=== PATIENT | male | born 1990 | race Caucasian/White ===

== ENCOUNTER 2020-06-13 13:33 | Outpatient (REF) | payer OTHER, SELFPAY ==
[2020-06-13 14:05] LABS: MANUAL DIFF FLAG NO
[2020-06-13 14:09] LABS: Basophils Percent Auto 0.4 % (0-2); Eosinophils Absolute Auto 0.1 X10*3/uL (0.0-0.4); Hematocrit 44.1 % (42-52); Hemoglobin 14.8 g/dl (14.0-18.0); Imm Gran Abs Auto 0.01 X10*3/uL (0.00-0.03); Imm Gran Pct Auto 0.2 % (0.0-0.4); Mean Corpuscular HGB Conc 33.6 g/dl (31.0-36.0); Mean Corpuscular Hemoglobin 29.4 pg (27.0-33.0); Mean Corpuscular Volume 87.7 fL (80-98); Mean Platelet Volume 10.7 fL (9.4-12.4); Monocytes Absolute Auto 0.7 X10*3/uL (0.1-1.2); Monocytes Percent Auto 14.2 % (2-11); Neutrophils Absolute Auto 3.3 X10*3/uL (2.0-8.3); Neutrophils Percent Auto 64.2 % (45-73); Platelet Count 168 X10*3/uL (160-400); Red Blood Count 5.03 X10*6/uL (4.60-5.80); Red Cell Distribution Width 12.4 % (11.0-16.0); White Blood Count 5.1 X10*3/uL (4.8-10.8)
== END 2020-06-13 13:34 | disposition home or self-care (01) ==
LOC: HO.LAB 13:33
PROVIDERS: PCP Internal Medicine; Visit Provider Clinical Nurse Specialist Psychiatric/Mental Health, Adult
DX: Z79.899 Other long term (current) drug therapy (principal)
CPT/HCPCS: 36415; 85025

== ENCOUNTER 2020-07-03 11:47 | Outpatient (REF) | payer OTHER, SELFPAY ==
[2020-07-03 12:44] LABS: MANUAL DIFF FLAG NO
[2020-07-03 12:47] LABS: Basophils Percent Auto 0.3 % (0-2); Eosinophils Absolute Auto 0.1 X10*3/uL (0.0-0.4); Eosinophils Percent Auto 0.8 % (0-4); Hematocrit 46.3 % (42-52); Hemoglobin 15.3 g/dl (14.0-18.0); Imm Gran Abs Auto 0.01 X10*3/uL (0.00-0.03); Imm Gran Pct Auto 0.2 % (0.0-0.4); Lymphocytes Absolute Auto 1.1 X10*3/uL (1.2-4.9); Lymphocytes Percent Auto 18.6 % (20-40); Mean Corpuscular Volume 87.7 fL (80-98); Mean Platelet Volume 10.5 fL (9.4-12.4); Monocytes Absolute Auto 0.8 X10*3/uL (0.1-1.2); Monocytes Percent Auto 13.8 % (2-11); Neutrophils Percent Auto 66.3 % (45-73); Platelet Count 172 X10*3/uL (160-400); Red Blood Count 5.28 X10*6/uL (4.60-5.80); Red Cell Distribution Width 12.4 % (11.0-16.0); White Blood Count 6.1 X10*3/uL (4.8-10.8)
== END 2020-07-03 11:48 | disposition home or self-care (01) ==
LOC: HO.LAB 11:47
PROVIDERS: PCP Internal Medicine; Visit Provider Clinical Nurse Specialist Psychiatric/Mental Health, Adult
DX: Z79.899 Other long term (current) drug therapy (principal)
CPT/HCPCS: 36415; 85025

== ENCOUNTER 2020-08-14 12:07 | Outpatient (REF) | payer OTHER, SELFPAY ==
[2020-08-14 12:48] LABS: MANUAL DIFF FLAG NO
[2020-08-14 12:57] LABS: Basophils Percent Auto 0.5 % (0-2); Eosinophils Absolute Auto 0.1 X10*3/uL (0.0-0.4); Hematocrit 45.6 % (42-52); Hemoglobin 14.8 g/dl (14.0-18.0); Imm Gran Abs Auto 0.02 X10*3/uL (0.00-0.03); Imm Gran Pct Auto 0.3 % (0.0-0.4); Lymphocytes Absolute Auto 1.1 X10*3/uL (1.2-4.9); Lymphocytes Percent Auto 17.6 % (20-40); Mean Corpuscular HGB Conc 32.5 g/dl (31.0-36.0); Mean Corpuscular Hemoglobin 28.2 pg (27.0-33.0); Mean Corpuscular Volume 86.9 fL (80-98); Mean Platelet Volume 10.4 fL (9.4-12.4); Monocytes Absolute Auto 0.8 X10*3/uL (0.1-1.2); Monocytes Percent Auto 13.8 % (2-11); Neutrophils Percent Auto 66.8 % (45-73); Platelet Count 173 X10*3/uL (160-400); Red Blood Count 5.25 X10*6/uL (4.60-5.80); Red Cell Distribution Width 12.7 % (11.0-16.0)
== END 2020-08-14 12:08 | disposition home or self-care (01) ==
LOC: HO.LABR 12:07
PROVIDERS: PCP Internal Medicine; Visit Provider Clinical Nurse Specialist Psychiatric/Mental Health, Adult
DX: Z79.899 Other long term (current) drug therapy (principal)
CPT/HCPCS: 36415; 85025

== ENCOUNTER 2020-09-11 12:54 | Outpatient (REF) | payer OTHER, SELFPAY ==
[2020-09-11 14:15] LABS: Basophils Percent Auto 0.3 % (0-2); Eosinophils Percent Auto 0.3 % (0-4); Hematocrit 47.1 % (42-52); Hemoglobin 15.5 g/dl (14.0-18.0); Imm Gran Abs Auto 0.01 X10*3/uL (0.00-0.03); Imm Gran Pct Auto 0.2 % (0.0-0.4); Lymphocytes Absolute Auto 0.9 X10*3/uL (1.2-4.9); Lymphocytes Percent Auto 15.2 % (20-40); MANUAL DIFF FLAG NO; Mean Corpuscular HGB Conc 32.9 g/dl (31.0-36.0); Mean Corpuscular Hemoglobin 28.8 pg (27.0-33.0); Mean Corpuscular Volume 87.5 fL (80-98); Mean Platelet Volume 10.6 fL (9.4-12.4); Monocytes Absolute Auto 0.7 X10*3/uL (0.1-1.2); Monocytes Percent Auto 12.8 % (2-11); Neut%MD 71.2 %; Neutrophils Absolute Auto 4.1 X10*3/uL (2.0-8.3); Neutrophils Percent Auto 71.2 % (45-73); Platelet Count 172 X10*3/uL (160-400); Red Blood Count 5.38 X10*6/uL (4.60-5.80); Red Cell Distribution Width 12.7 % (11.0-16.0); WBCANC 5.8 X10*3/uL; White Blood Count 5.8 X10*3/uL (4.8-10.8)
== END 2020-09-11 12:55 | disposition home or self-care (01) ==
LOC: HO.LABR 12:54
PROVIDERS: PCP Internal Medicine; Visit Provider Clinical Nurse Specialist Psychiatric/Mental Health, Adult
DX: Z79.899 Other long term (current) drug therapy (principal)
CPT/HCPCS: 36415; 85025; 85048

== ENCOUNTER 2020-10-09 12:26 | Outpatient (REF) | payer OTHER, SELFPAY ==
[2020-10-09 13:21] LABS: MANUAL DIFF FLAG NO
[2020-10-09 13:27] LABS: Basophils Percent Auto 0.9 % (0-2); Eosinophils Percent Auto 0.6 % (0-4); Hematocrit 45.5 % (42-52); Hemoglobin 15.3 g/dl (14.0-18.0); Imm Gran Abs Auto 0.01 X10*3/uL (0.00-0.03); Imm Gran Pct Auto 0.2 % (0.0-0.4); Lymphocytes Absolute Auto 1.2 X10*3/uL (1.2-4.9); Lymphocytes Percent Auto 25.9 % (20-40); Mean Corpuscular HGB Conc 33.6 g/dl (31.0-36.0); Mean Corpuscular Hemoglobin 29.1 pg (27.0-33.0); Mean Corpuscular Volume 86.5 fL (80-98); Mean Platelet Volume 10.3 fL (9.4-12.4); Monocytes Absolute Auto 0.7 X10*3/uL (0.1-1.2); Monocytes Percent Auto 14.5 % (2-11); Neutrophils Absolute Auto 2.7 X10*3/uL (2.0-8.3); Neutrophils Percent Auto 57.9 % (45-73); Platelet Count 181 X10*3/uL (160-400); Red Blood Count 5.26 X10*6/uL (4.60-5.80); Red Cell Distribution Width 12.9 % (11.0-16.0); White Blood Count 4.7 X10*3/uL (4.8-10.8)
[2020-10-14 03:37] LABS: Clozapine (Clozaril) 38 mcg/L; Norclozapine 18 mcg/L (25-400)
== END 2020-10-09 12:27 | disposition home or self-care (01) ==
LOC: HO.LABR 12:26
PROVIDERS: PCP Internal Medicine; Visit Provider Clinical Nurse Specialist Psychiatric/Mental Health, Adult
DX: Z79.899 Other long term (current) drug therapy (principal)
CPT/HCPCS: 36415; 80159; 85025

== ENCOUNTER 2020-11-06 13:54 | Outpatient (REF) | payer OTHER, SELFPAY ==
[2020-11-06 14:22] LABS: MANUAL DIFF FLAG NO
[2020-11-06 14:27] LABS: Basophils Percent Auto 0.5 % (0-2); Eosinophils Absolute Auto 0.1 X10*3/uL (0.0-0.4); Hematocrit 45.4 % (42-52); Hemoglobin 15.2 g/dl (14.0-18.0); Imm Gran Abs Auto 0.01 X10*3/uL (0.00-0.03); Imm Gran Pct Auto 0.2 % (0.0-0.4); Lymphocytes Absolute Auto 1.6 X10*3/uL (1.2-4.9); Lymphocytes Percent Auto 27.7 % (20-40); Mean Corpuscular HGB Conc 33.5 g/dl (31.0-36.0); Mean Corpuscular Hemoglobin 28.6 pg (27.0-33.0); Mean Corpuscular Volume 85.3 fL (80-98); Mean Platelet Volume 10.5 fL (9.4-12.4); Monocytes Absolute Auto 0.7 X10*3/uL (0.1-1.2); Monocytes Percent Auto 12.2 % (2-11); Neut%MD 58.4 %; Neutrophils Absolute Auto 3.4 X10*3/uL (2.0-8.3); Neutrophils Percent Auto 58.4 % (45-73); Platelet Count 158 X10*3/uL (160-400); Red Blood Count 5.32 X10*6/uL (4.60-5.80); Red Cell Distribution Width 12.5 % (11.0-16.0); WBCANC 5.8 X10*3/uL; White Blood Count 5.8 X10*3/uL (4.8-10.8)
== END 2020-11-06 13:55 | disposition home or self-care (01) ==
LOC: HO.LABR 13:54
PROVIDERS: PCP Internal Medicine; Visit Provider Clinical Nurse Specialist Psychiatric/Mental Health, Adult
DX: Z79.899 Other long term (current) drug therapy (principal)
CPT/HCPCS: 36415; 85025; 85048

== ENCOUNTER 2020-12-01 13:23 | Outpatient (REF) | payer OTHER, SELFPAY ==
[2020-12-01 14:09] LABS: MANUAL DIFF FLAG NO
[2020-12-01 14:16] LABS: Basophils Percent Auto 0.5 % (0-2); Eosinophils Absolute Auto 0.1 X10*3/uL (0.0-0.4); Hematocrit 45.8 % (42-52); Hemoglobin 15.3 g/dl (14.0-18.0); Imm Gran Abs Auto 0.02 X10*3/uL (0.00-0.03); Imm Gran Pct Auto 0.3 % (0.0-0.4); Lymphocytes Absolute Auto 1.1 X10*3/uL (1.2-4.9); Lymphocytes Percent Auto 18.2 % (20-40); Mean Corpuscular HGB Conc 33.4 g/dl (31.0-36.0); Mean Corpuscular Hemoglobin 28.8 pg (27.0-33.0); Mean Corpuscular Volume 86.3 fL (80-98); Mean Platelet Volume 10.4 fL (9.4-12.4); Monocytes Absolute Auto 0.8 X10*3/uL (0.1-1.2); Monocytes Percent Auto 13.2 % (2-11); Neut%MD 66.8 %; Neutrophils Absolute Auto 3.9 X10*3/uL (2.0-8.3); Neutrophils Percent Auto 66.8 % (45-73); Platelet Count 199 X10*3/uL (160-400); Red Blood Count 5.31 X10*6/uL (4.60-5.80); Red Cell Distribution Width 12.7 % (11.0-16.0); WBCANC 5.8 X10*3/uL; White Blood Count 5.8 X10*3/uL (4.8-10.8)
== END 2020-12-01 13:24 | disposition home or self-care (01) ==
LOC: HO.LABR 13:23
PROVIDERS: PCP Internal Medicine; Visit Provider Clinical Nurse Specialist Psychiatric/Mental Health, Adult
DX: Z79.899 Other long term (current) drug therapy (principal)
CPT/HCPCS: 36415; 85025; 85048

== ENCOUNTER 2021-01-01 09:22 | Outpatient (REF) | payer OTHER, SELFPAY ==
[2021-01-01 10:23] LABS: MANUAL DIFF FLAG NO
[2021-01-01 10:35] LABS: Basophils Percent Auto 0.5 % (0-2); Eosinophils Absolute Auto 0.1 X10*3/uL (0.0-0.4); Eosinophils Percent Auto 2.9 % (0-4); Hematocrit 46.3 % (42-52); Hemoglobin 15.4 g/dl (14.0-18.0); Imm Gran Abs Auto 0.02 X10*3/uL (0.00-0.03); Imm Gran Pct Auto 0.5 % (0.0-0.4); Lymphocytes Percent Auto 24.6 % (20-40); Mean Corpuscular HGB Conc 33.3 g/dl (31.0-36.0); Mean Corpuscular Hemoglobin 28.9 pg (27.0-33.0); Mean Corpuscular Volume 86.9 fL (80-98); Mean Platelet Volume 11.1 fL (9.4-12.4); Monocytes Absolute Auto 0.7 X10*3/uL (0.1-1.2); Neut%MD 53.5 %; Neutrophils Absolute Auto 2.2 X10*3/uL (2.0-8.3); Neutrophils Percent Auto 53.5 % (45-73); Platelet Count 140 X10*3/uL (160-400); Red Blood Count 5.33 X10*6/uL (4.60-5.80); Red Cell Distribution Width 13.1 % (11.0-16.0); WBCANC 4.1 X10*3/uL; White Blood Count 4.1 X10*3/uL (4.8-10.8)
== END 2021-01-01 09:23 | disposition home or self-care (01) ==
LOC: HO.LABR 09:22
PROVIDERS: PCP Internal Medicine; Visit Provider Clinical Nurse Specialist Psychiatric/Mental Health, Adult
DX: Z79.899 Other long term (current) drug therapy (principal)
CPT/HCPCS: 36415; 85025; 85048

== ENCOUNTER 2021-01-30 11:03 | Outpatient (REF) | payer OTHER, SELFPAY ==
[2021-01-30 12:27] LABS: MANUAL DIFF FLAG NO
[2021-01-30 12:41] LABS: Basophils Percent Auto 0.5 % (0-2); Eosinophils Percent Auto 0.8 % (0-4); Hematocrit 46.4 % (42-52); Hemoglobin 15.4 g/dl (14.0-18.0); Imm Gran Abs Auto 0.01 X10*3/uL (0.00-0.03); Imm Gran Pct Auto 0.3 % (0.0-0.4); Lymphocytes Absolute Auto 0.9 X10*3/uL (1.2-4.9); Lymphocytes Percent Auto 24.3 % (20-40); Mean Corpuscular HGB Conc 33.2 g/dl (31.0-36.0); Mean Corpuscular Hemoglobin 28.8 pg (27.0-33.0); Mean Corpuscular Volume 86.9 fL (80-98); Mean Platelet Volume 10.8 fL (9.4-12.4); Monocytes Absolute Auto 0.6 X10*3/uL (0.1-1.2); Monocytes Percent Auto 15.5 % (2-11); Neut%MD 58.6 %; Neutrophils Absolute Auto 2.2 X10*3/uL (2.0-8.3); Neutrophils Percent Auto 58.6 % (45-73); Platelet Count 160 X10*3/uL (160-400); Red Blood Count 5.34 X10*6/uL (4.60-5.80); Red Cell Distribution Width 12.9 % (11.0-16.0); WBCANC 3.8 X10*3/uL; White Blood Count 3.8 X10*3/uL (4.8-10.8)
== END 2021-01-30 11:04 | disposition home or self-care (01) ==
LOC: HO.LABR 11:03
PROVIDERS: PCP Internal Medicine; Visit Provider Clinical Nurse Specialist Psychiatric/Mental Health, Adult
DX: Z79.899 Other long term (current) drug therapy (principal)
CPT/HCPCS: 36415; 85025; 85048

== ENCOUNTER 2021-02-12 09:08 | Inpatient (IN) | payer OTHER, SELFPAY ==
[2021-02-12 09:54] VITALS: BP 136/86; PULSE 73; TEMP 36.6; O2SAT 99; BMI 23.1
[2021-02-12 10:00] LABS: Glucose Urine UA NEG (NEG); Leukocyte Esterase Urine NEG (NEG); Nitrite Urine NEG (NEG); Urine Blood NEG (NEG); Urine Ketones 5 MG/DL (NEG); Urine Protein NEG (NEG-TRACE)
[2021-02-12 10:05] LABS: Appearance Urine CLEAR; Color Urine YELLOW
[2021-02-12 10:19] LABS: Amphetamine Screen Urine Not Detected (Not Detect); Barbiturates, Urine Not Detected (Not Detect); Benzodiazepines Screen Urine Not Detected (Not Detect); Cannabinoid Screen Urine Not Detected (Not Detect); Cocaine Screen Urine Not Detected (Not Detect); Opiate Screen Urine Not Detected (Not Detect); Phencyclidine Screen Urine Not Detected (Not Detect)
--- NOTE | 2021-02-12 10:30 | ED.PSYCH ---
HPI - Psych General Chief Complaint: Psychiatric Symptoms Stated Complaint: crisis Time Seen by Provider: 02/12/21 09:42 Source: patient Mode of arrival: ambulatory History of Present Illness HPI Narrative: 30-year-old male with a past medical history of schizoaffective disorder, bipolar, presenting to the ED reporting he needs rest/somewhere to sleep x2 weeks. Admits to feeling manic, however states he is compliant with his medications daily. Denies SI/HI. Denies illicit drug/ETOH use. Denies cough, fever, chills, CP/SOB, abdominal pain, nausea/vomiting Related Data Home Medications Medication Instructions Recorded Confirmed benztropine 1 mg PO BEDTIME 02/12/21 02/12/21 clozapine 50 mg PO BEDTIME 02/12/21 02/12/21 clozapine 100 mg PO BEDTIME 02/12/21 02/12/21 divalproex 250 mg PO BID 02/12/21 02/12/21 divalproex 500 mg PO BID 02/12/21 02/12/21 haloperidol 2.5 mg PO BID 02/12/21 02/12/21 lithium carbonate 150 mg PO DAILY 02/12/21 02/12/21 lithium carbonate 900 mg PO BEDTIME 02/12/21 02/12/21 multivitamin with folic acid 1 tab PO DAILY 02/12/21 02/12/21 [Tab-A-Daniel] vitamin E (dl, acetate) 400 unit PO DAILY 02/12/21 02/12/21 Allergies Allergy/AdvReac Type Severity Reaction Status Date / Time penicillin G [Penicillin G] Allergy Mild HIVES Unverified 05/18/20 17:28 amoxicillin [Amoxicillin] Allergy Unknown HIVES Unverified 05/18/20 17:28 penicillin V Allergy Unknown hives Verified 04/28/20 00:00 Review of Systems Review of Systems: Constitutional: No Fever, No Chills, No Fatigue, No Malaise Cardiovascular: No Chest Pain, No SOB Respiratory: No Cough, No Dyspnea Gastrointestinal: No Nausea, No Vomiting, No Diarrhea, No Abdominal pain Genitourinary: No irregular bleeding, No Dysuria, No Urinary Frequency, No Hematuria, No Flank Pain Musculoskeletal: No joint pain, No Myalgias, No Joint Swelling Skin: No Skin Lesions, No rash Neuro: No Weakness, No Numbness, No Headache Psych: +Manic, No Depression, No SI/HI, No Social Issues Yes all other systems are reviewed and are negative [facility] Past Medical History Attestation statement: The following information was validated with the patient. Social History Social History Alcohol intake: never Patient Tobacco Use Status: Never used Tobacco Use of substances other than those prescribed or required for medical reasons: No Advance Directives: Yes Advance Directives Information Provided: Yes Advance Directives on File: No Guardian: Yes Physical Exam Vital Signs: Vital Signs: Last Vital Signs Temp 97.9 F 02/12/21 09:54 Pulse 92 02/12/21 15:42 Resp 20 02/12/21 13:56 BP 127/84 02/12/21 15:42 Pulse Ox 97 02/12/21 15:42 Body Mass Index 23.1 Const: General: cooperative, healthy appearing, no acute distress, alert and awake Orientation/consciousness: patient oriented x3 HENMT: Head: Yes normal to inspection Ears: hearing grossly normal bilaterally General nose exam: Normal external nose present Face and sinus: Yes normal facial exam Eyes: General: appearance normal, both eyes and all related structures EOM: EOMs intact bilaterally Neck: Neck: Yes normal visual inspection and Yes no meningeal signs Resp: Effort & Inspection: normal respiratory effort Auscultation: clear to auscultation bilaterally, no rales, no rhonchi and no wheezes Cardio: Rate: regular rate Heart sounds: S1 normal heart sound present and S2 normal heart sound present GI: Inspection: Yes normal to inspection Skin: Rashes: no rashes Wounds: no wounds Neuro: General: patient oriented x3, tone normal, moves all extremities and no meningeal signs Gait exam (Neuro): Normal gait present Extrem: General: Yes normal to inspection Psych: Speech and movement: Pressured speech present Attitude: cooperative Thought process: Loose association thought process present and Racing thoughts present Thought content: suicidality and no homicidality Insight: Limited insight present (Psych) Course Course Course Narrative: -labs unremarkable, valproic acid and lithium WNL -1400--Physician observation initiated at 2:00 p.m., patient needs more time to be evaluated by N -1707--ED care transferred to [facility] pending bed search MDM - Psych MDM Narrative Medical decision making narrative: 30-year-old male with a past medical history of schizoaffective disorder, bipolar, presenting to the ED reporting he needs rest/somewhere to sleep x2 weeks. Admits to feeling manic, however states he is compliant with his medications daily. On exam VSS, and AD, speech pressured, appears manic, cooperative. Concern for manic episode. Patient is well-known to this facility, reports he is compliant with medications Plan: Drug screen, crisis consult Medical Records Attestation: I reviewed the patient's medical records. Lab Data Attestation: I reviewed the patient's lab results. Result diagrams: 02/12/21 12:23 02/12/21 12:22 Labs: Lab Results 02/12/21 02/12/21 02/12/21 Range/Units 09:50 09:50 12:22 WBC (4.8-10.8) X10*3/uL RBC (4.60-5.80) X10*6/uL Hgb (14.0-18.0) g/dl Hct (42-52) % MCV (80-98) fL MCH (27.0-33.0) pg MCHC (31.0-36.0) g/dl RDW (11.0-16.0) % Plt Count (160-400) X10*3/uL MPV (9.4-12.4) fL Immature Gran % (Auto) (0.0-0.4) % Neut % (Auto) (45-73) % Lymph % (Auto) (20-40) % [place] % (Auto) (2-11) % Eos % (Auto) (0-4) % Baso % (Auto) (0-2) % Lymph # (Auto) (1.2-4.9) X10*3/uL [place] # (Auto) (0.1-1.2) X10*3/uL Eos # (Auto) (0.0-0.4) X10*3/uL Baso # (Auto) (0.0-0.2) X10*3/uL Abs Immat Gran (auto) (0.00-0.03) X10*3/uL Absolute Neuts (auto) (2.0-8.3) X10*3/uL Absolute Nucleated RBC (0.0-0.012) X10*3/uL Nucleated RBC % (auto) (0.0-0.2) /100WBC Sodium 142 (135-145) mmol/L Potassium 4.2 (3.3-5.1) mmol/L Chloride 106 (96-108) mmol/L Carbon Dioxide 29 (22-29) mmol/L Anion Gap 11 L (12-20) BUN 22 H (9-16) mg/dL Creatinine 0.94 (0.5-1.4) mg/dL Estim Creat Clear Calc 131.4 Estimated GFR > 60 Random Glucose 81 (60-115) mg/dL Calcium 9.8 (8.4-10.2) mg/dL Total Bilirubin 0.7 (0.0-1.0) mg/dL Direct Bilirubin 0.3 (0.0-0.5) mg/dL AST 34 (5-37) U/L ALT 26 (0-40) U/L Alkaline Phosphatase 68 (39-117) U/L Total Protein 7.2 (6.5-8.0) g/dL Albumin 4.7 (3.5-5.0) g/dL Urine Color YELLOW Urine Appearance CLEAR Urine pH 6.0 (5.0-8.0) Ur Specific [place] 1.010 (1.005-1.025) Urine Protein NEG (NEG-TRACE) MG/DL Urine Glucose (UA) NEG (NEG) MG/DL Urine Ketones 5 (NEG) MG/DL Urine Blood NEG (NEG) Urine Nitrite NEG (NEG) Ur Leukocyte Esterase NEG (NEG) Urine Opiates Screen Not Detected (Not Detect) Ur Barbiturates Screen Not Detected (Not Detect) Valproic Acid 73.6 (50.0-100.0) mcg/mL Ur Phencyclidine Scrn Not Detected (Not Detect) Ur Amphetamines Screen Not Detected (Not Detect) U Benzodiazepines Scrn Not Detected (Not Detect) [place] (0.60-1.20) mmol/L Urine Cocaine Screen Not Detected (Not Detect) U Marijuana (THC) Screen Not Detected (Not Detect) COVID-19 (TANGELA) (Negative) COVID-19 Clin Com 02/12/21 02/12/21 02/12/21 Range/Units 12:23 12:23 14:27 WBC 5.8 (4.8-10.8) X10*3/uL RBC 5.36 (4.60-5.80) X10*6/uL Hgb 15.5 (14.0-18.0) g/dl Hct 46.2 (42-52) % MCV 86.2 (80-98) fL MCH 28.9 (27.0-33.0) pg MCHC 33.5 (31.0-36.0) g/dl RDW 12.7 (11.0-16.0) % Plt Count 159 L (160-400) X10*3/uL MPV 10.3 (9.4-12.4) fL Immature Gran % (Auto) 0.2 (0.0-0.4) % Neut % (Auto) 64.5 (45-73) % Lymph % (Auto) 20.5 (20-40) % [place] % (Auto) 12.9 H (2-11) % Eos % (Auto) 1.4 (0-4) % Baso % (Auto) 0.5 (0-2) % Lymph # (Auto) 1.2 (1.2-4.9) X10*3/uL [place] # (Auto) 0.7 (0.1-1.2) X10*3/uL Eos # (Auto) 0.1 (0.0-0.4) X10*3/uL Baso # (Auto) 0.0 (0.0-0.2) X10*3/uL Abs Immat Gran (auto) 0.01 (0.00-0.03) X10*3/uL Absolute Neuts (auto) 3.7 (2.0-8.3) X10*3/uL Absolute Nucleated RBC 0.000 (0.0-0.012) X10*3/uL Nucleated RBC % (auto) 0.0 (0.0-0.2) /100WBC Sodium (135-145) mmol/L Potassium (3.3-5.1) mmol/L Chloride (96-108) mmol/L Carbon Dioxide (22-29) mmol/L Anion Gap (12-20) BUN (9-16) mg/dL Creatinine (0.5-1.4) mg/dL Estim Creat Clear Calc Estimated GFR Random Glucose (60-115) mg/dL Calcium (8.4-10.2) mg/dL Total Bilirubin (0.0-1.0) mg/dL Direct Bilirubin (0.0-0.5) mg/dL AST (5-37) U/L ALT (0-40) U/L Alkaline Phosphatase (39-117) U/L Total Protein (6.5-8.0) g/dL Albumin (3.5-5.0) g/dL Urine Color Urine Appearance Urine pH (5.0-8.0) Ur Specific [place] (1.005-1.025) Urine Protein (NEG-TRACE) MG/DL Urine Glucose (UA) (NEG) MG/DL Urine Ketones (NEG) MG/DL Urine Blood (NEG) Urine Nitrite (NEG) Ur Leukocyte Esterase (NEG) Urine Opiates Screen (Not Detect) Ur Barbiturates Screen (Not Detect) Valproic Acid (50.0-100.0) mcg/mL Ur Phencyclidine Scrn (Not Detect) Ur Amphetamines Screen (Not Detect) U Benzodiazepines Scrn (Not Detect) [place] 0.62 (0.60-1.20) mmol/L Urine Cocaine Screen (Not Detect) U Marijuana (THC) Screen (Not Detect) COVID-19 (TANGELA) Negative (Negative) COVID-19 Clin Com See Note Discharge Plan Discharge Clinical Impression: Bipolar disorder Qualifiers: Active/Remission status: currently active Current bipolar episode type: manic Psychotic features: without psychotic features Prescriptions: No Action haloperidol 5 mg tablet 2.5 mg PO BID RF: 0 clozapine 100 mg tablet 100 mg PO BEDTIME RF: 0 lithium carbonate 300 mg tablet extended release 900 mg PO BEDTIME RF: 0 lithium carbonate 150 mg capsule 150 mg PO DAILY RF: 0 divalproex 500 mg tablet extended release 24 hr 500 mg PO BID RF: 0 benztropine 1 mg tablet 1 mg PO BEDTIME RF: 0 clozapine 25 mg tablet 50 mg PO BEDTIME RF: 0 divalproex 250 mg tablet extended release 24 hr 250 mg PO BID RF: 0 vitamin E (dl, acetate) 400 unit capsule 400 unit PO DAILY RF: 0 multivitamin with folic acid [Tab-A-Daniel] 400 mcg tablet 1 tab PO DAILY RF: 0
[2021-02-12 12:28] LABS: MANUAL DIFF FLAG NO
[2021-02-12 12:31] LABS: Basophils Percent Auto 0.5 % (0-2); Eosinophils Absolute Auto 0.1 X10*3/uL (0.0-0.4); Eosinophils Percent Auto 1.4 % (0-4); Hematocrit 46.2 % (42-52); Hemoglobin 15.5 g/dl (14.0-18.0); Imm Gran Abs Auto 0.01 X10*3/uL (0.00-0.03); Imm Gran Pct Auto 0.2 % (0.0-0.4); Lymphocytes Absolute Auto 1.2 X10*3/uL (1.2-4.9); Lymphocytes Percent Auto 20.5 % (20-40); Mean Corpuscular HGB Conc 33.5 g/dl (31.0-36.0); Mean Corpuscular Hemoglobin 28.9 pg (27.0-33.0); Mean Corpuscular Volume 86.2 fL (80-98); Mean Platelet Volume 10.3 fL (9.4-12.4); Monocytes Absolute Auto 0.7 X10*3/uL (0.1-1.2); Monocytes Percent Auto 12.9 % (2-11); Neutrophils Absolute Auto 3.7 X10*3/uL (2.0-8.3); Neutrophils Percent Auto 64.5 % (45-73); Platelet Count 159 X10*3/uL (160-400); Red Blood Count 5.36 X10*6/uL (4.60-5.80); Red Cell Distribution Width 12.7 % (11.0-16.0); White Blood Count 5.8 X10*3/uL (4.8-10.8)
[2021-02-12 12:44] LABS: Lithium 0.62 mmol/L (0.60-1.20)
[2021-02-12 12:53] LABS: Alanine Aminotransferase 26 U/L (0-40); Albumin Level 4.7 g/dL (3.5-5.0); Alkaline Phosphatase 68 U/L (39-117); Anion Gap 11 (12-20); Aspartate Amino Transferase 34 U/L (5-37); Bilirubin Direct 0.3 mg/dL (0.0-0.5); Bilirubin Total 0.7 mg/dL (0.0-1.0); Blood Urea Nitrogen 22 mg/dL (9-16); Calcium 9.8 mg/dL (8.4-10.2); Carbon Dioxide 29 mmol/L (22-29); Chloride 106 mmol/L (96-108); Creatinine Clr Calc Pharmacy 131.4; Estimated Glomerular Filt Rate > 60; Glucose Random 81 mg/dL (60-115); Potassium 4.2 mmol/L (3.3-5.1); Sodium 142 mmol/L (135-145); Total Protein 7.2 g/dL (6.5-8.0)
[2021-02-12 13:02] LABS: Valproate 73.6 mcg/mL (50.0-100.0)
--- NOTE | 2021-02-12 13:32 | MHC.CARE ---
Patient was assessed by CARE Team, likely disposition inpatient psychiatric treatment based on his extensive history. Waiting for call back from collaterals to gather additional information.
[2021-02-12 13:56] VITALS: RESP 20
[2021-02-12 14:52] LABS: COVID-19 Test Negative (Negative)
[2021-02-12 15:42] VITALS: BP 127/84; PULSE 92; O2SAT 97
--- NOTE | 2021-02-12 16:12 | PC.NURSE ---
pt pre-accepted to [facility] for tomorrow (02/13) per Juliane DUVALL
[2021-02-12 18:48] VITALS: RESP 20
[2021-02-12 21:10] VITALS: BP 121/82; PULSE 66; RESP 17; TEMP 37; O2SAT 98
[2021-02-12] MEDS: Divalproex Sodium ER 500 MG TAB.ER.24H PO (21:22)
[2021-02-12] MEDS: Benztropine Mesylate 1 MG TABLET PO (21:22)
[2021-02-12] MEDS: Lithium Carbonate ER 450 MG TABLET.ER 900 MG PO (21:22)
[2021-02-12] MEDS: cloZAPine 100 MG TABLET PO (21:44)
[2021-02-12] MEDS: Divalproex Sodium ER 250 MG TAB.ER.24H PO (21:45)
[2021-02-12] MEDS: cloZAPine 25 MG TABLET 50 MG PO (21:47)
--- NOTE | 2021-02-13 | ECG_ITS ---
Test Reason : MEDCLEARANCE Blood Pressure : / mmHG Vent. Rate : 059 BPM Atrial Rate : 059 BPM P-R Int : 160 ms QRS Dur : 086 ms QT Int : 394 ms P-R-T Axes : 061 034 051 degrees QTc Int : 390 ms Sinus bradycardia Nonspecific T wave abnormality Borderline ECG When compared with ECG of 21-MAR-2020 08:51, T wave inversion now evident in Anterior leads Referred By: Karen Carrillo Electronically Signed By:FADIA SANDHU
[2021-02-13 04:38] VITALS: BP 122/80; PULSE 96; RESP 17; TEMP 36.4; O2SAT 97
[2021-02-13] MEDS: HaloperidoL 5 MG TABLET 2.5 MG PO (09:08)
[2021-02-13] MEDS: Multivitamin TABLET 1 TAB PO (09:08)
[2021-02-13] MEDS: Lithium Carbonate 300 MG TABLET 150 MG PO (09:08)
[2021-02-13] MEDS: Divalproex Sodium ER 500 MG TAB.ER.24H PO ×2 (09:08→21:58)
[2021-02-13] MEDS: Divalproex Sodium ER 250 MG TAB.ER.24H PO ×2 (09:28→21:58)
[2021-02-13] MEDS: Vitamin E (Dl,Tocopheryl Acet) 180 MG (400 UNIT) CAPSULE PO (09:28)
--- NOTE | 2021-02-13 09:45 | PC.NURSE ---
Patient pacing throughout pod since this RN took over care at 0700. Verbally expressive and inappropriate at times to staff. Morning medications given and taken without complaint. Patient currently is sectioned with plan to go to M3 or M5 today- at this time there is not a specific time for when this will occur. Patient is aware of the plan and is agreeable at this time.
--- NOTE | 2021-02-13 11:27 | PC.NURSE ---
Patient continues to pace around the pod, short tempered at times with his answers and/or conversations with staff. Patient took his morning medications with no difficulty but continues to make verbally aggressive statements at times consisting of swearing and underlying threatening tones. Patient not able to be redirected despite multiple attempts and suggestions by staff for the patient to sit down, lay down, allow staff to work, etc. Patient continues to pace at this time occasionally making aggressive statements that are not directed towards anyone particularly.
--- NOTE | 2021-02-13 12:46 | P.CNPS_ITS ---
History of Present Illness Date of Service: 02/13/2021 Chief Complaint: Shanda Reason for Consult: medication assessment Discussed with referring provider: Yes Sources of Information: patient interviewed, chart reviewed and crisis/core team assessment reviewed HPI Narrative: Mr. Henderson is a 30 year-old male with hx of Bipolar Disorder versus Schizoaffective Disorder who was brought to [facility] ED by parents as he was manic. Today, pt with no shirt, pacing, somewhat guarded when this proposal manager writer approached him stating I only talk with people who earn my respect. Somewhat intimidating at first, coming too close without awareness of physical space. He later reported he would talk with this proposal manager writer as you passed the test. Pt reports that he came to hospital at request of his father who told him you're manic. He reports that he is in agreement with father observation, although seems to minimize his symptoms. He reports he has basically experienced racing thoughts and states I just need rest. When asked about visual or auditory hallucinations, he states never. He asks this proposal manager writer to walk with him. He goes on about the pillar of life. He talks about the importance is health and e xercising. At some point he abruptly asked this proposal manager writer to stop talking with him and dismissed any further questions. He appeared thought blocking. He denied suicidal or homicidal ideation. Collateral information gathered from his OP psychiatric provider Tim Bryant who reports he saw pt last week and was fairly stable. Tim had concerns in terms of pt taking clozaril consistently. Per care team report, parents had reported that Martínez was not sleeping, hyperverbal, mandaeism preoccupations. Past Psychiatric History: Inpatient: multiple in the past, unclear last one OP: N Tim Bryant Suicide attempts: none Past medication trials: olanzapine, lithium, depakote, haldol, clozaril Medical Evaluation Reviewed: Yes CBC with diff- show chronic monocytosis (12.9%), neutrophils wnl, WBC wnl; Plt low 159. CMP- slightly elevated BUN (22), without elevation of Creatinine level nor decrease GFR. Review of Systems Cardiovascular: Denies chest pain, Denies Epigastric Pain, Denies rapid heart rate, Denies lightheadedness and Denies dyspnea Respiratory: Denies dyspnea Gastrointestinal: Denies constipation, Denies heartburn and Denies diarrhea Musculoskeletal: Denies back pain, Denies myalgias, Denies atrophy and Denies loss of height Diagnostics Vital Signs (24Hr): Vital Signs - 24 hr 02/12/21 13:56 02/12/21 15:42 02/12/21 18:48 Temperature Pulse Rate 92 Respiratory Rate 20 20 Blood Pressure 127/84 Pulse Oximetry 97 02/12/21 21:10 02/13/21 04:38 Temperature 98.6 F 97.6 F Pulse Rate 66 96 Respiratory Rate 17 17 Blood Pressure 121/82 122/80 Pulse Oximetry 98 97 Body Mass Index 23.1 Labs Results: 02/12/21 12:23 02/12/21 12:22 Labs: Laboratory Results - last 48 hr 02/12/21 02/12/21 02/12/21 09:50 09:50 12:22 WBC RBC Hgb Hct MCV MCH MCHC RDW Plt Count MPV Immature Gran % (Auto) Neut % (Auto) Lymph % (Auto) Door % (Auto) Eos % (Auto) Baso % (Auto) Lymph # (Auto) Door # (Auto) Eos # (Auto) Baso # (Auto) Abs Immat Gran (auto) Absolute Neuts (auto) Absolute Nucleated RBC Nucleated RBC % (auto) Sodium 142 Potassium 4.2 Chloride 106 Carbon Dioxide 29 Anion Gap 11 L BUN 22 H Creatinine 0.94 Estim Creat Clear Calc 131.4 Estimated GFR > 60 Random Glucose 81 Calcium 9.8 Total Bilirubin 0.7 Direct Bilirubin 0.3 AST 34 ALT 26 Alkaline Phosphatase 68 Total Protein 7.2 Albumin 4.7 Urine Color YELLOW Urine Appearance CLEAR Urine pH 6.0 Ur Specific [place] 1.010 Urine Protein NEG Urine Glucose (UA) NEG Urine Ketones 5 Urine Blood NEG Urine Nitrite NEG Ur Leukocyte Esterase NEG Urine Opiates Screen Not Detected Ur Barbiturates Screen Not Detected Valproic Acid 73.6 Ur Phencyclidine Scrn Not Detected Ur Amphetamines Screen Not Detected U Benzodiazepines Scrn Not Detected Belva Urine Cocaine Screen Not Detected U Marijuana (THC) Screen Not Detected COVID-19 (TANGELA) COVID-19 Clin Com 02/12/21 02/12/21 02/12/21 12:23 12:23 14:27 WBC 5.8 RBC 5.36 Hgb 15.5 Hct 46.2 MCV 86.2 MCH 28.9 MCHC 33.5 RDW 12.7 Plt Count 159 L MPV 10.3 Immature Gran % (Auto) 0.2 Neut % (Auto) 64.5 Lymph % (Auto) 20.5 Door % (Auto) 12.9 H Eos % (Auto) 1.4 Baso % (Auto) 0.5 Lymph # (Auto) 1.2 Door # (Auto) 0.7 Eos # (Auto) 0.1 Baso # (Auto) 0.0 Abs Immat Gran (auto) 0.01 Absolute Neuts (auto) 3.7 Absolute Nucleated RBC 0.000 Nucleated RBC % (auto) 0.0 Sodium Potassium Chloride Carbon Dioxide Anion Gap BUN Creatinine Estim Creat Clear Calc Estimated GFR Random Glucose Calcium Total Bilirubin Direct Bilirubin AST ALT Alkaline Phosphatase Total Protein Albumin Urine Color Urine Appearance Urine pH Ur Specific [place] Urine Protein Urine Glucose (UA) Urine Ketones Urine Blood Urine Nitrite Ur Leukocyte Esterase Urine Opiates Screen Ur Barbiturates Screen Valproic Acid Ur Phencyclidine Scrn Ur Amphetamines Screen U Benzodiazepines Scrn Belva 0.62 Urine Cocaine Screen U Marijuana (THC) Screen COVID-19 (TANGELA) Negative COVID-19 Clin Com See Note Mental Status Exam Mental Status Exam Narrative: Appearance: topless, wearing hospital pants, pacing Behavior: guarded, somewhat irritable Psychomotor: restless, pacing Speech: clear, at times slowed response rate (? thought blocking), regular rate, spontaneous TP: tangential TC: preoccupied with pillars of life and other existential questions Mood: okay Affect:expansive, irritable and suspicious at times SI:denies HI:denies AH/VH:appears responding to internal stimuli. Delusions: Insight/judgment:impaired x 2. Memory/cog: alert, oriented x 3. impaired secondary to psychiatric symptoms. Medications Medications Current Medications Generic Name Dose Route Start Last Admin Trade Name Osielq PRN Reason Stop Dose Admin Benztropine Mesylate 1 mg 02/12/21 21:00 02/12/21 21:22 Benztropine Mesylate 1 Mg Tablet PO 1 mg BEDTIME ALEXIA Administration Clozapine 50 mg 02/12/21 21:00 02/12/21 21:47 Clozapine 25 Mg Tablet PO 50 mg BEDTIME ALEXIA Administration Clozapine 100 mg 02/12/21 21:00 02/12/21 21:44 Clozapine 100 Mg Tablet PO 100 mg BEDTIME ALEXIA Administration Divalproex Sodium 250 mg 02/12/21 21:00 02/13/21 09:28 Divalproex Sodium Er 250 Mg Tab.Er.24h PO 250 mg BID ALEXIA Administration Divalproex Sodium 500 mg 02/12/21 21:00 02/13/21 09:08 Divalproex Sodium Er 500 Mg Tab.Er.24h PO 500 mg BID ALEXIA Administration Haloperidol 2.5 mg 02/13/21 09:00 02/13/21 09:08 Haloperidol 5 Mg Tablet PO 2.5 mg BID ALEXIA Administration Belva Carbonate 150 mg 02/13/21 09:00 02/13/21 09:08 Belva Carbonate 300 Mg Tablet PO 150 mg DAILY ALEXIA Administration Belva Carbonate 900 mg 02/12/21 21:00 02/12/21 21:22 Belva Carbonate Er 450 Mg Tablet.Er PO 900 mg BEDTIME ALEXIA Administration Multivitamins/Vitamin C 1 tab 02/13/21 09:00 02/13/21 09:08 Multivitamin Tablet PO 1 tab DAILY ALEXIA Administration Pharmacy Consult 1 each 02/12/21 14:02 Consult Rx Perform Med Rec MISCELLANE ONCE PRN Consult order Vitamin E 180 mg 02/13/21 09:00 02/13/21 09:28 Vitamin E (Dl,Tocopheryl Acet) 180 Mg (400 Unit) Capsule PO 180 mg DAILY ALEXIA Administration Allergies Allergies Allergy/AdvReac Type Severity Reaction Status Date / Time penicillin G [Penicillin G] Allergy Mild HIVES Verified 02/12/21 21:22 amoxicillin [Amoxicillin] Allergy Unknown HIVES Verified 02/12/21 21:22 penicillin V Allergy Unknown hives Verified 02/12/21 21:22 Assessment & Plan Assessment & Plan (1) Bipolar affective, manic, severe w/ psych: Status: Acute Code(s): F31.2 - Bipolar disorder, current episode manic severe with psychotic features Recommendations: 1. Order EKG- given current medications 2. Contiune Depakote at current dose, will check trough levels in morning along with ammonia 3. Continue Belva- will check trough levels in morning as well as TSH 4. Continue Clozaril- may have to verify with family if in fact taking as prescribed. 5. Increase Haldol to 5mg po BID, PRN Haldol 5mg po q6hrs, prn agitation with ativan 2mg po q6hrs. Pending EKG, monitor EKG/Qtc prongation, maintain Mg>2; K>4 Greater than 50% of the session was spent on counseling and/or coordination of care
--- NOTE | 2021-02-13 12:54 | PC.NURSE ---
Patient ambulating throughout pod with flat affect occasionally making statements outloud regarding staff lying and other passive aggressive comments that are not directed particularly towards anyone. Per CARE team the patient is going to be going to [facility] but they are waiting for his court appointed guardian. Patient aware of the plan, continues pacing back and forth at this time with very on edge behaviors.
--- NOTE | 2021-02-13 15:13 | PC.NURSE ---
EKG obtained per order. Patient cooperative during exam.
--- NOTE | 2021-02-13 15:35 | PC.NURSE ---
Report given to the Nurse on [facility]- patient continues to pace back and forth. Agreeable to admission and will be transported by RN and security soon.
[2021-02-13 17:59] VITALS: BMI 27.2
[2021-02-13 18:00] VITALS: BP 118/65; BP 123/32; PULSE 53; PULSE 65; RESP 16; TEMP 36.4; TEMP 36.8; O2SAT 100; O2SAT 97
--- NOTE | 2021-02-13 19:43 | PC.ADMIT ---
Nursing admission note: 30 year male DX: Schizoaffective disorder, bipolar type. A + O x3, referred for admission by CARE team. Signed conditional voluntary. Patient has guardian and Romo Order, [facility] case management. Easily engaged, expansive, although delays in thought. Disorganized, easily distracted, tangential, flight of ideas, grandiose. Repetitive with responses, cooperative with admission process. Denies A/V hallucinations, jehovah's witness preoccupation. History of paranoia. Reports he is here for 2 weeks of rest . Per crisis eval patient self presented to ED on 02/12/21 because he needed rest . Denies sleep or appetite disturbances however later states he has not been sleeping well. Reports medication compliance. UTOX negative. Reports drinking unknown quantity of alcohol for the last month . Medical history of Lyme disease, allergy to Amoxicillin, PCN. COVID negative. History of multiple hospitalizations. Oriented to unit, signed HIRO and legal paperwork. Placed on 15 minute checks. Reports feeling safe on unit. See crisis eval/nursing assessment for complete details.
[2021-02-13] MEDS: HaloperidoL 5 MG TABLET PO (21:58)
[2021-02-13] MEDS: cloZAPine 25 MG TABLET 50 MG PO (21:58)
[2021-02-13] MEDS: cloZAPine 100 MG TABLET PO (21:58)
[2021-02-13] MEDS: Lithium Carbonate ER 450 MG TABLET.ER 900 MG PO (21:58)
[2021-02-13] MEDS: Benztropine Mesylate 1 MG TABLET PO (22:01)
[2021-02-14] MEDS: hydrOXYzine HCL 25 MG TABLET PO (00:42)
[2021-02-14] MEDS: traZODone HCL 50 MG TABLET PO (00:42)
[2021-02-14 06:00] VITALS: BP 110/71; PULSE 101; TEMP 36.8; O2SAT 96
[2021-02-14 07:18] LABS: Lithium 0.91 mmol/L (0.60-1.20)
[2021-02-14 07:20] LABS: Estimated Average Glucose 91 mg/dL; Hemoglobin A1c % 4.8 %
[2021-02-14 07:25] LABS: Cholesterol 149 mg/dL; HDL Cholesterol 65 mg/dL; LDL Cholesterol Calculated 61 mg/dl; Triglycerides 115 mg/dL
[2021-02-14 07:45] LABS: Thyroid Stimulating Hormone 3.58 uIU/mL (0.32-4.0)
[2021-02-14 07:49] LABS: Valproate 52.3 mcg/mL (50.0-100.0)
[2021-02-14] MEDS: Divalproex Sodium ER 250 MG TAB.ER.24H PO ×2 (08:36→22:22)
[2021-02-14] MEDS: Multivitamin TABLET 1 TAB PO (08:36)
[2021-02-14] MEDS: Lithium Carbonate 300 MG TABLET 150 MG PO (08:37)
[2021-02-14] MEDS: Divalproex Sodium ER 500 MG TAB.ER.24H PO ×2 (08:37→22:21)
[2021-02-14] MEDS: HaloperidoL 5 MG TABLET PO (08:37)
[2021-02-14] MEDS: Vitamin E (Dl,Tocopheryl Acet) 180 MG (400 UNIT) CAPSULE PO (08:37)
[2021-02-14 08:55] LABS: Folate 13.6 ng/mL (> or = 4.0); Vitamin B12 633 pg/mL (200-900)
--- NOTE | 2021-02-14 11:29 | HO.PSYADMNOT ---
HPI Chief Complaint: Ashlyn Sources of Information: patient interviewed, chart reviewed and crisis/core team assessment reviewed HPI Subjective Notes: Romo Order and Conditional Voluntary Guardianship: Yes Medical Problems Affecting Mental Status: No Narrative: pt self-presented to the hospital requesting admission for rest for a couple of weeks. he reports his father told him he was getting manic and needed some help. he identified poor sleep, mind racing and being hyperverbal as signs of his ashlyn. he felt coming into the hospital would help him sleep better and edel his ashlyn. he informs MD he was in the ED for 2 nights, each of which he slept 8 hours (had been sleeping 5 or fewer [employer]). in addition, he states he slept the same amount of time last night on M3 (per nursing report he was said to have slept about 5 hours). he is feeling very good about the restful sleep he has gotten since coming into the hospital. he also feels his mind has slowed down substantially since admission and that his hyperverbosity is so-so. on being asked about his drinking, he reports he has been drinking 5 days per week, about 2 beers on each occasion (per RN report, pt had indicated he had been drinking 2-10 beers daily for the month [employer] and has not reported any symptoms concerning for alcohol withdrawal since admission). he is requesting his medication doses be returned to what they were [employer] REPA[employer] (haldol was increased from 2.5 mg BID to 5 mg BID in the past 24H). per nursing report, pt slept 4-5 hours overnight and has been med-compliant and intrusive. described as grandiose but pleasant. Past Psychiatric History: Inpatient: multiple in the past, unclear last one OP: [facility] Suicide attempts: none Past medication trials: olanzapine, lithium, depakote, haldol, clozaril Medical Evaluation Reviewed: Yes [facility] Social History: single, never , lives in an apartment, supported by [facility], has a guardian. Substance History: alcohol Diagnostics Vital Signs (24Hr): Vital Signs - 24 hr 02/13/21 18:00 02/14/21 06:00 Temperature 97.6 F 98.3 F Pulse Rate 53 101 H Respiratory Rate 16 Blood Pressure 118/65 110/71 Pulse Oximetry 97 96 Body Mass Index 27.2 Labs Results: 02/12/21 12:23 02/12/21 12:22 Labs: Laboratory Results - last 48 hr 02/12/21 02/12/21 02/12/21 12:22 12:23 12:23 WBC 5.8 RBC 5.36 Hgb 15.5 Hct 46.2 MCV 86.2 MCH 28.9 MCHC 33.5 RDW 12.7 Plt Count 159 L MPV 10.3 Immature Gran % (Auto) 0.2 Neut % (Auto) 64.5 Lymph % (Auto) 20.5 [place] % (Auto) 12.9 H Eos % (Auto) 1.4 Baso % (Auto) 0.5 Lymph # (Auto) 1.2 [place] # (Auto) 0.7 Eos # (Auto) 0.1 Baso # (Auto) 0.0 Abs Immat Gran (auto) 0.01 Absolute Neuts (auto) 3.7 Absolute Nucleated RBC 0.000 Nucleated RBC % (auto) 0.0 Sodium 142 Potassium 4.2 Chloride 106 Carbon Dioxide 29 Anion Gap 11 L BUN 22 H Creatinine 0.94 Estim Creat Clear Calc 131.4 Estimated GFR > 60 Random Glucose 81 Estimat Average Glucose Hemoglobin A1c % Calcium 9.8 Total Bilirubin 0.7 Direct Bilirubin 0.3 AST 34 ALT 26 Alkaline Phosphatase 68 Total Protein 7.2 Albumin 4.7 Triglycerides Cholesterol LDL Cholesterol, Calc HDL Cholesterol Vitamin B12 Folate TSH Valproic Acid 73.6 [place] 0.62 COVID-19 ([facility]) COVID-[employer] [employer] Com 02/12/21 02/14/21 02/14/21 14:27 06:19 06:19 WBC RBC Hgb Hct MCV MCH MCHC RDW Plt Count MPV Immature Gran % (Auto) Neut % (Auto) Lymph % (Auto) [place] % (Auto) Eos % (Auto) Baso % (Auto) Lymph # (Auto) [place] # (Auto) Eos # (Auto) Baso # (Auto) Abs Immat Gran (auto) Absolute Neuts (auto) Absolute Nucleated RBC Nucleated RBC % (auto) Sodium Potassium Chloride Carbon Dioxide Anion Gap BUN Creatinine Estim Creat Clear Calc Estimated GFR Random Glucose Estimat Average Glucose 91 Hemoglobin A1c % 4.8 Calcium Total Bilirubin Direct Bilirubin AST ALT Alkaline Phosphatase Total Protein Albumin Triglycerides 115 Cholesterol 149 LDL Cholesterol, Calc 61 HDL Cholesterol 65 Vitamin B12 Folate TSH 3.58 Valproic Acid [place] COVID-19 ([facility]EL[facility]) Negative COVID-19 Clin Com See Note 02/14/21 02/14/21 02/14/21 06:19 06:19 06:19 WBC RBC Hgb Hct MCV MCH MCHC RDW Plt Count MPV Immature Gran % (Auto) Neut % (Auto) Lymph % (Auto) [place] % (Auto) Eos % (Auto) Baso % (Auto) Lymph # (Auto) [place] # (Auto) Eos # (Auto) Baso # (Auto) Abs Immat Gran (auto) Absolute Neuts (auto) Absolute Nucleated RBC Nucleated RBC % (auto) Sodium Potassium Chloride Carbon Dioxide Anion Gap BUN Creatinine Estim Creat Clear Calc Estimated GFR Random Glucose Estimat Average Glucose Hemoglobin A1c % Calcium Total Bilirubin Direct Bilirubin AST ALT Alkaline Phosphatase Total Protein Albumin Triglycerides Cholesterol LDL Cholesterol, Calc HDL Cholesterol Vitamin B12 633 Folate 13.6 TSH Valproic Acid 52.3 [place] 0.91 COVID-19 ([facility]) COVID-19 Clin Com Meds/Allergies Meds Home Medications Acetaminophen (Acetaminophen 325 Mg Tablet) 650 mg PO Q6H PRN PRN Reason: Headache/Pain Mild Scale (1-3) Al Hydroxide/Mg Hydroxide (Magnesium Hydrox/Alum Hydrox 30 Ml Oral.Susp) 30 ml PO Q6H PRN PRN Reason: Heartburn/Nausea Benztropine Mesylate (Benztropine Mesylate 1 Mg Tablet) 1 mg PO BEDTIME [facility] Last Admin: 02/13/21 22:01 Dose: 1 mg Documented by: Clozapine (Clozapine 25 Mg Tablet) 50 mg PO BEDTIME [facility] Last Admin: 02/13/21 21:58 Dose: 50 mg Documented by: Clozapine (Clozapine 100 Mg Tablet) 100 mg PO BEDTIME [facility] Last Admin: 02/13/21 21:58 Dose: 100 mg Documented by: Divalproex Sodium (Divalproex Sodium Er 250 Mg Tab.Er.24h) 250 mg PO BID [facility] Last Admin: 02/14/21 08:36 Dose: 250 mg Documented by: Divalproex Sodium (Divalproex Sodium Er 500 Mg Tab.Er.24h) 500 mg PO BID [facility] Last Admin: 02/14/21 08:37 Dose: 500 mg Documented by: Haloperidol (Haloperidol 5 Mg Tablet) 5 mg PO BID [facility] Last Admin: 02/14/21 08:37 Dose: 5 mg Documented by: Haloperidol (Haloperidol 5 Mg Tablet) 5 mg PO Q6H PRN PRN Reason: agitation Hydroxyzine HCl (Hydroxyzine Hcl 25 Mg Tablet) 25 mg PO BEDTIME PRN PRN Reason: Anxiety Last Admin: 02/14/21 00:42 Dose: 25 mg Documented by: [place] Carbonate ([place] Carbonate 300 Mg Tablet) 150 mg PO DAILY [facility] Last Admin: 02/14/21 08:37 Dose: 150 mg Documented by: [place] Carbonate ([place] Carbonate Er 450 Mg Tablet.Er) 900 mg PO BEDTIME [facility] Last Admin: 02/13/21 21:58 Dose: 900 mg Documented by: Lorazepam (Lorazepam 1 Mg Tablet) 1 mg PO Q6H PRN PRN Reason: anxiety/agitation Magnesium Hydroxide (Milk Of Magnesia 30 Ml Oral.Susp) 30 ml PO DAILY PRN PRN Reason: Constipation Multivitamins/Vitamin C (Multivitamin Tablet) 1 tab PO DAILY [facility] Last Admin: 02/14/21 08:36 Dose: 1 tab Documented by: Trazodone HCl (Trazodone Hcl 50 Mg Tablet) 50 mg PO BEDTIME PRN PRN Reason: Insomnia Last Admin: 02/14/21 00:42 Dose: 50 mg Documented by: Vitamin E (Vitamin E (Dl,Tocopheryl Acet) 180 Mg (400 Unit) Capsule) 180 mg PO DAILY [facility] Last Admin: 02/14/21 08:37 Dose: 180 mg Documented by: Allergies Allergies Allergy/AdvReac Type Severity Reaction Status Date / Time penicillin G [Penicillin G] Allergy Mild HIVES Verified 02/12/21 21:22 amoxicillin [Amoxicillin] Allergy Unknown HIVES Verified 02/12/21 21:22 penicillin V Allergy Unknown hives Verified 02/12/21 21:22 Mental Status Exam Mental Status Exam Narrative: well dressed and groomed appropriate to circumstance. mild PMA of pacing the halls. cooperative with interview. speech increased in amount, normal in rate, mildly decreased prosody, variable latency. apparently some slowed or blocked thoughts. some delusions and bizarre content, such as his finding a fresh bear print and knowing it was 100 feet away because he could Sense it, or telling MD is in perfect health because he had assessed MD by sitting and conversing with him. no paranoia evident. affect flexible and appropriate to context. mood very happy. denies SI/HI/AVH. Assessment & Plan Assessment & Plan (1) Bipolar affective, manic, severe w/ psych: Status: Acute Code(s): F31.2 - Bipolar disorder, current episode manic severe with psychotic features Assessment and Plan: revert haldol to outpatient dosing. pt to be continued on outpt regimen and observed for stability/improvement on the unit. Patient educated on: therapeutic strategies Reason for continued inpatient stay Substantial Risk for: inability to function
--- NOTE | 2021-02-14 21:21 | PC.NURSE ---
Pt requested to and signed a 3 day notice. Verbalized understanding of form. Will be up on Friday02-19-21.
[2021-02-14] MEDS: cloZAPine 25 MG TABLET 50 MG PO (22:21)
[2021-02-14] MEDS: Lithium Carbonate ER 450 MG TABLET.ER 900 MG PO (22:22)
[2021-02-14] MEDS: cloZAPine 100 MG TABLET PO (22:22)
[2021-02-14] MEDS: Benztropine Mesylate 1 MG TABLET PO (22:22)
[2021-02-14] MEDS: HaloperidoL 5 MG TABLET 2.5 MG PO (22:54)
[2021-02-15 06:49] VITALS: BP 120/72; PULSE 95; O2SAT 98
--- NOTE | 2021-02-15 07:33 | PC.NURSE ---
retracted 3 day notice
[2021-02-15] MEDS: Lithium Carbonate 300 MG TABLET 150 MG PO (08:14)
[2021-02-15] MEDS: Divalproex Sodium ER 500 MG TAB.ER.24H PO ×2 (08:15→22:14)
[2021-02-15] MEDS: Divalproex Sodium ER 250 MG TAB.ER.24H PO ×2 (08:15→22:14)
[2021-02-15] MEDS: HaloperidoL 5 MG TABLET 2.5 MG PO ×2 (08:16→22:12)
[2021-02-15] MEDS: Multivitamin TABLET 1 TAB PO (08:16)
[2021-02-15] MEDS: Vitamin E (Dl,Tocopheryl Acet) 180 MG (400 UNIT) CAPSULE PO (08:17)
--- NOTE | 2021-02-15 12:59 | P.PNPSI_ITS ---
Subjective Subjective Date of Service: 02/15/21 Reason For Visit: Shanda Interim History: pt reports continuing to feel improved from prior to admission. less manic. not yet feeling well enough to leave but trending well. states he is feeling more rested, his thoughts are more balanced, and he is less manic. per staff, retracted his 3-day notice, attended aaron group, thought-blocking, engaging mostly with females. med-compliant, slept OK. Mental Status Exam Mental Status Exam Narrative: well dressed and groomed appropriate to circumstance. mild PMA of pacing the halls. cooperative with interview. speech normal in amount, normal in rate, mildly decreased prosody, normal latency. no paranoia or delusions evident. affect flexible and appropriate to context. no expressed SI/HI/AVH. Diagnostics Vital Signs (24Hr): Vital Signs - 24 hr 02/15/21 06:49 Pulse Rate 95 Blood Pressure 120/72 Pulse Oximetry 98 Body Mass Index 27.2 Labs Results: 02/12/21 12:23 02/12/21 12:22 Labs: Laboratory Results - last 48 hr 02/14/21 02/14/21 02/14/21 06:19 06:19 06:19 Estimat Average Glucose 91 Hemoglobin A1c % 4.8 Triglycerides 115 Cholesterol 149 LDL Cholesterol, Calc 61 HDL Cholesterol 65 Vitamin B12 633 Folate 13.6 TSH 3.58 Valproic Acid [place] 02/14/21 02/14/21 06:19 06:19 Estimat Average Glucose Hemoglobin A1c % Triglycerides Cholesterol LDL Cholesterol, Calc HDL Cholesterol Vitamin B12 Folate TSH Valproic Acid 52.3 [place] 0.91 Medications Medications Current Medications Generic Name Dose Route Start Last Admin Trade Name Freq PRN Reason Stop Dose Admin Acetaminophen 650 mg 02/13/21 15:23 Acetaminophen 325 Mg Tablet PO Q6H PRN Headache/Pain Mild Scale (1-3) Al Hydroxide/Mg Hydroxide 30 ml 02/13/21 15:23 Magnesium Hydrox/Alum Hydrox 30 Ml Oral.Susp PO Q6H PRN Heartburn/Nausea Benztropine Mesylate 1 mg 02/12/21 21:00 02/14/21 22:22 Benztropine Mesylate 1 Mg Tablet PO 1 mg BEDTIME [facility] Administration Clozapine 50 mg 02/12/21 21:00 02/14/21 22:21 Clozapine 25 Mg Tablet PO 50 mg BEDTIME ALEX[facility] Administration Clozapine 100 mg 02/12/21 21:00 02/14/21 22:22 Clozapine 100 Mg Tablet PO 100 mg BEDTIME ALEX[facility] Administration Divalproex Sodium 250 mg 02/12/21 21:00 02/15/21 08:15 Divalproex Sodium Er 250 Mg Tab.Er.24h PO 250 mg BID ALEXIA Administration Divalproex Sodium 500 mg 02/12/21 21:00 02/15/21 08:15 Divalproex Sodium Er 500 Mg Tab.Er.24h PO 500 mg BID ALEXIA Administration Haloperidol 5 mg 02/13/21 16:08 Haloperidol 5 Mg Tablet PO Q6H PRN agitation Haloperidol 2.5 mg 02/14/21 21:00 02/15/21 08:16 Haloperidol 5 Mg Tablet PO 2.5 mg BID ALEXIA Administration Hydroxyzine HCl 25 mg 02/13/21 15:23 02/14/21 00:42 Hydroxyzine Hcl 25 Mg Tablet PO 25 mg BEDTIME PRN Administration Anxiety [place] Carbonate 150 mg 02/13/21 09:00 02/15/21 08:14 [place] Carbonate 300 Mg Tablet PO 150 mg DAILY [facility]LEX[facility] Administration [place] Carbonate 900 mg 02/12/21 21:00 02/14/21 22:22 [place] Carbonate Er 450 Mg Tablet.Er PO 900 mg BEDTIME [facility] Administration Lorazepam 1 mg 02/13/21 16:09 Lorazepam 1 Mg Tablet PO Q6H PRN anxiety/agitation Magnesium Hydroxide 30 ml 02/13/21 15:23 Milk Of Magnesia 30 Ml Oral.Susp PO DAILY PRN Constipation Multivitamins/Vitamin C 1 tab 02/13/21 09:00 02/15/21 08:16 Multivitamin Tablet PO 1 tab DAILY [facility] Administration Trazodone HCl 50 mg 02/13/21 15:23 02/14/21 00:42 Trazodone Hcl 50 Mg Tablet PO 50 mg BEDTIME PRN Administration Insomnia Vitamin E 180 mg 02/13/21 09:00 02/15/21 08:17 Vitamin E (Dl,Tocopheryl Acet) 180 Mg (400 Unit) Capsule PO 180 mg DAILY [facility]LEX[facility] Administration Allergies Allergies Allergy/AdvReac Type Severity Reaction Status Date / Time penicillin G [Penicillin G] Allergy Mild HIVES Verified 02/12/21 21:22 amoxicillin [Amoxicillin] Allergy Unknown HIVES Verified 02/12/21 21:22 penicillin V Allergy Unknown hives Verified 02/12/21 21:22 Assessment & Plan Assessment & Plan (1) Bipolar affective, manic, severe w/ psych: Status: Acute Code(s): F31.2 - Bipolar disorder, current episode manic severe with psychotic features Assessment and Plan: reverted haldol to outpatient dosing. pt to be continued on outpt regimen and observed for stability/improvement on the unit. Greater than 50% of the session was spent on counseling and/or coordination of care Reason for contiued inpatient stay Substantial Risk for: inability to function
[2021-02-15] MEDS: Lithium Carbonate ER 450 MG TABLET.ER 900 MG PO (22:13)
[2021-02-15] MEDS: cloZAPine 25 MG TABLET 50 MG PO (22:14)
[2021-02-15] MEDS: Benztropine Mesylate 1 MG TABLET PO (22:15)
[2021-02-15] MEDS: cloZAPine 100 MG TABLET PO (22:15)
[2021-02-15 22:17] VITALS: BP 141/88; PULSE 68; TEMP 36.1; O2SAT 97
[2021-02-16 06:00] VITALS: BP 111/60; PULSE 83; RESP 16; TEMP 36.8; O2SAT 95
[2021-02-16] MEDS: Multivitamin TABLET 1 TAB PO (08:18)
[2021-02-16] MEDS: HaloperidoL 5 MG TABLET 2.5 MG PO ×2 (08:18→22:19)
[2021-02-16] MEDS: Divalproex Sodium ER 250 MG TAB.ER.24H PO ×2 (08:18→22:18)
[2021-02-16] MEDS: Vitamin E (Dl,Tocopheryl Acet) 180 MG (400 UNIT) CAPSULE PO (08:18)
[2021-02-16] MEDS: Lithium Carbonate 300 MG TABLET 150 MG PO (08:19)
[2021-02-16] MEDS: Divalproex Sodium ER 500 MG TAB.ER.24H PO ×2 (08:19→22:17)
--- NOTE | 2021-02-16 11:24 | P.PNPSI_ITS ---
Subjective Subjective Date of Service: 02/16/21 Reason For Visit: Shanda Interim History: pt reports he continues to feel well, shanda trending down, sleeping well ever since arriving here. his mood is good as well. per staff, he did not attend groups yesterday and slept in a room separate from his new roommate due to being afraid of the roommate per staff. on interview with MD pt explained that he thought he would get better rest in another room. Mental Status Exam Mental Status Exam Narrative: well dressed and groomed appropriate to circumstance. no PMA/PMR. cooperative with interview. speech normal in amount, normal in rate, mildly decreased prosody, normal latency. no paranoia or delusions evident. affect flexible and appropriate to context. no expressed SI/HI/AVH. Diagnostics Vital Signs (24Hr): Vital Signs - 24 hr 02/15/21 22:17 02/16/21 06:00 Temperature 97 F 98.2 F Pulse Rate 68 83 Respiratory Rate 16 Blood Pressure 141/88 H 111/60 Pulse Oximetry 97 95 Body Mass Index 27.2 Labs Results: 02/12/21 12:23 02/12/21 12:22 Medications Medications Current Medications Generic Name Dose Route Start Last Admin Trade Name Freq PRN Reason Stop Dose Admin Acetaminophen 650 mg 02/13/21 15:23 Acetaminophen 325 Mg Tablet PO Q6H PRN Headache/Pain Mild Scale (1-3) Al Hydroxide/Mg Hydroxide 30 ml 02/13/21 15:23 Magnesium Hydrox/Alum Hydrox 30 Ml Oral.Susp PO Q6H PRN Heartburn/Nausea Benztropine Mesylate 1 mg 02/12/21 21:00 02/15/21 22:15 Benztropine Mesylate 1 Mg Tablet PO 1 mg BEDTIME [facility] Administration Clozapine 50 mg 02/12/21 21:00 02/15/21 22:14 Clozapine 25 Mg Tablet PO 50 mg BEDTIME [facility] Administration Clozapine 100 mg 02/12/21 21:00 02/15/21 22:15 Clozapine 100 Mg Tablet PO 100 mg BEDTIME [facility] Administration Divalproex Sodium 250 mg 02/12/21 21:00 02/16/21 08:18 Divalproex Sodium Er 250 Mg Tab.Er.24h PO 250 mg BID ALEXIA Administration Divalproex Sodium 500 mg 02/12/21 21:00 02/16/21 08:19 Divalproex Sodium Er 500 Mg Tab.Er.24h PO 500 mg BID [facility]LEXIA Administration Haloperidol 5 mg 02/13/21 16:08 Haloperidol 5 Mg Tablet PO Q6H PRN agitation Haloperidol 2.5 mg 02/14/21 21:00 02/16/21 08:18 Haloperidol 5 Mg Tablet PO 2.5 mg BID ALEXIA Administration Hydroxyzine HCl 25 mg 02/13/21 15:23 02/14/21 00:42 Hydroxyzine Hcl 25 Mg Tablet PO 25 mg BEDTIME PRN Administration Anxiety [place] Carbonate 150 mg 02/13/21 09:00 02/16/21 08:19 [place] Carbonate 300 Mg Tablet PO 150 mg DAILY [facility]LEX[facility] Administration [place] Carbonate 900 mg 02/12/21 21:00 02/15/21 22:13 [place] Carbonate Er 450 Mg Tablet.Er PO 900 mg BEDTIME ALEXIA Administration Lorazepam 1 mg 02/13/21 16:09 Lorazepam 1 Mg Tablet PO Q6H PRN anxiety/agitation Magnesium Hydroxide 30 ml 02/13/21 15:23 Milk Of Magnesia 30 Ml Oral.Susp PO DAILY PRN Constipation Multivitamins/Vitamin C 1 tab 02/13/21 09:00 02/16/21 08:18 Multivitamin Tablet PO 1 tab DAILY [facility] Administration Trazodone HCl 50 mg 02/13/21 15:23 02/14/21 00:42 Trazodone Hcl 50 Mg Tablet PO 50 mg BEDTIME PRN Administration Insomnia Vitamin E 180 mg 02/13/21 09:00 02/16/21 08:18 Vitamin E (Dl,Tocopheryl Acet) 180 Mg (400 Unit) Capsule PO 180 mg DAILY [facility] Administration Allergies Allergies Allergy/AdvReac Type Severity Reaction Status Date / Time penicillin G [Penicillin G] Allergy Mild HIVES Verified 02/12/21 21:22 amoxicillin [Amoxicillin] Allergy Unknown HIVES Verified 02/12/21 21:22 penicillin V Allergy Unknown hives Verified 02/12/21 21:22 Assessment & Plan Assessment & Plan (1) Bipolar affective, manic, severe w/ psych: Status: Acute Code(s): F31.2 - Bipolar disorder, current episode manic severe with psychotic features Assessment and Plan: reverted haldol to outpatient dosing. pt to be continued on outpt regimen and observed for stability/improvement on the unit. Greater than 50% of the session was spent on counseling and/or coordination of care Reason for contiued inpatient stay Substantial Risk for: inability to function
[2021-02-16 22:00] VITALS: BP 118/72; PULSE 64; RESP 18; TEMP 36.6; O2SAT 99
[2021-02-16] MEDS: cloZAPine 25 MG TABLET 50 MG PO (22:17)
[2021-02-16] MEDS: Benztropine Mesylate 1 MG TABLET PO (22:17)
[2021-02-16] MEDS: cloZAPine 100 MG TABLET PO (22:17)
[2021-02-16] MEDS: Lithium Carbonate ER 450 MG TABLET.ER 900 MG PO (22:18)
[2021-02-17 06:00] VITALS: BP 124/67; PULSE 106; RESP 16; TEMP 36.8; O2SAT 100
[2021-02-17] MEDS: Vitamin E (Dl,Tocopheryl Acet) 180 MG (400 UNIT) CAPSULE PO (09:15)
[2021-02-17] MEDS: Lithium Carbonate 300 MG TABLET 150 MG PO (09:15)
[2021-02-17] MEDS: HaloperidoL 5 MG TABLET 2.5 MG PO ×2 (09:15→21:10)
[2021-02-17] MEDS: Multivitamin TABLET 1 TAB PO (09:16)
[2021-02-17] MEDS: Divalproex Sodium ER 500 MG TAB.ER.24H PO ×2 (09:16→21:10)
[2021-02-17] MEDS: Divalproex Sodium ER 250 MG TAB.ER.24H PO ×2 (09:16→21:10)
--- NOTE | 2021-02-17 11:28 | P.PNPSI_ITS ---
Subjective Subjective Date of Service: 02/18/21 Reason For Visit: Shanda Subjective Notes: Conditional Voluntary Interim History: Patient pressured pacing restless was not threatening when seen Medication Compliance: Yes Attending Groups: No Mental Status Exam Mental Status Exam Narrative: Patient appropriately dressed pacing restless mood irritable somewhat dysphoric in behavioral control denies self-harming thoughts denies thoughts of harm to others Diagnostics Vital Signs (24Hr): Vital Signs - 24 hr 02/16/21 22:00 02/17/21 06:00 Temperature 97.8 F 98.2 F Pulse Rate 64 106 H Respiratory Rate 18 16 Blood Pressure 118/72 124/67 Pulse Oximetry 99 100 Body Mass Index 27.2 Labs Results: 02/12/21 12:23 02/12/21 12:22 Medications Medications Current Medications Generic Name Dose Route Start Last Admin Trade Name Freq PRN Reason Stop Dose Admin Acetaminophen 650 mg 02/13/21 15:23 Acetaminophen 325 Mg Tablet PO Q6H PRN Headache/Pain Mild Scale (1-3) Al Hydroxide/Mg Hydroxide 30 ml 02/13/21 15:23 Magnesium Hydrox/Alum Hydrox 30 Ml Oral.Susp PO Q6H PRN Heartburn/Nausea Benztropine Mesylate 1 mg 02/12/21 21:00 02/16/21 22:17 Benztropine Mesylate 1 Mg Tablet PO 1 mg BEDTIME [facility] Administration Clozapine 50 mg 02/12/21 21:00 02/16/21 22:17 Clozapine 25 Mg Tablet PO 50 mg BEDTIME [facility]LEX[facility] Administration Clozapine 100 mg 02/12/21 21:00 02/16/21 22:17 Clozapine 100 Mg Tablet PO 100 mg BEDTIME [facility] Administration Divalproex Sodium 250 mg 02/12/21 21:00 02/17/21 09:16 Divalproex Sodium Er 250 Mg Tab.Er.24h PO 250 mg BID ALEXIA Administration Divalproex Sodium 500 mg 02/12/21 21:00 02/17/21 09:16 Divalproex Sodium Er 500 Mg Tab.Er.24h PO 500 mg BID ALEXIA Administration Haloperidol 5 mg 02/13/21 16:08 Haloperidol 5 Mg Tablet PO Q6H PRN agitation Haloperidol 2.5 mg 02/14/21 21:00 02/17/21 09:15 Haloperidol 5 Mg Tablet PO 2.5 mg BID ALEXIA Administration Hydroxyzine HCl 25 mg 02/13/21 15:23 02/14/21 00:42 Hydroxyzine Hcl 25 Mg Tablet PO 25 mg BEDTIME PRN Administration Anxiety [employer] Carbonate 150 mg 02/13/21 09:00 02/17/21 09:15 [employer] Carbonate 300 Mg Tablet PO 150 mg DAILY ALEX[facility] Administration [employer] Carbonate 900 mg 02/12/21 21:00 02/16/21 22:18 [employer] Carbonate Er 450 Mg Tablet.Er PO 900 mg BEDTIME ALEXIA Administration Lorazepam 1 mg 02/13/21 16:09 Lorazepam 1 Mg Tablet PO Q6H PRN anxiety/agitation Magnesium Hydroxide 30 ml 02/13/21 15:23 Milk Of Magnesia 30 Ml Oral.Susp PO DAILY PRN Constipation Multivitamins/Vitamin C 1 tab 02/13/21 09:00 02/17/21 09:16 Multivitamin Tablet PO 1 tab DAILY [facility] Administration Trazodone HCl 50 mg 02/13/21 15:23 02/14/21 00:42 Trazodone Hcl 50 Mg Tablet PO 50 mg BEDTIME PRN Administration Insomnia Vitamin E 180 mg 02/13/21 09:00 02/17/21 09:15 Vitamin E (Dl,Tocopheryl Acet) 180 Mg (400 Unit) Capsule PO 180 mg DAILY [facility]LEX[facility] Administration Allergies Allergies Allergy/AdvReac Type Severity Reaction Status Date / Time penicillin G [Penicillin G] Allergy Mild HIVES Verified 02/12/21 21:22 amoxicillin [Amoxicillin] Allergy Unknown HIVES Verified 02/12/21 21:22 penicillin V Allergy Unknown hives Verified 02/12/21 21:22 Assessment & Plan Assessment & Plan (1) Bipolar affective, manic, severe w/ psych: Status: Acute Code(s): F31.2 - Bipolar disorder, current episode manic severe with psychotic features Assessment and Plan: reverted haldol to outpatient dosing. pt to be continued on outpt regimen and observed for stability/improvement on the unit. Continue plan of care Greater than 50% of the session was spent on counseling and/or coordination of care Reason for contiued inpatient stay Substantial Risk for: rapid decompensation
[2021-02-17 21:00] VITALS: BP 115/61; PULSE 80; TEMP 36.8; O2SAT 98
[2021-02-17] MEDS: Benztropine Mesylate 1 MG TABLET PO (21:10)
[2021-02-17] MEDS: cloZAPine 25 MG TABLET 50 MG PO (21:11)
[2021-02-17] MEDS: cloZAPine 100 MG TABLET PO (21:11)
[2021-02-17] MEDS: Lithium Carbonate ER 450 MG TABLET.ER 900 MG PO (21:12)
[2021-02-18 06:00] VITALS: BP 126/75; PULSE 90; RESP 16; TEMP 37.7; O2SAT 97
[2021-02-18] MEDS: Vitamin E (Dl,Tocopheryl Acet) 180 MG (400 UNIT) CAPSULE PO (08:16)
[2021-02-18] MEDS: Multivitamin TABLET 1 TAB PO (08:16)
[2021-02-18] MEDS: Divalproex Sodium ER 250 MG TAB.ER.24H PO ×2 (08:16→21:39)
[2021-02-18] MEDS: Divalproex Sodium ER 500 MG TAB.ER.24H PO ×2 (08:16→21:39)
[2021-02-18] MEDS: Lithium Carbonate 300 MG TABLET 150 MG PO (08:17)
[2021-02-18] MEDS: HaloperidoL 5 MG TABLET 2.5 MG PO ×2 (08:17→21:39)
[2021-02-18] MEDS: LORazepam 1 MG TABLET PO (12:14)
[2021-02-18] MEDS: HaloperidoL 5 MG TABLET PO (12:14)
[2021-02-18] MEDS: Benztropine Mesylate 1 MG TABLET PO (21:39)
[2021-02-18] MEDS: cloZAPine 25 MG TABLET 50 MG PO (21:39)
[2021-02-18] MEDS: cloZAPine 100 MG TABLET PO (21:39)
[2021-02-18] MEDS: Lithium Carbonate ER 450 MG TABLET.ER 900 MG PO (21:39)
[2021-02-18 21:42] VITALS: TEMP 36.8; O2SAT 97
--- NOTE | 2021-02-18 23:26 | P.PNPSI_ITS ---
Subjective Subjective Date of Service: 02/18/21 Reason For Visit: Shanda Guardianship: Yes Interim History: Patient pacing restless easily agitated. Intrusive with some other patients on the unit although not threatening was impulsive with poor boundaries needed redirection which had a difficult time responding to. Irritable dysphoric hyperactive Mental Status Exam Mental Status Exam Narrative: Patient casually dressed angry look on his face pacing restless easi ly agitated. Noted to make some intrusive comments to others not grossly threatening but angry and walked away when as not to make comments about others looks. Not easily in gauging in conversation insight judgment impulse control impaired no gross suicidal or homicidal thoughts some vague posturing noted Diagnostics Vital Signs (24Hr): Vital Signs - 24 hr 02/18/21 06:00 02/18/21 21:42 Temperature 99.8 F 98.2 F Pulse Rate 90 Respiratory Rate 16 Blood Pressure 126/75 Pulse Oximetry 97 97 Body Mass Index 27.2 Labs Results: 02/21/21 07:02 02/20/21 07:36 Medications Medications Current Medications Generic Name Dose Route Start Last Admin Trade Name Freq PRN Reason Stop Dose Admin Acetaminophen 650 mg 02/13/21 15:23 Acetaminophen 325 Mg Tablet PO Q6H PRN Headache/Pain Mild Scale (1-3) Al Hydroxide/Mg Hydroxide 30 ml 02/13/21 15:23 Magnesium Hydrox/Alum Hydrox 30 Ml Oral.Susp PO Q6H PRN Heartburn/Nausea Benztropine Mesylate 1 mg 02/12/21 21:00 02/18/21 21:39 Benztropine Mesylate 1 Mg Tablet PO 1 mg BEDTIME ALEXIA Administration Clozapine 50 mg 02/12/21 21:00 02/18/21 21:39 Clozapine 25 Mg Tablet PO 50 mg BEDTIME ALEXIA Administration Clozapine 100 mg 02/12/21 21:00 02/18/21 21:39 Clozapine 100 Mg Tablet PO 100 mg BEDTIME ALEXIA Administration Divalproex Sodium 250 mg 02/12/21 21:00 02/18/21 21:39 Divalproex Sodium Er 250 Mg Tab.Er.24h PO 250 mg BID ALEXIA Administration Divalproex Sodium 500 mg 02/12/21 21:00 02/18/21 21:39 Divalproex Sodium Er 500 Mg Tab.Er.24h PO 500 mg BID ALEXIA Administration Haloperidol 5 mg 02/13/21 16:08 02/18/21 12:14 Haloperidol 5 Mg Tablet PO 5 mg Q6H PRN Administration agitation Haloperidol 2.5 mg 02/14/21 21:00 02/18/21 21:39 Haloperidol 5 Mg Tablet PO 2.5 mg BID ALEXIA Administration Hydroxyzine HCl 25 mg 02/13/21 15:23 02/14/21 00:42 Hydroxyzine Hcl 25 Mg Tablet PO 25 mg BEDTIME PRN Administration Anxiety [place] Carbonate 150 mg 02/13/21 09:00 02/18/21 08:17 [place] Carbonate 300 Mg Tablet PO 150 mg DAILY ALEXIA Administration [place] Carbonate 900 mg 02/12/21 21:00 02/18/21 21:39 [place] Carbonate Er 450 Mg Tablet.Er PO 900 mg BEDTIME ALEXIA Administration Magnesium Hydroxide 30 ml 02/13/21 15:23 Milk Of Magnesia 30 Ml Oral.Susp PO DAILY PRN Constipation Multivitamins/Vitamin C 1 tab 02/13/21 09:00 02/18/21 08:16 Multivitamin Tablet PO 1 tab DAILY ALEXIA Administration Trazodone HCl 50 mg 02/13/21 15:23 02/14/21 00:42 Trazodone Hcl 50 Mg Tablet PO 50 mg BEDTIME PRN Administration Insomnia Vitamin E 180 mg 02/13/21 09:00 02/18/21 08:16 Vitamin E (Dl,Tocopheryl Acet) 180 Mg (400 Unit) Capsule PO 180 mg DAILY ALEXIA Administration Allergies Allergies Allergy/AdvReac Type Severity Reaction Status Date / Time penicillin G [Penicillin G] Allergy Mild HIVES Verified 02/12/21 21:22 amoxicillin [Amoxicillin] Allergy Unknown HIVES Verified 02/12/21 21:22 penicillin V Allergy Unknown hives Verified 02/12/21 21:22 Assessment & Plan Assessment & Plan (1) Bipolar affective, manic, severe w/ psych: Status: Acute Code(s): F31.2 - Bipolar disorder, current episode manic severe with psychotic features Assessment and Plan: reverted haldol to outpatient dosing. pt to be continued on outpt regimen and observed for stability/improvement on the unit. Continue plan of care patient was given PRNs for increased agitation irritability Greater than 50% of the session was spent on counseling and/or coordination of care Reason for contiued inpatient stay Substantial Risk for: harm to others and rapid decompensation
[2021-02-19 06:00] VITALS: BP 117/64; PULSE 78; RESP 16; TEMP 36.8; O2SAT 98
[2021-02-19] MEDS: Multivitamin TABLET 1 TAB PO (08:28)
[2021-02-19] MEDS: Divalproex Sodium ER 250 MG TAB.ER.24H PO ×2 (08:28→23:00)
[2021-02-19] MEDS: Divalproex Sodium ER 500 MG TAB.ER.24H PO ×2 (08:28→23:00)
[2021-02-19] MEDS: Vitamin E (Dl,Tocopheryl Acet) 180 MG (400 UNIT) CAPSULE PO (08:28)
[2021-02-19] MEDS: Lithium Carbonate 300 MG TABLET 150 MG PO (08:29)
[2021-02-19] MEDS: HaloperidoL 5 MG TABLET 2.5 MG PO ×2 (08:29→12:49)
--- NOTE | 2021-02-19 13:03 | P.PNPSI_ITS ---
Subjective Subjective Date of Service: 02/19/21 Reason For Visit: Shanda Interim History: pt appears more paranoid than prior. asks why MD did not approach him and shake his hand at the beginning of the interview, then asks MD to leave the door to the interview room open as we entered (he has done neither of these things with MD during the present hospitalization). recites the the four pillars of healthy living he learned from his father, in an automatic and stereotyped sort of way, as he has done during each of our meetings previously. reports that everything is going well from his perspective - his mood is good, he is sleeping well, he has been exercising. MD broaches that staff reports is that pt has been more paranoid, labile, and disorganized than previously and that they are concerned. pt acknowledges this perspective without agreeing with it. MD suggests increasing haldol back to where it was earlier in the stay, 5 BID instead of 2.5 BID, and pt defers to MD's opinion, telling MD, make a good decision. per staff, pt appeared more paranoid, labile, and disorganized over the weekend. self-dialoguing, brief altercation with manic peer, staring at young femals on the unit making them feel uncomfortable. sleeping reasonably well. got haldol and ativan PRNs yesterday afternoon. Medication Compliance: Yes Mental Status Exam Mental Status Exam Narrative: well dressed and groomed appropriate to circumstance. no PMA/PMR. cooperative with interview. speech increased in amount, increased in rate, mildly decreased prosody, normal latency. apparent mild paranoia re MD, asking that the interview door be left open when he hasn't done so in the past. no clear delusions evident. affect somewhat constricted and appropriate to jhian xt. no expressed SI/HI/AVH. Diagnostics Vital Signs (24Hr): Vital Signs - 24 hr 02/18/21 21:42 02/19/21 06:00 Temperature 98.2 F 98.3 F Pulse Rate 78 Respiratory Rate 16 Blood Pressure 117/64 Pulse Oximetry 97 98 Body Mass Index 27.2 Labs Results: 02/12/21 12:23 02/12/21 12:22 Medications Medications Current Medications Generic Name Dose Route Start Last Admin Trade Name Freq PRN Reason Stop Dose Admin Acetaminophen 650 mg 02/13/21 15:23 Acetaminophen 325 Mg Tablet PO Q6H PRN Headache/Pain Mild Scale (1-3) Al Hydroxide/Mg Hydroxide 30 ml 02/13/21 15:23 Magnesium Hydrox/Alum Hydrox 30 Ml Oral.Susp PO Q6H PRN Heartburn/Nausea Benztropine Mesylate 1 mg 02/12/21 21:00 02/18/21 21:39 Benztropine Mesylate 1 Mg Tablet PO 1 mg BEDTIME ALEXIA Administration Clozapine 50 mg 02/12/21 21:00 02/18/21 21:39 Clozapine 25 Mg Tablet PO 50 mg BEDTIME ALEXIA Administration Clozapine 100 mg 02/12/21 21:00 02/18/21 21:39 Clozapine 100 Mg Tablet PO 100 mg BEDTIME ALEXIA Administration Divalproex Sodium 250 mg 02/12/21 21:00 02/19/21 08:28 Divalproex Sodium Er 250 Mg Tab.Er.24h PO 250 mg BID ALEXIA Administration Divalproex Sodium 500 mg 02/12/21 21:00 02/19/21 08:28 Divalproex Sodium Er 500 Mg Tab.Er.24h PO 500 mg BID ALEXIA Administration Haloperidol 5 mg 02/13/21 16:08 02/18/21 12:14 Haloperidol 5 Mg Tablet PO 5 mg Q6H PRN Administration agitation Haloperidol 5 mg 02/19/21 21:00 Haloperidol 5 Mg Tablet PO BID ALEXIA Hydroxyzine HCl 25 mg 02/13/21 15:23 02/14/21 00:42 Hydroxyzine Hcl 25 Mg Tablet PO 25 mg BEDTIME PRN Administration Anxiety [place] Carbonate 150 mg 02/13/21 09:00 02/19/21 08:29 [place] Carbonate 300 Mg Tablet PO 150 mg DAILY ALEXIA Administration [place] Carbonate 900 mg 02/12/21 21:00 02/18/21 21:39 [place] Carbonate Er 450 Mg Tablet.Er PO 900 mg BEDTIME ALEXIA Administration Magnesium Hydroxide 30 ml 02/13/21 15:23 Milk Of Magnesia 30 Ml Oral.Susp PO DAILY PRN Constipation Multivitamins/Vitamin C 1 tab 02/13/21 09:00 02/19/21 08:28 Multivitamin Tablet PO 1 tab DAILY ALEXIA Administration Trazodone HCl 50 mg 02/13/21 15:23 02/14/21 00:42 Trazodone Hcl 50 Mg Tablet PO 50 mg BEDTIME PRN Administration Insomnia Vitamin E 180 mg 02/13/21 09:00 02/19/21 08:28 Vitamin E (Dl,Tocopheryl Acet) 180 Mg (400 Unit) Capsule PO 180 mg DAILY ALEXIA Administration Allergies Allergies Allergy/AdvReac Type Severity Reaction Status Date / Time penicillin G [Penicillin G] Allergy Mild HIVES Verified 02/12/21 21:22 amoxicillin [Amoxicillin] Allergy Unknown HIVES Verified 02/12/21 21:22 penicillin V Allergy Unknown hives Verified 02/12/21 21:22 Assessment & Plan Assessment & Plan (1) Bipolar affective, manic, severe w/ psych: Status: Acute Code(s): F31.2 - Bipolar disorder, current episode manic severe with psychotic features Assessment and Plan: haldol dosing increased from 2.5 BID to 5 BID as of 02/19. pt to be continued on outpt regimen otherwise and observed for stability /improvement on the unit. Continue plan of care Greater than 50% of the session was spent on counseling and/or coordination of care Reason for contiued inpatient stay Substantial Risk for: inability to function
[2021-02-19 20:36] VITALS: BP 135/80; PULSE 81; TEMP 36.7; O2SAT 98
[2021-02-19] MEDS: cloZAPine 25 MG TABLET 50 MG PO (22:59)
[2021-02-19] MEDS: Benztropine Mesylate 1 MG TABLET PO (23:00)
[2021-02-19] MEDS: cloZAPine 100 MG TABLET PO (23:00)
[2021-02-19] MEDS: Lithium Carbonate ER 450 MG TABLET.ER 900 MG PO (23:00)
[2021-02-19] MEDS: HaloperidoL 5 MG TABLET PO (23:00)
[2021-02-20 06:00] VITALS: BP 121/72; PULSE 67; RESP 20; TEMP 36.6; O2SAT 98
[2021-02-20] MEDS: Lithium Carbonate 300 MG TABLET 150 MG PO (08:18)
[2021-02-20] MEDS: Vitamin E (Dl,Tocopheryl Acet) 180 MG (400 UNIT) CAPSULE PO (08:18)
[2021-02-20] MEDS: Divalproex Sodium ER 250 MG TAB.ER.24H PO ×2 (08:18→22:21)
[2021-02-20] MEDS: Multivitamin TABLET 1 TAB PO (08:18)
[2021-02-20] MEDS: HaloperidoL 5 MG TABLET PO ×2 (08:19→22:22)
[2021-02-20] MEDS: Divalproex Sodium ER 500 MG TAB.ER.24H PO ×2 (08:19→22:21)
[2021-02-20 08:47] LABS: Valproate 51.7 mcg/mL (50.0-100.0)
[2021-02-20 08:49] LABS: Anion Gap 11 (12-20); Blood Urea Nitrogen 19 mg/dL (9-16); Calcium 9.3 mg/dL (8.4-10.2); Carbon Dioxide 28 mmol/L (22-29); Chloride 108 mmol/L (96-108); Creatinine Clr Calc Pharmacy 124.9; Estimated Glomerular Filt Rate > 60; Glucose Random 98 mg/dL (60-115); Potassium 4.6 mmol/L (3.3-5.1); Sodium 142 mmol/L (135-145)
--- NOTE | 2021-02-20 10:39 | HO.PSYCHPN ---
Subjective Subjective Date of Service: 02/20/21 Reason For Visit: Shanda Interim History: pt reports that his mood is consistent, his thoughts are slowed down, and that he is sleeping well. denies any paranoia or distrust of peers or staff on the unit. denies any perceived change since slight increase in haldol dosing from 2.5 mg BID to 5 mg BID. per staff, not attending groups, accepting redirection for inappropriate comments to female peers. no other notable events or behaviors. Mental Status Exam Mental Status Exam Narrative: well dressed and groomed appropriate to circumstance. no PMA/PMR. cooperative with interview. speech nml in amount, nml in rate, mildly decreased prosody, normal latency. no paranoia or delusions evident during brief interview. affect somewhat constricted yet with some flexibility and appropriate to context. no expressed SI/HI/AVH. Diagnostics Vital Signs (24Hr): Vital Signs - 24 hr 02/19/21 20:36 02/20/21 06:00 Temperature 98.0 F 97.8 F Pulse Rate 81 67 Respiratory Rate 20 Blood Pressure 135/80 121/72 Pulse Oximetry 98 98 Body Mass Index 27.2 Labs Results: 02/12/21 12:23 02/20/21 07:36 Labs: Laboratory Results - last 48 hr 02/20/21 02/20/21 07:36 07:36 Sodium 142 Potassium 4.6 Chloride 108 Carbon Dioxide 28 Anion Gap 11 L BUN 19 H Creatinine 0.94 Estim Creat Clear Calc 124.9 Estimated GFR > 60 Random Glucose 98 Calcium 9.3 Valproic Acid 51.7 [place] 1.00 Medications Medications Current Medications Generic Name Dose Route Start Last Admin Trade Name Freq PRN Reason Stop Dose Admin Acetaminophen 650 mg 02/13/21 15:23 Acetaminophen 325 Mg Tablet PO Q6H PRN Headache/Pain Mild Scale (1-3) Al Hydroxide/Mg Hydroxide 30 ml 02/13/21 15:23 Magnesium Hydrox/Alum Hydrox 30 Ml Oral.Susp PO Q6H PRN Heartburn/Nausea Benztropine Mesylate 1 mg 02/12/21 21:00 02/19/21 23:00 Benztropine Mesylate 1 Mg Tablet PO 1 mg BEDTIME ALEXIA Administration Clozapine 50 mg 02/12/21 21:00 02/19/21 22:59 Clozapine 25 Mg Tablet PO 50 mg BEDTIME ALEXIA Administration Clozapine 100 mg 02/12/21 21:00 02/19/21 23:00 Clozapine 100 Mg Tablet PO 100 mg BEDTIME ALEXIA Administration Divalproex Sodium 250 mg 02/12/21 21:00 02/20/21 08:18 Divalproex Sodium Er 250 Mg Tab.Er.24h PO 250 mg BID ALEXIA Administration Divalproex Sodium 500 mg 02/12/21 21:00 02/20/21 08:19 Divalproex Sodium Er 500 Mg Tab.Er.24h PO 500 mg BID ALEXIA Administration Haloperidol 5 mg 02/13/21 16:08 02/18/21 12:14 Haloperidol 5 Mg Tablet PO 5 mg Q6H PRN Administration agitation Haloperidol 5 mg 02/19/21 21:00 02/20/21 08:19 Haloperidol 5 Mg Tablet PO 5 mg BID ALEIXA Administration Hydroxyzine HCl 25 mg 02/13/21 15:23 02/14/21 00:42 Hydroxyzine Hcl 25 Mg Tablet PO 25 mg BEDTIME PRN Administration Anxiety [place] Carbonate 150 mg 02/13/21 09:00 02/20/21 08:18 [place] Carbonate 300 Mg Tablet PO 150 mg DAILY ALEXIA Administration [place] Carbonate 900 mg 02/12/21 21:00 02/19/21 23:00 [place] Carbonate Er 450 Mg Tablet.Er PO 900 mg BEDTIME ALEXIA Administration Magnesium Hydroxide 30 ml 02/13/21 15:23 Milk Of Magnesia 30 Ml Oral.Susp PO DAILY PRN Constipation Multivitamins/Vitamin C 1 tab 02/13/21 09:00 02/20/21 08:18 Multivitamin Tablet PO 1 tab DAILY ALEXIA Administration Trazodone HCl 50 mg 02/13/21 15:23 02/14/21 00:42 Trazodone Hcl 50 Mg Tablet PO 50 mg BEDTIME PRN Administration Insomnia Vitamin E 180 mg 02/13/21 09:00 02/20/21 08:18 Vitamin E (Dl,Tocopheryl Acet) 180 Mg (400 Unit) Capsule PO 180 mg DAILY ALEXIA Administration Allergies Allergies Allergy/AdvReac Type Severity Reaction Status Date / Time penicillin G [Penicillin G] Allergy Mild HIVES Verified 02/12/21 21:22 amoxicillin [Amoxicillin] Allergy Unknown HIVES Verified 02/12/21 21:22 penicillin V Allergy Unknown hives Verified 02/12/21 21:22 Assessment & Plan Assessment & Plan (1) Bipolar affective, manic, severe w/ psych: Status: Acute Code(s): F31.2 - Bipolar disorder, current episode manic severe with psychotic features Assessment and Plan: haldol dosing increased from 2.5 BID to 5 BID as of 02/19. pt to be continued on outpt regimen otherwise and observed for stability/improvement on the unit. as of 02/20 lithium trending up, now at 1.00; VPA trending down, now at 51.7. recheck in several more days. Continue plan of care Greater than 50% of the session was spent on counseling and/or coordination of care Reason for contiued inpatient stay Substantial Risk for: harm to self, harm to others and inability to function
[2021-02-20 18:45] VITALS: BP 127/74; PULSE 72; RESP 18; O2SAT 99
[2021-02-20] MEDS: cloZAPine 100 MG TABLET PO (22:21)
[2021-02-20] MEDS: cloZAPine 25 MG TABLET 50 MG PO (22:22)
[2021-02-20] MEDS: Lithium Carbonate ER 450 MG TABLET.ER 900 MG PO (22:22)
[2021-02-20] MEDS: Benztropine Mesylate 1 MG TABLET PO (22:26)
[2021-02-21 06:00] VITALS: BP 113/70; PULSE 116; RESP 16; TEMP 36.6; O2SAT 99
[2021-02-21 07:11] LABS: MANUAL DIFF FLAG NO
[2021-02-21 07:23] LABS: Basophils Percent Auto 0.3 % (0-2); Eosinophils Absolute Auto 0.2 X10*3/uL (0.0-0.4); Eosinophils Percent Auto 3.5 % (0-4); Hematocrit 47.7 % (42-52); Hemoglobin 15.7 g/dl (14.0-18.0); Imm Gran Abs Auto 0.02 X10*3/uL (0.00-0.03); Imm Gran Pct Auto 0.3 % (0.0-0.4); Lymphocytes Percent Auto 29.8 % (20-40); Mean Corpuscular HGB Conc 32.9 g/dl (31.0-36.0); Mean Corpuscular Hemoglobin 29.3 pg (27.0-33.0); Mean Platelet Volume 10.4 fL (9.4-12.4); Monocytes Percent Auto 15.2 % (2-11); Neutrophils Absolute Auto 3.5 X10*3/uL (2.0-8.3); Neutrophils Percent Auto 50.9 % (45-73); Platelet Count 182 X10*3/uL (160-400); Red Blood Count 5.36 X10*6/uL (4.60-5.80); Red Cell Distribution Width 12.9 % (11.0-16.0); White Blood Count 6.8 X10*3/uL (4.8-10.8)
[2021-02-21] MEDS: Divalproex Sodium ER 250 MG TAB.ER.24H PO (08:29)
[2021-02-21] MEDS: Lithium Carbonate 300 MG TABLET 150 MG PO (08:29)
[2021-02-21] MEDS: Divalproex Sodium ER 500 MG TAB.ER.24H PO (08:29)
[2021-02-21] MEDS: Vitamin E (Dl,Tocopheryl Acet) 180 MG (400 UNIT) CAPSULE PO (08:29)
[2021-02-21] MEDS: HaloperidoL 5 MG TABLET PO ×3 (08:29→21:01)
[2021-02-21] MEDS: Multivitamin TABLET 1 TAB PO (08:29)
[2021-02-21] MEDS: hydrOXYzine HCL 25 MG TABLET PO (11:02)
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
[2021-02-21 20:00] VITALS: BP 136/84; PULSE 98; TEMP 36.4; O2SAT 99
[2021-02-21] MEDS: cloZAPine 25 MG TABLET 50 MG PO (21:00)
[2021-02-21] MEDS: Benztropine Mesylate 1 MG TABLET PO (21:00)
[2021-02-21] MEDS: Lithium Carbonate ER 450 MG TABLET.ER 900 MG PO (21:01)
[2021-02-21] MEDS: cloZAPine 100 MG TABLET PO (21:01)
[2021-02-21] MEDS: Divalproex Sodium ER 500 MG TAB.ER.24H 1000 MG PO (21:01)
[2021-02-22] MEDS: Lithium Carbonate 300 MG TABLET 150 MG PO (08:37)
[2021-02-22] MEDS: Divalproex Sodium ER 500 MG TAB.ER.24H 1000 MG PO ×2 (08:38→21:03)
[2021-02-22] MEDS: Multivitamin TABLET 1 TAB PO (08:38)
[2021-02-22] MEDS: Vitamin E (Dl,Tocopheryl Acet) 180 MG (400 UNIT) CAPSULE PO (08:38)
[2021-02-22] MEDS: HaloperidoL 5 MG TABLET PO ×2 (08:38→21:04)
[2021-02-22 08:56] VITALS: BP 126/73; PULSE 87; RESP 16; TEMP 37.1; O2SAT 100
--- NOTE | 2021-02-22 11:41 | P.PNPSI_ITS ---
Subjective Subjective Date of Service: 02/22/21 Reason For Visit: Shanda Interim History: pt amenable to interview with MD (MD knocked on his door and opened it and noted he was not entering the room and asked if pt wished to meet with MD), after a few moments of hesitation. MD and pt met in interview room. he disputed MD's assessment that he had been recently more irritable, labile, an d delusional than prior. he reported he is feeling well, and better every day. he stated his visit with his mother went fine last night. he had no complaints or requests. he stated it was his intention to remain in the hospital for as long as the experts indicate he should (he somewhat surprisingly identified this flex o writer operator as one of the experts ). per staff, pt not attending groups. did play scrablle with new young female pt yesterday. pacing, intermittent inappropriate comments, irritable, challenging. got PRN haldol 5 and atarax 25 yesterday after noted to be hostile with this flex o writer operator. had a contentious meeting with his mother last evening. Mental Status Exam Mental Status Exam Narrative: well dressed and groomed appropriate to circumstance. no PMA/PMR. cooperative with interview. speech nml in amount, incr in rate, mildly decreased prosody, decr latency. mild paranoia evident during brief interview. affect somewhat constricted yet with some flexibility and appropriate to context. no expressed SI/HI/AVH. Diagnostics Vital Signs (24Hr): Vital Signs - 24 hr 02/21/21 20:00 02/22/21 08:56 Temperature 97.6 F 98.7 F Pulse Rate 98 87 Respiratory Rate 16 Blood Pressure 136/84 126/73 Pulse Oximetry 99 100 Body Mass Index 27.2 Labs Results: 02/21/21 07:02 02/20/21 07:36 Labs: Laboratory Results - last 48 hr 02/21/21 07:02 WBC 6.8 RBC 5.36 Hgb 15.7 Hct 47.7 MCV 89.0 MCH 29.3 MCHC 32.9 RDW 12.9 Plt Count 182 MPV 10.4 Immature Gran % (Auto) 0.3 Neut % (Auto) 50.9 Lymph % (Auto) 29.8 Fleming % (Auto) 15.2 H Eos % (Auto) 3.5 Baso % (Auto) 0.3 Lymph # (Auto) 2.0 [place] # (Auto) 1.0 Eos # (Auto) 0.2 Baso # (Auto) 0.0 Abs Immat Gran (auto) 0.02 Absolute Neuts (auto) 3.5 Absolute Nucleated RBC 0.000 Nucleated RBC % (auto) 0.0 Medications Medications Current Medications Generic Name Dose Route Start Last Admin Trade Name Freq PRN Reason Stop Dose Admin Acetaminophen 650 mg 02/13/21 15:23 Acetaminophen 325 Mg Tablet PO Q6H PRN Headache/Pain Mild Scale (1-3) Al Hydroxide/Mg Hydroxide 30 ml 02/13/21 15:23 Magnesium Hydrox/Alum Hydrox 30 Ml Oral.Susp PO Q6H PRN Heartburn/Nausea Benztropine Mesylate 1 mg 02/12/21 21:00 02/21/21 21:00 Benztropine Mesylate 1 Mg Tablet PO 1 mg BEDTIME ALEXIA Administration Clozapine 50 mg 02/12/21 21:00 02/21/21 21:00 Clozapine 25 Mg Tablet PO 50 mg BEDTIME ALEXIA Administration Clozapine 100 mg 02/12/21 21:00 02/21/21 21:01 Clozapine 100 Mg Tablet PO 100 mg BEDTIME ALEXIA Administration Divalproex Sodium 1,000 mg 02/21/21 21:00 02/22/21 08:38 Divalproex Sodium Er 500 Mg Tab.Er.24h PO 1,000 mg BID ALEXIA Administration Haloperidol 5 mg 02/13/21 16:08 02/21/21 11:02 Haloperidol 5 Mg Tablet PO 5 mg Q6H PRN Administration agitation Haloperidol 5 mg 02/19/21 21:00 02/22/21 08:38 Haloperidol 5 Mg Tablet PO 5 mg BID ALEXIA Administration Hydroxyzine HCl 25 mg 02/13/21 15:23 02/21/21 11:02 Hydroxyzine Hcl 25 Mg Tablet PO 25 mg BEDTIME PRN Administration Anxiety [place] Carbonate 150 mg 02/13/21 09:00 02/22/21 08:37 [place] Carbonate 300 Mg Tablet PO 150 mg DAILY ALEXIA Administration [place] Carbonate 900 mg 02/12/21 21:00 02/21/21 21:01 [place] Carbonate Er 450 Mg Tablet.Er PO 900 mg BEDTIME ALEXIA Administration Magnesium Hydroxide 30 ml 02/13/21 15:23 Milk Of Magnesia 30 Ml Oral.Susp PO DAILY PRN Constipation Multivitamins/Vitamin C 1 tab 02/13/21 09:00 02/22/21 08:38 Multivitamin Tablet PO 1 tab DAILY ALEXIA Administration Trazodone HCl 50 mg 02/13/21 15:23 02/14/21 00:42 Trazodone Hcl 50 Mg Tablet PO 50 mg BEDTIME PRN Administration Insomnia Vitamin E 180 mg 02/13/21 09:00 02/22/21 08:38 Vitamin E (Dl,Tocopheryl Acet) 180 Mg (400 Unit) Capsule PO 180 mg DAILY ALEXIA Administration Allergies Allergies Allergy/AdvReac Type Severity Reaction Status Date / Time penicillin G [Penicillin G] Allergy Mild HIVES Verified 02/12/21 21:22 amoxicillin [Amoxicillin] Allergy Unknown HIVES Verified 02/12/21 21:22 penicillin V Allergy Unknown hives Verified 02/12/21 21:22 Assessment & Plan Assessment & Plan (1) Bipolar affective, manic, severe w/ psych: Status: Acute Code(s): F31.2 - Bipolar disorder, current episode manic severe with psychotic features Assessment and Plan: haldol dosing increased from 2.5 BID to 5 BID as of 02/19. VPA dosing increased from 750 BID to 1000 BID as of 02/21 (level only about 50 on 750 BID). lithium dosing held steady, level around 1.00 pt to be continued on outpt regimen otherwise and observed for stability/improvement on the unit. as of 02/20 lithium trending up, at 1.00; VPA trending down, at 51.7. recheck in 5 days. worsening manic Sx from 02/19 --> 02/21, prompting VPA dose increase. mild improvement by 02/22. Greater than 50% of the session was spent on counseling and/or coordination of care Reason for contiued inpatient stay Substantial Risk for: inability to function and rapid decompensation
[2021-02-22 16:54] VITALS: BP 126/73; PULSE 87; RESP 16; TEMP 37.1; O2SAT 99
[2021-02-22] MEDS: cloZAPine 25 MG TABLET 50 MG PO (21:03)
[2021-02-22] MEDS: Lithium Carbonate ER 450 MG TABLET.ER 900 MG PO (21:03)
[2021-02-22] MEDS: Benztropine Mesylate 1 MG TABLET PO (21:03)
[2021-02-22] MEDS: cloZAPine 100 MG TABLET PO (21:03)
[2021-02-23 07:45] VITALS: BP 104/55; PULSE 70; RESP 16; TEMP 36.8; O2SAT 96
[2021-02-23] MEDS: Vitamin E (Dl,Tocopheryl Acet) 180 MG (400 UNIT) CAPSULE PO (08:04)
[2021-02-23] MEDS: HaloperidoL 5 MG TABLET PO ×2 (08:04→22:53)
[2021-02-23] MEDS: Lithium Carbonate 300 MG TABLET 150 MG PO (08:05)
[2021-02-23] MEDS: Multivitamin TABLET 1 TAB PO (08:05)
[2021-02-23] MEDS: Divalproex Sodium ER 500 MG TAB.ER.24H 1000 MG PO ×2 (08:05→22:53)
--- NOTE | 2021-02-23 13:27 | P.PNPSI_ITS ---
Subjective Subjective Date of Service: 02/23/21 Reason For Visit: Shanda Subjective Notes: Conditional Voluntary Healthcare Proxy: No Guardianship: Yes Medical Problems Affecting Mental Status: No Interim History: pt encountered walking in the [place]. he reports he is feeling well, denies any troubles whatsoever. requests MD contact his mother, to which MD agrees. no other requests or complaints. per staff, not attending groups. seemed better on eves, playing games with peers. med-compliant. Medication Compliance: Yes Side effects from medications: No Attending Groups: No Mental Status Exam Mental Status Exam Narrative: well dressed and groomed appropriate to circumstance. no PMA/PMR. cooperative with interview. speech nml in amount, incr in rate, mildly decreased prosody, decr latency. no paranoia evident during brief interview. affect less constricted with moderate flexibility and appropriate to context. no expressed SI/HI/AVH. Diagnostics Vital Signs (24Hr): Vital Signs - 24 hr 02/22/21 16:54 02/23/21 07:45 Temperature 98.7 F 98.3 F Pulse Rate 87 70 Respiratory Rate 16 16 Blood Pressure 126/73 104/55 L Pulse Oximetry 99 96 Body Mass Index 27.2 Labs Results: 02/21/21 07:02 02/20/21 07:36 Medications Medications Current Medications Generic Name Dose Route Start Last Admin Trade Name Osielq PRN Reason Stop Dose Admin Acetaminophen 650 mg 02/13/21 15:23 Acetaminophen 325 Mg Tablet PO Q6H PRN Headache/Pain Mild Scale (1-3) Al Hydroxide/Mg Hydroxide 30 ml 02/13/21 15:23 Magnesium Hydrox/Alum Hydrox 30 Ml Oral.Susp PO Q6H PRN Heartburn/Nausea Benztropine Mesylate 1 mg 02/12/21 21:00 02/22/21 21:03 Benztropine Mesylate 1 Mg Tablet PO 1 mg BEDTIME ALEXIA Administration Clozapine 50 mg 02/12/21 21:00 02/22/21 21:03 Clozapine 25 Mg Tablet PO 50 mg BEDTIME ALEXIA Administration Clozapine 100 mg 02/12/21 21:00 02/22/21 21:03 Clozapine 100 Mg Tablet PO 100 mg BEDTIME ALEXIA Administration Divalproex Sodium 1,000 mg 02/21/21 21:00 02/23/21 08:05 Divalproex Sodium Er 500 Mg Tab.Er.24h PO 1,000 mg BID ALEXIA Administration Haloperidol 5 mg 02/13/21 16:08 02/21/21 11:02 Haloperidol 5 Mg Tablet PO 5 mg Q6H PRN Administration agitation Haloperidol 5 mg 02/19/21 21:00 02/23/21 08:04 Haloperidol 5 Mg Tablet PO 5 mg BID ALEXIA Administration Hydroxyzine HCl 25 mg 02/13/21 15:23 02/21/21 11:02 Hydroxyzine Hcl 25 Mg Tablet PO 25 mg BEDTIME PRN Administration Anxiety [place] Carbonate 150 mg 02/13/21 09:00 02/23/21 08:05 [place] Carbonate 300 Mg Tablet PO 150 mg DAILY ALEXIA Administration [place] Carbonate 900 mg 02/12/21 21:00 02/22/21 21:03 [place] Carbonate Er 450 Mg Tablet.Er PO 900 mg BEDTIME ALEXIA Administration Magnesium Hydroxide 30 ml 02/13/21 15:23 Milk Of Magnesia 30 Ml Oral.Susp PO DAILY PRN Constipation Multivitamins/Vitamin C 1 tab 02/13/21 09:00 02/23/21 08:05 Multivitamin Tablet PO 1 tab DAILY ALEXIA Administration Trazodone HCl 50 mg 02/13/21 15:23 02/14/21 00:42 Trazodone Hcl 50 Mg Tablet PO 50 mg BEDTIME PRN Administration Insomnia Vitamin E 180 mg 02/13/21 09:00 02/23/21 08:04 Vitamin E (Dl,Tocopheryl Acet) 180 Mg (400 Unit) Capsule PO 180 mg DAILY ALEXIA Administration Allergies Allergies Allergy/AdvReac Type Severity Reaction Status Date / Time penicillin G [Penicillin G] Allergy Mild HIVES Verified 02/12/21 21:22 amoxicillin [Amoxicillin] Allergy Unknown HIVES Verified 02/12/21 21:22 penicillin V Allergy Unknown hives Verified 02/12/21 21:22 Assessment & Plan Assessment & Plan (1) Bipolar affective, manic, severe w/ psych: Status: Acute Code(s): F31.2 - Bipolar disorder, current episode manic severe with psychotic features Assessment and Plan: haldol dosing increased from 2.5 BID to 5 BID as of 02/19. VPA dosing increased from 750 BID to 1000 BID as of 02/21 (level only about 50 on 750 BID). lithium dosing held steady, level around 1.00 pt to be continued on outpt regimen otherwise and observed for stability/improvement on the unit. as of 02/20 lithium trending up, at 1.00; VPA trending down, at 51.7. worsening manic Sx from 02/19 --> 02/21, prompting VPA dose increase. mild improvement by 02/22, more by 02/23. recheck labs 01/26. Greater than 50% of the session was spent on counseling and/or coordination of care Reason for contiued inpatient stay Substantial Risk for: inability to function and rapid decompensation
[2021-02-23] MEDS: cloZAPine 100 MG TABLET PO (22:53)
[2021-02-23] MEDS: Benztropine Mesylate 1 MG TABLET PO (22:53)
[2021-02-23] MEDS: cloZAPine 25 MG TABLET 50 MG PO (22:53)
[2021-02-23] MEDS: Lithium Carbonate ER 450 MG TABLET.ER 900 MG PO (22:53)
[2021-02-24 09:35] VITALS: TEMP 36.4
[2021-02-24] MEDS: Lithium Carbonate 300 MG TABLET 150 MG PO (09:37)
[2021-02-24] MEDS: Vitamin E (Dl,Tocopheryl Acet) 180 MG (400 UNIT) CAPSULE PO (09:38)
[2021-02-24] MEDS: Multivitamin TABLET 1 TAB PO (09:39)
[2021-02-24] MEDS: Divalproex Sodium ER 500 MG TAB.ER.24H 1000 MG PO ×2 (09:39→21:06)
[2021-02-24] MEDS: HaloperidoL 5 MG TABLET PO ×2 (09:39→21:06)
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
[2021-02-24 19:41] VITALS: BP 123/82; PULSE 95; TEMP 36.5; O2SAT 100
[2021-02-24] MEDS: Benztropine Mesylate 1 MG TABLET PO (21:05)
[2021-02-24] MEDS: cloZAPine 25 MG TABLET 50 MG PO (21:05)
[2021-02-24] MEDS: cloZAPine 100 MG TABLET PO (21:05)
[2021-02-24] MEDS: Lithium Carbonate ER 450 MG TABLET.ER 900 MG PO (21:06)
[2021-02-25 08:58] VITALS: BP 105/57; PULSE 91; RESP 18; TEMP 36.8; O2SAT 99
[2021-02-25] MEDS: Multivitamin TABLET 1 TAB PO (09:14)
[2021-02-25] MEDS: Vitamin E (Dl,Tocopheryl Acet) 180 MG (400 UNIT) CAPSULE PO (09:14)
[2021-02-25] MEDS: Lithium Carbonate 300 MG TABLET 150 MG PO (09:14)
[2021-02-25] MEDS: Divalproex Sodium ER 500 MG TAB.ER.24H 1000 MG PO ×2 (09:15→22:54)
[2021-02-25] MEDS: HaloperidoL 5 MG TABLET PO ×2 (09:15→22:54)
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
[2021-02-25 18:00] VITALS: BP 118/64; PULSE 102; RESP 18; TEMP 35.8; O2SAT 100
[2021-02-25] MEDS: cloZAPine 25 MG TABLET 50 MG PO (22:54)
[2021-02-25] MEDS: Benztropine Mesylate 1 MG TABLET PO (22:54)
[2021-02-25] MEDS: cloZAPine 100 MG TABLET PO (22:54)
[2021-02-25] MEDS: Lithium Carbonate ER 450 MG TABLET.ER 900 MG PO (22:55)
[2021-02-26 06:00] VITALS: BP 101/58; PULSE 96; RESP 18; TEMP 36.7; O2SAT 98
[2021-02-26] MEDS: Divalproex Sodium ER 500 MG TAB.ER.24H 1000 MG PO ×2 (07:51→22:44)
[2021-02-26] MEDS: Multivitamin TABLET 1 TAB PO (07:51)
[2021-02-26] MEDS: Lithium Carbonate 300 MG TABLET 150 MG PO (07:51)
[2021-02-26] MEDS: HaloperidoL 5 MG TABLET PO ×2 (07:52→22:44)
[2021-02-26] MEDS: Vitamin E (Dl,Tocopheryl Acet) 180 MG (400 UNIT) CAPSULE PO (07:52)
[2021-02-26 08:27] LABS: MANUAL DIFF FLAG NO
[2021-02-26 08:33] LABS: Basophils Percent Auto 0.3 % (0-2); Eosinophils Absolute Auto 0.2 X10*3/uL (0.0-0.4); Eosinophils Percent Auto 2.7 % (0-4); Hematocrit 45.5 % (42-52); Hemoglobin 14.9 g/dl (14.0-18.0); Imm Gran Abs Auto 0.02 X10*3/uL (0.00-0.03); Imm Gran Pct Auto 0.3 % (0.0-0.4); Lymphocytes Absolute Auto 2.1 X10*3/uL (1.2-4.9); Lymphocytes Percent Auto 33.2 % (20-40); Mean Corpuscular HGB Conc 32.7 g/dl (31.0-36.0); Mean Corpuscular Hemoglobin 28.8 pg (27.0-33.0); Mean Platelet Volume 10.5 fL (9.4-12.4); Monocytes Percent Auto 15.7 % (2-11); Neutrophils Percent Auto 47.8 % (45-73); Platelet Count 167 X10*3/uL (160-400); Red Blood Count 5.17 X10*6/uL (4.60-5.80); Red Cell Distribution Width 13.1 % (11.0-16.0); White Blood Count 6.4 X10*3/uL (4.8-10.8)
[2021-02-26 08:53] LABS: Lithium 1.01 mmol/L (0.60-1.20)
[2021-02-26 09:13] LABS: Valproate 69.6 mcg/mL (50.0-100.0)
[2021-02-26 09:18] LABS: Anion Gap 8 (12-20); Blood Urea Nitrogen 18 mg/dL (9-16); Calcium 9.3 mg/dL (8.4-10.2); Carbon Dioxide 30 mmol/L (22-29); Chloride 110 mmol/L (96-108); Creatinine Clr Calc Pharmacy 124.9; Estimated Glomerular Filt Rate > 60; Glucose Random 99 mg/dL (60-115); Potassium 4.4 mmol/L (3.3-5.1); Sodium 144 mmol/L (135-145)
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
[2021-02-26 20:04] VITALS: BP 121/65; PULSE 73; RESP 16; TEMP 37.4; O2SAT 98
[2021-02-26] MEDS: cloZAPine 25 MG TABLET 50 MG PO (22:43)
[2021-02-26] MEDS: Benztropine Mesylate 1 MG TABLET PO (22:43)
[2021-02-26] MEDS: cloZAPine 100 MG TABLET PO (22:44)
[2021-02-26] MEDS: Lithium Carbonate ER 450 MG TABLET.ER 900 MG PO (22:44)
[2021-02-27 06:00] VITALS: BP 120/67; PULSE 107; RESP 16; TEMP 36.7; O2SAT 100
[2021-02-27] MEDS: Divalproex Sodium ER 500 MG TAB.ER.24H 1000 MG PO (10:06)
[2021-02-27] MEDS: Vitamin E (Dl,Tocopheryl Acet) 180 MG (400 UNIT) CAPSULE PO (10:06)
[2021-02-27] MEDS: Multivitamin TABLET 1 TAB PO (10:06)
[2021-02-27] MEDS: Lithium Carbonate 300 MG TABLET 150 MG PO (10:07)
[2021-02-27] MEDS: HaloperidoL 5 MG TABLET PO ×2 (10:08→22:52)
--- NOTE | 2021-02-27 16:31 | HO.PSYCHPN ---
Subjective Subjective Date of Service: 02/27/21 Reason For Visit: Shanda Interim History: Pt reports he is sleeping and eating well. He was irritable during the interview: asked pt about his mother's visit last night and pt responded, don't ask me about my mom. that's inappropriate. i don't ask you about your mom. he reported his mood is good and he feels fine. MD asked him his thoughts on discharge and he stated he would like to leave today. he stated his father would come and pick him up and that he would call his father to verify a time. he then stated, we're done, and proceeded to walk away from MD. MD called after him saying that there were some more details to take care of so that the discharge could happen, and he continued to walk away. MD waited for him to return down the rodriguez, which he did. as pt passed MD, MD once again informed him that in order for a discharge to happen we had to discuss matters further. he did not respond at all and continued walking past MD. per staff, pt has been inappropriate with females, asking one woman her name and after she told it asking, is your name a stripper name? He is taking medications as prescribed. Mental Status Exam Mental Status Exam Narrative: Appearance: casually groomed, good hygiene, pacing Behavior: pacing. Psychomotor: less restless, pacing Speech: clear, regular rate/rhythm, terse TP: linear, illogical TC: paranoid Affect: irritable, hyper-intense. AH/VH/SI/HI not expressed Delusions: none elaborated, but likely holding them close to his chest Diagnostics Vital Signs (24Hr): Vital Signs - 24 hr 02/26/21 20:04 02/27/21 06:00 Temperature 99.4 F 98.1 F Pulse Rate 73 107 H Respiratory Rate 16 16 Blood Pressure 121/65 120/67 Pulse Oximetry 98 100 Body Mass Index 27.2 Labs Results: 02/26/21 07:46 02/26/21 07:46 Labs: Laboratory Results - last 48 hr 02/26/21 02/26/21 02/26/21 07:46 07:46 07:46 WBC 6.4 RBC 5.17 Hgb 14.9 Hct 45.5 MCV 88.0 MCH 28.8 MCHC 32.7 RDW 13.1 Plt Count 167 MPV 10.5 Immature Gran % (Auto) 0.3 Neut % (Auto) 47.8 Lymph % (Auto) 33.2 [place] % (Auto) 15.7 H Eos % (Auto) 2.7 Baso % (Auto) 0.3 Lymph # (Auto) 2.1 [place] # (Auto) 1.0 Eos # (Auto) 0.2 Baso # (Auto) 0.0 Abs Immat Gran (auto) 0.02 Absolute Neuts (auto) 3.0 Absolute Nucleated RBC 0.000 Nucleated RBC % (auto) 0.0 Sodium 144 Potassium 4.4 Chloride 110 H Carbon Dioxide 30 H Anion Gap 8 L BUN 18 H Creatinine 0.94 Estim Creat Clear Calc 124.9 Estimated GFR > 60 Random Glucose 99 Calcium 9.3 Valproic Acid 69.6 [place] 1.01 Medications Medications Current Medications Generic Name Dose Route Start Last Admin Trade Name Freq PRN Reason Stop Dose Admin Acetaminophen 650 mg 02/13/21 15:23 Acetaminophen 325 Mg Tablet PO Q6H PRN Headache/Pain Mild Scale (1-3) Al Hydroxide/Mg Hydroxide 30 ml 02/13/21 15:23 Magnesium Hydrox/Alum Hydrox 30 Ml Oral.Susp PO Q6H PRN Heartburn/Nausea Benztropine Mesylate 1 mg 02/12/21 21:00 02/26/21 22:43 Benztropine Mesylate 1 Mg Tablet PO 1 mg BEDTIME ALEXIA Administration Clozapine 50 mg 02/12/21 21:00 02/26/21 22:43 Clozapine 25 Mg Tablet PO 50 mg BEDTIME ALEXIA Administration Clozapine 100 mg 02/12/21 21:00 02/26/21 22:44 Clozapine 100 Mg Tablet PO 100 mg BEDTIME ALEXIA Administration Divalproex Sodium 1,250 mg 02/27/21 21:00 Divalproex Sodium Er 250 Mg Tab.Er.24h PO BID ALEXIA Haloperidol 5 mg 02/13/21 16:08 02/21/21 11:02 Haloperidol 5 Mg Tablet PO 5 mg Q6H PRN Administration agitation Haloperidol 5 mg 02/19/21 21:00 02/27/21 10:08 Haloperidol 5 Mg Tablet PO 5 mg BID ALEXIA Administration Hydroxyzine HCl 25 mg 02/13/21 15:23 02/21/21 11:02 Hydroxyzine Hcl 25 Mg Tablet PO 25 mg BEDTIME PRN Administration Anxiety [place] Carbonate 150 mg 02/13/21 09:00 02/27/21 10:07 [place] Carbonate 300 Mg Tablet PO 150 mg DAILY ALEXIA Administration [place] Carbonate 900 mg 02/12/21 21:00 02/26/21 22:44 [place] Carbonate Er 450 Mg Tablet.Er PO 900 mg BEDTIME ALEXIA Administration Magnesium Hydroxide 30 ml 02/13/21 15:23 Milk Of Magnes[place] 30 Ml Oral.Susp PO DAILY PRN Constipation Multivitamins/Vitamin C 1 tab 02/13/21 09:00 02/27/21 10:06 Multivitamin Tablet PO 1 tab DAILY ALEXIA Administration Trazodone HCl 50 mg 02/13/21 15:23 02/14/21 00:42 Trazodone Hcl 50 Mg Tablet PO 50 mg BEDTIME PRN Administration Insomnia Vitamin E 180 mg 02/13/21 09:00 02/27/21 10:06 Vitamin E (Dl,Tocopheryl Acet) 180 Mg (400 Unit) Capsule PO 180 mg DAILY ALEXIA Administration Allergies Allergies Allergy/AdvReac Type Severity Reaction Status Date / Time penicillin G [Penicillin G] Allergy Mild HIVES Verified 02/12/21 21:22 amoxicillin [Amoxicillin] Allergy Unknown HIVES Verified 02/12/21 21:22 penicillin V Allergy Unknown hives Verified 02/12/21 21:22 Assessment & Plan Assessment & Plan (1) Bipolar affective, manic, severe w/ psych: Status: Acute Code(s): F31.2 - Bipolar disorder, current episode manic severe with psychotic features Assessment and Plan: haldol dosing increased from 2.5 BID to 5 BID as of 02/19. VPA dosing increased from 750 BID to 1000 BID as of 02/21 (level only about 50 on 750 BID). VPA level at 1000 BID is 70 (02/26). pt does not appear appreciably better on increased VPA dosing. VPA dosing once again increased to 1250 BID on 02/27 due to continued manic/psychotic Sx. lithium dosing held steady, level around 1.00. pt to be continued on outpt regimen otherwise and observed for stability/improvement on the unit. as of 02/20 lithium trending up, at 1.00; VPA trending down, at 51.7. worsening manic Sx from 02/19 --> 02/21, prompting VPA dose increase. mild improvement by 02/22, more by 02/23. rechecked labs 01/26. progress has essentially stopped as of 02/23, despite VPA level increase of 20 points with increased dosing. dosing increased again 02/27, to 1250 BID. continues quite symptomatic, worse than at admission it appears. Greater than 50% of the session was spent on counseling and/or coordination of care Reason for contiued inpatient stay Substantial Risk for: inability to function and rapid decompensation
[2021-02-27 18:00] VITALS: BP 126/79; PULSE 88; TEMP 36.4; O2SAT 100
[2021-02-27] MEDS: Divalproex Sodium ER 250 MG TAB.ER.24H 1250 MG PO (22:51)
[2021-02-27] MEDS: cloZAPine 25 MG TABLET 50 MG PO (22:51)
[2021-02-27] MEDS: cloZAPine 100 MG TABLET PO (22:52)
[2021-02-27] MEDS: Lithium Carbonate ER 450 MG TABLET.ER 900 MG PO (22:52)
[2021-02-27] MEDS: Benztropine Mesylate 1 MG TABLET PO (22:52)
[2021-02-27 23:45] VITALS: BP 126/79; PULSE 88; TEMP 36.4; O2SAT 100
[2021-02-28] MEDS: Vitamin E (Dl,Tocopheryl Acet) 180 MG (400 UNIT) CAPSULE PO (09:10)
[2021-02-28] MEDS: Multivitamin TABLET 1 TAB PO (09:10)
[2021-02-28] MEDS: Lithium Carbonate 300 MG TABLET 150 MG PO (09:11)
[2021-02-28] MEDS: HaloperidoL 5 MG TABLET PO ×2 (09:12→21:38)
[2021-02-28] MEDS: Divalproex Sodium ER 500 MG TAB.ER.24H 1000 MG PO ×2 (09:23→21:38)
[2021-02-28] MEDS: Divalproex Sodium ER 250 MG TAB.ER.24H 1250 MG PO (09:23)
[2021-02-28] MEDS: Divalproex Sodium ER 250 MG TAB.ER.24H PO ×2 (09:24→21:38)
--- NOTE | 2021-02-28 11:39 | P.PNPSI_ITS ---
Subjective Subjective Date of Service: 02/28/21 Reason For Visit: Shanda Interim History: Pt reports he is sleeping and eating well. he feels his mood is good and he has improved a lot and is ready for discharge. he denies discharge was discussed yesterday with MD. he states his father will come get him today. he states he is ready to go whenever the experts say it is OK. MD informs him that it is MDs opinion that pt is not ready for discharge. pt asks that MD discuss the situation with his father and provides name and contact info for father (Ellis Henderson, ). per staff, pt has been irritable, grandiose, labile. pacing, med-compliant. interactive with females. not attending groups, not generally cooperative with staff. call placed to father, no return call yet. Mental Status Exam Mental Status Exam Narrative: well dressed and groomed, appropriate to circumstance. no PMA/PMR (but pacing, as is his baseline). fairly cooperative with interview. speech nml in amount, incr in rate, mildly decreased prosody, decr latency. paranoia and delusions evident during interview. affect wooden. denies SI/HI/AVH. Diagnostics Vital Signs (24Hr): Vital Signs - 24 hr 02/27/21 18:00 02/27/21 23:45 Temperature 97.6 F 97.6 F Pulse Rate 88 88 Blood Pressure 126/79 126/79 Pulse Oximetry 100 100 Body Mass Index 27.2 Labs Results: 02/26/21 07:46 02/26/21 07:46 Medications Medications Current Medications Generic Name Dose Route Start Last Admin Trade Name Ryan PRN Reason Stop Dose Admin Acetaminophen 650 mg 02/13/21 15:23 Acetaminophen 325 Mg Tablet PO Q6H PRN Headache/Pain Mild Scale (1-3) Al Hydroxide/Mg Hydroxide 30 ml 02/13/21 15:23 Magnesium Hydrox/Alum Hydrox 30 Ml Oral.Susp PO Q6H PRN Heartburn/Nausea Benztropine Mesylate 1 mg 02/12/21 21:00 02/27/21 22:52 Benztropine Mesylate 1 Mg Tablet PO 1 mg BEDTIME ALEXIA Administration Clozapine 50 mg 02/12/21 21:00 02/27/21 22:51 Clozapine 25 Mg Tablet PO 50 mg BEDTIME ALEXIA Administration Clozapine 100 mg 02/12/21 21:00 02/27/21 22:52 Clozapine 100 Mg Tablet PO 100 mg BEDTIME ALEXIA Administration Divalproex Sodium 1,000 mg 02/28/21 09:30 02/28/21 09:23 Divalproex Sodium Er 500 Mg Tab.Er.24h PO 1,000 mg BID ALEXIA Administration Divalproex Sodium 250 mg 02/28/21 09:30 02/28/21 09:24 Divalproex Sodium Er 250 Mg Tab.Er.24h PO 250 mg BID ALEXIA Administration Haloperidol 5 mg 02/13/21 16:08 02/21/21 11:02 Haloperidol 5 Mg Tablet PO 5 mg Q6H PRN Administration agitation Haloperidol 5 mg 02/19/21 21:00 02/28/21 09:12 Haloperidol 5 Mg Tablet PO 5 mg BID ALEXIA Administration Hydroxyzine HCl 25 mg 02/13/21 15:23 02/21/21 11:02 Hydroxyzine Hcl 25 Mg Tablet PO 25 mg BEDTIME PRN Administration Anxiety [place] Carbonate 150 mg 02/13/21 09:00 02/28/21 09:11 [place] Carbonate 300 Mg Tablet PO 150 mg DAILY ALEXIA Administration [place] Carbonate 900 mg 02/12/21 21:00 02/27/21 22:52 [place] Carbonate Er 450 Mg Tablet.Er PO 900 mg BEDTIME ALEXIA Administration Magnesium Hydroxide 30 ml 02/13/21 15:23 Milk Of Magnes[place] 30 Ml Oral.Susp PO DAILY PRN Constipation Multivitamins/Vitamin C 1 tab 02/13/21 09:00 02/28/21 09:10 Multivitamin Tablet PO 1 tab DAILY ALEXIA Administration Trazodone HCl 50 mg 02/13/21 15:23 02/14/21 00:42 Trazodone Hcl 50 Mg Tablet PO 50 mg BEDTIME PRN Administration Insomnia Vitamin E 180 mg 02/13/21 09:00 02/28/21 09:10 Vitamin E (Dl,Tocopheryl Acet) 180 Mg (400 Unit) Capsule PO 180 mg DAILY ALEXIA Administration Allergies Allergies Allergy/AdvReac Type Severity Reaction Status Date / Time penicillin G [Penicillin G] Allergy Mild HIVES Verified 02/12/21 21:22 amoxicillin [Amoxicillin] Allergy Unknown HIVES Verified 02/12/21 21:22 penicillin V Allergy Unknown hives Verified 02/12/21 21:22 Assessment & Plan Assessment & Plan (1) Bipolar affective, manic, severe w/ psych: Status: Acute Code(s): F31.2 - Bipolar disorder, current episode manic severe with psychotic features Assessment and Plan: haldol dosing increased from 2.5 BID to 5 BID as of 02/19. VPA dosing increased from 750 BID to 1000 BID as of 02/21 (level only about 50 on 750 BID). VPA level at 1000 BID is 70 (02/26). pt does not appear appreciably better on increased VPA dosing. VPA dosing once again increased to 1250 BID on 02/27 due to continued manic/psychotic Sx. lithium dosing held steady, level around 1.00. pt to be continued on outpt regimen otherwise and observed for stability/improvement on the unit. as of 02/20 lithium trending up, at 1.00; VPA trending down, at 51.7. worsening manic Sx from 02/19 --> 02/21, prompting VPA dose increase. mild improvement by 02/22, more by 02/23. rechecked labs 01/26. progress essentially stopped as of 02/23, despite VPA level increase of 20 points with increased dosing. dosing increased again 02/27, to 1250 BID. T/C further haldol dosing increase if this last VPA dose increase is ineffective. continues quite symptomatic, worse than at admission it appears. Greater than 50% of the session was spent on counseling and/or coordination of care Reason for contiued inpatient stay Substantial Risk for: inability to function and rapid decompensation
[2021-02-28 20:44] VITALS: BP 115/66; PULSE 82; TEMP 36.3; O2SAT 100
[2021-02-28] MEDS: Benztropine Mesylate 1 MG TABLET PO (21:37)
[2021-02-28] MEDS: cloZAPine 100 MG TABLET PO (21:38)
[2021-02-28] MEDS: cloZAPine 25 MG TABLET 50 MG PO (21:38)
[2021-02-28] MEDS: Lithium Carbonate ER 450 MG TABLET.ER 900 MG PO (21:39)
[2021-03-01 08:31] VITALS: BP 107/59; PULSE 83; RESP 17; TEMP 37.2; O2SAT 98
[2021-03-01] MEDS: Divalproex Sodium ER 500 MG TAB.ER.24H 1000 MG PO ×2 (09:16→22:36)
[2021-03-01] MEDS: Lithium Carbonate 300 MG TABLET 150 MG PO (09:16)
[2021-03-01] MEDS: Divalproex Sodium ER 250 MG TAB.ER.24H PO ×2 (09:16→22:35)
[2021-03-01] MEDS: HaloperidoL 5 MG TABLET PO ×2 (09:16→22:36)
[2021-03-01] MEDS: Multivitamin TABLET 1 TAB PO (09:16)
[2021-03-01] MEDS: Vitamin E (Dl,Tocopheryl Acet) 180 MG (400 UNIT) CAPSULE PO (09:16)
--- NOTE | 2021-03-01 11:42 | P.PNPSI_ITS ---
Subjective Subjective Date of Service: 03/01/21 Reason For Visit: Shanda Interim History: Pt reports he is sleeping and eating well. apologizes for being rude to MD the past several days. adeola any recent changes in his mod and asserts his mood is euthymic and stable. he feels he has improved a lot since admission and is grateful for admission; nevertheless he is willing to listen to the experts' opinion about his progress and to be told when he is ready for discharge. states he spoke with his father last night but that his father did not inform he that his father believes he needs to remain in the hospital for now and is not yet ready for discharge. pt requests MD call his mother today, between 12 and 12:30, as that is the best time for her. no other questions, requests, or complaints. MD informs pt his VPA was recently increased and a level will be drawn about 5 days after the increase. per staff, pt has been attending groups. calm, cooperative, apologized for be ing in a bad mood. mother has requested a call from Tx team between 12 and 12:30 today. call placed to father, no return call yet. Mental Status Exam Mental Status Exam Narrative: well dressed and groomed, appropriate to circumstance. no PMA/PMR (but pacing, as is his baseline). cooperative with interview. speech nml in amount and rate, mildly decreased prosody, nml latency. no paranoia or delusions evident during interview. affect more flexible than past few days. no SI/HI/AVH expressed. Diagnostics Vital Signs (24Hr): Vital Signs - 24 hr 02/28/21 20:44 03/01/21 08:31 Temperature 97.3 F 99.0 F Pulse Rate 82 83 Respiratory Rate 17 Blood Pressure 115/66 107/59 L Pulse Oximetry 100 98 Body Mass Index 27.2 Labs Results: 02/26/21 07:46 02/26/21 07:46 Medications Medications Current Medications Generic Name Dose Route Start Last Admin Trade Name Freq PRN Reason Stop Dose Admin Acetaminophen 650 mg 02/13/21 15:23 Acetaminophen 325 Mg Tablet PO Q6H PRN Headache/Pain Mild Scale (1-3) Al Hydroxide/Mg Hydroxide 30 ml 02/13/21 15:23 Magnesium Hydrox/Alum Hydrox 30 Ml Oral.Susp PO Q6H PRN Heartburn/Nausea Benztropine Mesylate 1 mg 02/12/21 21:00 02/28/21 21:37 Benztropine Mesylate 1 Mg Tablet PO 1 mg BEDTIME ALEXIA Administration Clozapine 50 mg 02/12/21 21:00 02/28/21 21:38 Clozapine 25 Mg Tablet PO 50 mg BEDTIME ALEXIA Administration Clozapine 100 mg 02/12/21 21:00 02/28/21 21:38 Clozapine 100 Mg Tablet PO 100 mg BEDTIME ALEXIA Administration Divalproex Sodium 1,000 mg 02/28/21 09:30 03/01/21 09:16 Divalproex Sodium Er 500 Mg Tab.Er.24h PO 1,000 mg BID ALEXIA Administration Divalproex Sodium 250 mg 02/28/21 09:30 03/01/21 09:16 Divalproex Sodium Er 250 Mg Tab.Er.24h PO 250 mg BID ALEXIA Administration Haloperidol 5 mg 02/13/21 16:08 02/21/21 11:02 Haloperidol 5 Mg Tablet PO 5 mg Q6H PRN Administration agitation Haloperidol 5 mg 02/19/21 21:00 03/01/21 09:16 Haloperidol 5 Mg Tablet PO 5 mg BID ALEXIA Administration Hydroxyzine HCl 25 mg 02/13/21 15:23 02/21/21 11:02 Hydroxyzine Hcl 25 Mg Tablet PO 25 mg BEDTIME PRN Administration Anxiety [place] Carbonate 150 mg 02/13/21 09:00 03/01/21 09:16 [place] Carbonate 300 Mg Tablet PO 150 mg DAILY ALEXIA Administration [place] Carbonate 900 mg 02/12/21 21:00 02/28/21 21:39 [place] Carbonate Er 450 Mg Tablet.Er PO 900 mg BEDTIME ALEXIA Administration Magnesium Hydroxide 30 ml 02/13/21 15:23 Milk Of Magnes[place] 30 Ml Oral.Susp PO DAILY PRN Constipation Multivitamins/Vitamin C 1 tab 02/13/21 09:00 03/01/21 09:16 Multivitamin Tablet PO 1 tab DAILY ALEXIA Administration Trazodone HCl 50 mg 02/13/21 15:23 02/14/21 00:42 Trazodone Hcl 50 Mg Tablet PO 50 mg BEDTIME PRN Administration Insomnia Vitamin E 180 mg 02/13/21 09:00 03/01/21 09:16 Vitamin E (Dl,Tocopheryl Acet) 180 Mg (400 Unit) Capsule PO 180 mg DAILY ALEXIA Administration Allergies Allergies Allergy/AdvReac Type Severity Reaction Status Date / Time penicillin G [Penicillin G] Allergy Mild HIVES Verified 02/12/21 21:22 amoxicillin [Amoxicillin] Allergy Unknown HIVES Verified 02/12/21 21:22 penicillin V Allergy Unknown hives Verified 02/12/21 21:22 Assessment & Plan Assessment & Plan (1) Bipolar affective, manic, severe w/ psych: Status: Acute Code(s): F31.2 - Bipolar disorder, current episode manic severe with psychotic features Assessment and Plan: haldol dosing increased from 2.5 BID to 5 BID as of 02/19. VPA dosing increased from 750 BID to 1000 BID as of 02/21 (level only about 50 on 750 BID). VPA level at 1000 BID is 70 (02/26). pt does not appear appreciably better on increased VPA dosing. VPA dosing once again increased to 1250 BID on 02/27 due to continued manic/psychotic Sx. lithium dosing held steady, level around 1.00. pt to be continued on outpt regimen otherwise and observed for stability/improvement on the unit. as of 02/20 lithium trending up, at 1.00; VPA trending down, at 51.7. worsening manic Sx from 02/19 --> 02/21, prompting VPA dose increase. mild improvement by 02/22, more by 02/23. rechecked labs 01/26. progress essentially stopped as of 02/23, despite VPA level increase of 20 points with increased dosing. dosing increased again 02/27, to 1250 BID. T/C further haldol dosing increase if this last VPA dose increase is ineffective. slight improvement in mood and insight as of 03/01. will check levels 03/05. Greater than 50% of the session was spent on counseling and/or coordination of care Reason for contiued inpatient stay Substantial Risk for: inability to function and rapid decompensation
[2021-03-01 20:09] VITALS: BP 142/73; PULSE 81; TEMP 35.9; O2SAT 100
[2021-03-01] MEDS: cloZAPine 100 MG TABLET PO (22:35)
[2021-03-01] MEDS: cloZAPine 25 MG TABLET 50 MG PO (22:35)
[2021-03-01] MEDS: Lithium Carbonate ER 450 MG TABLET.ER 900 MG PO (22:36)
[2021-03-01] MEDS: Benztropine Mesylate 1 MG TABLET PO (22:36)
[2021-03-02] MEDS: Lithium Carbonate 300 MG TABLET 150 MG PO (08:31)
[2021-03-02] MEDS: Vitamin E (Dl,Tocopheryl Acet) 180 MG (400 UNIT) CAPSULE PO (08:32)
[2021-03-02] MEDS: Multivitamin TABLET 1 TAB PO (08:32)
[2021-03-02] MEDS: Divalproex Sodium ER 500 MG TAB.ER.24H 1000 MG PO ×2 (08:32→22:30)
[2021-03-02] MEDS: Divalproex Sodium ER 250 MG TAB.ER.24H PO ×2 (08:32→22:30)
[2021-03-02] MEDS: HaloperidoL 5 MG TABLET PO ×2 (08:37→22:31)
[2021-03-02 08:40] VITALS: BP 119/69; PULSE 70; RESP 18; TEMP 36.9; O2SAT 100
--- NOTE | 2021-03-02 13:41 | P.PNPSI_ITS ---
Subjective Subjective Date of Service: 03/02/21 Reason For Visit: Shanda Interim History: pt reports he is feeling well, better every day. sleeping well, eating well, getting along with peers well. deflects a question about his phone call with his father, saying it is his private business and inappropriate for MD to ask about his phone call as overheard on the unit. per staff, pt presents as per yesterday. not attending groups. more pleasant than earlier in the week. Mental Status Exam Mental Status Exam Narrative: well dressed and groomed, appropriate to circumstance. no PMA/PMR (but pacing, as is his baseline). cooperative with interview. speech nml in amount and rate, mildly decreased prosody, nml latency. no paranoia or delusions evident during interview. affect more flexible than past few days. no SI/HI/AVH expressed. Diagnostics Vital Signs (24Hr): Vital Signs - 24 hr 03/01/21 20:09 03/02/21 08:40 Temperature 96.6 F L 98.5 F Pulse Rate 81 70 Respiratory Rate 18 Blood Pressure 142/73 H 119/69 Pulse Oximetry 100 100 Body Mass Index 27.2 Labs Results: 02/26/21 07:46 02/26/21 07:46 Medications Medications Current Medications Generic Name Dose Route Start Last Admin Trade Name Freq PRN Reason Stop Dose Admin Acetaminophen 650 mg 02/13/21 15:23 Acetaminophen 325 Mg Tablet PO Q6H PRN Headache/Pain Mild Scale (1-3) Al Hydroxide/Mg Hydroxide 30 ml 02/13/21 15:23 Magnesium Hydrox/Alum Hydrox 30 Ml Oral.Susp PO Q6H PRN Heartburn/Nausea Benztropine Mesylate 1 mg 02/12/21 21:00 03/01/21 22:36 Benztropine Mesylate 1 Mg Tablet PO 1 mg BEDTIME ALEXIA Administration Clozapine 50 mg 02/12/21 21:00 03/01/21 22:35 Clozapine 25 Mg Tablet PO 50 mg BEDTIME ALEXIA Administration Clozapine 100 mg 02/12/21 21:00 03/01/21 22:35 Clozapine 100 Mg Tablet PO 100 mg BEDTIME ALEXIA Administration Divalproex Sodium 1,000 mg 02/28/21 09:30 03/02/21 08:32 Divalproex Sodium Er 500 Mg Tab.Er.24h PO 1,000 mg BID ALEXAI Administration Divalproex Sodium 250 mg 02/28/21 09:30 03/02/21 08:32 Divalproex Sodium Er 250 Mg Tab.Er.24h PO 250 mg BID ALEXIA Administration Haloperidol 5 mg 02/13/21 16:08 02/21/21 11:02 Haloperidol 5 Mg Tablet PO 5 mg Q6H PRN Administration agitation Haloperidol 5 mg 02/19/21 21:00 03/02/21 08:37 Haloperidol 5 Mg Tablet PO 5 mg BID ALEXIA Administration Hydroxyzine HCl 25 mg 02/13/21 15:23 02/21/21 11:02 Hydroxyzine Hcl 25 Mg Tablet PO 25 mg BEDTIME PRN Administration Anxiety [place] Carbonate 150 mg 02/13/21 09:00 03/02/21 08:31 [place] Carbonate 300 Mg Tablet PO 150 mg DAILY ALEXIA Administration [place] Carbonate 900 mg 02/12/21 21:00 03/01/21 22:36 [place] Carbonate Er 450 Mg Tablet.Er PO 900 mg BEDTIME ALEXIA Administration Magnesium Hydroxide 30 ml 02/13/21 15:23 Milk Of Magnesia 30 Ml Oral.Susp PO DAILY PRN Constipation Multivitamins/Vitamin C 1 tab 02/13/21 09:00 03/02/21 08:32 Multivitamin Tablet PO 1 tab DAILY ALEXIA Administration Trazodone HCl 50 mg 02/13/21 15:23 02/14/21 00:42 Trazodone Hcl 50 Mg Tablet PO 50 mg BEDTIME PRN Administration Insomnia Vitamin E 180 mg 02/13/21 09:00 03/02/21 08:32 Vitamin E (Dl,Tocopheryl Acet) 180 Mg (400 Unit) Capsule PO 180 mg DAILY ALEXIA Administration Allergies Allergies Allergy/AdvReac Type Severity Reaction Status Date / Time penicillin G [Penicillin G] Allergy Mild HIVES Verified 02/12/21 21:22 amoxicillin [Amoxicillin] Allergy Unknown HIVES Verified 02/12/21 21:22 penicillin V Allergy Unknown hives Verified 02/12/21 21:22 Assessment & Plan Assessment & Plan (1) Bipolar affective, manic, severe w/ psych: Status: Acute Code(s): F31.2 - Bipolar disorder, current episode manic severe with psychotic features Assessment and Plan: haldol dosing increased from 2.5 BID to 5 BID as of 02/19. VPA dosing increased from 750 BID to 1000 BID as of 02/21 (level only about 50 on 750 BID). VPA level at 1000 BID is 70 (02/26). pt does not appear appreciably better on increased VPA dosing. VPA dosing once again increased to 1250 BID on 02/27 due to continued manic/psychotic Sx. lithium dosing held steady, level around 1.00. pt to be continued on outpt regimen otherwise and observed for s tability/improvement on the unit. as of 02/20 lithium trending up, at 1.00; VPA trending down, at 51.7. worsening manic Sx from 02/19 --> 02/21, prompting VPA dose increase. mild improvement by 02/22, more by 02/23. rechecked labs 01/26. progress essentially stopped as of 02/23, despite VPA level increase of 20 points with increased dosing. dosing increased again 02/27, to 1250 BID. T/C further haldol dosing increase if this last VPA dose increase is ineffective. slight improvement in mood and insight through 03/02. will check levels 03/05. Greater than 50% of the session was spent on counseling and/or coordination of care Reason for contiued inpatient stay Substantial Risk for: inability to function and rapid decompensation
[2021-03-02] MEDS: cloZAPine 25 MG TABLET 50 MG PO (22:30)
[2021-03-02] MEDS: Lithium Carbonate ER 450 MG TABLET.ER 900 MG PO (22:30)
[2021-03-02] MEDS: cloZAPine 100 MG TABLET PO (22:30)
[2021-03-02] MEDS: Benztropine Mesylate 1 MG TABLET PO (22:30)
[2021-03-03 06:00] VITALS: BP 97/61; PULSE 118; RESP 16; TEMP 37; O2SAT 100
[2021-03-03] MEDS: HaloperidoL 5 MG TABLET PO ×2 (10:22→22:06)
[2021-03-03] MEDS: Divalproex Sodium ER 500 MG TAB.ER.24H 1000 MG PO ×2 (10:22→22:05)
[2021-03-03] MEDS: Divalproex Sodium ER 250 MG TAB.ER.24H PO ×2 (10:23→22:06)
[2021-03-03] MEDS: Multivitamin TABLET 1 TAB PO (10:23)
[2021-03-03] MEDS: Lithium Carbonate 300 MG TABLET 150 MG PO (10:23)
[2021-03-03] MEDS: Vitamin E (Dl,Tocopheryl Acet) 180 MG (400 UNIT) CAPSULE PO (10:23)
--- NOTE | 2021-03-03 13:25 | HO.PSYCHPN ---
Subjective Subjective Date of Service: 03/03/21 Reason For Visit: Shanda Interim History: pt initially quite irritable with MD, upset at MD for hailing him from down the [place] to his back, in order to get his attention prior to his entering his room. pt shortly forgives MD for the perceived faux pas. pt reports he is feeling well, better every day. sleeping well, eating well, toileting well, getting along with peers well. per staff, pt presents as pleasant and appropriate. Mental Status Exam Mental Status Exam Narrative: well dressed and groomed, appropriate to circumstance. no PMA/PMR (but pacing, as is his baseline). cooperative with interview. speech nml in amount and rate, mildly decreased prosody, nml latency. no paranoia or delusions evident during interview. affect more flexible than past few days. no SI/HI/AVH expressed. Diagnostics Vital Signs (24Hr): Vital Signs - 24 hr 03/03/21 06:00 Temperature 98.6 F Pulse Rate 118 H Respiratory Rate 16 Blood Pressure 97/61 Pulse Oximetry 100 Body Mass Index 27.2 Labs Results: 02/26/21 07:46 02/26/21 07:46 Medications Medications Current Medications Generic Name Dose Route Start Last Admin Trade Name Freq PRN Reason Stop Dose Admin Acetaminophen 650 mg 02/13/21 15:23 Acetaminophen 325 Mg Tablet PO Q6H PRN Headache/Pain Mild Scale (1-3) Al Hydroxide/Mg Hydroxide 30 ml 02/13/21 15:23 Magnesium Hydrox/Alum Hydrox 30 Ml Oral.Susp PO Q6H PRN Heartburn/Nausea Benztropine Mesylate 1 mg 02/12/21 21:00 03/02/21 22:30 Benztropine Mesylate 1 Mg Tablet PO 1 mg BEDTIME ALEXIA Administration Clozapine 50 mg 02/12/21 21:00 03/02/21 22:30 Clozapine 25 Mg Tablet PO 50 mg BEDTIME ALEXIA Administration Clozapine 100 mg 02/12/21 21:00 03/02/21 22:30 Clozapine 100 Mg Tablet PO 100 mg BEDTIME ALEXIA Administration Divalproex Sodium 1,000 mg 02/28/21 09:30 03/03/21 10:22 Divalproex Sodium Er 500 Mg Tab.Er.24h PO 1,000 mg BID ALEXIA Administration Divalproex Sodium 250 mg 02/28/21 09:30 03/03/21 10:23 Divalproex Sodium Er 250 Mg Tab.Er.24h PO 250 mg BID ALEXIA Administration Haloperidol 5 mg 02/13/21 16:08 02/21/21 11:02 Haloperidol 5 Mg Tablet PO 5 mg Q6H PRN Administration agitation Haloperidol 5 mg 02/19/21 21:00 03/03/21 10:22 Haloperidol 5 Mg Tablet PO 5 mg BID ALEXIA Administration Hydroxyzine HCl 25 mg 02/13/21 15:23 02/21/21 11:02 Hydroxyzine Hcl 25 Mg Tablet PO 25 mg BEDTIME PRN Administration Anxiety [place] Carbonate 150 mg 02/13/21 09:00 03/03/21 10:23 [place] Carbonate 300 Mg Tablet PO 150 mg DAILY ALEXIA Administration [place] Carbonate 900 mg 02/12/21 21:00 03/02/21 22:30 [place] Carbonate Er 450 Mg Tablet.Er PO 900 mg BEDTIME ALEXIA Administration Magnesium Hydroxide 30 ml 02/13/21 15:23 Milk Of Magnesia 30 Ml Oral.Susp PO DAILY PRN Constipation Multivitamins/Vitamin C 1 tab 02/13/21 09:00 03/03/21 10:23 Multivitamin Tablet PO 1 tab DAILY ALEXIA Administration Trazodone HCl 50 mg 02/13/21 15:23 02/14/21 00:42 Trazodone Hcl 50 Mg Tablet PO 50 mg BEDTIME PRN Administration Insomnia Vitamin E 180 mg 02/13/21 09:00 03/03/21 10:23 Vitamin E (Dl,Tocopheryl Acet) 180 Mg (400 Unit) Capsule PO 180 mg DAILY ALEXIA Administration Allergies Allergies Allergy/AdvReac Type Severity Reaction Status Date / Time penicillin G [Penicillin G] Allergy Mild HIVES Verified 02/12/21 21:22 amoxicillin [Amoxicillin] Allergy Unknown HIVES Verified 02/12/21 21:22 penicillin V Allergy Unknown hives Verified 02/12/21 21:22 Assessment & Plan Assessment & Plan (1) Bipolar affective, manic, severe w/ psych: Status: Acute Code(s): F31.2 - Bipolar disorder, current episode manic severe with psychotic features Assessment and Plan: haldol dosing increased from 2.5 BID to 5 BID as of 02/19. VPA dosing increased from 750 BID to 1000 BID as of 02/21 (level only about 50 on 750 BID). VPA level at 1000 BID is 70 (02/26). pt does not appear appreciably better on increased VPA dosing. VPA dosing once again increased to 1250 BID on 02/27 due to continued manic/psychotic Sx. lithium dosing held steady, level around 1.00. pt to be continued on outpt regimen otherwise and observed for stability/improvement on the unit. as of 02/20 lithium trending up, at 1.00; VPA trending down, at 51.7. worsening manic Sx from 02/19 --> 02/21, prompting VPA dose increase. mild improvement by 02/22, more by 02/23. rechecked labs 01/26. progress essentially stopped as of 02/23, despite VPA level increase of 20 points with increased dosing. dosing increased again 02/27, to 1250 BID. T/C further haldol dosing increase if this last VPA dose increase is ineffective. slight improvement in mood and insight through 03/02. will check levels 03/05. Greater than 50% of the session was spent on counseling and/or coordination of care Reason for contiued inpatient stay Substantial Risk for: inability to function and rapid decompensation
[2021-03-03 17:12] VITALS: BP 116/74; PULSE 92; RESP 16; TEMP 36.8; O2SAT 98
[2021-03-03] MEDS: Benztropine Mesylate 1 MG TABLET PO (22:04)
[2021-03-03] MEDS: cloZAPine 25 MG TABLET 50 MG PO (22:04)
[2021-03-03] MEDS: cloZAPine 100 MG TABLET PO (22:05)
[2021-03-03] MEDS: Lithium Carbonate ER 450 MG TABLET.ER 900 MG PO (22:06)
[2021-03-04 06:00] VITALS: BP 116/65; PULSE 108; RESP 16; TEMP 36.7; O2SAT 98
[2021-03-04] MEDS: Divalproex Sodium ER 500 MG TAB.ER.24H 1000 MG PO ×2 (09:15→22:55)
[2021-03-04] MEDS: Divalproex Sodium ER 250 MG TAB.ER.24H PO ×2 (09:16→22:55)
[2021-03-04] MEDS: Lithium Carbonate 300 MG TABLET 150 MG PO (09:16)
[2021-03-04] MEDS: HaloperidoL 5 MG TABLET PO ×2 (09:16→22:54)
[2021-03-04] MEDS: Vitamin E (Dl,Tocopheryl Acet) 180 MG (400 UNIT) CAPSULE PO (09:16)
[2021-03-04] MEDS: Multivitamin TABLET 1 TAB PO (09:16)
--- NOTE | 2021-03-04 15:32 | P.PNPSI_ITS ---
Subjective Subjective Date of Service: 03/04/21 Reason For Visit: Shanda Interim History: pt reports he is feeling well, better every day. seen with his mother in interview room. mother asking for update about med Rx's and estimated discharge date. no other notable events, behaviors, or questions. per staff, pt presents as pleasant and appropriate. not attending groups, pacing, isolative. Mental Status Exam Mental Status Exam Narrative: well dressed and groomed, appropriate to circumstance. no PMA/PMR (but pacing, as is his baseline). cooperative with interview. speech nml in a mount and rate, mildly decreased prosody, nml latency. no paranoia or delusions evident during interview. affect more flexible. no SI/HI/AVH expressed. Diagnostics Vital Signs (24Hr): Vital Signs - 24 hr 03/03/21 17:12 03/04/21 06:00 Temperature 98.3 F 98.0 F Pulse Rate 92 108 H Respiratory Rate 16 16 Blood Pressure 116/74 116/65 Pulse Oximetry 98 98 Body Mass Index 27.2 Labs Results: 02/26/21 07:46 02/26/21 07:46 Medications Medications Current Medications Generic Name Dose Route Start Last Admin Trade Name Freq PRN Reason Stop Dose Admin Acetaminophen 650 mg 02/13/21 15:23 Acetaminophen 325 Mg Tablet PO Q6H PRN Headache/Pain Mild Scale (1-3) Al Hydroxide/Mg Hydroxide 30 ml 02/13/21 15:23 Magnesium Hydrox/Alum Hydrox 30 Ml Oral.Susp PO Q6H PRN Heartburn/Nausea Benztropine Mesylate 1 mg 02/12/21 21:00 03/03/21 22:04 Benztropine Mesylate 1 Mg Tablet PO 1 mg BEDTIME ALEXIA Administration Clozapine 50 mg 02/12/21 21:00 03/03/21 22:04 Clozapine 25 Mg Tablet PO 50 mg BEDTIME ALEXIA Administration Clozapine 100 mg 02/12/21 21:00 03/03/21 22:05 Clozapine 100 Mg Tablet PO 100 mg BEDTIME ALEXIA Administration Divalproex Sodium 1,000 mg 02/28/21 09:30 03/04/21 09:15 Divalproex Sodium Er 500 Mg Tab.Er.24h PO 1,000 mg BID ALEXIA Administration Divalproex Sodium 250 mg 02/28/21 09:30 03/04/21 09:16 Divalproex Sodium Er 250 Mg Tab.Er.24h PO 250 mg BID ALEXIA Administration Haloperidol 5 mg 02/13/21 16:08 02/21/21 11:02 Haloperidol 5 Mg Tablet PO 5 mg Q6H PRN Administration agitation Haloperidol 5 mg 02/19/21 21:00 03/04/21 09:16 Haloperidol 5 Mg Tablet PO 5 mg BID ALEXIA Administration Hydroxyzine HCl 25 mg 02/13/21 15:23 02/21/21 11:02 Hydroxyzine Hcl 25 Mg Tablet PO 25 mg BEDTIME PRN Administration Anxiety [place] Carbonate 150 mg 02/13/21 09:00 03/04/21 09:16 [place] Carbonate 300 Mg Tablet PO 150 mg DAILY ALEXIA Administration [place] Carbonate 900 mg 02/12/21 21:00 03/03/21 22:06 [place] Carbonate Er 450 Mg Tablet.Er PO 900 mg BEDTIME ALEXIA Administration Magnesium Hydroxide 30 ml 02/13/21 15:23 Milk Of Magnesia 30 Ml Oral.Susp PO DAILY PRN Constipation Multivitamins/Vitamin C 1 tab 02/13/21 09:00 03/04/21 09:16 Multivitamin Tablet PO 1 tab DAILY ALEXIA Administration Trazodone HCl 50 mg 02/13/21 15:23 02/14/21 00:42 Trazodone Hcl 50 Mg Tablet PO 50 mg BEDTIME PRN Administration Insomnia Vitamin E 180 mg 02/13/21 09:00 03/04/21 09:16 Vitamin E (Dl,Tocopheryl Acet) 180 Mg (400 Unit) Capsule PO 180 mg DAILY ALEXIA Administration Allergies Allergies Allergy/AdvReac Type Severity Reaction Status Date / Time penicillin G [Penicillin G] Allergy Mild HIVES Verified 02/12/21 21:22 amoxicillin [Amoxicillin] Allergy Unknown HIVES Verified 02/12/21 21:22 penicillin V Allergy Unknown hives Verified 02/12/21 21:22 Assessment & Plan Assessment & Plan (1) Bipolar affective, manic, severe w/ psych: Status: Acute Code(s): F31.2 - Bipolar disorder, current episode manic severe with psychotic features Assessment and Plan: haldol dosing increased from 2.5 BID to 5 BID as of 02/19. VPA dosing increased from 750 BID to 1000 BID as of 02/21 (level only about 50 on 750 BID). VPA level at 1000 BID is 70 (02/26). pt does not appear appreciably better on increased VPA dosing. VPA dosing once again increased to 1250 BID on 02/27 due to continued manic/psychotic Sx. lithium dosing held steady, level around 1.00. pt to be continued on outpt regimen otherwise and observed for s tability/improvement on the unit. as of 02/20 lithium trending up, at 1.00; VPA trending down, at 51.7. worsening manic Sx from 02/19 --> 02/21, prompting VPA dose increase. mild improvement by 02/22, more by 02/23. rechecked labs 01/26. progress essentially stopped as of 02/23, despite VPA level increase of 20 points with increased dosing. dosing increased again 02/27, to 1250 BID. T/C further haldol dosing increase if this last VPA dose increase is ineffective. slight improvement in mood and insight through 03/02. will check levels 03/05. Greater than 50% of the session was spent on counseling and/or coordination of care Reason for contiued inpatient stay Substantial Risk for: inability to function and rapid decompensation
[2021-03-04 18:00] VITALS: BP 112/68; PULSE 90; RESP 16; TEMP 36.7; O2SAT 100
[2021-03-04] MEDS: cloZAPine 100 MG TABLET PO (22:54)
[2021-03-04] MEDS: Benztropine Mesylate 1 MG TABLET PO (22:54)
[2021-03-04] MEDS: Lithium Carbonate ER 450 MG TABLET.ER 900 MG PO (22:55)
[2021-03-04] MEDS: cloZAPine 25 MG TABLET 50 MG PO (22:55)
[2021-03-05 06:45] LABS: MANUAL DIFF FLAG NO
[2021-03-05 06:49] LABS: Basophils Percent Auto 0.5 % (0-2); Eosinophils Absolute Auto 0.3 X10*3/uL (0.0-0.4); Eosinophils Percent Auto 4.4 % (0-4); Hematocrit 46.2 % (42-52); Hemoglobin 15.4 g/dl (14.0-18.0); Imm Gran Abs Auto 0.01 X10*3/uL (0.00-0.03); Imm Gran Pct Auto 0.2 % (0.0-0.4); Lymphocytes Absolute Auto 2.3 X10*3/uL (1.2-4.9); Lymphocytes Percent Auto 34.4 % (20-40); Mean Corpuscular HGB Conc 33.3 g/dl (31.0-36.0); Mean Corpuscular Hemoglobin 29.1 pg (27.0-33.0); Mean Corpuscular Volume 87.2 fL (80-98); Mean Platelet Volume 10.5 fL (9.4-12.4); Neutrophils Percent Auto 45.5 % (45-73); Platelet Count 141 X10*3/uL (160-400); Red Cell Distribution Width 12.9 % (11.0-16.0); White Blood Count 6.6 X10*3/uL (4.8-10.8)
[2021-03-05 07:12] LABS: Lithium 1.15 mmol/L (0.60-1.20)
[2021-03-05 07:19] LABS: Alanine Aminotransferase 11 U/L (0-40); Albumin Level 3.8 g/dL (3.5-5.0); Alkaline Phosphatase 47 U/L (39-117); Anion Gap 10 (12-20); Aspartate Amino Transferase 15 U/L (5-37); Bilirubin Direct 0.2 mg/dL (0.0-0.5); Bilirubin Total 0.7 mg/dL (0.0-1.0); Blood Urea Nitrogen 19 mg/dL (9-16); Calcium 9.2 mg/dL (8.4-10.2); Carbon Dioxide 26 mmol/L (22-29); Chloride 109 mmol/L (96-108); Creatinine Clr Calc Pharmacy 133.4; Estimated Glomerular Filt Rate > 60; Glucose Random 100 mg/dL (60-115); Potassium 4.3 mmol/L (3.3-5.1); Sodium 141 mmol/L (135-145); Total Protein 5.9 g/dL (6.5-8.0)
[2021-03-05 07:23] LABS: Valproate 80.1 mcg/mL (50.0-100.0)
[2021-03-05 08:13] VITALS: BP 110/60; PULSE 66; RESP 16; TEMP 36.8; O2SAT 99
[2021-03-05] MEDS: Divalproex Sodium ER 250 MG TAB.ER.24H PO ×2 (08:28→22:22)
[2021-03-05] MEDS: Divalproex Sodium ER 500 MG TAB.ER.24H 1000 MG PO ×2 (08:28→22:22)
[2021-03-05] MEDS: Vitamin E (Dl,Tocopheryl Acet) 180 MG (400 UNIT) CAPSULE PO (08:28)
[2021-03-05] MEDS: Multivitamin TABLET 1 TAB PO (08:28)
[2021-03-05] MEDS: Lithium Carbonate 300 MG TABLET 150 MG PO (08:29)
[2021-03-05] MEDS: HaloperidoL 5 MG TABLET PO ×2 (08:29→22:21)
--- NOTE | 2021-03-05 13:26 | P.PNPSI_ITS ---
Subjective Subjective Date of Service: 03/05/21 Reason For Visit: Shanda Interim History: pt reports he is feeling well, better every day. mood great. VPA 80 and lithium level of 1.15 passed on to pt. discuss possibility of discharge on . no other notable events, behaviors, or questions. per staff, pt presents as pleasant and appropriate. not attending groups, pacing, isolative. Mental Status Exam Mental Status Exam Narrative: well dressed and groomed, appropriate to circumstance. no PMA/PMR (but pacing, as is his baseline). cooperative with interview. speech nml in amount and rate, mildly decreased prosody, nml latency. no paranoia or delusions evident during interview. affect more flexible. mood great. no SI/HI/AVH expressed. Diagnostics Vital Signs (24Hr): Vital Signs - 24 hr 03/04/21 18:00 03/05/21 08:13 Temperature 98.1 F 98.2 F Pulse Rate 90 66 Respiratory Rate 16 16 Blood Pressure 112/68 110/60 Pulse Oximetry 100 99 Body Mass Index 27.2 Labs Results: 03/05/21 06:39 03/05/21 06:39 Labs: Laboratory Results - last 48 hr 03/05/21 03/05/21 03/05/21 06:39 06:39 06:39 WBC 6.6 RBC 5.30 Hgb 15.4 Hct 46.2 MCV 87.2 MCH 29.1 MCHC 33.3 RDW 12.9 Plt Count 141 L MPV 10.5 Immature Gran % (Auto) 0.2 Neut % (Auto) 45.5 Lymph % (Auto) 34.4 [place] % (Auto) 15.0 H Eos % (Auto) 4.4 H Baso % (Auto) 0.5 Lymph # (Auto) 2.3 [place] # (Auto) 1.0 Eos # (Auto) 0.3 Baso # (Auto) 0.0 Abs Immat Gran (auto) 0.01 Absolute Neuts (auto) 3.0 Absolute Nucleated RBC 0.000 Nucleated RBC % (auto) 0.0 Sodium 141 Potassium 4.3 Chloride 109 H Carbon Dioxide 26 Anion Gap 10 L BUN 19 H Creatinine 0.88 Estim Creat Clear Calc 133.4 Estimated GFR > 60 Random Glucose 100 Calcium 9.2 Total Bilirubin 0.7 Direct Bilirubin 0.2 AST 15 D ALT 11 Alkaline Phosphatase 47 D Total Protein 5.9 L Albumin 3.8 Valproic Acid 80.1 [place] 1.15 Medications Medications Current Medications Generic Name Dose Route Start Last Admin Trade Name Freq PRN Reason Stop Dose Admin Acetaminophen 650 mg 02/13/21 15:23 Acetaminophen 325 Mg Tablet PO Q6H PRN Headache/Pain Mild Scale (1-3) Al Hydroxide/Mg Hydroxide 30 ml 02/13/21 15:23 Magnesium Hydrox/Alum Hydrox 30 Ml Oral.Susp PO Q6H PRN Heartburn/Nausea Benztropine Mesylate 1 mg 02/12/21 21:00 03/04/21 22:54 Benztropine Mesylate 1 Mg Tablet PO 1 mg BEDTIME ALEXIA Administration Clozapine 50 mg 02/12/21 21:00 03/04/21 22:55 Clozapine 25 Mg Tablet PO 50 mg BEDTIME ALEXIA Administration Clozapine 100 mg 02/12/21 21:00 03/04/21 22:54 Clozapine 100 Mg Tablet PO 100 mg BEDTIME ALEXIA Administration Divalproex Sodium 1,000 mg 02/28/21 09:30 03/05/21 08:28 Divalproex Sodium Er 500 Mg Tab.Er.24h PO 1,000 mg BID ALEXIA Administration Divalproex Sodium 250 mg 02/28/21 09:30 03/05/21 08:28 Divalproex Sodium Er 250 Mg Tab.Er.24h PO 250 mg BID ALEXIA Administration Haloperidol 5 mg 02/13/21 16:08 02/21/21 11:02 Haloperidol 5 Mg Tablet PO 5 mg Q6H PRN Administration agitation Haloperidol 5 mg 02/19/21 21:00 03/05/21 08:29 Haloperidol 5 Mg Tablet PO 5 mg BID ALEXIA Administration Hydroxyzine HCl 25 mg 02/13/21 15:23 02/21/21 11:02 Hydroxyzine Hcl 25 Mg Tablet PO 25 mg BEDTIME PRN Administration Anxiety [place] Carbonate 150 mg 02/13/21 09:00 03/05/21 08:29 [place] Carbonate 300 Mg Tablet PO 150 mg DAILY ALEXIA Administration [place] Carbonate 900 mg 02/12/21 21:00 03/04/21 22:55 [place] Carbonate Er 450 Mg Tablet.Er PO 900 mg BEDTIME ALEXIA Administration Magnesium Hydroxide 30 ml 02/13/21 15:23 Milk Of Magnesia 30 Ml Oral.Susp PO DAILY PRN Constipation Multivitamins/Vitamin C 1 tab 02/13/21 09:00 03/05/21 08:28 Multivitamin Tablet PO 1 tab DAILY ALEXIA Administration Trazodone HCl 50 mg 02/13/21 15:23 02/14/21 00:42 Trazodone Hcl 50 Mg Tablet PO 50 mg BEDTIME PRN Administration Insomnia Vitamin E 180 mg 02/13/21 09:00 03/05/21 08:28 Vitamin E (Dl,Tocopheryl Acet) 180 Mg (400 Unit) Capsule PO 180 mg DAILY ALEXIA Administration Allergies Allergies Allergy/AdvReac Type Severity Reaction Status Date / Time penicillin G [Penicillin G] Allergy Mild HIVES Verified 02/12/21 21:22 amoxicillin [Amoxicillin] Allergy Unknown HIVES Verified 02/12/21 21:22 penicillin V Allergy Unknown hives Verified 02/12/21 21:22 Assessment & Plan Assessment & Plan (1) Bipolar affective, manic, severe w/ psych: Status: Acute Code(s): F31.2 - Bipolar disorder, current episode manic severe with psychotic features Assessment and Plan: haldol dosing increased from 2.5 BID to 5 BID as of 02/19. VPA dosing increased from 750 BID to 1000 BID as of 02/21 (level only about 50 on 750 BID). VPA level at 1000 BID is 70 (02/26). pt does not appear appreciably better on increased VPA dosing. VPA dosing once again increased to 1250 BID on 02/27 due to continued manic/psychotic Sx. lithium dosing held steady, level around 1.00. pt to be continued on outpt regimen otherwise and observed for stability/improvement on the unit. as of 02/20 lithium trending up, at 1.00; VPA trending down, at 51.7. worsening manic Sx from 02/19 --> 02/21, prompting VPA dose increase. mild improvement by 02/22, more by 02/23. rechecked labs 01/26. progress essentially stopped as of 02/23, despite VPA level increase of 20 points with increased dosing. dosing increased again 02/27, to 1250 BID. T/C further haldol dosing increase if this last VPA dose increase is ineffective. slight improvement in mood and insight through 03/02. VPA 80 and lithium 1.15 on 03/05. mood continues less irritable, less paranoia evident. one also gets the impression he is trying to control his Sx as much as possible so he can leave the hospital soon. discussed the possibility of discharge on 03/07. Greater than 50% of the session was spent on counseling and/or coordination of care Reason for contiued inpatient stay Substantial Risk for: inability to function and rapid decompensation
[2021-03-05] MEDS: cloZAPine 25 MG TABLET 50 MG PO (22:22)
[2021-03-05] MEDS: cloZAPine 100 MG TABLET PO (22:22)
[2021-03-05] MEDS: Benztropine Mesylate 1 MG TABLET PO (22:22)
[2021-03-05] MEDS: Lithium Carbonate ER 450 MG TABLET.ER 900 MG PO (22:22)
[2021-03-05 22:26] VITALS: BP 116/70; PULSE 75; TEMP 36.7
--- NOTE | 2021-03-06 07:05 | HO.PSYCHPN ---
Subjective Subjective Date of Service: 03/07/21 Reason For Visit: Shanda Interim History: Pt reports sleeping and eating well. He denies SI/HI. He is pleasant on approached slightly over familiar with this music writer but appropriate. He reports he is looking forward to go home soon. He is taking medications as prescribed. No side effects noted or reported. No behavioral concerns. No overt paranoia towards staff or sexualized behaviors. Review of Systems Review of Systems Constitutional: No Fever, No Chills, No Fatigue, No Malaise Cardiovascular: No Chest Pain, No SOB Respiratory: No Cough, No Dyspnea Gastrointestinal: No Nausea, No Vomiting, No Diarrhea, No Abdominal pain Genitourinary: No irregular bleeding, No Dysuria, No Urinary Frequency, No Hematuria, No Flank Pain Musculoskeletal: No joint pain, No Myalgias, No Joint Swelling Skin: No Skin Lesions, No rash Neuro: No Weakness, No Numbness, No Headache Psych: +Manic, No Depression, No SI/HI, No Social Issues Yes all other systems are reviewed and are negative Cardiovascular: Denies chest pain, Denies Epigastric Pain, Denies rapid heart rate, Denies lightheadedness and Denies dyspnea Respiratory: Denies dyspnea Gastrointestinal: Denies constipation, Denies heartburn and Denies diarrhea Musculoskeletal: Denies back pain, Denies myalgias, Denies atrophy and Denies loss of height Mental Status Exam Mental Status Exam Narrative: Appearance: casually groomed, improved hygiene, pacing Behavior: overly friendly at times Psychomotor: no agitation or retardation noted Speech: clear, regular rate/rhythm, spontaneous TP: goal oriented looking to go home soon TC: no overt paranoia nor sexualized content, looking forward to return home Mood: okay Affect:congruent, non labile SI:denies HI:denies AH/VH:none Delusions:none Insight/judgment:improving x 22 Memory/cog: alert, oriented x 3. Diagnostics Vital Signs (24Hr): Vital Signs - 24 hr 03/06/21 09:09 03/06/21 18:00 Temperature 98.5 F 97.4 F Pulse Rate 70 68 Respiratory Rate 18 18 Blood Pressure 109/65 127/70 Pulse Oximetry 98 99 Body Mass Index 27.2 Labs Results: 03/05/21 06:39 03/05/21 06:39 Labs: Laboratory Results - last 48 hr 03/05/21 03/05/21 06:39 06:39 Sodium 141 Potassium 4.3 Chloride 109 H Carbon Dioxide 26 Anion Gap 10 L BUN 19 H Creatinine 0.88 Estim Creat Clear Calc 133.4 Estimated GFR > 60 Random Glucose 100 Calcium 9.2 Total Bilirubin 0.7 Direct Bilirubin 0.2 AST 15 D ALT 11 Alkaline Phosphatase 47 D Total Protein 5.9 L Albumin 3.8 Valproic Acid 80.1 [place] 1.15 Medications Medications Current Medications Generic Name Dose Route Start Last Admin Trade Name Freq PRN Reason Stop Dose Admin Acetaminophen 650 mg 02/13/21 15:23 Acetaminophen 325 Mg Tablet PO Q6H PRN Headache/Pain Mild Scale (1-3) Al Hydroxide/Mg Hydroxide 30 ml 02/13/21 15:23 Magnesium Hydrox/Alum Hydrox 30 Ml Oral.Susp PO Q6H PRN Heartburn/Nausea Benztropine Mesylate 1 mg 02/12/21 21:00 03/06/21 22:09 Benztropine Mesylate 1 Mg Tablet PO 1 mg BEDTIME ALEXIA Administration Clozapine 50 mg 02/12/21 21:00 03/06/21 22:10 Clozapine 25 Mg Tablet PO 50 mg BEDTIME ALEXIA Administration Clozapine 100 mg 02/12/21 21:00 03/06/21 22:10 Clozapine 100 Mg Tablet PO 100 mg BEDTIME ALEXIA Administration Divalproex Sodium 1,000 mg 02/28/21 09:30 03/06/21 22:11 Divalproex Sodium Er 500 Mg Tab.Er.24h PO 1,000 mg BID ALEXIA Administration Divalproex Sodium 250 mg 02/28/21 09:30 03/06/21 22:10 Divalproex Sodium Er 250 Mg Tab.Er.24h PO 250 mg BID ALEXIA Administration Haloperidol 5 mg 02/13/21 16:08 02/21/21 11:02 Haloperidol 5 Mg Tablet PO 5 mg Q6H PRN Administration agitation Haloperidol 5 mg 02/19/21 21:00 03/06/21 22:12 Haloperidol 5 Mg Tablet PO 5 mg BID ALEXIA Administration Hydroxyzine HCl 25 mg 02/13/21 15:23 02/21/21 11:02 Hydroxyzine Hcl 25 Mg Tablet PO 25 mg BEDTIME PRN Administration Anxiety [place] Carbonate 150 mg 02/13/21 09:00 03/06/21 09:13 [place] Carbonate 300 Mg Tablet PO 150 mg DAILY ALEXIA Administration [place] Carbonate 900 mg 02/12/21 21:00 03/06/21 22:10 [place] Carbonate Er 450 Mg Tablet.Er PO 900 mg BEDTIME ALEXIA Administration Magnesium Hydroxide 30 ml 02/13/21 15:23 Milk Of Magnesia 30 Ml Oral.Susp PO DAILY PRN Constipation Multivitamins/Vitamin C 1 tab 02/13/21 09:00 03/06/21 09:13 Multivitamin Tablet PO 1 tab DAILY ALEXIA Administration Trazodone HCl 50 mg 02/13/21 15:23 02/14/21 00:42 Trazodone Hcl 50 Mg Tablet PO 50 mg BEDTIME PRN Administration Insomnia Vitamin E 180 mg 02/13/21 09:00 03/06/21 09:13 Vitamin E (Dl,Tocopheryl Acet) 180 Mg (400 Unit) Capsule PO 180 mg DAILY ALEXIA Administration Allergies Allergies Allergy/AdvReac Type Severity Reaction Status Date / Time penicillin G [Penicillin G] Allergy Mild HIVES Verified 02/12/21 21:22 amoxicillin [Amoxicillin] Allergy Unknown HIVES Verified 02/12/21 21:22 penicillin V Allergy Unknown hives Verified 02/12/21 21:22 Assessment & Plan Assessment & Plan (1) Bipolar affective, manic, severe w/ psych: Status: Acute Code(s): F31.2 - Bipolar disorder, current episode manic severe with psychotic features Assessment and Plan: haldol dosing increased from 2.5 BID to 5 BID as of 02/19. VPA dosing increased from 750 BID to 1000 BID as of 02/21 (level only about 50 on 750 BID). VPA level at 1000 BID is 70 (02/26). pt does not appear appreciably better on increased VPA dosing. VPA dosing once again increased to 1250 BID on 02/27 due to continued manic/psychotic Sx. lithium dosing held steady, level around 1.00. pt to be continued on outpt regimen otherwise and observed for stability/improvement on the unit. as of 02/20 lithium trending up, at 1.00; VPA trending down, at 51.7. worsening manic Sx from 02/19 --> 02/21, prompting VPA dose increase. mild improvement by 02/22, more by 02/23. rechecked labs 01/26. progress essentially stopped as of 02/23, despite VPA level increase of 20 points with increased dosing. dosing increased again 02/27, to 1250 BID. T/C further haldol dosing increase if this last VPA dose increase is ineffective. slight improvement in mood and insight through 03/02. VPA 80 and lithium 1.15 on 03/05. mood continues less irritable, less paranoia evident. one also gets the impression he is trying to control his Sx as much as possible so he can leave the hospital soon. discussed the possibility of discharge on 03/07. Greater than 50% of the session was spent on counseling and/or coordination of care Reason for contiued inpatient stay Substantial Risk for: inability to function
[2021-03-06 09:09] VITALS: BP 109/65; PULSE 70; RESP 18; TEMP 36.9; O2SAT 98
[2021-03-06] MEDS: Multivitamin TABLET 1 TAB PO (09:13)
[2021-03-06] MEDS: Divalproex Sodium ER 500 MG TAB.ER.24H 1000 MG PO ×2 (09:13→22:11)
[2021-03-06] MEDS: Vitamin E (Dl,Tocopheryl Acet) 180 MG (400 UNIT) CAPSULE PO (09:13)
[2021-03-06] MEDS: Lithium Carbonate 300 MG TABLET 150 MG PO (09:13)
[2021-03-06] MEDS: HaloperidoL 5 MG TABLET PO ×2 (09:13→22:12)
[2021-03-06] MEDS: Divalproex Sodium ER 250 MG TAB.ER.24H PO ×2 (09:14→22:10)
[2021-03-06 18:00] VITALS: BP 127/70; PULSE 68; RESP 18; TEMP 36.3; O2SAT 99
[2021-03-06] MEDS: Benztropine Mesylate 1 MG TABLET PO (22:09)
[2021-03-06] MEDS: cloZAPine 100 MG TABLET PO (22:10)
[2021-03-06] MEDS: Lithium Carbonate ER 450 MG TABLET.ER 900 MG PO (22:10)
[2021-03-06] MEDS: cloZAPine 25 MG TABLET 50 MG PO (22:10)
[2021-03-07 06:00] VITALS: BP 106/68; PULSE 108; RESP 16; TEMP 36.7; O2SAT 100
[2021-03-07] MEDS: Vitamin E (Dl,Tocopheryl Acet) 180 MG (400 UNIT) CAPSULE PO (09:13)
[2021-03-07] MEDS: Lithium Carbonate 300 MG TABLET 150 MG PO (09:14)
[2021-03-07] MEDS: Multivitamin TABLET 1 TAB PO (09:14)
[2021-03-07] MEDS: HaloperidoL 5 MG TABLET PO (09:14)
[2021-03-07] MEDS: Divalproex Sodium ER 250 MG TAB.ER.24H PO (09:14)
[2021-03-07] MEDS: Divalproex Sodium ER 500 MG TAB.ER.24H 1000 MG PO (09:14)
--- NOTE | 2021-03-07 11:30 | P.DS_ITS ---
DS: Providers Provider Date of Service: 03/07/21 Date of admission: 02/13/21 15:23 Primary care physician: Enrrique Goetz MD DS: Diagnosis Discharge Diagnosis (1) Bipolar affective, manic, severe w/ psych: Status: Acute DS: Medications Discharge Medications Home Medications: Home Medications Medication Instructions Recorded Confirmed benztropine 1 mg PO BEDTIME 02/12/21 02/12/21 clozapine 50 mg PO BEDTIME 02/12/21 02/12/21 clozapine 100 mg PO BEDTIME 02/12/21 02/12/21 divalproex 250 mg PO BID 02/12/21 02/12/21 lithium carbonate 150 mg PO DAILY 02/12/21 02/12/21 lithium carbonate 900 mg PO BEDTIME 02/12/21 02/12/21 multivitamin with folic acid 1 tab PO DAILY 02/12/21 02/12/21 [Tab-A-Daniel] vitamin E (dl, acetate) 400 unit PO DAILY 02/12/21 02/12/21 Previous Rx's Medication Instructions Recorded benztropine 1 mg PO BEDTIME #30 tab 03/06/21 clozapine 50 mg PO BEDTIME #7 tab 03/06/21 clozapine 100 mg PO BEDTIME #7 tab 03/06/21 divalproex 1,000 mg PO BID #60 tab 03/06/21 divalproex 250 mg PO BID #60 tab 03/06/21 haloperidol 5 mg PO BID #60 tab 03/06/21 lithium carbonate 150 mg PO DAILY #30 tab 03/06/21 lithium carbonate 900 mg PO BEDTIME #60 tab 03/06/21 multivitamin with folic acid 1 tab PO DAILY #30 tab 03/06/21 [Tab-A-Daniel] vitamin E (dl, acetate) 180 mg PO DAILY #30 cap 03/06/21 Discharge Plan Discharge Patient Disposition: Home, Self-Care Discharge Diagnosis: Bipolar I Disorder, Most Recent Episode Manic Referrals: Tim Bryant (psychiatrist) [Other] - 04/04/21 3:20 pm (Appointment is in- person) Enrrique Goetz MD [Primary Care Provider] - 03/14/21 3:00 pm (Follow up in person.) Discharge Medications: New haloperidol 5 mg Tablet 5 mg PO BID Qty: 60 RF: 0 clozapine 100 mg Tablet 100 mg PO BEDTIME Qty: 7 RF: 0 lithium carbonate 450 mg Tablet Extended Release 900 mg PO BEDTIME Qty: 60 RF: 0 divalproex 500 mg Tablet Extended Release 24 Hr 1,000 mg PO BID Qty: 60 RF: 0 benztropine 1 mg Tablet 1 mg PO BEDTIME Qty: 30 RF: 0 clozapine 25 mg Tablet 50 mg PO BEDTIME Qty: 7 RF: 0 lithium carbonate 300 mg Tablet 150 mg PO DAILY Qty: 30 RF: 0 divalproex 250 mg Tablet Extended Release 24 Hr 250 mg PO BID Qty: 60 RF: 0 vitamin E (dl, acetate) 400 unit Capsule 180 mg PO DAILY Qty: 30 RF: 0 multivitamin with folic acid [Tab-A-Daniel] 400 mcg Tablet 1 tab PO DAILY Qty: 30 RF: 0 Discontinued haloperidol 5 mg tablet 2.5 mg PO BID RF: 0 clozapine 100 mg tablet 100 mg PO BEDTIME RF: 0 lithium carbonate 300 mg tablet extended release 900 mg PO BEDTIME RF: 0 lithium carbonate 150 mg capsule 150 mg PO DAILY RF: 0 divalproex 500 mg tablet extended release 24 hr 500 mg PO BID RF: 0 benztropine 1 mg tablet 1 mg PO BEDTIME RF: 0 clozapine 25 mg tablet 50 mg PO BEDTIME RF: 0 divalproex 250 mg tablet extended release 24 hr 250 mg PO BID RF: 0 vitamin E (dl, acetate) 400 unit capsule 400 unit PO DAILY RF: 0 multivitamin with folic acid [Tab-A-Daniel] 400 mcg tablet 1 tab PO DAILY RF: 0 Discharge Orders: Discharge Order (Routine); Ordered 03/07/21 Ordered By: Primo Tran Diet: regular diet Activity on Discharge: As tolerated Stand Alone Forms: Patient Portal Discharge page Health Concerns: no health concerns currently. stay well hydrated and do not take ibuprofen or naproxen products; take acetaminophen or aspirin only. Plan of Treatment: continue current medications until you meet with your prescriber. if you begin to feel over-sedated on your medications, bring it to the attention of your prescriber. continue to meet with all of your outpatient treatment team as scheduled. Assessment: safe for discharge Mental Status Exam Mental Status Exam Narrative: rising from bed mid-morning wearing a hospital aleyda, appropriate to circumstance. no PMA/PMR (but pacing, as is his baseline). cooperative with interview. speech nml in amount and rate, mildly decreased prosody, nml latency. no paranoia or delusions evident during interview. affect more flexible. mood great. SI/HI/AVH. Data Data Completed and Pending Completed studies during hospitalization [Text1]: 03/05/21 03/05/21 03/05/21 06:39 06:39 06:39 WBC 6.6 RBC 5.30 Hgb 15.4 Hct 46.2 MCV 87.2 MCH 29.1 MCHC 33.3 RDW 12.9 Plt Count 141 L MPV 10.5 Immature Gran % (Auto) 0.2 Neut % (Auto) 45.5 Lymph % (Auto) 34.4 [place] % (Auto) 15.0 H Eos % (Auto) 4.4 H Baso % (Auto) 0.5 Lymph # (Auto) 2.3 [place] # (Auto) 1.0 Eos # (Auto) 0.3 Baso # (Auto) 0.0 Abs Immat Gran (auto) 0.01 Absolute Neuts (auto) 3.0 Absolute Nucleated RBC 0.000 Nucleated RBC % (auto) 0.0 Sodium 141 Potassium 4.3 Chloride 109 H Carbon Dioxide 26 Anion Gap 10 L BUN 19 H Creatinine 0.88 Estim Creat Clear Calc 133.4 Estimated GFR > 60 Random Glucose 100 Calcium 9.2 Total Bilirubin 0.7 Direct Bilirubin 0.2 AST 15 D ALT 11 Alkaline Phosphatase 47 D Total Protein 5.9 L Albumin 3.8 Valproic Acid 80.1 [place] 1.15 DS: Summary Hospital Course Hospital Course: per admission note/consultation: Mr. Henderson is a 30 year-old male with hx of Bipolar Disorder versus Schizoaffective Disorder who was brought to [facility] by parents as he was manic. Today, pt with no shirt, pacing, somewhat guarded when this data analyst report writer approached him stating I only talk with people who earn my respect. Somewhat intimidating at first, coming too close without awareness of physical space. He later reported he would talk with this data analyst report writer as you passed the test. Pt reports that he came to hospital at request of his father who told him you're manic. He reports that he is in agreement with father observation, although seems to minimize his symptoms. He reports he has basically experienced racing thoughts and states I just need rest. When asked about visual or auditory hallucinations, he states never. He asks this data analyst report writer to walk with him. He goes on about the pillar of life. He talks about the importance is health and exercising. At some point he abruptly asked this data analyst report writer to stop talking with him and dismissed any further questions. He appeared thought blocking. He denied suicidal or homicidal ideation. Collateral information gathered from his OP psychiatric provider Tim Bryant who reports he saw pt last week and was fairly stable. Tim had concerns in terms of pt taking clozaril consistently. Per care team report, parents had reported that Martínez was not sleeping, hyperverbal, catholic preoccupations. Past Psychiatric History: Inpatient: multiple in the past, unclear last one OP: N Tim Bryant Suicide attempts: none Past medication trials: olanzapine, lithium, depakote, haldol, clozaril Sean brought himself to the hospital due to concerns he was destabilizing. once being admitted his haldol dosing was increased from 2.5 mg BID to 5 mg BID. he followed a waxing and waning course, some days appearing well enough to hide is mental illness, other days talking and laughing to himself in the rodriguez and being frankly delusional and hostile. as after two weeks he had not achieved stability with that change and his symptoms were felt to be more manic than psychotic (and his VPA level was very low therapeutic range), his depakote dosing was increased from 1500 mg daily to 2500 mg daily over a couple of itera tions. he appeared to be somewhat less hypersexual, irritable, and delusional with the medication changes and was deemed suitable for discharge as of 03/07. Precis: haldol dosing increased from 2.5 BID to 5 BID as of 02/19. VPA dosing increased from 750 BID to 1000 BID as of 02/21 (level only about 50 on 750 BID). VPA level at 1000 BID is 70 (02/26). pt does not appear appreciably better on increased VPA dosing. VPA dosing once again increased to 1250 BID on 02/27 due to continued manic/psychotic Sx. lithium dosing held steady, level around 1.00. pt to be continued on outpt regimen otherwise and observed for stability/improvement on the unit. as of 02/20 lithium trending up, at 1.00; VPA trending down, at 51.7. worsening manic Sx from 02/19 --> 02/21, prompting VPA dose increase. mild improvement by 02/22, more by 02/23. rechecked labs 01/26. progress essentially stopped as of 02/23, despite VPA level increase of 20 points with increased dosing. dosing increased again 02/27, to 1250 BID. T/C further haldol dosing increase if this last VPA dose increase is ineffective. slight improvement in mood and insight through 03/02. VPA 80 and lithium 1.15 on 03/05. mood continues less irritable, less paranoia evident. one also gets the impression he is trying to control his Sx as much as possible so he can leave the hospital soon. discussed the possibility of discharge on 03/07. Time Spent with Patient Time attestation: Total time spent providing and/or coordinating discharge services: Time spent: Greater than 30 minutes
--- NOTE | 2021-03-07 13:34 | PC.NURSE ---
Martínez is alert and fully oriented, pleasant and cooperative with discharge process. Martínez verbalizes plan to discharge today, father will pick him up and he will continue his outpatient supports through [facility]. At this time Martínez is not observed responding to internal stimuli. He appears less hypervigilant, expresses no paranoid delusional thought content this morning. He expresses no ideation, plan or intent to harm self or others. He is compliant with prescribed medications. Hygiene is good. He reports sleep and appetite are good. Focus is fair. He offers no physical complaint. Vital signs are stable.
== END 2021-03-07 16:38 | disposition home or self-care (01) | DRG 753 ==
LOC: HO.ED 15:07 → HO.PADLT16 02-13 15:28
PROVIDERS: Physician Assistant; Social Worker; Admitting Provider Psychiatry & Neurology Psychiatry; Emergency Provider Emergency Medicine Emergency Medical Services; PCP Internal Medicine; Visit Provider Psychiatry & Neurology Psychiatry
DX: F31.2 Bipolar disorder, current episode manic severe with psychotic features (principal); Z20.822 Contact with and (suspected) exposure to COVID-19; Z88.0 Allergy status to penicillin; Z79.899 Other long term (current) drug therapy
CPT/HCPCS: 36415; 80048; 80061; 80076; 80164; 80178; 80307; 81003; 82607; 82746; 83036; 84443; 85025; 87635; 93005; 99285

== ENCOUNTER 2021-04-04 10:33 | Outpatient (REF) | payer OTHER, SELFPAY ==
[2021-04-04 14:14] LABS: Lithium 0.47 mmol/L (0.60-1.20)
[2021-04-04 14:32] LABS: Alanine Aminotransferase 31 U/L (0-40); Albumin Level 4.6 g/dL (3.5-5.0); Alkaline Phosphatase 61 U/L (39-117); Anion Gap 13 (12-20); Aspartate Amino Transferase 29 U/L (5-37); Bilirubin Total 0.6 mg/dL (0.0-1.0); Blood Urea Nitrogen 14 mg/dL (9-16); Calcium 9.4 mg/dL (8.4-10.2); Carbon Dioxide 25 mmol/L (22-29); Chloride 107 mmol/L (96-108); Estimated Glomerular Filt Rate > 60; Glucose Random 95 mg/dL (60-115); Potassium 4.1 mmol/L (3.3-5.1); Sodium 141 mmol/L (135-145); Total Protein 7.3 g/dL (6.5-8.0)
[2021-04-04 15:05] LABS: Valproate 38.6 mcg/mL (50.0-100.0)
== END 2021-04-04 10:34 | disposition home or self-care (01) ==
LOC: HO.HMGCLDS 10:33
PROVIDERS: PCP Internal Medicine; Visit Provider Clinical Nurse Specialist Psychiatric/Mental Health, Adult
DX: Z79.899 Other long term (current) drug therapy (principal)
CPT/HCPCS: 36415; 80053; 80164; 80178

== ENCOUNTER 2021-05-08 15:03 | Outpatient (REF) | payer OTHER, SELFPAY ==
[2021-05-08 15:31] LABS: MANUAL DIFF FLAG NO
[2021-05-08 15:36] LABS: Basophils Percent Auto 0.3 % (0-2); Eosinophils Absolute Auto 0.1 X10*3/uL (0.0-0.4); Eosinophils Percent Auto 0.7 % (0-4); Hematocrit 44.9 % (42-52); Hemoglobin 15.2 g/dl (14.0-18.0); Imm Gran Abs Auto 0.02 X10*3/uL (0.00-0.03); Imm Gran Pct Auto 0.3 % (0.0-0.4); Lymphocytes Absolute Auto 1.3 X10*3/uL (1.2-4.9); Lymphocytes Percent Auto 18.7 % (20-40); Mean Corpuscular HGB Conc 33.9 g/dl (31.0-36.0); Mean Corpuscular Hemoglobin 29.3 pg (27.0-33.0); Mean Corpuscular Volume 86.5 fL (80-98); Mean Platelet Volume 10.4 fL (9.4-12.4); Monocytes Absolute Auto 1.1 X10*3/uL (0.1-1.2); Monocytes Percent Auto 15.1 % (2-11); Neutrophils Absolute Auto 4.5 X10*3/uL (2.0-8.3); Neutrophils Percent Auto 64.9 % (45-73); Platelet Count 157 X10*3/uL (160-400); Red Blood Count 5.19 X10*6/uL (4.60-5.80)
== END 2021-05-08 15:04 | disposition home or self-care (01) ==
LOC: HO.LABR 15:03
PROVIDERS: PCP Internal Medicine; Visit Provider Clinical Nurse Specialist Psychiatric/Mental Health, Adult
DX: Z79.899 Other long term (current) drug therapy (principal)
CPT/HCPCS: 36415; 85025

== ENCOUNTER 2021-06-05 14:01 | Outpatient (REF) | payer OTHER, SELFPAY ==
[2021-06-05 14:13] LABS: MANUAL DIFF FLAG NO
[2021-06-05 14:32] LABS: Basophils Percent Auto 0.5 % (0-2); Eosinophils Absolute Auto 0.1 X10*3/uL (0.0-0.4); Eosinophils Percent Auto 1.5 % (0-4); Hematocrit 45.3 % (42-52); Hemoglobin 15.2 g/dl (14.0-18.0); Imm Gran Abs Auto 0.01 X10*3/uL (0.00-0.03); Imm Gran Pct Auto 0.2 % (0.0-0.4); Lymphocytes Absolute Auto 1.4 X10*3/uL (1.2-4.9); Lymphocytes Percent Auto 21.1 % (20-40); Mean Corpuscular HGB Conc 33.6 g/dl (31.0-36.0); Mean Corpuscular Hemoglobin 29.3 pg (27.0-33.0); Mean Corpuscular Volume 87.3 fL (80-98); Mean Platelet Volume 10.6 fL (9.4-12.4); Monocytes Percent Auto 14.8 % (2-11); Neutrophils Absolute Auto 4.1 X10*3/uL (2.0-8.3); Neutrophils Percent Auto 61.9 % (45-73); Platelet Count 168 X10*3/uL (160-400); Red Blood Count 5.19 X10*6/uL (4.60-5.80); White Blood Count 6.6 X10*3/uL (4.8-10.8)
== END 2021-06-05 14:02 | disposition home or self-care (01) ==
LOC: HO.LABR 14:01
PROVIDERS: PCP Internal Medicine; Visit Provider Clinical Nurse Specialist Psychiatric/Mental Health, Adult
DX: Z79.899 Other long term (current) drug therapy (principal)
CPT/HCPCS: 36415; 85025

== ENCOUNTER 2021-07-03 13:31 | Outpatient (REF) | payer OTHER, SELFPAY ==
[2021-07-03 13:48] LABS: MANUAL DIFF FLAG NO
[2021-07-03 14:08] LABS: Basophils Percent Auto 0.7 % (0-2); Eosinophils Absolute Auto 0.1 X10*3/uL (0.0-0.4); Eosinophils Percent Auto 1.8 % (0-4); Hematocrit 45.2 % (42.0-52.0); Hemoglobin 15.1 g/dl (14.0-18.0); Imm Gran Abs Auto 0.01 X10*3/uL (0.00-0.03); Imm Gran Pct Auto 0.2 % (0.0-0.4); Lymphocytes Absolute Auto 1.3 X10*3/uL (1.2-4.9); Lymphocytes Percent Auto 20.7 % (20-40); Mean Corpuscular HGB Conc 33.4 g/dl (31.0-36.0); Mean Corpuscular Hemoglobin 29.5 pg (27.0-33.0); Mean Corpuscular Volume 88.5 fL (80.0-98.0); Monocytes Absolute Auto 0.9 X10*3/uL (0.1-1.2); Monocytes Percent Auto 15.1 % (2-11); Neut%MD 61.5 %; Neutrophils Absolute Auto 3.72 x10*3/uL (2.0-8.3); Neutrophils Percent Auto 61.5 % (45-73); Platelet Count 160 X10*3/uL (160-400); Red Blood Count 5.11 X10*6/uL (4.60-5.80); Red Cell Distribution Width 12.7 % (11.0-16.0)
== END 2021-07-03 13:32 | disposition home or self-care (01) ==
LOC: HO.LABR 13:31
PROVIDERS: Visit Provider Clinical Nurse Specialist Psychiatric/Mental Health, Adult
DX: Z79.899 Other long term (current) drug therapy (principal)
CPT/HCPCS: 36415; 85025

== ENCOUNTER 2021-07-31 11:25 | Outpatient (REF) | payer OTHER, SELFPAY ==
[2021-07-31 11:52] LABS: MANUAL DIFF FLAG NO
[2021-07-31 12:19] LABS: Basophils Percent Auto 0.3 % (0-2); Eosinophils Absolute Auto 0.1 X10*3/uL (0.0-0.4); Eosinophils Percent Auto 1.8 % (0-4); Hematocrit 44.3 % (42.0-52.0); Hemoglobin 14.6 g/dl (14.0-18.0); Imm Gran Abs Auto 0.01 X10*3/uL (0.00-0.03); Imm Gran Pct Auto 0.1 % (0.0-0.4); Lymphocytes Absolute Auto 1.2 X10*3/uL (1.2-4.9); Lymphocytes Percent Auto 16.2 % (20-40); Mean Corpuscular Hemoglobin 29.2 pg (27.0-33.0); Mean Corpuscular Volume 88.6 fL (80.0-98.0); Mean Platelet Volume 10.9 fL (9.4-12.4); Monocytes Absolute Auto 1.1 X10*3/uL (0.1-1.2); Monocytes Percent Auto 13.8 % (2-11); Neutrophils Absolute Auto 5.2 x10*3/uL (2.0-8.3); Neutrophils Percent Auto 67.8 % (45-73); Platelet Count 159 X10*3/uL (160-400); Red Cell Distribution Width 13.2 % (11.0-16.0); White Blood Count 7.7 X10*3/uL (4.8-10.8)
== END 2021-07-31 11:26 | disposition home or self-care (01) ==
LOC: HO.LABR 11:25
PROVIDERS: PCP Internal Medicine; Visit Provider Clinical Nurse Specialist Psychiatric/Mental Health, Adult
DX: Z79.899 Other long term (current) drug therapy (principal)
CPT/HCPCS: 36415; 85025

== ENCOUNTER 2021-09-13 09:35 | Outpatient (REF) | payer OTHER, SELFPAY ==
[2021-09-13 09:56] LABS: MANUAL DIFF FLAG NO
[2021-09-13 10:35] LABS: Basophils Percent Auto 0.5 % (0-2); Eosinophils Absolute Auto 0.2 X10*3/uL (0.0-0.4); Eosinophils Percent Auto 4.6 % (0-4); Hematocrit 46.8 % (42.0-52.0); Hemoglobin 15.7 g/dl (14.0-18.0); Imm Gran Abs Auto 0.01 X10*3/uL (0.00-0.03); Imm Gran Pct Auto 0.2 % (0.0-0.4); Lymphocytes Absolute Auto 1.3 X10*3/uL (1.2-4.9); Lymphocytes Percent Auto 32.4 % (20-40); Mean Corpuscular HGB Conc 33.5 g/dl (31.0-36.0); Mean Corpuscular Hemoglobin 29.6 pg (27.0-33.0); Mean Corpuscular Volume 88.1 fL (80.0-98.0); Monocytes Absolute Auto 0.7 X10*3/uL (0.1-1.2); Monocytes Percent Auto 16.3 % (2-11); Neutrophils Absolute Auto 1.9 x10*3/uL (2.0-8.3); Platelet Count 153 X10*3/uL (160-400); Red Blood Count 5.31 X10*6/uL (4.60-5.80); Red Cell Distribution Width 12.8 % (11.0-16.0); WBCANC 4.1 X10*3/uL; White Blood Count 4.1 X10*3/uL (4.8-10.8)
[2021-09-13 11:09] LABS: Valproate 96.9 mcg/mL (50.0-100.0)
[2021-09-13 11:24] LABS: Anion Gap 10 (12-20); Blood Urea Nitrogen 22 mg/dL (9-16); Calcium 9.4 mg/dL (8.4-10.2); Carbon Dioxide 27 mmol/L (22-29); Chloride 108 mmol/L (96-108); Estimated Glomerular Filt Rate > 60; Glucose Random 101 mg/dL (60-115); Potassium 4.9 mmol/L (3.3-5.1); Sodium 140 mmol/L (135-145)
[2021-09-13 11:28] LABS: Lithium 0.82 mmol/L (0.60-1.20)
[2021-09-13 11:37] LABS: Estimated Average Glucose 94 mg/dL; Hemoglobin A1c % 4.9 %
== END 2021-09-13 09:36 | disposition home or self-care (01) ==
LOC: HO.LAB 09:35
PROVIDERS: PCP Internal Medicine; Visit Provider Clinical Nurse Specialist Psychiatric/Mental Health, Adult
DX: Z79.899 Other long term (current) drug therapy (principal)
CPT/HCPCS: 36415; 80048; 80164; 80178; 83036; 85025

== ENCOUNTER 2021-10-11 14:30 | Outpatient (REF) | payer OTHER, SELFPAY ==
[2021-10-11 14:45] LABS: MANUAL DIFF FLAG NO
[2021-10-11 15:15] LABS: Basophils Percent Auto 0.5 % (0-2); Eosinophils Absolute Auto 0.1 X10*3/uL (0.0-0.4); Eosinophils Percent Auto 1.2 % (0-4); Hematocrit 45.6 % (42.0-52.0); Hemoglobin 14.9 g/dl (14.0-18.0); Imm Gran Abs Auto 0.01 X10*3/uL (0.00-0.03); Imm Gran Pct Auto 0.2 % (0.0-0.4); Lymphocytes Absolute Auto 1.4 X10*3/uL (1.2-4.9); Lymphocytes Percent Auto 21.1 % (20-40); Mean Corpuscular HGB Conc 32.7 g/dl (31.0-36.0); Mean Corpuscular Hemoglobin 28.5 pg (27.0-33.0); Mean Corpuscular Volume 87.4 fL (80.0-98.0); Mean Platelet Volume 10.9 fL (9.4-12.4); Monocytes Absolute Auto 0.9 X10*3/uL (0.1-1.2); Monocytes Percent Auto 13.5 % (2-11); Neut%MD 63.5 %; Neutrophils Absolute Auto 4.2 x10*3/uL (2.0-8.3); Neutrophils Percent Auto 63.5 % (45-73); Platelet Count 168 X10*3/uL (160-400); Red Blood Count 5.22 X10*6/uL (4.60-5.80); Red Cell Distribution Width 12.7 % (11.0-16.0); WBCANC 6.6 X10*3/uL; White Blood Count 6.6 X10*3/uL (4.8-10.8)
== END 2021-10-11 14:31 | disposition home or self-care (01) ==
LOC: HO.LABR 14:30
PROVIDERS: Visit Provider Clinical Nurse Specialist Psychiatric/Mental Health, Adult
DX: Z79.899 Other long term (current) drug therapy (principal)
CPT/HCPCS: 36415; 85025

== ENCOUNTER 2021-11-08 14:15 | Outpatient (REF) | payer OTHER, SELFPAY ==
[2021-11-08 14:31] LABS: MANUAL DIFF FLAG NO
[2021-11-08 14:44] LABS: Basophils Percent Auto 0.4 % (0-2); Eosinophils Absolute Auto 0.1 X10*3/uL (0.0-0.4); Hematocrit 44.5 % (42.0-52.0); Hemoglobin 14.7 g/dl (14.0-18.0); Imm Gran Abs Auto 0.01 X10*3/uL (0.00-0.03); Imm Gran Pct Auto 0.2 % (0.0-0.4); Lymphocytes Absolute Auto 1.2 X10*3/uL (1.2-4.9); Mean Corpuscular Hemoglobin 29.2 pg (27.0-33.0); Mean Corpuscular Volume 88.3 fL (80.0-98.0); Mean Platelet Volume 10.8 fL (9.4-12.4); Monocytes Absolute Auto 0.9 X10*3/uL (0.1-1.2); Neutrophils Absolute Auto 3.1 x10*3/uL (2.0-8.3); Neutrophils Percent Auto 59.4 % (45-73); Platelet Count 147 X10*3/uL (160-400); Red Blood Count 5.04 X10*6/uL (4.60-5.80); Red Cell Distribution Width 12.9 % (11.0-16.0); White Blood Count 5.2 X10*3/uL (4.8-10.8)
== END 2021-11-08 14:16 | disposition home or self-care (01) ==
LOC: HO.LABR 14:15
PROVIDERS: PCP Internal Medicine; Visit Provider Clinical Nurse Specialist Psychiatric/Mental Health, Adult
DX: Z79.899 Other long term (current) drug therapy (principal)
CPT/HCPCS: 36415; 85025

== ENCOUNTER 2021-12-06 13:15 | Outpatient (REF) | payer OTHER, SELFPAY ==
[2021-12-06 13:31] LABS: MANUAL DIFF FLAG NO
[2021-12-06 13:55] LABS: Basophils Percent Auto 0.6 % (0-2); Eosinophils Absolute Auto 0.1 X10*3/uL (0.0-0.4); Eosinophils Percent Auto 1.3 % (0-4); Hematocrit 46.2 % (42.0-52.0); Hemoglobin 15.3 g/dl (14.0-18.0); Imm Gran Abs Auto 0.01 X10*3/uL (0.00-0.03); Imm Gran Pct Auto 0.2 % (0.0-0.4); Lymphocytes Absolute Auto 1.3 X10*3/uL (1.2-4.9); Mean Corpuscular HGB Conc 33.1 g/dl (31.0-36.0); Mean Corpuscular Volume 87.5 fL (80.0-98.0); Mean Platelet Volume 10.6 fL (9.4-12.4); Monocytes Absolute Auto 0.7 X10*3/uL (0.1-1.2); Monocytes Percent Auto 12.7 % (2-11); Neut%MD 61.2 %; Neutrophils Absolute Auto 3.3 x10*3/uL (2.0-8.3); Neutrophils Percent Auto 61.2 % (45-73); Platelet Count 148 X10*3/uL (160-400); Red Blood Count 5.28 X10*6/uL (4.60-5.80); Red Cell Distribution Width 13.1 % (11.0-16.0); WBCANC 5.4 X10*3/uL; White Blood Count 5.4 X10*3/uL (4.8-10.8)
== END 2021-12-06 13:16 | disposition home or self-care (01) ==
LOC: HO.LABR 13:15
PROVIDERS: PCP Internal Medicine; Visit Provider Clinical Nurse Specialist Psychiatric/Mental Health, Adult
DX: Z79.899 Other long term (current) drug therapy (principal)
CPT/HCPCS: 36415; 85025

== ENCOUNTER 2022-01-10 11:53 | Outpatient (REF) | payer OTHER, SELFPAY ==
[2022-01-10 12:02] LABS: MANUAL DIFF FLAG NO
[2022-01-10 12:59] LABS: Basophils Percent Auto 0.6 % (0-2); Eosinophils Absolute Auto 0.1 X10*3/uL (0.0-0.4); Eosinophils Percent Auto 2.5 % (0-4); Hematocrit 44.7 % (42.0-52.0); Hemoglobin 14.9 g/dl (14.0-18.0); Imm Gran Abs Auto 0.01 X10*3/uL (0.00-0.03); Imm Gran Pct Auto 0.2 % (0.0-0.4); Lymphocytes Absolute Auto 1.3 X10*3/uL (1.2-4.9); Lymphocytes Percent Auto 24.7 % (20-40); Mean Corpuscular HGB Conc 33.3 g/dl (31.0-36.0); Mean Corpuscular Volume 87.1 fL (80.0-98.0); Mean Platelet Volume 11.1 fL (9.4-12.4); Monocytes Absolute Auto 0.8 X10*3/uL (0.1-1.2); Monocytes Percent Auto 14.7 % (2-11); Neutrophils Percent Auto 57.3 % (45-73); Platelet Count 158 X10*3/uL (160-400); Red Blood Count 5.13 X10*6/uL (4.60-5.80); Red Cell Distribution Width 12.6 % (11.0-16.0); White Blood Count 5.2 X10*3/uL (4.8-10.8)
== END 2022-01-10 11:54 | disposition home or self-care (01) ==
LOC: HO.LABR 11:53
PROVIDERS: PCP Internal Medicine; Visit Provider Clinical Nurse Specialist Psychiatric/Mental Health, Adult
DX: Z79.899 Other long term (current) drug therapy (principal)
CPT/HCPCS: 36415; 85025

== ENCOUNTER 2022-02-11 14:32 | Outpatient (REF) | payer OTHER, SELFPAY ==
[2022-02-11 14:47] LABS: MANUAL DIFF FLAG NO
[2022-02-11 15:03] LABS: Basophils Percent Auto 0.7 % (0-2); Eosinophils Absolute Auto 0.1 X10*3/uL (0.0-0.4); Eosinophils Percent Auto 2.9 % (0-4); Hematocrit 44.2 % (42.0-52.0); Hemoglobin 14.8 g/dl (14.0-18.0); Imm Gran Abs Auto 0.02 X10*3/uL (0.00-0.03); Imm Gran Pct Auto 0.4 % (0.0-0.4); Lymphocytes Absolute Auto 1.4 X10*3/uL (1.2-4.9); Lymphocytes Percent Auto 31.4 % (20-40); Mean Corpuscular HGB Conc 33.5 g/dl (31.0-36.0); Mean Corpuscular Hemoglobin 29.4 pg (27.0-33.0); Mean Corpuscular Volume 87.9 fL (80.0-98.0); Mean Platelet Volume 10.9 fL (9.4-12.4); Monocytes Absolute Auto 0.7 X10*3/uL (0.1-1.2); Monocytes Percent Auto 14.5 % (2-11); Neutrophils Absolute Auto 2.3 x10*3/uL (2.0-8.3); Neutrophils Percent Auto 50.1 % (45-73); Platelet Count 142 X10*3/uL (160-400); Red Blood Count 5.03 X10*6/uL (4.60-5.80); White Blood Count 4.6 X10*3/uL (4.8-10.8)
== END 2022-02-11 14:33 | disposition home or self-care (01) ==
LOC: HO.LABR 14:32
PROVIDERS: PCP Internal Medicine; Visit Provider Clinical Nurse Specialist Psychiatric/Mental Health, Adult
DX: Z79.899 Other long term (current) drug therapy (principal)
CPT/HCPCS: 36415; 85025

== ENCOUNTER 2022-03-07 13:15 | Outpatient (REF) | payer OTHER, SELFPAY ==
[2022-03-07 13:31] LABS: MANUAL DIFF FLAG NO
[2022-03-07 14:16] LABS: Basophils Percent Auto 0.5 % (0-2); Eosinophils Absolute Auto 0.1 X10*3/uL (0.0-0.4); Eosinophils Percent Auto 1.9 % (0-4); Hematocrit 44.9 % (42.0-52.0); Hemoglobin 15.3 g/dl (14.0-18.0); Imm Gran Abs Auto 0.01 X10*3/uL (0.00-0.03); Imm Gran Pct Auto 0.2 % (0.0-0.4); Lymphocytes Absolute Auto 1.2 X10*3/uL (1.2-4.9); Lymphocytes Percent Auto 29.3 % (20-40); Mean Corpuscular HGB Conc 34.1 g/dl (31.0-36.0); Mean Corpuscular Hemoglobin 29.4 pg (27.0-33.0); Mean Corpuscular Volume 86.2 fL (80.0-98.0); Mean Platelet Volume 10.7 fL (9.4-12.4); Monocytes Absolute Auto 0.7 X10*3/uL (0.1-1.2); Monocytes Percent Auto 16.7 % (2-11); Neut%MD 51.4 %; Neutrophils Absolute Auto 2.1 x10*3/uL (2.0-8.3); Neutrophils Percent Auto 51.4 % (45-73); Platelet Count 159 X10*3/uL (160-400); Red Blood Count 5.21 X10*6/uL (4.60-5.80); Red Cell Distribution Width 12.6 % (11.0-16.0); WBCANC 4.1 X10*3/uL; White Blood Count 4.1 X10*3/uL (4.8-10.8)
== END 2022-03-07 13:16 | disposition home or self-care (01) ==
LOC: HO.LABR 13:15
PROVIDERS: PCP Internal Medicine; Visit Provider Clinical Nurse Specialist Psychiatric/Mental Health, Adult
DX: Z79.899 Other long term (current) drug therapy (principal)
CPT/HCPCS: 36415; 85025

== ENCOUNTER 2022-04-02 12:59 | Outpatient (REF) | payer OTHER, SELFPAY ==
[2022-04-02 13:24] LABS: MANUAL DIFF FLAG NO
[2022-04-02 13:49] LABS: Basophils Percent Auto 0.1 % (0-2); Eosinophils Percent Auto 0.4 % (0-4); Hematocrit 46.9 % (42.0-52.0); Hemoglobin 15.6 g/dl (14.0-18.0); Imm Gran Abs Auto 0.03 X10*3/uL (0.00-0.03); Imm Gran Pct Auto 0.4 % (0.0-0.4); Lymphocytes Absolute Auto 1.4 X10*3/uL (1.2-4.9); Lymphocytes Percent Auto 17.9 % (20-40); Mean Corpuscular HGB Conc 33.3 g/dl (31.0-36.0); Mean Corpuscular Hemoglobin 28.8 pg (27.0-33.0); Mean Corpuscular Volume 86.5 fL (80.0-98.0); Mean Platelet Volume 10.3 fL (9.4-12.4); Monocytes Absolute Auto 1.1 X10*3/uL (0.1-1.2); Neutrophils Absolute Auto 5.1 x10*3/uL (2.0-8.3); Neutrophils Percent Auto 67.2 % (45-73); Platelet Count 172 X10*3/uL (160-400); Red Blood Count 5.42 X10*6/uL (4.60-5.80); Red Cell Distribution Width 12.6 % (11.0-16.0); White Blood Count 7.6 X10*3/uL (4.8-10.8)
[2022-04-02 14:12] LABS: Valproate 59.3 mcg/mL (50.0-100.0)
== END 2022-04-02 13:00 | disposition home or self-care (01) ==
LOC: HO.LAB 12:59
PROVIDERS: PCP Internal Medicine; Visit Provider Clinical Nurse Specialist Psychiatric/Mental Health, Adult
DX: Z79.899 Other long term (current) drug therapy (principal)
CPT/HCPCS: 36415; 80164; 80178; 85025

== ENCOUNTER 2022-04-10 12:36 | Outpatient (REF) | payer OTHER, SELFPAY ==
[2022-04-10 12:54] LABS: MANUAL DIFF FLAG NO
[2022-04-10 13:35] LABS: Basophils Percent Auto 0.4 % (0-2); Eosinophils Absolute Auto 0.2 X10*3/uL (0.0-0.4); Eosinophils Percent Auto 3.8 % (0-4); Hematocrit 43.6 % (42.0-52.0); Hemoglobin 14.6 g/dl (14.0-18.0); Imm Gran Abs Auto 0.02 X10*3/uL (0.00-0.03); Imm Gran Pct Auto 0.4 % (0.0-0.4); Lymphocytes Absolute Auto 1.6 X10*3/uL (1.2-4.9); Lymphocytes Percent Auto 28.3 % (20-40); Mean Corpuscular HGB Conc 33.5 g/dl (31.0-36.0); Mean Corpuscular Hemoglobin 28.6 pg (27.0-33.0); Mean Corpuscular Volume 85.5 fL (80.0-98.0); Mean Platelet Volume 10.7 fL (9.4-12.4); Monocytes Absolute Auto 0.8 X10*3/uL (0.1-1.2); Monocytes Percent Auto 13.4 % (2-11); Neut%MD 53.7 %; Neutrophils Percent Auto 53.7 % (45-73); Platelet Count 187 X10*3/uL (160-400); WBCANC 5.6 X10*3/uL; White Blood Count 5.6 X10*3/uL (4.8-10.8)
== END 2022-04-10 12:37 | disposition home or self-care (01) ==
LOC: HO.LABR 12:36
PROVIDERS: PCP Internal Medicine; Visit Provider Clinical Nurse Specialist Psychiatric/Mental Health, Adult
DX: Z79.899 Other long term (current) drug therapy (principal)
CPT/HCPCS: 36415; 85025

== ENCOUNTER 2022-04-17 12:19 | Outpatient (REF) | payer OTHER, SELFPAY ==
[2022-04-17 12:29] LABS: MANUAL DIFF FLAG NO
[2022-04-17 12:53] LABS: Basophils Percent Auto 0.5 % (0-2); Eosinophils Absolute Auto 0.1 X10*3/uL (0.0-0.4); Eosinophils Percent Auto 2.6 % (0-4); Hematocrit 43.9 % (42.0-52.0); Hemoglobin 15.4 g/dl (14.0-18.0); Imm Gran Abs Auto 0.03 X10*3/uL (0.00-0.03); Imm Gran Pct Auto 0.5 % (0.0-0.4); Lymphocytes Absolute Auto 1.5 X10*3/uL (1.2-4.9); Lymphocytes Percent Auto 26.9 % (20-40); Mean Corpuscular HGB Conc 35.1 g/dl (31.0-36.0); Mean Corpuscular Hemoglobin 29.8 pg (27.0-33.0); Mean Corpuscular Volume 85.1 fL (80.0-98.0); Mean Platelet Volume 10.4 fL (9.4-12.4); Monocytes Absolute Auto 0.9 X10*3/uL (0.1-1.2); Monocytes Percent Auto 16.8 % (2-11); Neutrophils Absolute Auto 2.9 x10*3/uL (2.0-8.3); Neutrophils Percent Auto 52.7 % (45-73); Platelet Count 178 X10*3/uL (160-400); Red Blood Count 5.16 X10*6/uL (4.60-5.80); Red Cell Distribution Width 12.9 % (11.0-16.0); White Blood Count 5.5 X10*3/uL (4.8-10.8)
== END 2022-04-17 12:20 | disposition home or self-care (01) ==
LOC: HO.LABR 12:19
PROVIDERS: PCP Internal Medicine; Visit Provider Clinical Nurse Specialist Psychiatric/Mental Health, Adult
DX: Z79.899 Other long term (current) drug therapy (principal)
CPT/HCPCS: 36415; 85025

== ENCOUNTER 2022-04-23 14:56 | Outpatient (REF) | payer OTHER, SELFPAY ==
[2022-04-23 15:17] LABS: MANUAL DIFF FLAG NO
[2022-04-23 16:26] LABS: Basophils Percent Auto 0.4 % (0-2); Eosinophils Absolute Auto 0.1 X10*3/uL (0.0-0.4); Eosinophils Percent Auto 1.4 % (0-4); Hemoglobin 14.2 g/dl (14.0-18.0); Imm Gran Abs Auto 0.02 X10*3/uL (0.00-0.03); Imm Gran Pct Auto 0.3 % (0.0-0.4); Lymphocytes Absolute Auto 1.6 X10*3/uL (1.2-4.9); Lymphocytes Percent Auto 22.4 % (20-40); Mean Corpuscular HGB Conc 33.8 g/dl (31.0-36.0); Mean Corpuscular Volume 85.7 fL (80.0-98.0); Mean Platelet Volume 10.9 fL (9.4-12.4); Monocytes Absolute Auto 1.1 X10*3/uL (0.1-1.2); Monocytes Percent Auto 15.4 % (2-11); Neutrophils Absolute Auto 4.3 x10*3/uL (2.0-8.3); Neutrophils Percent Auto 60.1 % (45-73); Platelet Count 169 X10*3/uL (160-400); Red Cell Distribution Width 13.3 % (11.0-16.0); White Blood Count 7.2 X10*3/uL (4.8-10.8)
== END 2022-04-23 14:57 | disposition home or self-care (01) ==
LOC: HO.LABR 14:56
PROVIDERS: PCP Internal Medicine; Visit Provider Clinical Nurse Specialist Psychiatric/Mental Health, Adult
DX: Z79.899 Other long term (current) drug therapy (principal)
CPT/HCPCS: 36415; 85025

== ENCOUNTER 2022-04-30 11:29 | Outpatient (REF) | payer OTHER, SELFPAY ==
[2022-04-30 11:43] LABS: MANUAL DIFF FLAG NO
[2022-04-30 12:14] LABS: Basophils Percent Auto 0.3 % (0-2); Eosinophils Absolute Auto 0.4 X10*3/uL (0.0-0.4); Eosinophils Percent Auto 6.6 % (0-4); Hematocrit 43.5 % (42.0-52.0); Hemoglobin 15.1 g/dl (14.0-18.0); Imm Gran Abs Auto 0.02 X10*3/uL (0.00-0.03); Imm Gran Pct Auto 0.3 % (0.0-0.4); Lymphocytes Absolute Auto 1.4 X10*3/uL (1.2-4.9); Lymphocytes Percent Auto 23.3 % (20-40); Mean Corpuscular HGB Conc 34.7 g/dl (31.0-36.0); Mean Corpuscular Hemoglobin 29.7 pg (27.0-33.0); Mean Corpuscular Volume 85.5 fL (80.0-98.0); Mean Platelet Volume 10.5 fL (9.4-12.4); Monocytes Absolute Auto 1.1 X10*3/uL (0.1-1.2); Neut%MD 52.5 %; Neutrophils Absolute Auto 3.3 x10*3/uL (2.0-8.3); Neutrophils Percent Auto 52.5 % (45-73); Platelet Count 176 X10*3/uL (160-400); Red Blood Count 5.09 X10*6/uL (4.60-5.80); Red Cell Distribution Width 13.2 % (11.0-16.0); WBCANC 6.2 X10*3/uL; White Blood Count 6.2 X10*3/uL (4.8-10.8)
== END 2022-04-30 11:30 | disposition home or self-care (01) ==
LOC: HO.LAB 11:29
PROVIDERS: Visit Provider Clinical Nurse Specialist Psychiatric/Mental Health, Adult
DX: Z79.899 Other long term (current) drug therapy (principal)
CPT/HCPCS: 36415; 85025

== ENCOUNTER 2022-05-27 14:02 | Outpatient (REF) | payer OTHER, SELFPAY ==
[2022-05-27 14:18] LABS: MANUAL DIFF FLAG NO
[2022-05-27 14:48] LABS: Basophils Percent Auto 0.6 % (0-2); Eosinophils Absolute Auto 0.2 X10*3/uL (0.0-0.4); Eosinophils Percent Auto 3.6 % (0-4); Hematocrit 44.8 % (42.0-52.0); Hemoglobin 15.3 g/dl (14.0-18.0); Imm Gran Abs Auto 0.02 X10*3/uL (0.00-0.03); Imm Gran Pct Auto 0.3 % (0.0-0.4); Lymphocytes Absolute Auto 1.7 X10*3/uL (1.2-4.9); Lymphocytes Percent Auto 26.3 % (20-40); Mean Corpuscular HGB Conc 34.2 g/dl (31.0-36.0); Mean Corpuscular Hemoglobin 29.4 pg (27.0-33.0); Mean Corpuscular Volume 86.2 fL (80.0-98.0); Mean Platelet Volume 11.1 fL (9.4-12.4); Monocytes Absolute Auto 0.9 X10*3/uL (0.1-1.2); Monocytes Percent Auto 14.4 % (2-11); Neut%MD 54.8 %; Neutrophils Absolute Auto 3.5 x10*3/uL (2.0-8.3); Neutrophils Percent Auto 54.8 % (45-73); Platelet Count 166 X10*3/uL (160-400); Red Cell Distribution Width 13.2 % (11.0-16.0); WBCANC 6.3 X10*3/uL; White Blood Count 6.3 X10*3/uL (4.8-10.8)
== END 2022-05-27 14:03 | disposition home or self-care (01) ==
LOC: HO.LABR 14:02
PROVIDERS: Visit Provider Clinical Nurse Specialist Psychiatric/Mental Health, Adult
DX: Z79.899 Other long term (current) drug therapy (principal)
CPT/HCPCS: 36415; 85025

== ENCOUNTER 2022-07-02 15:16 | Outpatient (REF) | payer OTHER, SELFPAY ==
[2022-07-02 15:25] LABS: MANUAL DIFF FLAG NO
[2022-07-02 15:32] LABS: Basophils Percent Auto 0.3 % (0-2); Eosinophils Absolute Auto 0.1 X10*3/uL (0.0-0.4); Hematocrit 45.5 % (42.0-52.0); Hemoglobin 15.3 g/dl (14.0-18.0); Imm Gran Abs Auto 0.01 X10*3/uL (0.00-0.03); Imm Gran Pct Auto 0.2 % (0.0-0.4); Lymphocytes Absolute Auto 1.7 X10*3/uL (1.2-4.9); Lymphocytes Percent Auto 26.2 % (20-40); Mean Corpuscular HGB Conc 33.6 g/dl (31.0-36.0); Mean Corpuscular Hemoglobin 28.5 pg (27.0-33.0); Mean Corpuscular Volume 84.7 fL (80.0-98.0); Mean Platelet Volume 10.4 fL (9.4-12.4); Monocytes Absolute Auto 1.1 X10*3/uL (0.1-1.2); Monocytes Percent Auto 16.9 % (2-11); Neutrophils Absolute Auto 3.5 x10*3/uL (2.0-8.3); Neutrophils Percent Auto 55.4 % (45-73); Platelet Count 264 X10*3/uL (160-400); Red Blood Count 5.37 X10*6/uL (4.60-5.80); Red Cell Distribution Width 12.9 % (11.0-16.0); White Blood Count 6.3 X10*3/uL (4.8-10.8)
== END 2022-07-02 15:17 | disposition home or self-care (01) ==
LOC: HO.LABR 15:16
PROVIDERS: PCP Internal Medicine; Visit Provider Clinical Nurse Specialist Psychiatric/Mental Health, Adult
DX: Z79.899 Other long term (current) drug therapy (principal)
CPT/HCPCS: 36415; 85025

== ENCOUNTER 2022-08-09 11:38 | Outpatient (REF) | payer OTHER, SELFPAY ==
[2022-08-09 12:16] LABS: MANUAL DIFF FLAG NO
[2022-08-09 13:14] LABS: Basophils Percent Auto 0.7 % (0-2); Eosinophils Absolute Auto 0.1 X10*3/uL (0.0-0.4); Eosinophils Percent Auto 2.7 % (0-4); Hematocrit 46.4 % (42.0-52.0); Hemoglobin 15.4 g/dl (14.0-18.0); Lymphocytes Absolute Auto 1.2 X10*3/uL (1.2-4.9); Lymphocytes Percent Auto 26.4 % (20-40); Mean Corpuscular HGB Conc 33.2 g/dl (31.0-36.0); Mean Corpuscular Hemoglobin 28.7 pg (27.0-33.0); Mean Corpuscular Volume 86.6 fL (80.0-98.0); Mean Platelet Volume 11.2 fL (9.4-12.4); Monocytes Absolute Auto 0.7 X10*3/uL (0.1-1.2); Monocytes Percent Auto 15.2 % (2-11); Neutrophils Absolute Auto 2.5 x10*3/uL (2.0-8.3); Platelet Count 180 X10*3/uL (160-400); Red Blood Count 5.36 X10*6/uL (4.60-5.80); Red Cell Distribution Width 13.2 % (11.0-16.0); WBCANC 4.5 X10*3/uL; White Blood Count 4.5 X10*3/uL (4.8-10.8)
[2022-08-09 13:47] LABS: Lithium 0.61 mmol/L (0.60-1.20)
[2022-08-09 14:00] LABS: Estimated Average Glucose 100 mg/dL; Hemoglobin A1C 149.0107 umol/L; Hemoglobin A1c % 5.1 %
[2022-08-09 14:10] LABS: Valproate 69.9 mcg/mL (50.0-100.0)
[2022-08-15 15:59] LABS: Clozapine (Clozaril) 41 mcg/L; Norclozapine 20 mcg/L (25-400)
== END 2022-08-09 11:39 | disposition home or self-care (01) ==
LOC: HO.LABR 11:38
PROVIDERS: PCP Internal Medicine; Visit Provider Clinical Nurse Specialist Psychiatric/Mental Health, Adult
DX: Z79.899 Other long term (current) drug therapy (principal)
CPT/HCPCS: 36415; 80159; 80164; 80178; 83036; 85025

== ENCOUNTER 2022-09-27 14:40 | Outpatient (REF) | payer OTHER, SELFPAY ==
[2022-09-27 14:56] LABS: MANUAL DIFF FLAG NO
[2022-09-27 15:24] LABS: Basophils Percent Auto 0.8 % (0-2); Eosinophils Absolute Auto 0.1 X10*3/uL (0.0-0.4); Hematocrit 45.3 % (42.0-52.0); Hemoglobin 15.8 g/dl (14.0-18.0); Imm Gran Abs Auto 0.02 X10*3/uL (0.00-0.03); Imm Gran Pct Auto 0.4 % (0.0-0.4); Lymphocytes Absolute Auto 1.5 X10*3/uL (1.2-4.9); Lymphocytes Percent Auto 29.5 % (20-40); Mean Corpuscular HGB Conc 34.9 g/dl (31.0-36.0); Mean Corpuscular Hemoglobin 29.8 pg (27.0-33.0); Mean Corpuscular Volume 85.3 fL (80.0-98.0); Mean Platelet Volume 10.8 fL (9.4-12.4); Monocytes Absolute Auto 0.7 X10*3/uL (0.1-1.2); Monocytes Percent Auto 14.3 % (2-11); Neutrophils Absolute Auto 2.7 x10*3/uL (2.0-8.3); Platelet Count 167 X10*3/uL (160-400); Red Blood Count 5.31 X10*6/uL (4.60-5.80); Red Cell Distribution Width 12.7 % (11.0-16.0); WBCANC 5.1 X10*3/uL; White Blood Count 5.1 X10*3/uL (4.8-10.8)
== END 2022-09-27 14:41 | disposition home or self-care (01) ==
LOC: HO.LABR 14:40
PROVIDERS: Visit Provider Clinical Nurse Specialist Psychiatric/Mental Health, Adult
DX: Z79.899 Other long term (current) drug therapy (principal)
CPT/HCPCS: 36415; 85025

== ENCOUNTER 2022-11-08 11:14 | Outpatient (REF) | payer OTHER, SELFPAY ==
[2022-11-08 11:37] LABS: MANUAL DIFF FLAG NO
[2022-11-08 12:08] LABS: Basophils Percent Auto 0.6 % (0-2); Eosinophils Absolute Auto 0.1 X10*3/uL (0.0-0.4); Eosinophils Percent Auto 1.9 % (0-4); Hematocrit 48.6 % (42.0-52.0); Hemoglobin 16.8 g/dl (14.0-18.0); Imm Gran Abs Auto 0.02 X10*3/uL (0.00-0.03); Imm Gran Pct Auto 0.3 % (0.0-0.4); Lymphocytes Absolute Auto 1.5 X10*3/uL (1.2-4.9); Lymphocytes Percent Auto 21.2 % (20-40); Mean Corpuscular HGB Conc 34.6 g/dl (31.0-36.0); Mean Corpuscular Hemoglobin 29.4 pg (27.0-33.0); Mean Platelet Volume 10.8 fL (9.4-12.4); Neutrophils Absolute Auto 4.3 x10*3/uL (2.0-8.3); Platelet Count 192 X10*3/uL (160-400); Red Blood Count 5.72 X10*6/uL (4.60-5.80); Red Cell Distribution Width 12.6 % (11.0-16.0)
[2022-11-13 05:03] LABS: Clozapine (Clozaril) 71 mcg/L; Norclozapine 26 mcg/L (25-400)
== END 2022-11-08 11:15 | disposition home or self-care (01) ==
LOC: HO.LABR 11:14
PROVIDERS: Visit Provider Clinical Nurse Specialist Psychiatric/Mental Health, Adult
DX: Z79.899 Other long term (current) drug therapy (principal)
CPT/HCPCS: 36415; 80159; 85025

== ENCOUNTER 2022-11-15 13:09 | Inpatient (IN) | payer OTHER, SELFPAY ==
[2022-11-15 13:18] VITALS: BP 139/90; BP 184/102; PULSE 120; PULSE 122; RESP 20; TEMP 37.3; O2SAT 98; BMI 28.1
--- NOTE | 2022-11-15 13:31 | ED.GENADULT ---
HPI - General Adult General Chief complaint: Psychiatric Symptoms Stated complaint: SEC 12,AUDITORY HALLUCINATIONS,SCHIZO Time Seen by Provider: 11/15/22 13:31 Source: patient and EMS Mode of arrival: EMS Limitations: no limitations History of Present Illness HPI narrative: Patient is a 32 year old assigned male at with a history of bipolar disorder presenting to the emergency department today on a section [address] [facility] for a manic episode with auditory hallucinations. Patient denies any dizziness, lightheadedness, abdominal pain, nausea, vomiting, fever, chills, blurry vision, double vision, loss of vision, chest pain, difficulty breathing, shortness of breath, back pain, night sweats, pain with urination, increased urinary frequency, increased urinary urgency, blood in his urine or stool, syncope or a near syncopal episode, recent trauma or falls, bowel incontinence, bladder incontinence, bowel retention, bladder retention, or any other complaints at this time. Onset (ago): week(s) Severity: moderate Relieving factors: none Exacerbating factors: none Associated symptoms: denies other symptoms Treatments prior to arrival: none Related Data Home Medications Medication Instructions Recorded Confirmed benztropine 1 mg tablet 1 tab PO BEDTIME 11/15/22 11/15/22 clozapine 25 mg tablet 87.5 mg PO BEDTIME 11/15/22 11/15/22 divalproex 250 mg tablet,extended 1 tab PO BEDTIME 11/15/22 11/15/22 release 24 hr divalproex 500 mg tablet,extended 2 tab PO BID 11/15/22 11/15/22 release 24 hr haloperidol 5 mg tablet 0.5 tab PO BID 11/15/22 11/15/22 lithium carbonate 150 mg capsule 1 cap PO DAILY 11/15/22 11/15/22 lithium carbonate 450 mg 900 mg PO BEDTIME 11/15/22 11/15/22 tablet,extended release multivitamin with folic acid 400 1 tab PO DAILY 11/15/22 11/15/22 mcg tablet (Tab-A-Daniel) vitamin E (dl, acetate) 180 mg 1 cap PO DAILY 11/15/22 11/15/22 (400 unit) capsule Allergies Allergy/AdvReac Type Severity Reaction Status Date / Time penicillin G [Penicillin G] Allergy Mild HIVES Verified 02/12/21 21:22 amoxicillin [Amoxicillin] Allergy Unknown HIVES Verified 02/12/21 21:22 penicillin V Allergy Unknown hives Verified 02/12/21 21:22 Review of Systems Constitutional: Constitutional: Reports no additional constitutional complaints, Denies chills, Denies fever(s) and Denies night sweats Eyes: Eyes: Reports no additional eye complaints, Denies blurry vision, Denies change in vision, Denies diplopia, Denies eye discharge, Denies loss of vision and Denies eye pain ENT: Denies dizziness Cardiovascular: Cardiovascular: Reports no additional cardiovascular complaints, Denies chest pain, Denies lightheadedness, Denies Loss of Consciousness and Denies dyspnea Respiratory: Respiratory: Reports no additional respiratory complaints and Denies dyspnea Gastrointestinal: Gastrointestinal: Reports no additional gastrointestinal complaints, Denies abdominal pain, Denies melena, Denies hematochezia, Denies change in bowel habits and Denies change in stool character Genitourinary: Genitourinary: Reports no additional male genitourinary complaints, Denies hematuria, Denies oliguria, Denies difficulty urinating, Denies dysuria, Denies urinary frequency, Denies urinary hesitancy, Denies urinary incontinence and Denies urinary urgency Musculoskeletal: Musculoskeletal: Reports no additional musculoskeletal complaints, Denies numbness and Denies tingling Neurologic: Denies dizziness, Denies loss of vision, Denies numbness and Denies tingling Psychiatric: Psychiatric: Reports visual hallucinations Endocrine: Endocrine: Reports no additional endocrine complaints Hematologic/Lymphatic: Hematologic/Lymphatic: Reports no additional hematologic/lymphatic complaints Allergic/Immunologic: Allergic/Immunologic: Reports no additional allergic/immunologic complaints [facility] Past Medical History Attestation statement: The following information was validated with the patient. Source: old records reviewed and nursing notes reviewed Medical History Bipolar disorder Social History Social History Household Members: None Household Members Other:: 0 Housing: Apartment Do you presently have visiting nurse or other home services: No Alcohol intake: never Patient Tobacco Use Status: Never used Tobacco e-Cigarette/Vaping Use: Never Used Second Hand Smoke Exposure: No Substance Use Type: Caffiene Advance Directives: No Advance Directives Information Provided: Yes Guardian: Yes (Valorie Solomon) service: No Physical Exam ED Vital Signs: Vital Signs - 24 hr 11/15/22 13:18 Temperature 99.1 F Pulse Rate 122 H Respiratory Rate 20 Blood Pressure 139/90 H Pulse Oximetry 98 Oxygen Delivery Method Room Air BMI result Body Mass Index 28.1 Const General: cooperative, no acute distress, alert and awake Nutritional Appearance: well nourished Orientation/consciousness: patient oriented x3 Limitations: no limitations HENMT Head: Yes normal to inspection and Yes atraumatic Ears: hearing grossly normal bilaterally and external ears normal General nose exam: Normal external nose present, no nasal discharge noted and no epistaxis Face and sinus: Yes normal facial exam, No abrasion and No laceration Mouth: Normal oral and palatal mucosa present, no drooling and no muffled voice Eyes General: appearance normal, both eyes and all related structures Periorbital: periorbital findings normal Eyelids: Yes eyelids normal Conjunctivae: conjunctivae normal Pupils: Equal, round and reactive pupils present EOM: EOMs intact bilaterally Neck Neck: Yes normal visual inspection, Yes full ROM and Yes no lymphadenopathy Chest Chest palpation & inspection: normal inspection of the chest Resp Effort & Inspection: normal respiratory effort and able to speak in complete sentences Auscultation: clear to auscultation bilaterally Cardio Rate: regular rate Rhythm: regular rhythm GI Inspection: Yes normal to inspection Palpation (GI): Soft to palpation, not firm, nontender, no guarding and not rigid Neuro General: patient oriented x3 and moves all extremities Cranial nerves: Yes Equal, round and reactive pupils present Cognition (Neuro): normal cognition Motor exam (neuro): 5/5 motor strength present throughout Sensory Exam: Normal double simultaneous stimulation for sensation Coordination: [id number] test normal Extrem General: Yes normal to inspection, Yes full ROM and Yes capillary refill normal Psych Affect: Labile affect present Thought process: Confabulating thought process present Thought content: delusions Insight: Limited insight present (Psych) Judgement: Limited judgement present (Psych) Medications Administered Discontinued Medications Generic Name Dose Route Start Last Admin Trade Name Freq PRN Reason Stop Dose Admin Lorazepam 2 mg 11/15/22 14:58 11/15/22 15:04 Lorazepam 1 Mg Tablet PO 11/15/22 14:59 2 mg ONCE ONE Administration Medical Decision Making Medical Decision Making MDM Narrative: Patient is a 32 year old assigned male at with a history of bipolar disorder presenting to the emergency department today on a section 12 with an acute manic episode. Patient's physical exam showed an acutely manic individual. Patient's blood work was unremarkable. Patient claims to be taking his medication however, there is some concern that he has been non-adherent. Will restart his medications accordingly. Patient will likely be admitted here for restablization. I explained my physical exam findings as well as all test results to the patient. I answered all questions asked by the patient. Patient pending formal psychiatric admission. Differential Diagnosis Differential Diagnoses: The differential diagnosis associated with the presentation includes manic episode Lab Data MDM Lab Attestation statement: I reviewed the patient's lab results. 11/15/22 14:18 11/15/22 14:18 Labs: Lab Results 11/15/22 11/15/22 11/15/22 Range/Units 14:07 14:07 14:07 WBC (4.8-10.8) X10*3/uL RBC (4.60-5.80) X10*6/uL Hgb (14.0-18.0) g/dl Hct (42.0-52.0) % MCV (80.0-98.0) fL MCH (27.0-33.0) pg MCHC (31.0-36.0) g/dl RDW (11.0-16.0) % Plt Count (160-400) X10*3/uL MPV (9.4-12.4) fL Immature Gran % (Auto) (0.0-0.4) % Neut % (Auto) (45-73) % Lymph % (Auto) (20-40) % [place] % (Auto) (2-11) % Eos % (Auto) (0-4) % Baso % (Auto) (0-2) % Lymph # (Auto) (1.2-4.9) X10*3/uL [place] # (Auto) (0.1-1.2) X10*3/uL Eos # (Auto) (0.0-0.4) X10*3/uL Baso # (Auto) (0.0-0.2) X10*3/uL Abs Immat Gran (auto) (0.00-0.03) X10*3/uL Absolute Neuts (auto) (2.0-8.3) x10*3/uL Absolute Nucleated RBC (0.0-0.012) X10*3/uL Nucleated RBC % (auto) (0.0-0.2) /100WBC Sodium (135-145) mmol/L Potassium (3.3-5.1) mmol/L Chloride (96-108) mmol/L Carbon Dioxide (22-29) mmol/L Anion Gap (12-20) BUN (9-16) mg/dL Creatinine (0.5-1.4) mg/dL Estim Creat Clear Calc Estimated GFR Random Glucose (60-115) mg/dL Calcium (8.4-10.2) mg/dL Total Bilirubin (0.0-1.0) mg/dL AST (5-37) U/L ALT (0-40) U/L Alkaline Phosphatase (39-117) U/L Total Protein (6.5-8.0) g/dL Albumin (3.5-5.0) g/dL Urine Color Yellow Urine Appearance Clear Urine pH 7.5 (5.0-9.0) Ur Specific [place] 1.010 (1.005-1.025) Urine Protein Negative (Neg-Trace) mg/dL Urine Glucose (UA) Negative (Negative) mg/dL Urine Ketones Negative (Negative) mg/dL Urine Blood Negative (Negative) Urine Nitrite Negative (Negative) Ur Leukocyte Esterase Negative (Negative) Salicylates (15-30) mg/dL Urine Opiates Screen Not Detected (Not Detect) Urine Fentanyl Screen Not Detected (Not Detect) Acetaminophen (<30) mcg/mL Ur Barbiturates Screen Not Detected (Not Detect) Valproic Acid (50.0-100.0) mcg/mL Ur Phencyclidine Scrn Not Detected (Not Detect) Ur Amphetamines Screen Not Detected (Not Detect) U Benzodiazepines Scrn Not Detected (Not Detect) [place] (0.60-1.20) mmol/L Urine Cocaine Screen Not Detected (Not Detect) U Marijuana (THC) Screen Not Detected (Not Detect) Ethyl Alcohol mg/dL COVID-19 (TANGELA) Negative (Negative) COVID-19 Clin Com See Note 11/15/22 11/15/22 11/15/22 Range/Units 14:18 14:18 14:18 WBC 6.6 (4.8-10.8) X10*3/uL RBC 5.48 (4.60-5.80) X10*6/uL Hgb 16.1 (14.0-18.0) g/dl Hct 46.4 (42.0-52.0) % MCV 84.7 (80.0-98.0) fL MCH 29.4 (27.0-33.0) pg MCHC 34.7 (31.0-36.0) g/dl RDW 12.8 (11.0-16.0) % Plt Count 188 (160-400) X10*3/uL MPV 10.4 (9.4-12.4) fL Immature Gran % (Auto) 0.3 (0.0-0.4) % Neut % (Auto) 68.1 (45-73) % Lymph % (Auto) 16.0 L (20-40) % [place] % (Auto) 14.8 H (2-11) % Eos % (Auto) 0.5 (0-4) % Baso % (Auto) 0.3 (0-2) % Lymph # (Auto) 1.1 L (1.2-4.9) X10*3/uL [place] # (Auto) 1.0 (0.1-1.2) X10*3/uL Eos # (Auto) 0.0 (0.0-0.4) X10*3/uL Baso # (Auto) 0.0 (0.0-0.2) X10*3/uL Abs Immat Gran (auto) 0.02 (0.00-0.03) X10*3/uL Absolute Neuts (auto) 4.5 (2.0-8.3) x10*3/uL Absolute Nucleated RBC 0.000 (0.0-0.012) X10*3/uL Nucleated RBC % (auto) 0.0 (0.0-0.2) /100WBC Sodium 140 (135-145) mmol/L Potassium 3.9 D (3.3-5.1) mmol/L Chloride 107 (96-108) mmol/L Carbon Dioxide 23 (22-29) mmol/L Anion Gap 14 (12-20) BUN 11 (9-16) mg/dL Creatinine 1.08 (0.5-1.4) mg/dL Estim Creat Clear Calc 99.5 Estimated GFR > 60 Random Glucose 99 (60-115) mg/dL Calcium 9.6 (8.4-10.2) mg/dL Total Bilirubin 0.5 (0.0-1.0) mg/dL AST 27 (5-37) U/L ALT 25 (0-40) U/L Alkaline Phosphatase 64 (39-117) U/L Total Protein 7.2 (6.5-8.0) g/dL Albumin 4.6 (3.5-5.0) g/dL Urine Color Urine Appearance Urine pH (5.0-9.0) Ur Specific [place] (1.005-1.025) Urine Protein (Neg-Trace) mg/dL Urine Glucose (UA) (Negative) mg/dL Urine Ketones (Negative) mg/dL Urine Blood (Negative) Urine Nitrite (Negative) Ur Leukocyte Esterase (Negative) Salicylates < 5.0 L (15-30) mg/dL Urine Opiates Screen (Not Detect) Urine Fentanyl Screen (Not Detect) Acetaminophen < 17 (<30) mcg/mL Ur Barbiturates Screen (Not Detect) Valproic Acid 95.8 (50.0-100.0) mcg/mL Ur Phencyclidine Scrn (Not Detect) Ur Amphetamines Screen (Not Detect) U Benzodiazepines Scrn (Not Detect) [place] (0.60-1.20) mmol/L Urine Cocaine Screen (Not Detect) U Marijuana (THC) Screen (Not Detect) Ethyl Alcohol < 10 mg/dL COVID-19 ([facility]ANGELA) (Negative) COVID-19 Clin Com 11/15/22 Range/Units 14:19 WBC (4.8-10.8) X10*3/uL RBC (4.60-5.80) X10*6/uL Hgb (14.0-18.0) g/dl Hct (42.0-52.0) % MCV (80.0-98.0) fL MCH (27.0-33.0) pg MCHC (31.0-36.0) g/dl RDW (11.0-16.0) % Plt Count (160-400) X10*3/uL MPV (9.4-12.4) fL Immature Gran % (Auto) (0.0-0.4) % Neut % (Auto) (45-73) % Lymph % (Auto) (20-40) % [place] % (Auto) (2-11) % Eos % (Auto) (0-4) % Baso % (Auto) (0-2) % Lymph # (Auto) (1.2-4.9) X10*3/uL [place] # (Auto) (0.1-1.2) X10*3/uL Eos # (Auto) (0.0-0.4) X10*3/uL Baso # (Auto) (0.0-0.2) X10*3/uL Abs Immat Gran (auto) (0.00-0.03) X10*3/uL Absolute Neuts (auto) (2.0-8.3) x10*3/uL Absolute Nucleated RBC (0.0-0.012) X10*3/uL Nucleated RBC % (auto) (0.0-0.2) /100WBC Sodium (135-145) mmol/L Potassium (3.3-5.1) mmol/L Chloride (96-108) mmol/L Carbon Dioxide (22-29) mmol/L Anion Gap (12-20) BUN (9-16) mg/dL Creatinine (0.5-1.4) mg/dL Estim Creat Clear Calc Estimated GFR Random Glucose (60-115) mg/dL Calcium (8.4-10.2) mg/dL Total Bilirubin (0.0-1.0) mg/dL AST (5-37) U/L ALT (0-40) U/L Alkaline Phosphatase (39-117) U/L Total Protein (6.5-8.0) g/dL Albumin (3.5-5.0) g/dL Urine Color Urine Appearance Urine pH (5.0-9.0) Ur Specific [place] (1.005-1.025) Urine Protein (Neg-Trace) mg/dL Urine Glucose (UA) (Negative) mg/dL Urine Ketones (Negative) mg/dL Urine Blood (Negative) Urine Nitrite (Negative) Ur Leukocyte Esterase (Negative) Salicylates (15-30) mg/dL Urine Opiates Screen (Not Detect) Urine Fentanyl Screen (Not Detect) Acetaminophen (<30) mcg/mL Ur Barbiturates Screen (Not Detect) Valproic Acid (50.0-100.0) mcg/mL Ur Phencyclidine Scrn (Not Detect) Ur Amphetamines Screen (Not Detect) U Benzodiazepines Scrn (Not Detect) [place] 0.51 L (0.60-1.20) mmol/L Urine Cocaine Screen (Not Detect) U Marijuana (THC) Screen (Not Detect) Ethyl Alcohol mg/dL COVID-19 ([facility]ANGELA) (Negative) COVID-19 Clin Com Discharge Plan Discharge Clinical Impression: Bipolar affective, manic, severe w/ psych Patient Disposition: Still a Patient Prescriptions: No Action haloperidol 5 mg tablet 0.5 tab PO BID lithium carbonate 150 mg capsule 1 cap PO DAILY lithium carbonate 450 mg tablet extended release 900 mg PO BEDTIME divalproex 500 mg tablet extended release 24 hr 2 tab PO BID benztropine 1 mg tablet 1 tab PO BEDTIME clozapine 25 mg tablet 87.5 mg PO BEDTIME divalproex 250 mg tablet extended release 24 hr 1 tab PO BEDTIME vitamin E (dl, acetate) 180 mg (400 unit) capsule 1 cap PO DAILY multivitamin with folic acid [Tab-A-Daniel] 400 mcg tablet 1 tab PO DAILY Interventions: [place]-Suicide Risk Severity Scale Last Done: 11/15/22 14:10
--- NOTE | 2022-11-15 13:32 | ECG_ITS ---
Test Reason : high canas rate Blood Pressure : / mmHG Vent. Rate : 103 BPM Atrial Rate : 103 BPM P-R Int : 150 ms QRS Dur : 086 ms QT Int : 340 ms P-R-T Axes : 058 027 051 degrees QTc Int : 445 ms Sinus tachycardia Otherwise normal ECG When compared with ECG of 13-FEB-2021 14:38, Vent. rate has increased BY 44 BPM T wave inversion no longer evident in Anterior leads QT has lengthened Referred By: Nona Parish Electronically Signed By:Ryan Mckeon
[2022-11-15 14:15] LABS: Appearance Urine Clear; Color Urine Yellow; Glucose Urine UA Negative (Negative); Leukocyte Esterase Urine Negative (Negative); Nitrite Urine Negative (Negative); PH 7.5 (5.0-9.0); Urine Blood Negative (Negative); Urine Ketones Negative (Negative); Urine Protein Negative (Neg-Trace)
[2022-11-15 14:23] LABS: Amphetamine Screen Urine Not Detected (Not Detect); Barbiturates, Urine Not Detected (Not Detect); Benzodiazepines Screen Urine Not Detected (Not Detect); Cannabinoid Screen Urine Not Detected (Not Detect); Cocaine Screen Urine Not Detected (Not Detect); Fentanyl, urine Not Detected (Not Detect); Opiate Screen Urine Not Detected (Not Detect); Phencyclidine Screen Urine Not Detected (Not Detect)
[2022-11-15 14:25] LABS: Basophils Percent Auto 0.3 % (0-2); Eosinophils Percent Auto 0.5 % (0-4); Hematocrit 46.4 % (42.0-52.0); Hemoglobin 16.1 g/dl (14.0-18.0); Imm Gran Abs Auto 0.02 X10*3/uL (0.00-0.03); Imm Gran Pct Auto 0.3 % (0.0-0.4); Lymphocytes Absolute Auto 1.1 X10*3/uL (1.2-4.9); MANUAL DIFF FLAG NO; Mean Corpuscular HGB Conc 34.7 g/dl (31.0-36.0); Mean Corpuscular Hemoglobin 29.4 pg (27.0-33.0); Mean Corpuscular Volume 84.7 fL (80.0-98.0); Mean Platelet Volume 10.4 fL (9.4-12.4); Monocytes Percent Auto 14.8 % (2-11); Neutrophils Absolute Auto 4.5 x10*3/uL (2.0-8.3); Neutrophils Percent Auto 68.1 % (45-73); Platelet Count 188 X10*3/uL (160-400); Red Blood Count 5.48 X10*6/uL (4.60-5.80); Red Cell Distribution Width 12.8 % (11.0-16.0); White Blood Count 6.6 X10*3/uL (4.8-10.8)
[2022-11-15 14:37] LABS: COVID-19 Test Negative (Negative); IDNOW Serial# 08D9AD1C
[2022-11-15 14:41] LABS: Lithium 0.51 mmol/L (0.60-1.20)
[2022-11-15 14:46] LABS: Valproate 95.8 mcg/mL (50.0-100.0)
[2022-11-15] MEDS: LORazepam 1 MG TABLET 2 MG PO (15:04)
--- NOTE | 2022-11-15 15:17 | PHA.MEDREC ---
Pharmacy Consult ? Medication Reconciliation Pharmacy has completed the medication reconciliation.
[2022-11-15 15:19] LABS: Acetaminophen LAB < 17 mcg/mL (<30); Alanine Aminotransferase 25 U/L (0-40); Albumin Level 4.6 g/dL (3.5-5.0); Alkaline Phosphatase 64 U/L (39-117); Anion Gap 14 (12-20); Aspartate Amino Transferase 27 U/L (5-37); Bilirubin Total 0.5 mg/dL (0.0-1.0); Blood Urea Nitrogen 11 mg/dL (9-16); Calcium 9.6 mg/dL (8.4-10.2); Carbon Dioxide 23 mmol/L (22-29); Chloride 107 mmol/L (96-108); Creatinine Clr Calc Pharmacy 99.5; Estimated Glomerular Filt Rate > 60; Ethanol < 10 mg/dL; Glucose Random 99 mg/dL (60-115); Potassium 3.9 mmol/L (3.3-5.1); Salicylate < 5.0 mg/dL (15-30); Sodium 140 mmol/L (135-145); Total Protein 7.2 g/dL (6.5-8.0)
--- NOTE | 2022-11-15 16:09 | MHC.CARE ---
T/W called and spoke with the pt's guardian about the pt being admitted to an [facility] facility. Guardian thanked T/W for the information and ended the call.
[2022-11-15] MEDS: Lithium Carbonate ER 450 MG TABLET.ER 900 MG PO (19:55)
[2022-11-15] MEDS: cloZAPine 25 MG TABLET PO (19:55)
[2022-11-15] MEDS: Divalproex Sodium ER 250 MG TAB.ER.24H PO (19:55)
[2022-11-15] MEDS: Benztropine Mesylate 1 MG TABLET PO (19:56)
[2022-11-15] MEDS: Divalproex Sodium ER 500 MG TAB.ER.24H 1000 MG PO (19:56)
[2022-11-15] MEDS: HaloperidoL 1 MG TABLET 2.5 MG PO (19:56)
[2022-11-15 20:09] VITALS: BP 121/55; PULSE 109; RESP 18; TEMP 36.7; O2SAT 98
[2022-11-15 23:55] VITALS: BP 128/76; PULSE 102; RESP 18; TEMP 36.4; O2SAT 97
[2022-11-16 07:51] LABS: Alanine Aminotransferase 19 U/L (0-40); Albumin Level 3.8 g/dL (3.5-5.0); Alkaline Phosphatase 51 U/L (39-117); Anion Gap 12 (12-20); Aspartate Amino Transferase 20 U/L (5-37); Bilirubin Total 0.5 mg/dL (0.0-1.0); Blood Urea Nitrogen 18 mg/dL (9-16); Calcium 9.2 mg/dL (8.4-10.2); Carbon Dioxide 27 mmol/L (22-29); Chloride 107 mmol/L (96-108); Cholesterol 158 mg/dL; Creatinine Clr Calc Pharmacy 92.6; Estimated Glomerular Filt Rate > 60; Glucose Fasting 93 mg/dL (60-99); HDL Cholesterol 56 mg/dL; LDL Cholesterol Calculated 86 mg/dl; Potassium 4.2 mmol/L (3.3-5.1); Sodium 142 mmol/L (135-145); Total Protein 6.1 g/dL (6.5-8.0); Triglycerides 83 mg/dL
[2022-11-16 08:50] VITALS: BP 134/65; PULSE 95; RESP 18; TEMP 36.6; O2SAT 97
[2022-11-16] MEDS: HaloperidoL 1 MG TABLET 2.5 MG PO ×2 (09:56→20:32)
[2022-11-16] MEDS: Divalproex Sodium ER 500 MG TAB.ER.24H 1000 MG PO ×2 (09:56→20:31)
[2022-11-16] MEDS: Lithium Carbonate 300 MG TABLET 150 MG PO (09:58)
[2022-11-16] MEDS: Multivitamin TABLET 1 TAB PO (09:58)
[2022-11-16] MEDS: Vitamin E (Dl,Tocopheryl Acet) 180 MG (400 UNIT) CAPSULE PO (09:59)
--- NOTE | 2022-11-16 12:25 | P.HPPS_ITS ---
HPI Date of Service: 11/16/22 Chief Complaint: Psychosis Sources of Information: patient interviewed, chart reviewed and crisis/core team assessment reviewed HPI Subjective Notes: Olivier Warning and Conditional Voluntary Narrative: The patient is a 32-year-old male, single, with no children commanding [facility], on disability for mental illness, living with family, with a prior diagnosis of schizoaffective disorder bipolar type with several ancillary services such as [facility] the case managing, [facility] case managing, with the guardian and following treatment at [facility] Clinics. According to the crisis assessment, the patient's grandmother a few weeks ago. In the last weeks, the patient had been decompensated with disorganized behavior, sexually disinhibited behavior and increased energy. The patient went to his outpatient treatment team providers, he was assessed and Section 12 to our emergency room, assessed by care team and transferring to this facility for psychiatric stabilization. On interview, the patient adamantly denies new symptoms he states that he is feeling fine but it was clear that the patient was manic with flight of idea, racing thoughts, elated mood and increased energy with psychomotor agitation. Even though the patient was easily redirectable and he stated that he has going to continue taking his medications. During the interview the patient adamantly denied been on compliant even though that there was that report from the outpatient providers. We discussed risks, benefits, side-effects and alternatives and the patient agreed to continue with his regular treatment. Past Psychiatric History: Inpatient: multiple in the past, unclear last one OP: [facility] Suicide attempts: none Past medication trials: olanzapine, lithium, depakote, haldol, clozaril Medical Evaluation Reviewed: Yes [facility] Medical History Bipolar disorder Family History: Denies Social History: single, never , lives in an apartment, supported by [facility] services, has a guardian. Substance History: Denies Trauma History: Denies Diagnostics Vital Signs (24Hr): Vital Signs - 24 hr 11/15/22 13:18 11/15/22 20:09 11/15/22 23:55 Temperature 99.1 F 98.1 F 97.6 F Pulse Rate 122 H 109 H 102 H Respiratory Rate 20 18 18 Blood Pressure 139/90 H 121/55 L 128/76 Pulse Oximetry 98 98 97 Oxygen Delivery Method Room Air Room Air Room Air 03/18/23 08:50 Temperature 97.9 F Pulse Rate 95 Respiratory Rate 18 Blood Pressure 134/65 Pulse Oximetry 97 Oxygen Delivery Method Room Air BMI result Body Mass Index 28.1 Labs 11/15/22 14:18 11/16/22 06:55 Labs: Laboratory Results - last 48 hr 11/15/22 11/15/22 11/15/22 14:07 14:07 14:07 WBC RBC Hgb Hct MCV MCH MCHC RDW Plt Count MPV Immature Gran % (Auto) Neut % (Auto) Lymph % (Auto) [place] % (Auto) Eos % (Auto) Baso % (Auto) Lymph # (Auto) [place] # (Auto) Eos # (Auto) Baso # (Auto) Abs Immat Gran (auto) Absolute Neuts (auto) Absolute Nucleated RBC Nucleated RBC % (auto) Sodium Potassium Chloride Carbon Dioxide Anion Gap BUN Creatinine Estim Creat Clear Calc Estimated GFR Random Glucose Fasting Glucose Calcium Total Bilirubin AST ALT Alkaline Phosphatase Total Protein Albumin Triglycerides Cholesterol LDL Cholesterol, Calc HDL Cholesterol Urine Color Yellow Urine Appearance Clear Urine pH 7.5 Ur Specific [place] 1.010 Urine Protein Negative Urine Glucose (UA) Negative Urine Ketones Negative Urine Blood Negative Urine Nitrite Negative Ur Leukocyte Esterase Negative Salicylates Urine Opiates Screen Not Detected Urine Fentanyl Screen Not Detected Acetaminophen Ur Barbiturates Screen Not Detected Valproic Acid Ur Phencyclidine Scrn Not Detected Ur Amphetamines Screen Not Detected U Benzodiazepines Scrn Not Detected [place] Urine Cocaine Screen Not Detected U Marijuana (THC) Screen Not Detected Ethyl Alcohol COVID-19 ([facility]) Negative COVID-19 Clin Com See Note 11/15/22 11/15/22 11/15/22 14:18 14:18 14:18 WBC 6.6 RBC 5.48 Hgb 16.1 Hct 46.4 MCV 84.7 MCH 29.4 MCHC 34.7 RDW 12.8 Plt Count 188 MPV 10.4 Immature Gran % (Auto) 0.3 Neut % (Auto) 68.1 Lymph % (Auto) 16.0 L [place] % (Auto) 14.8 H Eos % (Auto) 0.5 Baso % (Auto) 0.3 Lymph # (Auto) 1.1 L [place] # (Auto) 1.0 Eos # (Auto) 0.0 Baso # (Auto) 0.0 Abs Immat Gran (auto) 0.02 Absolute Neuts (auto) 4.5 Absolute Nucleated RBC 0.000 Nucleated RBC % (auto) 0.0 Sodium 140 Potassium 3.9 D Chloride 107 Carbon Dioxide 23 Anion Gap 14 BUN 11 Creatinine 1.08 Estim Creat Clear Calc 99.5 Estimated GFR > 60 Random Glucose 99 Fasting Glucose Calcium 9.6 Total Bilirubin 0.5 AST 27 ALT 25 Alkaline Phosphatase 64 Total Protein 7.2 Albumin 4.6 Triglycerides Cholesterol LDL Cholesterol, Calc HDL Cholesterol Urine Color Urine Appearance Urine pH Ur Specific [place] Urine Protein Urine Glucose (UA) Urine Ketones Urine Blood Urine Nitrite Ur Leukocyte Esterase Salicylates < 5.0 L Urine Opiates Screen Urine Fentanyl Screen Acetaminophen < 17 Ur Barbiturates Screen Valproic Acid 95.8 Ur Phencyclidine Scrn Ur Amphetamines Screen U Benzodiazepines Scrn [place] Urine Cocaine Screen U Marijuana (THC) Screen Ethyl Alcohol < 10 COVID-19 ([facility]) COVID-[place] 11/15/22 11/16/22 14:19 06:55 WBC RBC Hgb Hct MCV MCH MCHC RDW Plt Count MPV Immature Gran % (Auto) Neut % (Auto) Lymph % (Auto) [place] % (Auto) Eos % (Auto) Baso % (Auto) Lymph # (Auto) [place] # (Auto) Eos # (Auto) Baso # (Auto) Abs Immat Gran (auto) Absolute Neuts (auto) Absolute Nucleated RBC Nucleated RBC % (auto) Sodium 142 Potassium 4.2 Chloride 107 Carbon Dioxide 27 Anion Gap 12 BUN 18 H Creatinine 1.16 Estim Creat Clear Calc 92.6 Estimated GFR > 60 Random Glucose Fasting Glucose 93 Calcium 9.2 Total Bilirubin 0.5 AST 20 ALT 19 Alkaline Phosphatase 51 Total Protein 6.1 L Albumin 3.8 Triglycerides 83 Cholesterol 158 LDL Cholesterol, Calc 86 HDL Cholesterol 56 Urine Color Urine Appearance Urine pH Ur Specific [place] Urine Protein Urine Glucose (UA) Urine Ketones Urine Blood Urine Nitrite Ur Leukocyte Esterase Salicylates Urine Opiates Screen Urine Fentanyl Screen Acetaminophen Ur Barbiturates Screen Valproic Acid Ur Phencyclidine Scrn Ur Amphetamines Screen U Benzodiazepines Scrn [place] 0.51 L Urine Cocaine Screen U Marijuana (THC) Screen Ethyl Alcohol COVID-19 ([facility]ELA) COVID-19 [facility] Meds/Allergies Meds Home Medications Medication Instructions Recorded Confirmed Type benztropine 1 mg tablet 1 tab PO BEDTIME 11/15/22 11/15/22 History clozapine 25 mg tablet 87.5 mg PO BEDTIME 11/15/22 11/15/22 History divalproex 250 mg tablet,extended 1 tab PO BEDTIME 11/15/22 11/15/22 History release 24 hr divalproex 500 mg tablet,extended 2 tab PO BID 11/15/22 11/15/22 History release 24 hr haloperidol 5 mg tablet 0.5 tab PO BID 11/15/22 11/15/22 History lithium carbonate 150 mg capsule 1 cap PO DAILY 11/15/22 11/15/22 History lithium carbonate 450 mg 900 mg PO BEDTIME 11/15/22 11/15/22 History tablet,extended release multivitamin with folic acid 400 1 tab PO DAILY 11/15/22 11/15/22 History mcg tablet (Tab-A-Daniel) vitamin E (dl, acetate) 180 mg 1 cap PO DAILY 11/15/22 11/15/22 History (400 unit) capsule Allergies Allergies Allergy/AdvReac Type Severity Reaction Status Date / Time penicillin G [Penicillin G] Allergy Mild HIVES Verified 02/12/21 21:22 amoxicillin [Amoxicillin] Allergy Unknown HIVES Verified 02/12/21 21:22 penicillin V Allergy Unknown hives Verified 02/12/21 21:22 Mental Status Exam Mental Status Exam Patient Appearance: Well Grooomed and Appropriate Patient Orientation: Person, Place and Situation Level of Consciousness: Awake and Restless Patient Behavior: Cooperative and Anxious Mood Description: Anxious Affect Description: Cheerful and Labile Patient Cognition Impaired: No Ability to Follow Directions: Fair Speech Pattern: Clear Hallucinations: None Delusions: Grandiose Thought Process: Illogical and Distracted Thought Content: positive for [place], positive for Perseveration and positive for Loose Associations Judgement: Poor Assessment & Plan Assessment & Plan (1) Bipolar affective, manic, severe w/ psych: Status: Acute Code(s): F31.2 - Bipolar disorder, current episode manic severe with psychotic features Plan Adult male with a past history of bipolar disorder, with several prior admissions into the hospital with several ancillary services such as [facility] case managing services, guardianship and others admitted for the composition in the context of a recent loss of her grandmother and possible noncompliance. Plan 1. Gather collateral information. 2. Continue 15 minutes checks. 3. Increased Clozaril up to 50 mg p.o. q.h.s. tonespinoza, according to the chart he was taking 87.5 mg but he was not compliant in the past. 4. Continue with the regular psychiatric medications. 5. Continue with medical treatment. 6. Reassessment with results. Patient educated on: diagnosis and therapeutic strategies Reason for continued inpatient stay Substantial Risk for: inability to function, rapid decompensation and med/psych decompensation Statement Statement: I have reviewed the history and physical and performed a pertinent examination on my patient. No changes have occurred unless specified. If the History and Physical was not performed prior to admission, the Hospitalist's service will be consulted for completing the admission physical. Time Spent With Patient Time: Total time managing care of this patient today ____ minutes.
--- NOTE | 2022-11-16 12:41 | PC.NURSE ---
Per OT report, patient bumped into female patient then denied any intent. Other concerns reported re: boundaries. Reviewed w/ Dr. Mckeon, pt placed on 5 minute checks as ordered.
--- NOTE | 2022-11-16 15:06 | PC.NURSE ---
Approached Martínez to go over safety tool worksheet. He replied just put, N/A , not applicable ,I have no triggers Pt was dismissive with property underwriter.
[2022-11-16 20:25] VITALS: BP 124/74; PULSE 89; RESP 18; TEMP 36.2; O2SAT 97
[2022-11-16] MEDS: Benztropine Mesylate 1 MG TABLET PO (20:31)
[2022-11-16] MEDS: Lithium Carbonate ER 450 MG TABLET.ER 900 MG PO (20:31)
[2022-11-16] MEDS: cloZAPine 25 MG TABLET 50 MG PO (20:31)
[2022-11-16] MEDS: Divalproex Sodium ER 250 MG TAB.ER.24H PO (20:32)
[2022-11-16] MEDS: traZODone HCL 50 MG TABLET PO (20:32)
[2022-11-16] MEDS: hydrOXYzine HCL 25 MG TABLET PO (20:32)
[2022-11-17 09:21] VITALS: BP 122/61; PULSE 85; RESP 18; TEMP 36.7; O2SAT 98
[2022-11-17] MEDS: Lithium Carbonate 300 MG TABLET 150 MG PO (09:28)
[2022-11-17] MEDS: HaloperidoL 1 MG TABLET 2.5 MG PO ×2 (09:29→20:42)
[2022-11-17] MEDS: Multivitamin TABLET 1 TAB PO (09:29)
[2022-11-17] MEDS: Vitamin E (Dl,Tocopheryl Acet) 180 MG (400 UNIT) CAPSULE PO (09:29)
[2022-11-17] MEDS: Divalproex Sodium ER 500 MG TAB.ER.24H 1000 MG PO ×2 (09:30→20:42)
--- NOTE | 2022-11-17 12:52 | PC.NURSE ---
Martínez opened the shower room door wearing just one hospital towel requiring redirection. In addition, patient was reported to have made derogatory racist comments to a female staff and imitated an accent. I set limits with patient, telling him we must maintain a safe and comfortable milieu for everyone here. He became angry and adamantly denied this behavior. He is currently pacing in rodriguez. Dr Mckeon informed of pt's behaviors. he will be meeting with Dr Mckeon shortly.
--- NOTE | 2022-11-17 13:24 | P.PNPSI_ITS ---
Subjective Subjective Date of Service: 11/17/22 Reason For Visit: Psychosis Subjective Notes: Conditional Voluntary Interim History: The nursing staff reported the patient had been manic, singing in the common areas, nonsensical at times and sexually inappropriate with staff. He came out of the shower with a very small towel disinhibited. He also had been angry level at times specially with staff. He slept only 3 or 4 hours last night. On interview, the patient was disorganized, with flight of ideas cheerful but nonsensical at times. Mental Status Exam Mental Status Exam Patient Appearance: Appropriate Patient Orientation: Person and Situation Level of Consciousness: Restless and Alert Patient Behavior: Restless Mood Description: Cheerful Affect Description: Labile Ability to Follow Directions: Fair Speech Pattern: Rapid and Loud Hallucinations: None Delusions: Grandiose Thought Process: Racing and Distracted Thought Content: positive for [place] and positive for Loose Associations Judgement: Poor Diagnostics Vital Signs (24Hr): Vital Signs - 24 hr 11/16/22 20:25 11/17/22 09:21 Temperature 97.2 F 98.0 F Pulse Rate 89 85 Respiratory Rate 18 18 Blood Pressure 124/74 122/61 Pulse Oximetry 97 98 Oxygen Delivery Method Room Air Room Air BMI result Body Mass Index 28.1 Labs 11/15/22 14:18 11/16/22 06:55 Labs: Laboratory Results - last 48 hr 11/15/22 11/15/22 11/15/22 14:07 14:07 14:07 WBC RBC Hgb Hct MCV MCH MCHC RDW Plt Count MPV Immature Gran % (Auto) Neut % (Auto) Lymph % (Auto) [place] % (Auto) Eos % (Auto) Baso % (Auto) Lymph # (Auto) [place] # (Auto) Eos # (Auto) Baso # (Auto) Abs Immat Gran (auto) Absolute Neuts (auto) Absolute Nucleated RBC Nucleated RBC % (auto) Sodium Potassium Chloride Carbon Dioxide Anion Gap BUN Creatinine Estim Creat Clear Calc Estimated GFR Random Glucose Fasting Glucose Calcium Total Bilirubin AST ALT Alkaline Phosphatase Total Protein Albumin Triglycerides Cholesterol LDL Cholesterol, Calc HDL Cholesterol Urine Color Yellow Urine Appearance Clear Urine pH 7.5 Ur Specific [place] 1.010 Urine Protein Negative Urine Glucose (UA) Negative Urine Ketones Negative Urine Blood Negative Urine Nitrite Negative Ur Leukocyte Esterase Negative Salicylates Urine Opiates Screen Not Detected Urine Fentanyl Screen Not Detected Acetaminophen Ur Barbiturates Screen Not Detected Valproic Acid Ur Phencyclidine Scrn Not Detected Ur Amphetamines Screen Not Detected U Benzodiazepines Scrn Not Detected [place] Urine Cocaine Screen Not Detected U Marijuana (THC) Screen Not Detected Ethyl Alcohol COVID-19 ([facility]ELA) Negative COVID-19 Clin Com See Note 11/15/22 11/15/22 11/15/22 14:18 14:18 14:18 WBC 6.6 RBC 5.48 Hgb 16.1 Hct 46.4 MCV 84.7 MCH 29.4 MCHC 34.7 RDW 12.8 Plt Count 188 MPV 10.4 Immature Gran % (Auto) 0.3 Neut % (Auto) 68.1 Lymph % (Auto) 16.0 L [place] % (Auto) 14.8 H Eos % (Auto) 0.5 Baso % (Auto) 0.3 Lymph # (Auto) 1.1 L [place] # (Auto) 1.0 Eos # (Auto) 0.0 Baso # (Auto) 0.0 Abs Immat Gran (auto) 0.02 Absolute Neuts (auto) 4.5 Absolute Nucleated RBC 0.000 Nucleated RBC % (auto) 0.0 Sodium 140 Potassium 3.9 D Chloride 107 Carbon Dioxide 23 Anion Gap 14 BUN 11 Creatinine 1.08 Estim Creat Clear Calc 99.5 Estimated GFR > 60 Random Glucose 99 Fasting Glucose Calcium 9.6 Total Bilirubin 0.5 AST 27 ALT 25 Alkaline Phosphatase 64 Total Protein 7.2 Albumin 4.6 Triglycerides Cholesterol LDL Cholesterol, Calc HDL Cholesterol Urine Color Urine Appearance Urine pH Ur Specific [place] Urine Protein Urine Glucose (UA) Urine Ketones Urine Blood Urine Nitrite Ur Leukocyte Esterase Salicylates < 5.0 L Urine Opiates Screen Urine Fentanyl Screen Acetaminophen < 17 Ur Barbiturates Screen Valproic Acid 95.8 Ur Phencyclidine Scrn Ur Amphetamines Screen U Benzodiazepines Scrn [place] Urine Cocaine Screen U Marijuana (THC) Screen Ethyl Alcohol < 10 COVID-19 ([facility]ANGELA) COVID-19 [facility] Com 11/15/22 11/16/22 14:19 06:55 WBC RBC Hgb Hct MCV MCH MCHC RDW Plt Count MPV Immature Gran % (Auto) Neut % (Auto) Lymph % (Auto) [place] % (Auto) Eos % (Auto) Baso % (Auto) Lymph # (Auto) [place] # (Auto) Eos # (Auto) Baso # (Auto) Abs Immat Gran (auto) Absolute Neuts (auto) Absolute Nucleated RBC Nucleated RBC % (auto) Sodium 142 Potassium 4.2 Chloride 107 Carbon Dioxide 27 Anion Gap 12 BUN 18 H Creatinine 1.16 Estim Creat Clear Calc 92.6 Estimated GFR > 60 Random Glucose Fasting Glucose 93 Calcium 9.2 Total Bilirubin 0.5 AST 20 ALT 19 Alkaline Phosphatase 51 Total Protein 6.1 L Albumin 3.8 Triglycerides 83 Cholesterol 158 LDL Cholesterol, Calc 86 HDL Cholesterol 56 Urine Color Urine Appearance Urine pH Ur Specific [place] Urine Protein Urine Glucose (UA) Urine Ketones Urine Blood Urine Nitrite Ur Leukocyte Esterase Salicylates Urine Opiates Screen Urine Fentanyl Screen Acetaminophen Ur Barbiturates Screen Valproic Acid Ur Phencyclidine Scrn Ur Amphetamines Screen U Benzodiazepines Scrn [place] 0.51 L Urine Cocaine Screen U Marijuana (THC) Screen Ethyl Alcohol COVID-19 ([facility]ANGELA) COVID-19 Clin Com Medications Medications Current Medications Acetaminophen (Acetaminophen 325 Mg Tablet) 650 mg PO Q6H PRN PRN Reason: Headache/Pain Mild Scale (1-3) Al Hydroxide/Mg Hydroxide (Magnesium Hydrox/Alum Hydrox 30 Ml Oral.Susp) 30 ml PO Q6H PRN PRN Reason: Heartburn/Nausea Benztropine Mesylate (Benztropine Mesylate 1 Mg Tablet) 1 mg PO BEDTIME [facility] Last Admin: 11/16/22 20:31 Dose: 1 mg Clozapine (Clozapine 25 Mg Tablet) 50 mg PO BEDTIME [facility] Last Admin: 11/16/22 20:31 Dose: 50 mg Divalproex Sodium (Divalproex Sodium Er 500 Mg Tab.Er.24h) 1,000 mg PO BID [facility] Last Admin: 11/17/22 09:30 Dose: 1,000 mg Divalproex Sodium (Divalproex Sodium Er 250 Mg Tab.Er.24h) 250 mg PO BEDTIME [facility] Last Admin: 11/16/22 20:32 Dose: 250 mg Haloperidol (Haloperidol 1 Mg Tablet) 2.5 mg PO BID [facility] Last Admin: 11/17/22 09:29 Dose: 2.5 mg Hydroxyzine HCl (Hydroxyzine Hcl 25 Mg Tablet) 25 mg PO Q6H PRN PRN Reason: Anxiety Last Admin: 11/16/22 20:32 Dose: 25 mg [place] Carbonate ([place] Carbonate 300 Mg Tablet) 150 mg PO DAILY [facility] Last Admin: 11/17/22 09:28 Dose: 150 mg [place] Carbonate ([place] Carbonate Er 450 Mg Tablet.Er) 900 mg PO BEDTIME [facility] Last Admin: 11/16/22 20:31 Dose: 900 mg Magnesium Hydroxide (Milk Of Magnesia 30 Ml Oral.Susp) 30 ml PO DAILY PRN PRN Reason: Constipation Multivitamins/Vitamin C (Multivitamin Tablet) 1 tab PO DAILY [facility] Last Admin: 11/17/22 09:29 Dose: 1 tab Pharmacy Consult (Consult Rx Perform Med Rec) 1 each MISCELLANE ONCE PRN PRN Reason: Consult order Trazodone HCl (Trazodone Hcl 50 Mg Tablet) 50 mg PO BEDTIME MRX1 PRN PRN Reason: Insomnia Last Admin: 11/16/22 20:32 Dose: 50 mg Vitamin E (Vitamin E (Dl,Tocopheryl Acet) 180 Mg (400 Unit) Capsule) 180 mg PO DAILY [facility] Last Admin: 11/17/22 09:29 Dose: 180 mg Allergies Allergies Allergy/AdvReac Type Severity Reaction Status Date / Time penicillin G [Penicillin G] Allergy Mild HIVES Verified 02/12/21 21:22 amoxicillin [Amoxicillin] Allergy Unknown HIVES Verified 02/12/21 21:22 penicillin V Allergy Unknown hives Verified 02/12/21 21:22 Assessment & Plan Assessment & Plan (1) Bipolar affective, manic, severe w/ psych: Status: Acute Code(s): F31.2 - Bipolar disorder, current episode manic severe with psychotic features Plan Adult male with a past history of bipolar disorder, with several prior admissions into the hospital with several ancillary services such as [facility] case managing services, guardianship and others admitted for the composition in the context of a recent loss of her grandmother and possible noncompliance. Plan 1. Gather collateral information. 2. Continue 15 minutes checks. 3. Increased Clozaril up to 50 mg p.o. q.h.s. tonight, according to the chart he was taking 87.5 mg but he was not compliant in the past. On 11/17, we increased up to 75 mg po qhs 4. Continue with the regular psychiatric medications. 5. Continue with medical treatment. 6. Reassessment with results. Reason for contiued inpatient stay Substantial Risk for: inability to function, rapid decompensation and med/psych decompensation Time Spent With Patient Time: Total time managing care of this patient today ____ minutes.
[2022-11-17 18:10] VITALS: BP 122/77; PULSE 88; RESP 16; TEMP 36.7; O2SAT 97
[2022-11-17] MEDS: Divalproex Sodium ER 250 MG TAB.ER.24H PO (20:41)
[2022-11-17] MEDS: traZODone HCL 50 MG TABLET PO (20:41)
[2022-11-17] MEDS: Benztropine Mesylate 1 MG TABLET PO (20:41)
[2022-11-17] MEDS: Lithium Carbonate ER 450 MG TABLET.ER 900 MG PO (20:42)
[2022-11-17] MEDS: cloZAPine 25 MG TABLET 75 MG PO (20:42)
[2022-11-18] MEDS: Divalproex Sodium ER 500 MG TAB.ER.24H 1000 MG PO ×2 (08:18→20:45)
[2022-11-18] MEDS: Vitamin E (Dl,Tocopheryl Acet) 180 MG (400 UNIT) CAPSULE PO (08:18)
[2022-11-18] MEDS: Lithium Carbonate 300 MG TABLET 150 MG PO (08:18)
[2022-11-18] MEDS: Multivitamin TABLET 1 TAB PO (08:19)
[2022-11-18] MEDS: HaloperidoL 1 MG TABLET 2.5 MG PO ×2 (08:19→20:45)
[2022-11-18 09:06] VITALS: BP 121/69; PULSE 85; RESP 18; TEMP 36.3; O2SAT 97
--- NOTE | 2022-11-18 13:54 | HO.PSYCHPN ---
Subjective Subjective Date of Service: 11/18/22 Reason For Visit: Psychosis Interim History: cheery, calm, cooperative. glad to see MD again. denies Sx, unable to add history since last admission, feels everything is going well and had been going well [employer]. not sure of his meds. agreeable to continue current mgmt for now and aware lithium dosing may need ot be increased. per staff, on community fields. manic. some racist comments toward staff. RIS. med-compliant. Mental Status Exam Mental Status Exam Narrative: adequately dressed and groomed. no PMA/PMR (but pacing, as is his baseline). cooperative with interview. speech nml in amount and rate, nml latency, nml prosody. no paranoia or delusions evident during interview. affect flexible. mood excellent. exceptional. no SI/SIBI/HI/AVH. Diagnostics Vital Signs (24Hr): Vital Signs - 24 hr 11/17/22 18:10 11/18/22 09:06 Temperature 98.0 F 97.4 F Pulse Rate 88 85 Respiratory Rate 16 18 Blood Pressure 122/77 121/69 Pulse Oximetry 97 97 Oxygen Delivery Method Room Air Room Air BMI result Body Mass Index 28.1 Labs 11/15/22 14:18 11/16/22 06:55 Medications Medications Current Medications Acetaminophen (Acetaminophen 325 Mg Tablet) 650 mg PO Q6H PRN PRN Reason: Headache/Pain Mild Scale (1-3) Al Hydroxide/Mg Hydroxide (Magnesium Hydrox/Alum Hydrox 30 Ml Oral.Susp) 30 ml PO Q6H PRN PRN Reason: Heartburn/Nausea Benztropine Mesylate (Benztropine Mesylate 1 Mg Tablet) 1 mg PO BEDTIME [facility] Last Admin: 11/17/22 20:41 Dose: 1 mg Clozapine (Clozapine 25 Mg Tablet) 75 mg PO BEDTIME [facility] Last Admin: 11/17/22 20:42 Dose: 75 mg Divalproex Sodium (Divalproex Sodium Er 500 Mg Tab.Er.24h) 1,000 mg PO BID [facility] Last Admin: 11/18/22 08:18 Dose: 1,000 mg Divalproex Sodium (Divalproex Sodium Er 250 Mg Tab.Er.24h) 250 mg PO BEDTIME [facility] Last Admin: 11/17/22 20:41 Dose: 250 mg Haloperidol (Haloperidol 1 Mg Tablet) 2.5 mg PO BID COUNT [facility]CLUDES [facility] Last Admin: 11/18/22 08:19 Dose: 2.5 mg Hydroxyzine HCl (Hydroxyzine Hcl 25 Mg Tablet) 25 mg PO Q6H PRN PRN Reason: Anxiety Last Admin: 11/16/22 20:32 Dose: 25 mg [place] Carbonate ([place] Carbonate 300 Mg Tablet) 150 mg PO DAILY COUNT INCLUDES [facility] Last Admin: 11/18/22 08:18 Dose: 150 mg [place] Carbonate ([place] Carbonate Er 450 Mg Tablet.Er) 900 mg PO BEDTIME COUNT INCLUDES [facility] Last Admin: 11/17/22 20:42 Dose: 900 mg Magnesium Hydroxide (Milk Of Magnesia 30 Ml Oral.Susp) 30 ml PO DAILY PRN PRN Reason: Constipation Multivitamins/Vitamin C (Multivitamin Tablet) 1 tab PO DAILY COUNT INCLUDES [facility] Last Admin: 11/18/22 08:19 Dose: 1 tab Trazodone HCl (Trazodone Hcl 50 Mg Tablet) 50 mg PO BEDTIME MRX1 PRN PRN Reason: Insomnia Last Admin: 11/17/22 20:41 Dose: 50 mg Vitamin E (Vitamin E (Dl,Tocopheryl Acet) 180 Mg (400 Unit) Capsule) 180 mg PO DAILY COUNT INCLUDES [facility] Last Admin: 11/18/22 08:18 Dose: 180 mg Allergies Allergies Allergy/AdvReac Type Severity Reaction Status Date / Time penicillin G [Penicillin G] Allergy Mild HIVES Verified 02/12/21 21:22 amoxicillin [Amoxicillin] Allergy Unknown HIVES Verified 02/12/21 21:22 penicillin V Allergy Unknown hives Verified 02/12/21 21:22 Assessment & Plan Assessment & Plan (1) Bipolar affective, manic, severe w/ psych: Status: Acute Code(s): F31.2 - Bipolar disorder, current episode manic severe with psychotic features Plan Adult male with a past history of bipolar disorder, with several prior admissions into the hospital with several ancillary services such as [facility] case managing services, guardianship and others admitted for the composition in the context of a recent loss of his grandmother and possible noncompliance. 11/15: Increased Clozaril up to 50 mg p.o. q.h.s. tonight, according to the chart he was taking 87.5 mg but he was not compliant in the past. 11/17: increased clozapine up to 75 mg po qhs. 11/18: no change in mgmt. appears euphoric, pleasant. Reason for contiued inpatient stay Substantial Risk for: harm to self, harm to others, inability to function and rapid decompensation Time Spent With Patient Time: Total time managing care of this patient today __25__ minutes.
[2022-11-18] MEDS: traZODone HCL 50 MG TABLET PO (20:45)
[2022-11-18] MEDS: cloZAPine 25 MG TABLET 75 MG PO (20:45)
[2022-11-18] MEDS: Lithium Carbonate ER 450 MG TABLET.ER 900 MG PO (20:45)
[2022-11-18] MEDS: Benztropine Mesylate 1 MG TABLET PO (20:45)
[2022-11-18] MEDS: Divalproex Sodium ER 250 MG TAB.ER.24H PO (20:45)
[2022-11-19 08:29] VITALS: BP 122/67; PULSE 76; RESP 20; TEMP 37; O2SAT 97
[2022-11-19] MEDS: Lithium Carbonate 300 MG TABLET 150 MG PO (08:30)
[2022-11-19] MEDS: Multivitamin TABLET 1 TAB PO (08:30)
[2022-11-19] MEDS: HaloperidoL 1 MG TABLET 2.5 MG PO ×2 (08:30→20:00)
[2022-11-19] MEDS: Divalproex Sodium ER 500 MG TAB.ER.24H 1000 MG PO ×2 (08:30→20:00)
[2022-11-19] MEDS: Vitamin E (Dl,Tocopheryl Acet) 180 MG (400 UNIT) CAPSULE PO (08:31)
--- NOTE | 2022-11-19 14:31 | P.PNPSI_ITS ---
Subjective Subjective Date of Service: 11/19/22 Reason For Visit: Psychosis Interim History: expansive mood. calm, cooperative, walking the halls. no questions or complaints. lithium levels reviewed, noted to generally be sub-therapeutic in recent draws. pt in agreement for MD to check in with outpt prescriber lul. states he is sleeping well, feeling well. per staff, expansive. laughing out loud to himself. disorganized. walking a lot. Mental Status Exam Mental Status Exam Narrative: adequately dressed and groomed. no PMA/PMR (but pacing, as is his baseline). cooperative with interview. speech nml in amount and rate, nml latency, nml prosody. no paranoia or delusions evident during interview. affect flexible. mood excellent. exceptional. no SI/SIBI/HI/AVH. Diagnostics Vital Signs (24Hr): Vital Signs - 24 hr 11/19/22 08:29 Temperature 98.6 F Pulse Rate 76 Respiratory Rate 20 Blood Pressure 122/67 Pulse Oximetry 97 Oxygen Delivery Method Room Air BMI result Body Mass Index 28.1 Labs 11/15/22 14:18 11/16/22 06:55 Medications Medications Current Medications Acetaminophen (Acetaminophen 325 Mg Tablet) 650 mg PO Q6H PRN PRN Reason: Headache/Pain Mild Scale (1-3) Al Hydroxide/Mg Hydroxide (Magnesium Hydrox/Alum Hydrox 30 Ml Oral.Susp) 30 ml PO Q6H PRN PRN Reason: Heartburn/Nausea Benztropine Mesylate (Benztropine Mesylate 1 Mg Tablet) 1 mg PO BEDTIME [facility] Last Admin: 11/18/22 20:45 Dose: 1 mg Clozapine (Clozapine 25 Mg Tablet) 75 mg PO BEDTIME [facility] Last Admin: 11/18/22 20:45 Dose: 75 mg Divalproex Sodium (Divalproex Sodium Er 500 Mg Tab.Er.24h) 1,000 mg PO BID [facility] Last Admin: 11/19/22 08:30 Dose: 1,000 mg Divalproex Sodium (Divalproex Sodium Er 250 Mg Tab.Er.24h) 250 mg PO BEDTIME [facility] Last Admin: 11/18/22 20:45 Dose: 250 mg Haloperidol (Haloperidol 1 Mg Tablet) 2.5 mg PO BID [facility] Last Admin: 11/19/22 08:30 Dose: 2.5 mg Hydroxyzine HCl (Hydroxyzine Hcl 25 Mg Tablet) 25 mg PO Q6H PRN PRN Reason: Anxiety Last Admin: 11/16/22 20:32 Dose: 25 mg [place] Carbonate ([place] Carbonate 300 Mg Tablet) 150 mg PO DAILY [facility] Last Admin: 11/19/22 08:30 Dose: 150 mg [place] Carbonate ([place] Carbonate Er 450 Mg Tablet.Er) 900 mg PO BEDTIME [facility] Last Admin: 11/18/22 20:45 Dose: 900 mg Magnesium Hydroxide (Milk Of Magnesia 30 Ml Oral.Susp) 30 ml PO DAILY PRN PRN Reason: Constipation Multivitamins/Vitamin C (Multivitamin Tablet) 1 tab PO DAILY [facility] Last Admin: 11/19/22 08:30 Dose: 1 tab Trazodone HCl (Trazodone Hcl 50 Mg Tablet) 50 mg PO BEDTIME MRX1 PRN PRN Reason: Insomnia Last Admin: 11/18/22 20:45 Dose: 50 mg Vitamin E (Vitamin E (Dl,Tocopheryl Acet) 180 Mg (400 Unit) Capsule) 180 mg PO DAILY [facility] Last Admin: 11/19/22 08:31 Dose: 180 mg Allergies Allergies Allergy/AdvReac Type Severity Reaction Status Date / Time penicillin G [Penicillin G] Allergy Mild HIVES Verified 02/12/21 21:22 amoxicillin [Amoxicillin] Allergy Unknown HIVES Verified 02/12/21 21:22 penicillin V Allergy Unknown hives Verified 02/12/21 21:22 Assessment & Plan Assessment & Plan (1) Bipolar affective, manic, severe w/ psych: Status: Acute Code(s): F31.2 - Bipolar disorder, current episode manic severe with psychotic features Plan Adult male with a past history of bipolar disorder, with several prior admissions into the hospital with several ancillary services such as [facility] case managing services, guardianship and others admitted for the [facility] in the context of a recent loss of his grandmother and possible noncompliance. 11/15: Increased Clozaril up to 50 mg p.o. q.h.s. tonight, according to the chart he was taking 87.5 mg but he was not compliant in the past. 11/17: increased clozapine up to 75 mg po qhs. 11/18: no change in mgmt. appears euphoric, pleasant. 11/19: return clozapine dosing to 87.5 mg QHS. case discussed with landstrom, outpt provider, who feels prior regimen seemed to be doing well for pt. notes recent alcohol consumption and questions role of alcohol in pt's periodic decompensations. lul is aware of low-yg lithium levels and feels clinically he was resonding well. Reason for contiued inpatient stay Substantial Risk for: inability to function and rapid decompensation Time Spent With Patient Time: Total time managing care of this patient today _35___ minutes.
[2022-11-19] MEDS: Lithium Carbonate ER 450 MG TABLET.ER 900 MG PO (20:00)
[2022-11-19] MEDS: cloZAPine 25 MG TABLET 87.5 MG PO (20:00)
[2022-11-19] MEDS: Divalproex Sodium ER 250 MG TAB.ER.24H PO (20:00)
[2022-11-19] MEDS: Benztropine Mesylate 1 MG TABLET PO (20:00)
[2022-11-19] MEDS: traZODone HCL 50 MG TABLET PO (20:02)
[2022-11-19 20:16] VITALS: BP 129/77; PULSE 86; RESP 18; TEMP 36.6; O2SAT 96
[2022-11-20 08:30] VITALS: BP 127/60; PULSE 75; RESP 20; TEMP 36.3; O2SAT 99
[2022-11-20] MEDS: HaloperidoL 1 MG TABLET 2.5 MG PO ×2 (08:31→20:26)
[2022-11-20] MEDS: Lithium Carbonate 300 MG TABLET 150 MG PO (08:31)
[2022-11-20] MEDS: Divalproex Sodium ER 500 MG TAB.ER.24H 1000 MG PO ×2 (08:32→20:26)
[2022-11-20] MEDS: Multivitamin TABLET 1 TAB PO (08:32)
[2022-11-20] MEDS: Vitamin E (Dl,Tocopheryl Acet) 180 MG (400 UNIT) CAPSULE PO (08:32)
--- NOTE | 2022-11-20 15:03 | P.PNPSI_ITS ---
Subjective Subjective Date of Service: 11/20/22 Reason For Visit: Psychosis Interim History: stable. agreeable to current Tx plan. per staff, no issues overnight. Mental Status Exam Mental Status Exam Narrative: adequately dressed and groomed. no PMA/PMR (but pacing, as is his baseline). cooperative with interview. speech nml in amount and rate, nml latency, nml prosody. no paranoia or delusions evident during interview. affect flexible. mood expansive. no SI/SIBI/HI/AVH expressed. Diagnostics Vital Signs (24Hr): Vital Signs - 24 hr 11/19/22 20:16 11/20/22 08:30 Temperature 97.9 F 97.4 F Pulse Rate 86 75 Respiratory Rate 18 20 Blood Pressure 129/77 127/60 Pulse Oximetry 96 99 Oxygen Delivery Method Room Air Room Air BMI result Body Mass Index 28.1 Labs 11/15/22 14:18 11/16/22 06:55 Medications Medications Current Medications Acetaminophen (Acetaminophen 325 Mg Tablet) 650 mg PO Q6H PRN PRN Reason: Headache/Pain Mild Scale (1-3) Al Hydroxide/Mg Hydroxide (Magnesium Hydrox/Alum Hydrox 30 Ml Oral.Susp) 30 ml PO Q6H PRN PRN Reason: Heartburn/Nausea Benztropine Mesylate (Benztropine Mesylate 1 Mg Tablet) 1 mg PO BEDTIME [facility] Last Admin: 11/19/22 20:00 Dose: 1 mg Clozapine (Clozapine 25 Mg Tablet) 87.5 mg PO BEDTIME [facility] Last Admin: 11/19/22 20:00 Dose: 87.5 mg Divalproex Sodium (Divalproex Sodium Er 500 Mg Tab.Er.24h) 1,000 mg PO BID [facility] Last Admin: 11/20/22 08:32 Dose: 1,000 mg Divalproex Sodium (Divalproex Sodium Er 250 Mg Tab.Er.24h) 250 mg PO BEDTIME [facility] Last Admin: 11/19/22 20:00 Dose: 250 mg Haloperidol (Haloperidol 1 Mg Tablet) 2.5 mg PO BID [facility] Last Admin: 11/20/22 08:31 Dose: 2.5 mg Hydroxyzine HCl (Hydroxyzine Hcl 25 Mg Tablet) 25 mg PO Q6H PRN PRN Reason: Anxiety Last Admin: 11/16/22 20:32 Dose: 25 mg [place] Carbonate ([place] Carbonate 300 Mg Tablet) 150 mg PO DAILY [facility] Last Admin: 11/20/22 08:31 Dose: 150 mg [place] Carbonate ([place] Carbonate Er 450 Mg Tablet.Er) 900 mg PO BEDTIME [facility] Last Admin: 11/19/22 20:00 Dose: 900 mg Magnesium Hydroxide (Milk Of Magnesia 30 Ml Oral.Susp) 30 ml PO DAILY PRN PRN Reason: Constipation Multivitamins/Vitamin C (Multivitamin Tablet) 1 tab PO DAILY [facility] Last Admin: 11/20/22 08:32 Dose: 1 tab Trazodone HCl (Trazodone Hcl 50 Mg Tablet) 50 mg PO BEDTIME MRX1 PRN PRN Reason: Insomnia Last Admin: 11/19/22 20:02 Dose: 50 mg Vitamin E (Vitamin E (Dl,Tocopheryl Acet) 180 Mg (400 Unit) Capsule) 180 mg PO DAILY [facility] Last Admin: 11/20/22 08:32 Dose: 180 mg Allergies Allergies Allergy/AdvReac Type Severity Reaction Status Date / Time penicillin G [Penicillin G] Allergy Mild HIVES Verified 02/12/21 21:22 amoxicillin [Amoxicillin] Allergy Unknown HIVES Verified 02/12/21 21:22 penicillin V Allergy Unknown hives Verified 02/12/21 21:22 Assessment & Plan Assessment & Plan (1) Bipolar affective, manic, severe w/ psych: Status: Acute Code(s): F31.2 - Bipolar disorder, current episode manic severe with psychotic features Plan Adult male with a past history of bipolar disorder, with several prior admissions into the hospital with several ancillary services such as [facility] case managing services, guardianship and others admitted for the composition in the context of a recent loss of his grandmother and possible noncompliance. 11/15: Increased Clozaril up to 50 mg p.o. q.h.s. tonight, according to the chart he was taking 87.5 mg but he was not compliant in the past. 11/17: increased clozapine up to 75 mg po qhs. 11/18: no change in mgmt. appears euphoric, pleasant. 11/19: return clozapine dosing to 87.5 mg QHS. case discussed with lul outpt provider, who feels prior regimen seemed to be doing well for pt. notes recent alcohol consumption and questions role of alcohol in pt's periodic decompensations. lul is aware of low-yg lithium levels and feels clinica lly he was resonding well. 11/20: stable. continue current mgmt. Reason for contiued inpatient stay Substantial Risk for: harm to others, inability to function and rapid decompensation Time Spent With Patient Time: Total time managing care of this patient today ____ minutes.
[2022-11-20 20:15] VITALS: BP 142/88; PULSE 95; RESP 18; TEMP 36.3; O2SAT 98
[2022-11-20] MEDS: Benztropine Mesylate 1 MG TABLET PO (20:26)
[2022-11-20] MEDS: traZODone HCL 50 MG TABLET PO (20:26)
[2022-11-20] MEDS: Lithium Carbonate ER 450 MG TABLET.ER 900 MG PO (20:26)
[2022-11-20] MEDS: Divalproex Sodium ER 250 MG TAB.ER.24H PO (20:26)
[2022-11-20] MEDS: cloZAPine 25 MG TABLET 87.5 MG PO (20:27)
[2022-11-21 07:00] VITALS: BMI 33.3
[2022-11-21 09:15] VITALS: BP 115/64; PULSE 69; RESP 18; TEMP 36.6; O2SAT 99
[2022-11-21] MEDS: HaloperidoL 1 MG TABLET 2.5 MG PO ×2 (09:24→20:30)
[2022-11-21] MEDS: Vitamin E (Dl,Tocopheryl Acet) 180 MG (400 UNIT) CAPSULE PO (09:25)
[2022-11-21] MEDS: Multivitamin TABLET 1 TAB PO (09:26)
[2022-11-21] MEDS: Divalproex Sodium ER 500 MG TAB.ER.24H 1000 MG PO ×2 (09:26→20:30)
[2022-11-21] MEDS: Lithium Carbonate 300 MG TABLET 150 MG PO (09:26)
--- NOTE | 2022-11-21 14:06 | HO.PSYCHPN ---
Subjective Subjective Date of Service: 11/21/22 Reason For Visit: Psychosis Interim History: initially effervescent, but rapidly turns angry irritable upon hearing information not to his liking - that staff had said he had been making loud and disruptive noises in the [place] yesterday. he is indignant and brands this claim a lie. otherwise no complaints or requests, aside from asking MD to check in with lul about discharge criteria. per staff, feeling well. meds working. pacing, laughing to self, however. dancing at times. shrieking in the [place] with peer. not attending groups. slept well last night. Mental Status Exam Mental Status Exam Narrative: adequately dressed and groomed. no PMA/PMR (but pacing, as is his baseline). cooperative with interview. speech nml in amount and rate, nml latency, nml prosody. no paranoia or delusions evident during interview. affect flexible, labile, hyper-intense. mood expansive to irritable. no SI/SIBI/HI/AVH expressed. Diagnostics Vital Signs (24Hr): Vital Signs - 24 hr 11/20/22 20:15 11/21/22 09:15 Temperature 97.4 F 97.8 F Pulse Rate 95 69 Respiratory Rate 18 18 Blood Pressure 142/88 H 115/64 Pulse Oximetry 98 99 Oxygen Delivery Method Room Air Room Air BMI result Body Mass Index 33.3 Labs 11/15/22 14:18 11/16/22 06:55 Medications Medications Current Medications Acetaminophen (Acetaminophen 325 Mg Tablet) 650 mg PO Q6H PRN PRN Reason: Headache/Pain Mild Scale (1-3) Al Hydroxide/Mg Hydroxide (Magnesium Hydrox/Alum Hydrox 30 Ml Oral.Susp) 30 ml PO Q6H PRN PRN Reason: Heartburn/Nausea Benztropine Mesylate (Benztropine Mesylate 1 Mg Tablet) 1 mg PO BEDTIME [facility] Last Admin: 11/20/22 20:26 Dose: 1 mg Clozapine (Clozapine 25 Mg Tablet) 87.5 mg PO BEDTIME [facility] Last Admin: 11/20/22 20:27 Dose: 87.5 mg Divalproex Sodium (Divalproex Sodium Er 500 Mg Tab.Er.24h) 1,000 mg PO BID [facility] Last Admin: 11/21/22 09:26 Dose: 1,000 mg Divalproex Sodium (Divalproex Sodium Er 250 Mg Tab.Er.24h) 250 mg PO BEDTIME [facility] Last Admin: 11/20/22 20:26 Dose: 250 mg Haloperidol (Haloperidol 1 Mg Tablet) 2.5 mg PO BID [facility] Last Admin: 11/21/22 09:24 Dose: 2.5 mg Hydroxyzine HCl (Hydroxyzine Hcl 25 Mg Tablet) 25 mg PO Q6H PRN PRN Reason: Anxiety Last Admin: 11/16/22 20:32 Dose: 25 mg [place] Carbonate ([place] Carbonate 300 Mg Tablet) 150 mg PO DAILY [facility] Last Admin: 11/21/22 09:26 Dose: 150 mg [place] Carbonate ([place] Carbonate Er 450 Mg Tablet.Er) 900 mg PO BEDTIME [facility] Last Admin: 11/20/22 20:26 Dose: 900 mg Magnesium Hydroxide (Milk Of Magnesia 30 Ml Oral.Susp) 30 ml PO DAILY PRN PRN Reason: Constipation Multivitamins/Vitamin C (Multivitamin Tablet) 1 tab PO DAILY [facility] Last Admin: 11/21/22 09:26 Dose: 1 tab Trazodone HCl (Trazodone Hcl 50 Mg Tablet) 50 mg PO BEDTIME MRX1 PRN PRN Reason: Insomnia Last Admin: 11/20/22 20:26 Dose: 50 mg Vitamin E (Vitamin E (Dl,Tocopheryl Acet) 180 Mg (400 Unit) Capsule) 180 mg PO DAILY [facility] Last Admin: 11/21/22 09:25 Dose: 180 mg Allergies Allergies Allergy/AdvReac Type Severity Reaction Status Date / Time penicillin G [Penicillin G] Allergy Mild HIVES Verified 02/12/21 21:22 amoxicillin [Amoxicillin] Allergy Unknown HIVES Verified 02/12/21 21:22 penicillin V Allergy Unknown hives Verified 02/12/21 21:22 Assessment & Plan Assessment & Plan (1) Bipolar affective, manic, severe w/ psych: Status: Acute Code(s): F31.2 - Bipolar disorder, current episode manic severe with psychotic features Plan Adult male with a past history of bipolar disorder, with several prior admissions into the hospital with several ancillary services such as [facility] case managing services, guardianship and others admitted for the composition in the context of a recent loss of his grandmother and possible noncompliance. 11/15: Increased Clozaril up to 50 mg p.o. q.h.s. tonight, according to the chart he was taking 87.5 mg but he was not compliant in the past. 11/17: increased clozapine up to 75 mg po qhs. 11/18: no change in mgmt. appears euphoric, pleasant. 11/19: return clozapine dosing to 87.5 mg QHS. case discussed with lul outpt provider, who feels prior regimen seemed to be doing well for pt. notes recent alcohol consumption and questions role of alcohol in pt's periodic decompensations. lul is aware of low-yg lithium levels and feels clinically he was resonding well. 11/20: stable. continue current mgmt. 11/21: stable presentation - euphoric with lability when challenged. continue current mgmt. Reason for contiued inpatient stay Substantial Risk for: harm to self, harm to others, inability to function and rapid decompensation Time Spent With Patient Time: Total time managing care of this patient today _25___ minutes.
[2022-11-21] MEDS: Divalproex Sodium ER 250 MG TAB.ER.24H PO (20:30)
[2022-11-21] MEDS: Benztropine Mesylate 1 MG TABLET PO (20:30)
[2022-11-21] MEDS: traZODone HCL 50 MG TABLET PO (20:30)
[2022-11-21] MEDS: Lithium Carbonate ER 450 MG TABLET.ER 900 MG PO (20:30)
[2022-11-21] MEDS: cloZAPine 25 MG TABLET 87.5 MG PO (20:30)
[2022-11-21 20:35] VITALS: BP 128/82; PULSE 83; RESP 18; TEMP 36.3; O2SAT 97
[2022-11-22 08:20] VITALS: BP 118/72; PULSE 72; RESP 18; TEMP 36.3; O2SAT 98
[2022-11-22] MEDS: Multivitamin TABLET 1 TAB PO (08:36)
[2022-11-22] MEDS: Divalproex Sodium ER 500 MG TAB.ER.24H 1000 MG PO ×2 (08:36→20:19)
[2022-11-22] MEDS: Lithium Carbonate 300 MG TABLET 150 MG PO (08:36)
[2022-11-22] MEDS: Vitamin E (Dl,Tocopheryl Acet) 180 MG (400 UNIT) CAPSULE PO (08:36)
[2022-11-22] MEDS: HaloperidoL 1 MG TABLET 2.5 MG PO ×2 (08:37→20:19)
[2022-11-22 08:46] LABS: Neut%MD 55.2 %; Neutrophils Absolute Auto 4.1 x10*3/uL (2.0-8.3); WBCANC 7.4 X10*3/uL
--- NOTE | 2022-11-22 14:59 | P.PNPSI_ITS ---
Subjective Subjective Date of Service: 11/22/22 Reason For Visit: Psychosis Interim History: ebullient. denies any problems. slept well. denies being irritable at all yesterday. per staff, angry and pacing yesterday. demanding, irritable. slept after 2200. Mental Status Exam Mental Status Exam Narrative: adequately dressed and groomed. no PMA/PMR (but pacing, as is his baseline). cooperative with interview. speech nml in amount and rate, nml latency, nml prosody. incr loudness. no paranoia or delusions evident during interview. affect flexible, non-labile, hyper-intense. mood expansive. no SI/SIBI/HI/AVH expressed. Diagnostics Vital Signs (24Hr): Vital Signs - 24 hr 11/21/22 20:35 11/22/22 08:20 Temperature 97.4 F 97.3 F Pulse Rate 83 72 Respiratory Rate 18 18 Blood Pressure 128/82 118/72 Pulse Oximetry 97 98 Oxygen Delivery Method Room Air Room Air BMI result Body Mass Index 33.3 Labs 11/15/22 14:18 11/16/22 06:55 Labs: Laboratory Results - last 48 hr 11/22/22 08:24 Absolute Neuts (auto) 4.1 Medications Medications Current Medications Acetaminophen (Acetaminophen 325 Mg Tablet) 650 mg PO Q6H PRN PRN Reason: Headache/Pain Mild Scale (1-3) Al Hydroxide/Mg Hydroxide (Magnesium Hydrox/Alum Hydrox 30 Ml Oral.Susp) 30 ml PO Q6H PRN PRN Reason: Heartburn/Nausea Benztropine Mesylate (Benztropine Mesylate 1 Mg Tablet) 1 mg PO BEDTIME [facility] Last Admin: 11/21/22 20:30 Dose: 1 mg Clozapine (Clozapine 25 Mg Tablet) 87.5 mg PO BEDTIME [facility] Last Admin: 11/21/22 20:30 Dose: 87.5 mg Divalproex Sodium (Divalproex Sodium Er 500 Mg Tab.Er.24h) 1,000 mg PO BID [facility] Last Admin: 11/22/22 08:36 Dose: 1,000 mg Divalproex Sodium (Divalproex Sodium Er 250 Mg Tab.Er.24h) 250 mg PO BEDTIME [facility] Last Admin: 11/21/22 20:30 Dose: 250 mg Haloperidol (Haloperidol 1 Mg Tablet) 2.5 mg PO BID [facility] Last Admin: 11/22/22 08:37 Dose: 2.5 mg Hydroxyzine HCl (Hydroxyzine Hcl 25 Mg Tablet) 25 mg PO Q6H PRN PRN Reason: Anxiety Last Admin: 11/16/22 20:32 Dose: [address] [place] Carbonate ([place] Carbonate 300 Mg Tablet) 150 mg PO DAILY [facility] Last Admin: 11/22/22 08:36 Dose: [address] [place] Carbonate ([place] Carbonate Er 450 Mg Tablet.Er) 900 mg PO BEDTIME [facility] Last Admin: 11/21/22 20:30 Dose: 900 mg Magnesium Hydroxide (Milk Of Magnesia 30 Ml Oral.Susp) 30 ml PO DAILY PRN PRN Reason: Constipation Multivitamins/Vitamin C (Multivitamin Tablet) 1 tab PO DAILY [facility] Last Admin: 11/22/22 08:36 Dose: 1 tab Trazodone HCl (Trazodone Hcl 50 Mg Tablet) 50 mg PO BEDTIME MRX1 PRN PRN Reason: Insomnia Last Admin: 11/21/22 20:30 Dose: 50 mg Vitamin E (Vitamin E (Dl,Tocopheryl Acet) 180 Mg (400 Unit) Capsule) 180 mg PO DAILY [facility] [place] Last Admin: 11/22/22 08:36 Dose: 180 mg Allergies Allergies Allergy/AdvReac Type Severity Reaction Status Date / Time penicillin G [Penicillin G] Allergy Mild HIVES Verified 02/12/21 21:22 amoxicillin [Amoxicillin] Allergy Unknown HIVES Verified 02/12/21 21:22 penicillin V Allergy Unknown hives Verified 02/12/21 21:22 Assessment & Plan Assessment & Plan (1) Bipolar affective, manic, severe w/ psych: Status: Acute Code(s): F31.2 - Bipolar disorder, current episode manic severe with psychotic features Plan Adult male with a past history of bipolar disorder, with several prior admissions into the hospital with several ancillary services such as [facility] case managing services, guardianship and others admitted for the composition in the context of a recent loss of his grandmother and possible noncompliance. 11/15: Increased Clozaril up to 50 mg p.o. q.h.s. tonight, according to the chart he was taking 87.5 mg but he was not compliant in the past. 11/17: increased clozapine up to 75 mg po qhs. 11/18: no change in mgmt. appears euphoric, pleasant. 11/19: return clozapine dosing to 87.5 mg QHS. case discussed with lul, outpt provider, who feels prior regimen seemed to be doing well for pt. notes recent alcohol consumption and questions role of alcohol in pt's periodic decompensations. lul is aware of low-yg lithium levels and feels clinically he was resonding well. 11/20: stable. continue current mgmt. 11/21: stable presentation - euphoric with lability when challenged. continue current mgmt. 11/22: less labile today, poor insight into behaviors. continue current mgmt for now, but may need to increase lithium next week if mood Sx do not improve. Reason for contiued inpatient stay Substantial Risk for: harm to others, inability to function and rapid decompensation Time Spent With Patient Time: Total time managing care of this patient today __25__ minutes.
[2022-11-22 20:16] VITALS: BP 143/79; PULSE 77; TEMP 36.7; O2SAT 98
[2022-11-22] MEDS: cloZAPine 25 MG TABLET 87.5 MG PO (20:18)
[2022-11-22] MEDS: Lithium Carbonate ER 450 MG TABLET.ER 900 MG PO (20:20)
[2022-11-22] MEDS: Divalproex Sodium ER 250 MG TAB.ER.24H PO (20:20)
[2022-11-22] MEDS: Benztropine Mesylate 1 MG TABLET PO (20:20)
[2022-11-23] MEDS: Divalproex Sodium ER 500 MG TAB.ER.24H 1000 MG PO ×2 (08:30→22:28)
[2022-11-23] MEDS: Vitamin E (Dl,Tocopheryl Acet) 180 MG (400 UNIT) CAPSULE PO (08:30)
[2022-11-23] MEDS: HaloperidoL 1 MG TABLET 2.5 MG PO ×2 (08:32→22:25)
[2022-11-23] MEDS: Lithium Carbonate 300 MG TABLET 150 MG PO (08:34)
[2022-11-23] MEDS: Multivitamin TABLET 1 TAB PO (08:35)
[2022-11-23 08:39] VITALS: BP 114/71; PULSE 80; RESP 18; TEMP 36.7; O2SAT 96
--- NOTE | 2022-11-23 22:13 | HO.PSYCHPN ---
Subjective Subjective Date of Service: 11/23/22 Reason For Visit: Psychosis Interim History: Patient seen. He continues with some disinhibition. Asking this literary writer how tall he is and asking to demarco dnext to him to compare height. I feel healthy. I am eating healthy. I am well rested... Talkative. Pacing the rodriguez. No behavioral agitation noted. Hypomanic. Review of Systems Review of Systems Yes all other systems are reviewed and are negative Constitutional: Reports no additional constitutional complaints, Denies chills, Denies fever(s) and Denies night sweats Eyes: Reports no additional eye complaints, Denies blurry vision, Denies change in vision, Denies diplopia, Denies eye discharge, Denies loss of vision and Denies eye pain Denies dizziness Cardiovascular: Reports no additional cardiovascular complaints, Denies chest pain, Denies lightheadedness, Denies Loss of Consciousness and Denies dyspnea Respiratory: Reports no additional respiratory complaints and Denies dyspnea Gastrointestinal: Reports no additional gastrointestinal complaints, Denies abdominal pain, Denies melena, Denies hematochezia, Denies change in bowel habits and Denies change in stool character Genitourinary: Reports no additional male genitourinary complaints, Denies hematuria, Denies oliguria, Denies difficulty urinating, Denies dysuria, Denies urinary frequency, Denies urinary hesitancy, Denies urinary incontinence and Denies urinary urgency Musculoskeletal: Reports no additional musculoskeletal complaints, Denies numbness and Denies tingling Denies dizziness, Denies loss of vision, Denies numbness and Denies tingling Psychiatric: Reports visual hallucinations Endocrine: Reports no additional endocrine complaints Hematologic/Lymphatic: Reports no additional hematologic/lymphatic complaints Allergic/Immunologic: Reports no additional allergic/immunologic complaints Mental Status Exam Mental Status Exam Narrative: adequately dressed and groomed. no PMA/PMR (but pacing, as is his baseline). cooperative with interview. speech nml in amount and rate, nml latency, nml prosody. incr loudness. no paranoia or delusions evident during interview. affect flexible, non-labile, hyper-intense. mood expansive. no SI/SIBI/HI/AVH expressed. Patient Appearance: Appropriate Patient Orientation: Person and Situation Level of Consciousness: Restless and Alert Patient Behavior: Restless Mood Description: Cheerful Affect Description: Labile Patient Cognition Impaired: No Ability to Follow Directions: Fair Speech Pattern: Rapid and Loud Diagnostics Vital Signs (24Hr): Vital Signs - 24 hr 11/23/22 08:39 Temperature 98.0 F Pulse Rate 80 Respiratory Rate 18 Blood Pressure 114/71 Pulse Oximetry 96 Oxygen Delivery Method Room Air BMI result Body Mass Index 33.3 Labs 11/15/22 14:18 11/16/22 06:55 Labs: Laboratory Results - last 48 hr 11/22/22 08:24 Absolute Neuts (auto) 4.1 Medications Medications Current Medications Acetaminophen (Acetaminophen 325 Mg Tablet) 650 mg PO Q6H PRN PRN Reason: Headache/Pain Mild Scale (1-3) Al Hydroxide/Mg Hydroxide (Magnesium Hydrox/Alum Hydrox 30 Ml Oral.Susp) 30 ml PO Q6H PRN PRN Reason: Heartburn/Nausea Benztropine Mesylate (Benztropine Mesylate 1 Mg Tablet) 1 mg PO BEDTIME [facility] Last Admin: 11/22/22 20:20 Dose: 1 mg Clozapine (Clozapine 25 Mg Tablet) 87.5 mg PO BEDTIME [facility] Last Admin: 11/22/22 20:18 Dose: 87.5 mg Divalproex Sodium (Divalproex Sodium Er 500 Mg Tab.Er.24h) 1,000 mg PO BID [facility] Last Admin: 11/23/22 08:30 Dose: 1,000 mg Divalproex Sodium (Divalproex Sodium Er 250 Mg Tab.Er.24h) 250 mg PO BEDTIME [facility] Last Admin: 11/22/22 20:20 Dose: 250 mg Haloperidol (Haloperidol 1 Mg Tablet) 2.5 mg PO BID [facility] Last Admin: 11/23/22 08:32 Dose: 2.5 mg Hydroxyzine HCl (Hydroxyzine Hcl 25 Mg Tablet) 25 mg PO Q6H PRN PRN Reason: Anxiety Last Admin: 11/16/22 20:32 Dose: 25 mg [place] Carbonate ([place] Carbonate 300 Mg Tablet) 150 mg PO DAILY [facility] Last Admin: 11/23/22 08:34 Dose: 150 mg [place] Carbonate ([place] Carbonate Er 450 Mg Tablet.Er) 900 mg PO BEDTIME [facility] Last Admin: 11/22/22 20:20 Dose: 900 mg Magnesium Hydroxide (Milk Of Magnesia 30 Ml Oral.Susp) 30 ml PO DAILY PRN PRN Reason: Constipation Multivitamins/Vitamin C (Multivitamin Tablet) 1 tab PO DAILY [facility] Last Admin: 11/23/22 08:35 Dose: 1 tab Trazodone HCl (Trazodone Hcl 50 Mg Tablet) 50 mg PO BEDTIME MRX1 PRN PRN Reason: Insomnia Last Admin: 11/21/22 20:30 Dose: 50 mg Vitamin E (Vitamin E (Dl,Tocopheryl Acet) 180 Mg (400 Unit) Capsule) 180 mg PO DAILY [facility] Last Admin: 11/23/22 08:30 Dose: 180 mg Allergies Allergies Allergy/AdvReac Type Severity Reaction Status Date / Time penicillin G [Penicillin G] Allergy Mild HIVES Verified 02/12/21 21:22 amoxicillin [Amoxicillin] Allergy Unknown HIVES Verified 02/12/21 21:22 penicillin V Allergy Unknown hives Verified 02/12/21 21:22 Assessment & Plan Assessment & Plan (1) Bipolar affective, manic, severe w/ psych: Status: Acute Code(s): F31.2 - Bipolar disorder, current episode manic severe with psychotic features Plan Adult male with a past history of bipolar disorder, with several prior admissions into the hospital with several ancillary services such as [facility] case managing services, guardianship and others admitted for the composition in the context of a recent loss of his grandmother and possible noncompliance. 11/15: Increased Clozaril up to 50 mg p.o. q.h.s. tonight, according to the chart he was taking 87.5 mg but he was not compliant in the past. 11/17: increased clozapine up to 75 mg po qhs. 11/18: no change in mgmt. appears euphoric, pleasant. 11/19: return clozapine dosing to 87.5 mg QHS. case discussed with lul outpt provider, who feels prior regimen seemed to be doing well for pt. notes recent alcohol consumption and questions role of alcohol in pt's periodic decompensations. lul is aware of low-yg lithium levels and feels clinically he was resonding well. 11/20: stable. continue current mgmt. 11/21: stable presentation - euphoric with lability when challenged. continue current mgmt. 11/22: less labile today, poor insight into behaviors. continue current mgmt for now, but may need to increase lithium next week if mood Sx do not improve. 11/23: Continue current plan. Reason for contiued inpatient stay Substantial Risk for: inability to function and rapid decompensation Time Spent With Patient Time: Total time managing care of this patient today ____ minutes.
[2022-11-23] MEDS: cloZAPine 25 MG TABLET 87.5 MG PO (22:26)
[2022-11-23] MEDS: Divalproex Sodium ER 250 MG TAB.ER.24H PO (22:27)
[2022-11-23] MEDS: Benztropine Mesylate 1 MG TABLET PO (22:27)
[2022-11-23] MEDS: Lithium Carbonate ER 450 MG TABLET.ER 900 MG PO (22:27)
[2022-11-23 22:30] VITALS: BP 140/71; PULSE 71; TEMP 36.7; O2SAT 100
[2022-11-24] MEDS: Lithium Carbonate 300 MG TABLET 150 MG PO (09:28)
[2022-11-24] MEDS: Vitamin E (Dl,Tocopheryl Acet) 180 MG (400 UNIT) CAPSULE PO (09:28)
[2022-11-24] MEDS: Multivitamin TABLET 1 TAB PO (09:28)
[2022-11-24] MEDS: Divalproex Sodium ER 500 MG TAB.ER.24H 1000 MG PO ×2 (09:28→22:54)
[2022-11-24] MEDS: HaloperidoL 1 MG TABLET 2.5 MG PO ×2 (09:29→22:55)
[2022-11-24 09:33] VITALS: BP 121/73; PULSE 77; RESP 18; TEMP 36.6; O2SAT 98
--- NOTE | 2022-11-24 14:03 | PC.NURSE ---
approved pt to go outside on [facility] with nurse. Patient taken on [facility] with a T/W, no behavioral issues, pt remained safe.
[2022-11-24 21:40] VITALS: BP 129/80; PULSE 72; RESP 18; TEMP 36.4; O2SAT 97
--- NOTE | 2022-11-24 22:12 | HO.PSYCHPN ---
Subjective Subjective Date of Service: 11/24/22 Reason For Visit: Psychosis Interim History: Patient seen. Remains hypoanic. Intrusive. In euphoric mood. Some intrusiveness. He continues with some disinhibition. He reports he is feeling well. I feel healthy. I am eating healthy. I am well rested... Talkative. Pacing the rodriguez. No behavioral agitation noted. Hypomanic. Review of Systems Review of Systems Yes all other systems are reviewed and are negative Constitutional: Reports no additional constitutional complaints, Denies chills, Denies fever(s) and Denies night sweats Eyes: Reports no additional eye complaints, Denies blurry vision, Denies change in vision, Denies diplopia, Denies eye discharge, Denies loss of vision and Denies eye pain Denies dizziness Cardiovascular: Reports no additional cardiovascular complaints, Denies chest pain, Denies lightheadedness, Denies Loss of Consciousness and Denies dyspnea Respiratory: Reports no additional respiratory complaints and Denies dyspnea Gastrointestinal: Reports no additional gastrointestinal complaints, Denies abdominal pain, Denies melena, Denies hematochezia, Denies change in bowel habits and Denies change in stool character Genitourinary: Reports no additional male genitourinary complaints, Denies hematuria, Denies oliguria, Denies difficulty urinating, Denies dysuria, Denies urinary frequency, Denies urinary hesitancy, Denies urinary incontinence and Denies urinary urgency Musculoskeletal: Reports no additional musculoskeletal complaints, Denies numbness and Denies tingling Denies dizziness, Denies loss of vision, Denies numbness and Denies tingling Psychiatric: Reports visual hallucinations Endocrine: Reports no additional endocrine complaints Hematologic/Lymphatic: Reports no additional hematologic/lymphatic complaints Allergic/Immunologic: Reports no additional allergic/immunologic complaints Mental Status Exam Mental Status Exam Narrative: adequately dressed and groomed. no PMA/PMR (but pacing, as is his baseline). cooperative with interview. speech nml in amount and rate, nml latency, nml prosody. incr loudness. no paranoia or delusions evident during interview. affect flexible, non-labile, hyper-intense. mood expansive. no SI/SIBI/HI/AVH expressed. Patient Appearance: Appropriate Patient Orientation: Person and Situation Level of Consciousness: Restless and Alert Patient Behavior: Restless Mood Description: Cheerful Affect Description: Labile Patient Cognition Impaired: No Ability to Follow Directions: Fair Speech Pattern: Rapid and Loud Diagnostics Vital Signs (24Hr): Vital Signs - 24 hr 11/23/22 22:30 11/24/22 09:33 Temperature 98.0 F 97.9 F Pulse Rate 71 77 Respiratory Rate 18 Blood Pressure 140/71 H 121/73 Pulse Oximetry 100 98 Oxygen Delivery Method Room Air Room Air BMI result Body Mass Index 33.3 Labs 11/15/22 14:18 11/16/22 06:55 Medications Medications Current Medications Acetaminophen (Acetaminophen 325 Mg Tablet) 650 mg PO Q6H PRN PRN Reason: Headache/Pain Mild Scale (1-3) Al Hydroxide/Mg Hydroxide (Magnesium Hydrox/Alum Hydrox 30 Ml Oral.Susp) 30 ml PO Q6H PRN PRN Reason: Heartburn/Nausea Benztropine Mesylate (Benztropine Mesylate 1 Mg Tablet) 1 mg PO BEDTIME [facility] Last Admin: 11/23/22 22:27 Dose: 1 mg Clozapine (Clozapine 100 Mg Tablet) 100 mg PO BEDTIME [facility] Divalproex Sodium (Divalproex Sodium Er 500 Mg Tab.Er.24h) 1,000 mg PO BID [facility] Last Admin: 11/24/22 09:28 Dose: 1,000 mg Divalproex Sodium (Divalproex Sodium Er 250 Mg Tab.Er.24h) 250 mg PO BEDTIME [facility] Last Admin: 11/23/22 22:27 Dose: 250 mg Haloperidol (Haloperidol 1 Mg Tablet) 2.5 mg PO BID [facility] Last Admin: 11/24/22 09:29 Dose: 2.5 mg Hydroxyzine HCl (Hydroxyzine Hcl 25 Mg Tablet) 25 mg PO Q6H PRN PRN Reason: Anxiety Last Admin: 11/16/22 20:32 Dose: 25 mg [place] Carbonate ([place] Carbonate Er 450 Mg Tablet.Er) 900 mg PO BEDTIME [facility] Last Admin: 11/23/22 22:27 Dose: 900 mg [place] Carbonate ([place] Carbonate 300 Mg Tablet) 300 mg PO DAILY [facility] Magnesium Hydroxide (Milk Of Magnesia 30 Ml Oral.Susp) 30 ml PO DAILY PRN PRN Reason: Constipation Multivitamins/Vitamin C (Multivitamin Tablet) 1 tab PO DAILY [facility] Last Admin: 11/24/22 09:28 Dose: 1 tab Trazodone HCl (Trazodone Hcl 50 Mg Tablet) 50 mg PO BEDTIME X1 PRN PRN Reason: Insomnia Last Admin: 11/21/22 20:30 Dose: 50 mg Vitamin E (Vitamin E (Dl,Tocopheryl Acet) 180 Mg (400 Unit) Capsule) 180 mg PO DAILY [facility] Last Admin: 11/24/22 09:28 Dose: 180 mg Allergies Allergies Allergy/AdvReac Type Severity Reaction Status Date / Time penicillin G [Penicillin G] Allergy Mild HIVES Verified 02/12/21 21:22 amoxicillin [Amoxicillin] Allergy Unknown HIVES Verified 02/12/21 21:22 penicillin V Allergy Unknown hives Verified 02/12/21 21:22 Assessment & Plan Assessment & Plan (1) Bipolar affective, manic, severe w/ psych: Status: Acute Code(s): F31.2 - Bipolar disorder, current episode manic severe with psychotic features Plan Adult male with a past history of bipolar disorder, with several prior admissions into the hospital with several ancillary services such as [facility] case managing services, guardianship and others admitted for the composition in the context of a recent loss of his grandmother and possible noncompliance. 11/15: Increased Clozaril up to 50 mg p.o. q.h.s. tonight, according to the chart he was taking 87.5 mg but he was not compliant in the past. 11/17: increased clozapine up to 75 mg po qhs. 11/18: no change in mgmt. appears euphoric, pleasant. 11/19: return clozapine dosing to 87.5 mg QHS. case discussed with lul outpt provider, who feels prior regimen seemed to be doing well for pt. notes recent alcohol consumption and questions role of alcohol in pt's periodic decompensations. lul is aware of low-yg lithium levels and feels clinically he was resonding well. 11/20: stable. continue current mgmt. 11/21: stable presentation - euphoric with lability when challenged. continue current mgmt. 11/22: less labile today, poor insight into behaviors. continue current mgmt for now, but may need to increase lithium next week if mood Sx do not improve. 11/23: Continue current plan. 11/24: Increase Clozapine to 100 mg HS. Check Li level tomorrow. Increase Li to 300 + 900 mg starting tomorrow. Reason for contiued inpatient stay Substantial Risk for: inability to function and rapid decompensation Time Spent With Patient Time: Total time managing care of this patient today ____ minutes.
[2022-11-24] MEDS: Benztropine Mesylate 1 MG TABLET PO (22:54)
[2022-11-24] MEDS: traZODone HCL 50 MG TABLET PO (22:54)
[2022-11-24] MEDS: cloZAPine 100 MG TABLET PO (22:55)
[2022-11-24] MEDS: Lithium Carbonate ER 450 MG TABLET.ER 900 MG PO (22:55)
[2022-11-24] MEDS: Divalproex Sodium ER 250 MG TAB.ER.24H PO (22:55)
[2022-11-25] MEDS: hydrOXYzine HCL 25 MG TABLET PO (01:31)
[2022-11-25 09:00] VITALS: BP 124/87; PULSE 84; RESP 18; TEMP 36.4; O2SAT 99
[2022-11-25] MEDS: Vitamin E (Dl,Tocopheryl Acet) 180 MG (400 UNIT) CAPSULE PO (09:13)
[2022-11-25] MEDS: Divalproex Sodium ER 500 MG TAB.ER.24H 1000 MG PO ×2 (09:13→21:30)
[2022-11-25] MEDS: Lithium Carbonate 300 MG TABLET PO (09:14)
[2022-11-25] MEDS: HaloperidoL 1 MG TABLET 2.5 MG PO ×2 (09:14→21:30)
[2022-11-25 09:42] LABS: Lithium 0.54 mmol/L (0.60-1.20)
[2022-11-25] MEDS: Lithium Carbonate 300 MG TABLET 150 MG PO (11:11)
--- NOTE | 2022-11-25 14:19 | HO.PSYCHPN ---
Subjective Subjective Date of Service: 11/25/22 Reason For Visit: Psychosis Interim History: calm, cooperative. notes yesterday he engaged in some tomfoolery, which was inappropriate. he apologized. he reported he is trying to improve his insight into his psychology and so is trying to pay attention to such things. amenable to increase lithium by 150 mg daily. per staff, friendly. social, walking. restless, expansive. poor boundaries. sleeping well. Mental Status Exam Mental Status Exam Narrative: adequately dressed and groomed. no PMA/PMR (but walking the rodriguez, as is his baseline). cooperative with interview. speech nml in amount and rate, nml latency, nml prosody. incr loudness. no paranoia or delusions evident during interview. affect flexible, non-labile, hyper-intense. mood expansive. no SI/SIBI/HI/AVH expressed. Diagnostics Vital Signs (24Hr): Vital Signs - 24 hr 11/24/22 21:40 11/25/22 09:00 Temperature 97.6 F 97.6 F Pulse Rate 72 84 Respiratory Rate 18 18 Blood Pressure 129/80 124/87 Pulse Oximetry 97 99 Oxygen Delivery Method Room Air Room Air BMI result Body Mass Index 33.3 Labs 11/15/22 14:18 11/16/22 06:55 Labs: Laboratory Results - last 48 hr 11/25/22 09:21 [place] 0.54 L Medications Medications Current Medications Acetaminophen (Acetaminophen 325 Mg Tablet) 650 mg PO Q6H PRN PRN Reason: Headache/Pain Mild Scale (1-3) Al Hydroxide/Mg Hydroxide (Magnesium Hydrox/Alum Hydrox 30 Ml Oral.Susp) 30 ml PO Q6H PRN PRN Reason: Heartburn/Nausea Benztropine Mesylate (Benztropine Mesylate 1 Mg Tablet) 1 mg PO BEDTIME [facility] Last Admin: 11/24/22 22:54 Dose: 1 mg Clozapine (Clozapine 100 Mg Tablet) 100 mg PO BEDTIME [facility] Last Admin: 11/24/22 22:55 Dose: 100 mg Divalproex Sodium (Divalproex Sodium Er 500 Mg Tab.Er.24h) 1,000 mg PO BID [facility] Last Admin: 11/25/22 09:13 Dose: 1,000 mg Divalproex Sodium (Divalproex Sodium Er 250 Mg Tab.Er.24h) 250 mg PO BEDTIME [facility] Last Admin: 11/24/22 22:55 Dose: 250 mg Haloperidol (Haloperidol 1 Mg Tablet) 2.5 mg PO BID [facility] Last Admin: 11/25/22 09:14 Dose: 2.5 mg Hydroxyzine HCl (Hydroxyzine Hcl 25 Mg Tablet) 25 mg PO Q6H PRN PRN Reason: Anxiety Last Admin: 11/25/22 01:31 Dose: 25 mg [place] Carbonate ([place] Carbonate Er 450 Mg Tablet.Er) 900 mg PO BEDTIME [facility] Last Admin: 11/24/22 22:55 Dose: 900 mg [place] Carbonate ([place] Carbonate 300 Mg Tablet) 450 mg PO DAILY [facility] Magnesium Hydroxide (Milk Of Magnesia 30 Ml Oral.Susp) 30 ml PO DAILY PRN PRN Reason: Constipation Multivitamins/Vitamin C (Multivitamin Tablet) 1 tab PO DAILY [facility] Last Admin: 11/25/22 10:47 Dose: Not Given Trazodone HCl (Trazodone Hcl 50 Mg Tablet) 50 mg PO BEDTIME MRX1 PRN PRN Reason: Insomnia Last Admin: 11/24/22 22:54 Dose: 50 mg Vitamin E (Vitamin E (Dl,Tocopheryl Acet) 180 Mg (400 Unit) Capsule) 180 mg PO DAILY [facility] Last Admin: 11/25/22 09:13 Dose: 180 mg Allergies Allergies Allergy/AdvReac Type Severity Reaction Status Date / Time penicillin G [Penicillin G] Allergy Mild HIVES Verified 02/12/21 21:22 amoxicillin [Amoxicillin] Allergy Unknown HIVES Verified 02/12/21 21:22 penicillin V Allergy Unknown hives Verified 02/12/21 21:22 Assessment & Plan Assessment & Plan (1) Bipolar affective, manic, severe w/ psych: Status: Acute Code(s): F31.2 - Bipolar disorder, current episode manic severe with psychotic features Plan Adult male with a past history of bipolar disorder, with several prior admissions into the hospital with several ancillary services such as [facility] case managing services, guardianship and others admitted for the composition in the context of a recent loss of his grandmother and possible noncompliance. 11/15: Increased Clozaril up to 50 mg p.o. q.h.s. tonight, according to the chart he was taking 87.5 mg but he was not compliant in the past. 11/17: increased clozapine up to 75 mg po qhs. 11/18: no change in mgmt. appears euphoric, pleasant. 11/19: return clozapine dosing to 87.5 mg QHS. case discussed with lul, outpt provider, who feels prior regimen seemed to be doing well for pt. notes recent alcohol consumption and questions role of alcohol in pt's periodic decompensations. lul is aware of low-yg lithium levels and feels clinically he was resonding well. 11/20: stable. continue current mgmt. 11/21: stable presentation - euphoric with lability when challenged. continue current mgmt. 11/22: less labile today, poor insight into behaviors. continue current mgmt for now, but may need to increase lithium next week if mood Sx do not improve. 11/23: Continue current plan. 11/24: Increase Clozapine to 100 mg HS. Check Li level tomorrow. Increase Li to 300 + 900 mg starting tomorrow. 11/25: increased lithium dosing ordered for today noted. continue current plan. Reason for contiued inpatient stay Substantial Risk for: inability to function and rapid decompensation Time Spent With Patient Time: Total time managing care of this patient today __25__ minutes.
[2022-11-25 20:45] VITALS: BP 133/86; PULSE 88; RESP 18; TEMP 37.1; O2SAT 97
[2022-11-25] MEDS: Benztropine Mesylate 1 MG TABLET PO (21:29)
[2022-11-25] MEDS: traZODone HCL 50 MG TABLET PO (21:30)
[2022-11-25] MEDS: cloZAPine 100 MG TABLET PO (21:30)
[2022-11-25] MEDS: Lithium Carbonate ER 450 MG TABLET.ER 900 MG PO (21:30)
[2022-11-25] MEDS: Divalproex Sodium ER 250 MG TAB.ER.24H PO (21:30)
[2022-11-26] MEDS: Divalproex Sodium ER 500 MG TAB.ER.24H 1000 MG PO ×2 (08:58→22:25)
[2022-11-26] MEDS: Vitamin E (Dl,Tocopheryl Acet) 180 MG (400 UNIT) CAPSULE PO (08:58)
[2022-11-26] MEDS: Multivitamin TABLET 1 TAB PO (08:58)
[2022-11-26] MEDS: Lithium Carbonate 300 MG TABLET PO (08:58)
[2022-11-26] MEDS: HaloperidoL 1 MG TABLET 2.5 MG PO ×2 (08:58→22:24)
[2022-11-26 09:10] VITALS: BP 133/81; PULSE 70; RESP 18; TEMP 36.6; O2SAT 98
--- NOTE | 2022-11-26 15:34 | P.PNPSI_ITS ---
Subjective Subjective Date of Service: 11/26/22 Reason For Visit: Psychosis Interim History: less ebullient than prior, yet still euphoric. calm and cooperative. perhaps slight improvement in manic Sx. per staff, feels meds are working well. expansive. eating and sleeping. i know most forms of karate. Mental Status Exam Mental Status Exam Narrative: adequately dressed and groomed. no PMA/PMR (but walking the rodriguez, as is his baseline, but more slowly than early on). cooperative with interview. speech nml in amount and rate, nml latency, nml prosody. incr loudness. no paranoia or delusions evident during interview. affect flexible, non-labile, hyper- intense. mood expansive. no SI/SIBI/HI/AVH expressed. Diagnostics Vital Signs (24Hr): Vital Signs - 24 hr 11/25/22 20:45 11/26/22 09:10 Temperature 98.7 F 97.9 F Pulse Rate 88 70 Respiratory Rate 18 18 Blood Pressure 133/86 133/81 Pulse Oximetry 97 98 Oxygen Delivery Method Room Air Room Air BMI result Body Mass Index 33.3 Labs 11/15/22 14:18 11/16/22 06:55 Labs: Laboratory Results - last 48 hr 11/25/22 09:21 [place] 0.54 L Medications Medications Current Medications Acetaminophen (Acetaminophen 325 Mg Tablet) 650 mg PO Q6H PRN PRN Reason: Headache/Pain Mild Scale (1-3) Al Hydroxide/Mg Hydroxide (Magnesium Hydrox/Alum Hydrox 30 Ml Oral.Susp) 30 ml PO Q6H PRN PRN Reason: Heartburn/Nausea Benztropine Mesylate (Benztropine Mesylate 1 Mg Tablet) 1 mg PO BEDTIME [facility] Last Admin: 11/25/22 21:29 Dose: 1 mg Clozapine (Clozapine 100 Mg Tablet) 100 mg PO BEDTIME [facility] Last Admin: 11/25/22 21:30 Dose: 100 mg Divalproex Sodium (Divalproex Sodium Er 500 Mg Tab.Er.24h) 1,000 mg PO BID [facility] Last Admin: 11/26/22 08:58 Dose: 1,000 mg Divalproex Sodium (Divalproex Sodium Er 250 Mg Tab.Er.24h) 250 mg PO BEDTIME [facility] Last Admin: 11/25/22 21:30 Dose: 250 mg Haloperidol (Haloperidol 1 Mg Tablet) 2.5 mg PO BID [facility] Last Admin: 11/26/22 08:58 Dose: 2.5 mg Hydroxyzine HCl (Hydroxyzine Hcl 25 Mg Tablet) 25 mg PO Q6H PRN PRN Reason: Anxiety Last Admin: 11/25/22 01:31 Dose: 25 mg [place] Carbonate ([place] Carbonate Er 450 Mg Tablet.Er) 900 mg PO BEDTIME [facility] Last Admin: 11/25/22 21:30 Dose: 900 mg [place] Carbonate ([place] Carbonate 300 Mg Tablet) 300 mg PO DAILY [facility] Last Admin: 11/26/22 08:58 Dose: 300 mg Magn[place] Hydroxide (Milk Of Magnesia 30 Ml Oral.Susp) 30 ml PO DAILY PRN PRN Reason: Constipation Multivitamins/Vitamin C (Multivitamin Tablet) 1 tab PO DAILY [facility] Last Admin: 11/26/22 08:58 Dose: 1 tab Trazodone HCl (Trazodone Hcl 50 Mg Tablet) 50 mg PO BEDTIME MRX1 PRN PRN Reason: Insomnia Last Admin: 11/25/22 21:30 Dose: 50 mg Vitamin E (Vitamin E (Dl,Tocopheryl Acet) 180 Mg (400 Unit) Capsule) 180 mg PO DAILY [facility] Last Admin: 11/26/22 08:58 Dose: 180 mg Allergies Allergies Allergy/AdvReac Type Severity Reaction Status Date / Time penicillin G [Penicillin G] Allergy Mild HIVES Verified 02/12/21 21:22 amoxicillin [Amoxicillin] Allergy Unknown HIVES Verified 02/12/21 21:22 penicillin V Allergy Unknown hives Verified 02/12/21 21:22 Assessment & Plan Assessment & Plan (1) Bipolar affective, manic, severe w/ psych: Status: Acute Code(s): F31.2 - Bipolar disorder, current episode manic severe with psychotic features Plan Adult male with a past history of bipolar disorder, with several prior admissions into the hospital with several ancillary services such as [facility] case managing services, guardianship and others admitted for the composition in the context of a recent loss of his grandmother and possible noncompliance. 11/15: Increased Clozaril up to 50 mg p.o. q.h.s. tonight, according to the chart he was taking 87.5 mg but he was not compliant in the past. 11/17: increased clozapine up to 75 mg po qhs. 11/18: no change in mgmt. appears euphoric, pleasant. 11/19: return clozapine dosing to 87.5 mg QHS. case discussed with lul, outpt provider, who feels prior regimen seemed to be doing well for pt. notes recent alcohol consumption and questions role of alcohol in pt's periodic decomp ensations. tonydeb is aware of low-yg lithium levels and feels clinically he was resonding well. 11/20: stable. continue current mgmt. 11/21: stable presentation - euphoric with lability when challenged. continue current mgmt. 11/22: less labile today, poor insight into behaviors. continue current mgmt for now, but may need to increase lithium next week if mood Sx do not improve. 11/23: Continue current plan. 11/24: Increase Clozapine to 100 mg HS. Check Li level tomorrow. Increase Li to 300 + 900 mg starting tomorrow. 11/25: increased lithium dosing ordered for today noted. continue current plan. 11/26: continue current mgmt. Reason for contiued inpatient stay Substantial Risk for: harm to others and rapid decompensation Time Spent With Patient Time: Total time managing care of this patient today ____ minutes.
[2022-11-26 20:52] VITALS: BP 123/74; PULSE 77; RESP 16; TEMP 36.7; O2SAT 98
[2022-11-26] MEDS: Benztropine Mesylate 1 MG TABLET PO (22:24)
[2022-11-26] MEDS: Lithium Carbonate ER 450 MG TABLET.ER 900 MG PO (22:25)
[2022-11-26] MEDS: Divalproex Sodium ER 250 MG TAB.ER.24H PO (22:25)
[2022-11-26] MEDS: cloZAPine 100 MG TABLET PO (22:25)
[2022-11-26] MEDS: traZODone HCL 50 MG TABLET PO (22:26)
[2022-11-27 06:00] VITALS: BP 132/82; PULSE 72; RESP 16; TEMP 36.7; O2SAT 98
[2022-11-27] MEDS: Vitamin E (Dl,Tocopheryl Acet) 180 MG (400 UNIT) CAPSULE PO (08:23)
[2022-11-27] MEDS: Multivitamin TABLET 1 TAB PO (08:23)
[2022-11-27] MEDS: Divalproex Sodium ER 500 MG TAB.ER.24H 1000 MG PO ×2 (08:23→22:30)
[2022-11-27] MEDS: Lithium Carbonate 300 MG TABLET PO (08:23)
[2022-11-27] MEDS: HaloperidoL 1 MG TABLET 2.5 MG PO ×2 (08:23→22:29)
--- NOTE | 2022-11-27 14:08 | HO.PSYCHPN ---
Subjective Subjective Date of Service: 11/27/22 Reason For Visit: Psychosis Interim History: calm, cooperative. effervescent. states he is sleeping well, and all is as it should be. expressing gratitude for the opportunity to be hospitalized and catch up on his rest. per staff, grumpy in mornings, then appears to have improved mood in the afternoon. superficial. denies SI/HI/AVH. eating and sleeping well. not attending groups. feels safe. Mental Status Exam Mental Status Exam Narrative: adequately dressed and groomed. no PMA/PMR (but walking the rodriguez, as is his baseline, but more slowly than early on). cooperative with interview. speech nml in amount and rate, nml latency, nml prosody. incr loudness. no paranoia or delusions evident during interview. affect flexible, non-labile, hyper-intense. mood expansive. no SI/SIBI/HI/AVH expressed. Diagnostics Vital Signs (24Hr): Vital Signs - 24 hr 11/26/22 20:52 11/27/22 06:00 Temperature 98.1 F 98.1 F Pulse Rate 77 72 Respiratory Rate 16 16 Blood Pressure 123/74 132/82 Pulse Oximetry 98 98 Oxygen Delivery Method Room Air Room Air BMI result Body Mass Index 33.3 Labs 11/15/22 14:18 11/16/22 06:55 Medications Medications Current Medications Acetaminophen (Acetaminophen 325 Mg Tablet) 650 mg PO Q6H PRN PRN Reason: Headache/Pain Mild Scale (1-3) Al Hydroxide/Mg Hydroxide (Magnesium Hydrox/Alum Hydrox 30 Ml Oral.Susp) 30 ml PO Q6H PRN PRN Reason: Heartburn/Nausea Benztropine Mesylate (Benztropine Mesylate 1 Mg Tablet) 1 mg PO BEDTIME [facility] Last Admin: 11/26/22 22:24 Dose: 1 mg Clozapine (Clozapine 100 Mg Tablet) 100 mg PO BEDTIME [facility] Last Admin: 11/26/22 22:25 Dose: 100 mg Divalproex Sodium (Divalproex Sodium Er 500 Mg Tab.Er.24h) 1,000 mg PO BID [facility] Last Admin: 11/27/22 08:23 Dose: 1,000 mg Divalproex Sodium (Divalproex Sodium Er 250 Mg Tab.Er.24h) 250 mg PO BEDTIME [facility] Last Admin: 11/26/22 22:25 Dose: 250 mg Haloperidol (Haloperidol 1 Mg Tablet) 2.5 mg PO BID [facility] Last Admin: 11/27/22 08:23 Dose: 2.5 mg Hydroxyzine HCl (Hydroxyzine Hcl 25 Mg Tablet) 25 mg PO Q6H PRN PRN Reason: Anxiety Last Admin: 11/25/22 01:31 Dose: 25 mg [place] Carbonate ([place] Carbonate Er 450 Mg Tablet.Er) 900 mg PO BEDTIME [facility] Last Admin: 11/26/22 22:25 Dose: 900 mg [place] Carbonate ([place] Carbonate 300 Mg Tablet) 300 mg PO DAILY [facility] Last Admin: 11/27/22 08:23 Dose: 300 mg Magnesium Hydroxide (Milk Of Magnesia 30 Ml Oral.Susp) 30 ml PO DAILY PRN PRN Reason: Constipation Multivitamins/Vitamin C (Multivitamin Tablet) 1 tab PO DAILY [facility] Last Admin: 11/27/22 08:23 Dose: 1 tab Trazodone HCl (Trazodone Hcl 50 Mg Tablet) 50 mg PO BEDTIME MRX1 PRN PRN Reason: Insomnia Last Admin: 11/26/22 22:26 Dose: 50 mg Vitamin E (Vitamin E (Dl,Tocopheryl Acet) 180 Mg (400 Unit) Capsule) 180 mg PO DAILY [facility] Last Admin: 11/27/22 08:23 Dose: 180 mg Allergies Allergies Allergy/AdvReac Type Severity Reaction Status Date / Time penicillin G [Penicillin G] Allergy Mild HIVES Verified 02/12/21 21:22 amoxicillin [Amoxicillin] Allergy Unknown HIVES Verified 02/12/21 21:22 penicillin V Allergy Unknown hives Verified 02/12/21 21:22 Assessment & Plan Assessment & Plan (1) Bipolar affective, manic, severe w/ psych: Status: Acute Code(s): F31.2 - Bipolar disorder, current episode manic severe with psychotic features Plan Adult male with a past history of bipolar disorder, with several prior admissions into the hospital with several ancillary services such as [facility] case managing services, guardianship and others admitted for the composition in the context of a recent loss of his grandmother and possible noncompliance. 11/15: Increased Clozaril up to 50 mg p.o. q.h.s. tonight, according to the chart he was taking 87.5 mg but he was not compliant in the past. 11/17: increased clozapine up to 75 mg po qhs. 3/20: no change in mgmt. appears euphoric, pleasant. 11/19: return clozapine dosing to 87.5 mg QHS. case discussed with lul, outpt provider, who feels prior regimen seemed to be doing well for pt. notes recent alcohol consumption and questions role of alcohol in pt's periodic decompensations. lul is aware of low-yg lithium levels and feels clinically he was resonding well. 11/20: stable. continue current mgmt. 11/21: stable presentation - euphoric with lability when challenged. continue current mgmt. 11/22: less labile today, poor insight into behaviors. continue current mgmt for now, but may need to increase lithium next week if mood Sx do not improve. 11/23: Continue current plan. 11/24: Increase Clozapine to 100 mg HS. Check Li level tomorrow. Increase Li to 300 + 900 mg starting tomorrow. 11/25: increased lithium dosing ordered for today noted. continue current plan. 11/26: continue current mgmt. 11/27: continue current mgmt. check lithium level friday morning. planning for discharge next week. Reason for contiued inpatient stay Substantial Risk for: inability to function and rapid decompensation Time Spent With Patient Time: Total time managing care of this patient today __25__ minutes.
[2022-11-27 20:22] VITALS: BP 126/90; PULSE 102; RESP 20; TEMP 36.6; O2SAT 97
[2022-11-27] MEDS: Benztropine Mesylate 1 MG TABLET PO (22:30)
[2022-11-27] MEDS: traZODone HCL 50 MG TABLET PO (22:30)
[2022-11-27] MEDS: Divalproex Sodium ER 250 MG TAB.ER.24H PO (22:30)
[2022-11-27] MEDS: Lithium Carbonate ER 450 MG TABLET.ER 900 MG PO (22:31)
[2022-11-27] MEDS: cloZAPine 100 MG TABLET PO (22:31)
[2022-11-28 07:00] VITALS: BMI 34.3
[2022-11-28 08:36] VITALS: BP 126/66; PULSE 88; RESP 18; TEMP 36.3; O2SAT 96
[2022-11-28] MEDS: HaloperidoL 1 MG TABLET 2.5 MG PO ×2 (08:39→22:13)
[2022-11-28] MEDS: Multivitamin TABLET 1 TAB PO (08:40)
[2022-11-28] MEDS: Vitamin E (Dl,Tocopheryl Acet) 180 MG (400 UNIT) CAPSULE PO (08:40)
[2022-11-28] MEDS: Lithium Carbonate 300 MG TABLET PO (08:41)
[2022-11-28] MEDS: Divalproex Sodium ER 500 MG TAB.ER.24H 1000 MG PO ×2 (08:41→22:12)
--- NOTE | 2022-11-28 16:00 | P.PNPSI_ITS ---
Subjective Subjective Date of Service: 11/28/22 Reason For Visit: Psychosis Interim History: stable presentation. denies any awareness of having been upset or angry last night. does acknowledge getting hangry prior to dinner. per staff, eating, sleeping, social. walking the rodriguez with headphones on. agitated in aaron - labile, elevated. had a visitor. Mental Status Exam Mental Status Exam Narrative: adequately dressed and groomed. no PMA/PMR (but walking the rodriguez, as is his [place], but more slowly than early on). cooperative with interview. speech nml in amount and rate, nml latency, nml prosody. incr loudness. no paranoia or delusions evident during interview. affect flexible, non-labile, hyper-intense. mood expansive. no SI/SIBI/HI/AVH expressed. Diagnostics Vital Signs (24Hr): Vital Signs - 24 hr 11/27/22 20:22 11/28/22 08:36 Temperature 97.8 F 97.4 F Pulse Rate 102 H 88 Respiratory Rate 20 18 Blood Pressure 126/90 H 126/66 Pulse Oximetry 97 96 Oxygen Delivery Method Room Air Room Air BMI result Body Mass Index 34.3 Labs 11/15/22 14:18 11/16/22 06:55 Medications Medications Current Medications Acetaminophen (Acetaminophen 325 Mg Tablet) 650 mg PO Q6H PRN PRN Reason: Headache/Pain Mild Scale (1-3) Al Hydroxide/Mg Hydroxide (Magnesium Hydrox/Alum Hydrox 30 Ml Oral.Susp) 30 ml PO Q6H PRN PRN Reason: Heartburn/Nausea Benztropine Mesylate (Benztropine Mesylate 1 Mg Tablet) 1 mg PO BEDTIME [facility] Last Admin: 11/27/22 22:30 Dose: 1 mg Clozapine (Clozapine 100 Mg Tablet) 100 mg PO BEDTIME [facility] Last Admin: 11/27/22 22:31 Dose: 100 mg Divalproex Sodium (Divalproex Sodium Er 500 Mg Tab.Er.24h) 1,000 mg PO BID [facility] Last Admin: 11/28/22 08:41 Dose: 1,000 mg Divalproex Sodium (Divalproex Sodium Er 250 Mg Tab.Er.24h) 250 mg PO BEDTIME [facility] Last Admin: 11/27/22 22:30 Dose: 250 mg Haloperidol (Haloperidol 1 Mg Tablet) 2.5 mg PO BID [facility] Last Admin: 11/28/22 08:39 Dose: 2.5 mg Hydroxyzine HCl (Hydroxyzine Hcl 25 Mg Tablet) 25 mg PO Q6H PRN PRN Reason: Anxiety Last Admin: 11/25/22 01:31 Dose: 25 mg [place] Carbonate ([place] Carbonate Er 450 Mg Tablet.Er) 900 mg PO BEDTIME [facility] Last Admin: 11/27/22 22:31 Dose: 900 mg [place] Carbonate ([place] Carbonate 300 Mg Tablet) 300 mg PO DAILY [facility] Last Admin: 11/28/22 08:41 Dose: 300 mg Magnesium Hydroxide (Milk Of Magnesia 30 Ml Oral.Susp) 30 ml PO DAILY PRN PRN Reason: Constipation Multivitamins/Vitamin C (Multivitamin Tablet) 1 tab PO DAILY [facility] Last Admin: 11/28/22 08:40 Dose: 1 tab Trazodone HCl (Trazodone Hcl 50 Mg Tablet) 50 mg PO BEDTIME MRX1 PRN PRN Reason: Insomnia Last Admin: 11/27/22 22:30 Dose: 50 mg Vitamin E (Vitamin E (Dl,Tocopheryl Acet) 180 Mg (400 Unit) Capsule) 180 mg PO DAILY [facility] Last Admin: 11/28/22 08:40 Dose: 180 mg Allergies Allergies Allergy/AdvReac Type Severity Reaction Status Date / Time penicillin G [Penicillin G] Allergy Mild HIVES Verified 02/12/21 21:22 amoxicillin [Amoxicillin] Allergy Unknown HIVES Verified 02/12/21 21:22 penicillin V Allergy Unknown hives Verified 02/12/21 21:22 Assessment & Plan Assessment & Plan (1) Bipolar affective, manic, severe w/ psych: Status: Acute Code(s): F31.2 - Bipolar disorder, current episode manic severe with psychotic features Plan Adult male with a past history of bipolar disorder, with several prior admissions into the hospital with several ancillary services such as [facility] case managing services, guardianship and others admitted for the composition in the context of a recent loss of his grandmother and possible noncompliance. 11/15: Increased Clozaril up to 50 mg p.o. q.h.s. tonight, according to the chart he was taking 87.5 mg but he was not compliant in the past. 11/17: increased clozapine up to 75 mg po qhs. 11/18: no change in mgmt. appears euphoric, pleasant. 11/19: return clozapine dosing to 87.5 mg QHS. case discussed with lul, outpt provider, who feels prior regimen seemed to be doing well for pt. notes recent alcohol consumption and questions role of alcohol in pt's periodic decompensations. angelorukhsanadeb is aware of low-yg lithium levels and feels clinically he was resonding well. 11/20: stable. continue current mgmt. 11/21: stable presentation - euphoric with lability when challenged. continue current mgmt. 11/22: less labile today, poor insight into behaviors. continue current mgmt for now, but may need to increase lithium next week if mood Sx do not improve. 11/23: Continue current plan. 11/24: Increase Clozapine to 100 mg HS. Check Li level tomorrow. Increase Li to 300 + 900 mg starting tomorrow. 11/25: increased lithium dosing ordered for today noted. continue current plan. 11/26: continue current mgmt. 11/27: continue current mgmt. check lithium level friday morning. planning for discharge next week. 11/28: stable presentation. continue current mgmt. check lithium level friday morning. planning for discharge next week. Reason for contiued inpatient stay Substantial Risk for: inability to function and rapid decompensation Time Spent With Patient Time: Total time managing care of this patient today _25___ minutes.
[2022-11-28 22:06] VITALS: BP 136/87; PULSE 84; RESP 18; TEMP 36.6; O2SAT 98
[2022-11-28] MEDS: Lithium Carbonate ER 450 MG TABLET.ER 900 MG PO (22:11)
[2022-11-28] MEDS: cloZAPine 100 MG TABLET PO (22:12)
[2022-11-28] MEDS: Benztropine Mesylate 1 MG TABLET PO (22:12)
[2022-11-28] MEDS: Divalproex Sodium ER 250 MG TAB.ER.24H PO (22:12)
[2022-11-28] MEDS: traZODone HCL 50 MG TABLET PO (22:13)
[2022-11-29] MEDS: hydrOXYzine HCL 25 MG TABLET PO (00:04)
[2022-11-29] MEDS: Acetaminophen 325 MG TABLET 650 MG PO ×2 (04:44→19:25)
[2022-11-29 08:00] VITALS: BP 131/78; PULSE 94; TEMP 36.6; O2SAT 98
[2022-11-29] MEDS: Divalproex Sodium ER 500 MG TAB.ER.24H 1000 MG PO ×2 (09:08→21:02)
[2022-11-29] MEDS: HaloperidoL 1 MG TABLET 2.5 MG PO ×2 (09:09→21:00)
[2022-11-29] MEDS: Vitamin E (Dl,Tocopheryl Acet) 180 MG (400 UNIT) CAPSULE PO (09:09)
[2022-11-29] MEDS: Lithium Carbonate 300 MG TABLET PO (09:09)
[2022-11-29] MEDS: Multivitamin TABLET 1 TAB PO (09:09)
[2022-11-29 09:30] LABS: Neut%MD 63.2 %; WBCANC 9.5 X10*3/uL
--- NOTE | 2022-11-29 14:27 | P.PNPSI_ITS ---
Subjective Subjective Date of Service: 11/29/22 Reason For Visit: Psychosis Interim History: initially his usually friendly, jovial self. once in interview room, MD asks what highest dose of clozaril that he's ever been on is. pt is suddenly silent. MD asks again after some moments, and again pt makes no response. after another excessive period of time in which to respond, MD asks pt what is the matter. pt then asks, can i leave? MD indicates yes, if he so chooses. pt gets up and walks out of the interview room without saying anything else. MD is later in the nursing station for a time, and pt is pacing up and down the rodriguez. he glares intensely at MD on each pass. per staff, no change. irritable with room switch yesterday. overly friendly and with poor boundaries, hugging peers. restless aaron, DFA. Mental Status Exam Mental Status Exam Narrative: adequately dressed and groomed. no PMA/PMR (but walking the rodriguez, as is his baseline). not cooperative with interview. initially, speech nml in amount and rate, nml latency, nml prosody. incr loudness. later, mute/terse. no paranoia or delusions evident during interview, but bizarre behavior (see SUB). affect flexible, non-labile, hyper-intense. mood irritable. no SI/SIBI/HI/AVH expressed. Diagnostics Vital Signs (24Hr): Vital Signs - 24 hr 11/28/22 22:06 11/29/22 08:00 Temperature 97.8 F 97.8 F Pulse Rate 84 94 Respiratory Rate 18 Blood Pressure 136/87 131/78 Pulse Oximetry 98 98 Oxygen Delivery Method Room Air Room Air BMI result Body Mass Index 34.3 Labs 11/15/22 14:18 11/16/22 06:55 Labs: Laboratory Results - last 48 hr 11/29/22 08:49 Absolute Neuts (auto) 6.0 Medications Medications Current Medications Acetaminophen (Acetaminophen 325 Mg Tablet) 650 mg PO Q6H PRN PRN Reason: Headache/Pain Mild Scale (1-3) Last Admin: 11/29/22 04:44 Dose: 650 mg Al Hydroxide/Mg Hydroxide (Magnesium Hydrox/Alum Hydrox 30 Ml Oral.Susp) 30 ml PO Q6H PRN PRN Reason: Heartburn/Nausea Benztropine Mesylate (Benztropine Mesylate 1 Mg Tablet) 1 mg PO BEDTIME [facility] Last Admin: 11/28/22 22:12 Dose: 1 mg Clozapine (Clozapine 100 Mg Tablet) 112.5 mg PO BEDTIME [facility] Divalproex Sodium (Divalproex Sodium Er 500 Mg Tab.Er.24h) 1,000 mg PO BID [facility] Last Admin: 11/29/22 09:08 Dose: 1,000 mg Divalproex Sodium (Divalproex Sodium Er 250 Mg Tab.Er.24h) 250 mg PO BEDTIME [facility] Last Admin: 11/28/22 22:12 Dose: 250 mg Haloperidol (Haloperidol 1 Mg Tablet) 2.5 mg PO BID [facility] [place] Last Admin: 11/29/22 09:09 Dose: 2.5 mg Hydroxyzine HCl (Hydroxyzine Hcl 25 Mg Tablet) 25 mg PO Q6H PRN PRN Reason: Anxiety Last Admin: 11/29/22 00:04 Dose: 25 mg [place] Carbonate ([place] Carbonate Er 450 Mg Tablet.Er) 900 mg PO BEDTIME [facility] Last Admin: 11/28/22 22:11 Dose: 900 mg [place] Carbonate ([place] Carbonate 300 Mg Tablet) 300 mg PO DAILY [facility] [place] Last Admin: 11/29/22 09:09 Dose: 300 mg Magnesium Hydroxide (Milk Of Magnesia 30 Ml Oral.Susp) 30 ml PO DAILY PRN PRN Reason: Constipation Multivitamins/Vitamin C (Multivitamin Tablet) 1 tab PO DAILY [facility] [place] Last Admin: 11/29/22 09:09 Dose: 1 tab Trazodone HCl (Trazodone Hcl 50 Mg Tablet) 50 mg PO BEDTIME MRX1 PRN PRN Reason: Insomnia Last Admin: 11/28/22 22:13 Dose: 50 mg Vitamin E (Vitamin E (Dl,Tocopheryl Acet) 180 Mg (400 Unit) Capsule) 180 mg PO DAILY [facility] [place] Last Admin: 11/29/22 09:09 Dose: 180 mg Allergies Allergies Allergy/AdvReac Type Severity Reaction Status Date / Time penicillin G [Penicillin G] Allergy Mild HIVES Verified 02/12/21 21:22 amoxicillin [Amoxicillin] Allergy Unknown HIVES Verified 02/12/21 21:22 penicillin V Allergy Unknown hives Verified 02/12/21 21:22 Assessment & Plan Assessment & Plan (1) Bipolar affective, manic, severe w/ psych: Status: Acute Code(s): F31.2 - Bipolar disorder, current episode manic severe with psychotic features Plan Adult male with a past history of bipolar disorder, with several prior admissions into the hospital with several ancillary services such as [facility] case managing services, guardianship and others admitted for the composition in the context of a recent loss of his grandmother and possible noncompliance. 11/15: Increased Clozaril up to 50 mg p.o. q.h.s. tonight, according to the chart he was taking 87.5 mg but he was not compliant in the past. 11/17: increased clozapine up to 75 mg po qhs. 11/18: no change in mgmt. appears euphoric, pleasant. 11/19: return clozapine dosing to 87.5 mg QHS. case discussed with lul, outpt provider, who feels prior regimen seemed to be doing well for pt. notes recent alcohol consumption and questions role of alcohol in pt's periodic decompensations. lul is aware of low-yg lithium levels and feels clinically he was resonding well. 11/20: stable. continue current mgmt. 11/21: stable presentation - euphoric with lability when challenged. continue current mgmt. 11/22: less labile today, poor insight into behaviors. continue current mgmt for now, but may need to increase lithium next week if mood Sx do not improve. 11/23: Continue current plan. 11/24: Increase Clozapine to 100 mg HS. Check Li level tomorrow. Increase Li to 300 + 900 mg starting tomorrow. 11/25: increased lithium dosing ordered for today noted. continue current plan. 11/26: continue current mgmt. 11/27: continue current mgmt. check lithium level friday morning. planning for discharge next week. 11/28: stable presentation. continue current mgmt. check lithium level friday. planning for discharge next week. 11/29: more irritable/bizarre/psychotic today. increase clozapine to 112.5 tonight and check VPA and lithium levels in the morning. titrate either as indicated over the weekend. Sx definitely not adequately controlled at the moment. Reason for contiued inpatient stay Substantial Risk for: harm to self, harm to others, inability to function and rapid decompensation Time Spent With Patient Time: Total time managing care of this patient today ____ minutes.
[2022-11-29] MEDS: Divalproex Sodium ER 250 MG TAB.ER.24H PO (21:02)
[2022-11-29] MEDS: Lithium Carbonate ER 450 MG TABLET.ER 900 MG PO (21:02)
[2022-11-29] MEDS: traZODone HCL 50 MG TABLET PO (21:03)
[2022-11-29] MEDS: Benztropine Mesylate 1 MG TABLET PO (21:03)
[2022-11-29] MEDS: cloZAPine 25 MG TABLET 12.5 MG PO (21:11)
[2022-11-29] MEDS: cloZAPine 100 MG TABLET PO (21:11)
[2022-11-29 21:22] VITALS: BP 132/83; PULSE 69; RESP 18; TEMP 36.6; O2SAT 98
[2022-11-30 06:48] LABS: MANUAL DIFF FLAG NO
[2022-11-30 06:58] LABS: Lithium 0.83 mmol/L (0.60-1.20)
[2022-11-30 07:06] LABS: Alanine Aminotransferase 17 U/L (0-40); Albumin Level 3.8 g/dL (3.5-5.0); Alkaline Phosphatase 51 U/L (39-117); Anion Gap 12 (12-20); Aspartate Amino Transferase 19 U/L (5-37); Bilirubin Direct < 0.2 mg/dL (0.0-0.5); Bilirubin Total 0.7 mg/dL (0.0-1.0); Blood Urea Nitrogen 19 mg/dL (9-16); Carbon Dioxide 26 mmol/L (22-29); Chloride 109 mmol/L (96-108); Creatinine Clr Calc Pharmacy 121.7; Estimated Glomerular Filt Rate > 60; Glucose Random 98 mg/dL (60-115); Potassium 4.6 mmol/L (3.3-5.1); Sodium 142 mmol/L (135-145)
[2022-11-30 07:07] LABS: Basophils Absolute Auto 0.1 X10*3/uL (0.0-0.2); Basophils Percent Auto 0.8 % (0-2); Eosinophils Absolute Auto 0.3 X10*3/uL (0.0-0.4); Eosinophils Percent Auto 3.8 % (0-4); Hematocrit 46.2 % (42.0-52.0); Hemoglobin 15.3 g/dl (14.0-18.0); Imm Gran Abs Auto 0.02 X10*3/uL (0.00-0.03); Imm Gran Pct Auto 0.3 % (0.0-0.4); Lymphocytes Absolute Auto 2.7 X10*3/uL (1.2-4.9); Lymphocytes Percent Auto 33.6 % (20-40); Mean Corpuscular HGB Conc 33.1 g/dl (31.0-36.0); Mean Corpuscular Volume 87.7 fL (80.0-98.0); Monocytes Absolute Auto 1.2 X10*3/uL (0.1-1.2); Monocytes Percent Auto 14.6 % (2-11); Neutrophils Absolute Auto 3.7 x10*3/uL (2.0-8.3); Neutrophils Percent Auto 46.9 % (45-73); Platelet Count 174 X10*3/uL (160-400); Red Blood Count 5.27 X10*6/uL (4.60-5.80); Red Cell Distribution Width 12.9 % (11.0-16.0); White Blood Count 7.9 X10*3/uL (4.8-10.8)
[2022-11-30] MEDS: Lithium Carbonate 300 MG TABLET PO (09:06)
[2022-11-30] MEDS: Divalproex Sodium ER 500 MG TAB.ER.24H 1000 MG PO ×2 (09:06→22:45)
[2022-11-30] MEDS: Multivitamin TABLET 1 TAB PO (09:06)
[2022-11-30] MEDS: HaloperidoL 1 MG TABLET 2.5 MG PO ×2 (09:06→22:45)
[2022-11-30] MEDS: Vitamin E (Dl,Tocopheryl Acet) 180 MG (400 UNIT) CAPSULE PO (09:06)
[2022-11-30] MEDS: Acetaminophen 325 MG TABLET 650 MG PO ×2 (09:09→15:17)
[2022-11-30 09:15] VITALS: BP 127/69; PULSE 90; RESP 18; TEMP 36.7; O2SAT 98
--- NOTE | 2022-11-30 09:54 | P.PNPSI_ITS ---
Subjective Subjective Date of Service: 11/30/22 Reason For Visit: Psychosis Subjective Notes: Conditional Voluntary Interim History: Pt laughing, intrusive with this mortgage or loan underwriter meeting with other pts. Pt invites this mortgage or loan underwriter for a walk. He denies SI/HI. He asks this mortgage or loan underwriter to touch my belly, is getting big. Per nursing, pt slept through the night, intrusive pt staff meeting with other pts, no aggression towards self or others. Medication Compliance: Yes Review of Systems Review of Systems Yes all other systems are reviewed and are negative Constitutional: Reports no additional constitutional complaints, Denies chills, Denies fever(s) and Denies night sweats Eyes: Reports no additional eye complaints, Denies blurry vision, Denies change in vision, Denies diplopia, Denies eye discharge, Denies loss of vision and Denies eye pain Denies dizziness Cardiovascular: Reports no additional cardiovascular complaints, Denies chest pain, Denies lightheadedness, Denies Loss of Consciousness and Denies dyspnea Respiratory: Reports no additional respiratory complaints and Denies dyspnea Gastrointestinal: Reports no additional gastrointestinal complaints, Denies abdominal pain, Denies melena, Denies hematochezia, Denies change in bowel habits and Denies change in stool character Genitourinary: Reports no additional male genitourinary complaints, Denies hematuria, Denies oliguria, Denies difficulty urinating, Denies dysuria, Denies urinary frequency, Denies urinary hesitancy, Denies urinary incontinence and Denies urinary urgency Musculoskeletal: Reports no additional musculoskeletal complaints, Denies n umbness and Denies tingling Denies dizziness, Denies loss of vision, Denies numbness and Denies tingling Psychiatric: Reports visual hallucinations Endocrine: Reports no additional endocrine complaints Hematologic/Lymphatic: Reports no additional hematologic/lymphatic complaints Allergic/Immunologic: Reports no additional allergic/immunologic complaints Mental Status Exam Mental Status Exam Narrative: adequately dressed and groomed. no PMA/PMR (but walking the rodriguez, as is his baseline). not cooperative with interview. initially, speech nml in amount and rate, nml latency, nml prosody. incr loudness. later, mute/terse. no paranoia or delusions evident during interview, but bizarre behavior (see SUB). affect flexible, non-labile, hyper-intense. mood irritable. no SI/SIBI/HI/AVH expressed. Diagnostics Vital Signs (24Hr): Vital Signs - 24 hr 11/29/22 21:22 11/30/22 09:15 Temperature 97.9 F 98.0 F Pulse Rate 69 90 Respiratory Rate 18 18 Blood Pressure 132/83 127/69 Pulse Oximetry 98 98 Oxygen Delivery Method Room Air Room Air BMI result Body Mass Index 34.3 Labs 11/30/22 06:35 11/30/22 06:35 Labs: Laboratory Results - last 48 hr 11/29/22 11/30/22 11/30/22 08:49 06:35 06:35 WBC 7.9 RBC 5.27 Hgb 15.3 Hct 46.2 MCV 87.7 MCH 29.0 MCHC 33.1 RDW 12.9 Plt Count 174 MPV 11.0 Immature Gran % (Auto) 0.3 Neut % (Auto) 46.9 Lymph % (Auto) 33.6 [place] % (Auto) 14.6 H Eos % (Auto) 3.8 Baso % (Auto) 0.8 Lymph # (Auto) 2.7 [place] # (Auto) 1.2 Eos # (Auto) 0.3 Baso # (Auto) 0.1 Abs Immat Gran (auto) 0.02 Absolute Neuts (auto) 6.0 3.7 Absolute Nucleated RBC 0.000 Nucleated RBC % (auto) 0.0 Sodium 142 Potassium 4.6 Chloride 109 H Carbon Dioxide 26 Anion Gap 12 BUN 19 H Creatinine 0.97 Estim Creat Clear Calc 121.7 Estimated GFR > 60 Random Glucose 98 Calcium 9.0 Total Bilirubin 0.7 Direct Bilirubin < 0.2 AST 19 ALT 17 Alkaline Phosphatase 51 Total Protein 6.0 L Albumin 3.8 Valproic Acid [place] 11/30/22 11/30/22 06:35 06:35 WBC RBC Hgb Hct MCV MCH MCHC RDW Plt Count MPV Immature Gran % (Auto) Neut % (Auto) Lymph % (Auto) [place] % (Auto) Eos % (Auto) Baso % (Auto) Lymph # (Auto) [place] # (Auto) Eos # (Auto) Baso # (Auto) Abs Immat Gran (auto) Absolute Neuts (auto) Absolute Nucleated RBC Nucleated RBC % (auto) Sodium Potassium Chloride Carbon Dioxide Anion Gap BUN Creatinine Estim Creat Clear Calc Estimated GFR Random Glucose Calcium Total Bilirubin Direct Bilirubin AST ALT Alkaline Phosphatase Total Protein Albumin Valproic Acid 64.0 [place] 0.83 Medications Medications Current Medications Acetaminophen (Acetaminophen 325 Mg Tablet) 650 mg PO Q6H PRN PRN Reason: Headache/Pain Mild Scale (1-3) Last Admin: 11/30/22 09:09 Dose: 650 mg Al Hydroxide/Mg Hydroxide (Magnesium Hydrox/Alum Hydrox 30 Ml Oral.Susp) 30 ml PO Q6H PRN PRN Reason: Heartburn/Nausea Benztropine Mesylate (Benztropine Mesylate 1 Mg Tablet) 1 mg PO BEDTIME [facility]LEX[facility] Last Admin: 11/29/22 21:03 Dose: 1 mg Clozapine (Clozapine 25 Mg Tablet) 12.5 mg PO BEDTIME [facility] Last Admin: 11/29/22 21:11 Dose: 12.5 mg Clozapine (Clozapine 100 Mg Tablet) 100 mg PO BEDTIME [facility] Last Admin: 11/29/22 21:11 Dose: 100 mg Divalproex Sodium (Divalproex Sodium Er 500 Mg Tab.Er.24h) 1,000 mg PO BID [facility] Last Admin: 11/30/22 09:06 Dose: 1,000 mg Divalproex Sodium (Divalproex Sodium Er 250 Mg Tab.Er.24h) 250 mg PO BEDTIME [facility] Last Admin: 11/29/22 21:02 Dose: 250 mg Haloperidol (Haloperidol 1 Mg Tablet) 2.5 mg PO BID [facility] Last Admin: 11/30/22 09:06 Dose: 2.5 mg Hydroxyzine HCl (Hydroxyzine Hcl 25 Mg Tablet) 25 mg PO Q6H PRN PRN Reason: Anxiety Last Admin: 11/29/22 00:04 Dose: 25 mg [place] Carbonate ([place] Carbonate Er 450 Mg Tablet.Er) 900 mg PO BEDTIME [facility] Last Admin: 11/29/22 21:02 Dose: 900 mg [place] Carbonate ([place] Carbonate 300 Mg Tablet) 300 mg PO DAILY [facility] Last Admin: 11/30/22 09:06 Dose: 300 mg Magnesium Hydroxide (Milk Of Magnesia 30 Ml Oral.Susp) 30 ml PO DAILY PRN PRN Reason: Constipation Multivitamins/Vitamin C (Multivitamin Tablet) 1 tab PO DAILY [facility] Last Admin: 11/30/22 09:06 Dose: 1 tab Trazodone HCl (Trazodone Hcl 50 Mg Tablet) 50 mg PO BEDTIME MRX1 PRN PRN Reason: Insomnia Last Admin: 11/29/22 21:03 Dose: 50 mg Vitamin E (Vitamin E (Dl,Tocopheryl Acet) 180 Mg (400 Unit) Capsule) 180 mg PO DAILY [facility] Last Admin: 11/30/22 09:06 Dose: 180 mg Allergies Allergies Allergy/AdvReac Type Severity Reaction Status Date / Time penicillin G [Penicillin G] Allergy Mild HIVES Verified 02/12/21 21:22 amoxicillin [Amoxicillin] Allergy Unknown HIVES Verified 02/12/21 21:22 penicillin V Allergy Unknown hives Verified 02/12/21 21:22 Assessment & Plan Assessment & Plan (1) Bipolar affective, manic, severe w/ psych: Status: Acute Code(s): F31.2 - Bipolar disorder, current episode manic severe with psychotic features Plan Adult male with a past history of bipolar disorder, with several prior admissions into the hospital with several ancillary services such as [facility] case managing services, guardianship and others admitted for the composition in the context of a recent loss of his grandmother and possible noncompliance. 11/15: Increased Clozaril up to 50 mg p.o. q.h.s. tonight, according to the chart he was taking 87.5 mg but he was not compliant in the past. 11/17: increased clozapine up to 75 mg po qhs. 11/18: no change in mgmt. appears euphoric, pleasant. 11/19: return clozapine dosing to 87.5 mg QHS. case discussed with lul, outpt provider, who feels prior regimen seemed to be doing well for pt. notes recent alcohol consumption and questions role of alcohol in pt's periodic decompensations. lul is aware of low-yg lithium levels and feels clinically he was resonding well. 11/20: stable. continue current mgmt. 11/21: stable presentation - euphoric with lability when challenged. continue current mgmt. 11/22: less labile today, poor insight into behaviors. continue current mgmt for now, but may need to increase lithium next week if mood Sx do not improve. 11/23: Continue current plan. 11/24: Increase Clozapine to 100 mg HS. Check Li level tomorrow. Increase Li to 300 + 900 mg starting tomorrow. 11/25: increased lithium dosing ordered for today noted. continue current plan. 11/26: continue current mgmt. 11/27: continue current mgmt. check lithium level friday morning. planning for discharge next week. 11/28: stable presentation. continue current mgmt. check lithium level friday. planning for discharge next week. 11/29: more irritable/bizarre/psychotic today. increase clozapine to 112.5 tonight and check VPA and lithium levels in the morning. titrate either as indicated over the weekend. Sx definitely not adequately controlled at the moment. 11/30 continue tx. Reason for contiued inpatient stay Substantial Risk for: inability to function Time Spent With Patient Time: Total time managing care of this patient today ____ minutes.
[2022-11-30 22:40] VITALS: BP 147/84; PULSE 78; RESP 18; TEMP 36.6; O2SAT 96
[2022-11-30] MEDS: Divalproex Sodium ER 250 MG TAB.ER.24H PO (22:45)
[2022-11-30] MEDS: cloZAPine 100 MG TABLET PO (22:45)
[2022-11-30] MEDS: cloZAPine 25 MG TABLET 12.5 MG PO (22:45)
[2022-11-30] MEDS: Lithium Carbonate ER 450 MG TABLET.ER 900 MG PO (22:45)
[2022-11-30] MEDS: Benztropine Mesylate 1 MG TABLET PO (22:45)
[2022-12-01] MEDS: HaloperidoL 1 MG TABLET 2.5 MG PO ×2 (08:39→20:44)
[2022-12-01] MEDS: Lithium Carbonate 300 MG TABLET PO (08:39)
[2022-12-01] MEDS: Divalproex Sodium ER 500 MG TAB.ER.24H 1000 MG PO ×2 (08:40→20:43)
[2022-12-01] MEDS: Vitamin E (Dl,Tocopheryl Acet) 180 MG (400 UNIT) CAPSULE PO (08:40)
[2022-12-01] MEDS: Multivitamin TABLET 1 TAB PO (08:40)
[2022-12-01 08:42] VITALS: BP 116/67; PULSE 84; RESP 16; TEMP 36.6; O2SAT 98
[2022-12-01] MEDS: Acetaminophen 325 MG TABLET 650 MG PO (09:12)
--- NOTE | 2022-12-01 20:10 | P.PNPSI_ITS ---
Subjective Subjective Date of Service: 12/01/22 Reason For Visit: Psychosis Interim History: Pt laughing, intrusive with this data analyst report writer meeting with other pts. Pt mostly pacing in the rodriguez. Pt again invites this data analyst report writer for a walk. He denies SI/HI. He asks this data analyst report writer to touch my belly, is getting big. Per nursing, pt slept through the night, intrusive pt staff meeting with other pts, no aggression towards self or others. Review of Systems Review of Systems Yes all other systems are reviewed and are negative Constitutional: Reports no additional constitutional complaints, Denies chills, Denies fever(s) and Denies night sweats Eyes: Reports no additional eye complaints, Denies blurry vision, Denies change in vision, Denies diplopia, Denies eye discharge, Denies loss of vision and Denies eye pain Denies dizziness Cardiovascular: Reports no additional cardiovascular complaints, Denies chest pain, Denies lightheadedness, Denies Loss of Consciousness and Denies dyspnea Respiratory: Reports no additional respiratory complaints and Denies dyspnea Gastrointestinal: Reports no additional gastrointestinal complaints, Denies abdominal pain, Denies melena, Denies hematochezia, Denies change in bowel h abits and Denies change in stool character Genitourinary: Reports no additional male genitourinary complaints, Denies hematuria, Denies oliguria, Denies difficulty urinating, Denies dysuria, Denies urinary frequency, Denies urinary hesitancy, Denies urinary incontinence and D enies urinary urgency Musculoskeletal: Reports no additional musculoskeletal complaints, Denies numbness and Denies tingling Denies dizziness, Denies loss of vision, Denies numbness and Denies tingling Psychiatric: Reports visual hallucinations Endocrine: Reports no additional endocrine complaints Hematologic/Lymphatic: Reports no additional hematologic/lymphatic complaints Allergic/Immunologic: Reports no additional allergic/immunologic complaints Mental Status Exam Mental Status Exam Narrative: adequately dressed and groomed. no PMA/PMR (but walking the rodriguez, as is his baseline). not cooperative with interview. initially, speech nml in amount and rate, nml latency, nml prosody. incr loudness. later, mute/terse. no paranoia or delusions evident during interview, but bizarre behavior (see SUB). affect flexible, non-labile, hyper-intense. mood irritable. no SI/SIBI/HI/AVH expressed. Diagnostics Vital Signs (24Hr): Vital Signs - 24 hr 11/30/22 22:40 12/01/22 08:42 Temperature 97.9 F 97.8 F Pulse Rate 78 84 Respiratory Rate 18 16 Blood Pressure 147/84 H 116/67 Pulse Oximetry 96 98 Oxygen Delivery Method Room Air Room Air BMI result Body Mass Index 34.3 Labs 11/30/22 06:35 11/30/22 06:35 Labs: Laboratory Results - last 48 hr 11/30/22 11/30/22 11/30/22 06:35 06:35 06:35 WBC 7.9 RBC 5.27 Hgb 15.3 Hct 46.2 MCV 87.7 MCH 29.0 MCHC 33.1 RDW 12.9 Plt Count 174 MPV 11.0 Immature Gran % (Auto) 0.3 Neut % (Auto) 46.9 Lymph % (Auto) 33.6 [place] % (Auto) 14.6 H Eos % (Auto) 3.8 Baso % (Auto) 0.8 Lymph # (Auto) 2.7 [place] # (Auto) 1.2 Eos # (Auto) 0.3 Baso # (Auto) 0.1 Abs Immat Gran (auto) 0.02 Absolute Neuts (auto) 3.7 Absolute Nucleated RBC 0.000 Nucleated RBC % (auto) 0.0 Sodium 142 Potassium 4.6 Chloride 109 H Carbon Dioxide 26 Anion Gap 12 BUN 19 H Creatinine 0.97 Estim Creat Clear Calc 121.7 Estimated GFR > 60 Random Glucose 98 Calcium 9.0 Total Bilirubin 0.7 Direct Bilirubin < 0.2 AST 19 ALT 17 Alkaline Phosphatase 51 Total Protein 6.0 L Albumin 3.8 Valproic Acid 64.0 [place] 11/30/22 06:35 WBC RBC Hgb Hct MCV MCH MCHC RDW Plt Count MPV Immature Gran % (Auto) Neut % (Auto) Lymph % (Auto) [place] % (Auto) Eos % (Auto) Baso % (Auto) Lymph # (Auto) [place] # (Auto) Eos # (Auto) Baso # (Auto) Abs Immat Gran (auto) Absolute Neuts (auto) Absolute Nucleated RBC Nucleated RBC % (auto) Sodium Potassium Chlor[place] Carbon Dioxide Anion Gap BUN Creatinine Estim Creat Clear Calc Estimated GFR Random Glucose Calcium Total Bilirubin Direct Bilirubin AST ALT Alkaline Phosphatase Total Protein Albumin Valproic Acid [place] 0.83 Medications Medications Current Medications Acetaminophen (Acetaminophen 325 Mg Tablet) 650 mg PO Q6H PRN PRN Reason: Headache/Pain Mild Scale (1-3) Last Admin: 12/01/22 09:12 Dose: 650 mg Al Hydroxide/Mg Hydroxide (Magnesium Hydrox/Alum Hydrox 30 Ml Oral.Susp) 30 ml PO Q6H PRN PRN Reason: Heartburn/Nausea Benztropine Mesylate (Benztropine Mesylate 1 Mg Tablet) 1 mg PO BEDTIME [facility] Last Admin: 11/30/22 22:45 Dose: 1 mg Clozapine (Clozapine 25 Mg Tablet) 12.5 mg PO BEDTIME [facility] Last Admin: 11/30/22 22:45 Dose: 12.5 mg Clozapine (Clozapine 100 Mg Tablet) 100 mg PO BEDTIME [facility] Last Admin: 11/30/22 22:45 Dose: 100 mg Divalproex Sodium (Divalproex Sodium Er 500 Mg Tab.Er.24h) 1,000 mg PO BID [facility] Last Admin: 12/01/22 08:40 Dose: 1,000 mg Divalproex Sodium (Divalproex Sodium Er 250 Mg Tab.Er.24h) 250 mg PO BEDTIME [facility] Last Admin: 11/30/22 22:45 Dose: 250 mg Haloperidol (Haloperidol 1 Mg Tablet) 2.5 mg PO BID [facility] Last Admin: 12/01/22 08:39 Dose: 2.5 mg Hydroxyzine HCl (Hydroxyzine Hcl 25 Mg Tablet) 25 mg PO Q6H PRN PRN Reason: Anxiety Last Admin: 11/29/22 00:04 Dose: 25 mg [place] Carbonate ([place] Carbonate Er 450 Mg Tablet.Er) 900 mg PO BEDTIME [facility] Last Admin: 11/30/22 22:45 Dose: 900 mg [place] Carbonate ([place] Carbonate 300 Mg Tablet) 300 mg PO DAILY [facility] Last Admin: 12/01/22 08:39 Dose: 300 mg Magn[place] Hydroxide (Milk Of [place]esia 30 Ml Oral.Susp) 30 ml PO DAILY PRN PRN Reason: Constipation Multivitamins/Vitamin C (Multivitamin Tablet) 1 tab PO DAILY [facility] Last Admin: 12/01/22 08:40 Dose: 1 tab Trazodone HCl (Trazodone Hcl 50 Mg Tablet) 50 mg PO BEDTIME MRX1 PRN PRN Reason: Insomnia Last Admin: 03/31/23 21:03 Dose: 50 mg Vitamin E (Vitamin E (Dl,Tocopheryl Acet) 180 Mg (400 Unit) Capsule) 180 mg PO DAILY [facility] Last Admin: 12/01/22 08:40 Dose: 180 mg Allergies Allergies Allergy/AdvReac Type Severity Reaction Status Date / Time penicillin G [Penicillin G] Allergy Mild HIVES Verified 02/12/21 21:22 amoxicillin [Amoxicillin] Allergy Unknown HIVES Verified 02/12/21 21:22 penicillin V Allergy Unknown hives Verified 02/12/21 21:22 Assessment & Plan Assessment & Plan (1) Bipolar affective, manic, severe w/ psych: Status: Acute Code(s): F31.2 - Bipolar disorder, current episode manic severe with psychotic features Plan Adult male with a past history of bipolar disorder, with several prior admissions into the hospital with several ancillary services such as [facility] case managing services, guardianship and others admitted for the composition in the context of a recent loss of his grandmother and possible noncompliance. 11/15: Increased Clozaril up to 50 mg p.o. q.h.s. tonight, according to the chart he was taking 87.5 mg but he was not compliant in the past. 11/17: increased clozapine up to 75 mg po qhs. 11/18: no change in mgmt. appears euphoric, pleasant. 11/19: return clozapine dosing to 87.5 mg QHS. case discussed with lul, outpt provider, who feels prior regimen seemed to be doing well for pt. notes recent alcohol consumption and questions role of alcohol in pt's periodic decompensations. lul is aware of low-yg lithium levels and feels clinically he was resonding well. 11/20: stable. continue current mgmt. 11/21: stable presentation - euphoric with lability when challenged. continue current mgmt. 11/22: less labile today, poor insight into behaviors. continue current mgmt for now, but may need to increase lithium next week if mood Sx do not improve. 11/23: Continue current plan. 11/24: Increase Clozapine to 100 mg HS. Check Li level tomorrow. Increase Li to 300 + 900 mg starting tomorrow. 11/25: increased lithium dosing ordered for today noted. continue current plan. 11/26: continue current mgmt. 11/27: continue current mgmt. check lithium level friday morning. planning for discharge next week. 11/28: stable presentation. continue current mgmt. check lithium level friday. planning for discharge next week. 11/29: more irritable/bizarre/psychotic today. increase clozapine to 112.5 tonight and check VPA and lithium levels in the morning. titrate either as indicated over the weekend. Sx definitely not adequately controlled at the moment. 11/30 continue tx. 12/01 continue tx. Reason for contiued inpatient stay Substantial Risk for: inability to function Time Spent With Patient Time: Total time managing care of this patient today ____ minutes.
[2022-12-01 20:40] VITALS: BP 131/78; PULSE 77; RESP 16; TEMP 36.6; O2SAT 97
[2022-12-01] MEDS: cloZAPine 25 MG TABLET 12.5 MG PO (20:43)
[2022-12-01] MEDS: Lithium Carbonate ER 450 MG TABLET.ER 900 MG PO (20:43)
[2022-12-01] MEDS: cloZAPine 100 MG TABLET PO (20:44)
[2022-12-01] MEDS: traZODone HCL 50 MG TABLET PO (20:44)
[2022-12-01] MEDS: Divalproex Sodium ER 250 MG TAB.ER.24H PO (20:44)
[2022-12-01] MEDS: Benztropine Mesylate 1 MG TABLET PO (20:45)
[2022-12-02 06:00] VITALS: BP 132/83; PULSE 97; TEMP 35.9; O2SAT 98
[2022-12-02] MEDS: Divalproex Sodium ER 500 MG TAB.ER.24H 1000 MG PO ×2 (08:47→22:08)
[2022-12-02] MEDS: Multivitamin TABLET 1 TAB PO (08:48)
[2022-12-02] MEDS: HaloperidoL 1 MG TABLET 2.5 MG PO ×2 (08:48→22:07)
[2022-12-02] MEDS: Vitamin E (Dl,Tocopheryl Acet) 180 MG (400 UNIT) CAPSULE PO (08:48)
[2022-12-02] MEDS: Lithium Carbonate 300 MG TABLET PO (08:49)
[2022-12-02] MEDS: Acetaminophen 325 MG TABLET 650 MG PO ×3 (08:50→22:43)
--- NOTE | 2022-12-02 13:39 | HO.PSYCHPN ---
Subjective Subjective Date of Service: 12/02/22 Reason For Visit: Psychosis Interim History: calm, cooperative. friendly, glad-handing. reviewed labs, discuss proposed medication changes. pt in agreement with changes. unable to account for his curious behavior on friday more elaobrately than to say he had a lot on his mind and it was nothing to do with this advertising writer. per staff, pacing, laughing out loud to himself. appearing to RIS. very intrusive with peers and staff. eating and sleeping well. denies Sx. Mental Status Exam Mental Status Exam Narrative: adequately dressed and groomed. no PMA/PMR (but walking the rodriguez, as is his baseline). cooperative with interview. speech nml in amount and rate, nml latency, nml prosody. incr loudness. no paranoia or delusions evident during interview. affect flexible, non-labile, normo-intense. mood euphoric. no SI/SIBI/HI/AVH expressed. Diagnostics Vital Signs (24Hr): Vital Signs - 24 hr 12/01/22 20:40 12/02/22 06:00 Temperature 97.9 F 96.7 F L Pulse Rate 77 97 Respiratory Rate 16 Blood Pressure 131/78 132/83 Pulse Oximetry 97 98 Oxygen Delivery Method Room Air Room Air BMI result Body Mass Index 34.3 Labs 11/30/22 06:35 11/30/22 06:35 Medications Medications Current Medications Acetaminophen (Acetaminophen 325 Mg Tablet) 650 mg PO Q6H PRN PRN Reason: Headache/Pain Mild Scale (1-3) Last Admin: 12/02/22 08:50 Dose: 650 mg [place] Hydroxide/Mg Hydroxide (Magnesium Hydrox/Alum Hydrox 30 Ml Oral.Susp) 30 ml PO Q6H PRN PRN Reason: Heartburn/Nausea Benztropine Mesylate (Benztropine Mesylate 1 Mg Tablet) 1 mg PO BEDTIME [facility]LEX[facility] Last Admin: 12/01/22 20:45 Dose: 1 mg Clozapine (Clozapine 25 Mg Tablet) 12.5 mg PO BEDTIME [facility]LEX[facility] Last Admin: 12/01/22 20:43 Dose: 12.5 mg Clozapine (Clozapine 100 Mg Tablet) 100 mg PO BEDTIME [facility]LEX[facility] Last Admin: 12/01/22 20:44 Dose: 100 mg Divalproex Sodium (Divalproex Sodium Er 500 Mg Tab.Er.24h) 1,000 mg PO BID [facility] Last Admin: 12/02/22 08:47 Dose: 1,000 mg Divalproex Sodium (Divalproex Sodium Er 500 Mg Tab.Er.24h) 500 mg PO BEDTIME [facility] Haloperidol (Haloperidol 1 Mg Tablet) 2.5 mg PO BID [facility] Last Admin: 12/02/22 08:48 Dose: 2.5 mg Hydroxyzine HCl (Hydroxyzine Hcl 25 Mg Tablet) 25 mg PO Q6H PRN PRN Reason: Anxiety Last Admin: 11/29/22 00:04 Dose: 25 mg [place] Carbonate ([place] Carbonate Er 450 Mg Tablet.Er) 900 mg PO BEDTIME [facility] Last Admin: 12/01/22 20:43 Dose: 900 mg [place] Carbonate ([place] Carbonate 300 Mg Tablet) 300 mg PO DAILY [facility] Last Admin: 12/02/22 08:49 Dose: 300 mg Magn[place] Hydroxide (Milk Of [place]esia 30 Ml Oral.Susp) 30 ml PO DAILY PRN PRN Reason: Constipation Multivitamins/Vitamin C (Multivitamin Tablet) 1 tab PO DAILY [facility] Last Admin: 12/02/22 08:48 Dose: 1 tab Trazodone HCl (Trazodone Hcl 50 Mg Tablet) 50 mg PO BEDTIME MRX1 PRN PRN Reason: Insomnia Last Admin: 12/01/22 20:44 Dose: 50 mg Vitamin E (Vitamin E (Dl,Tocopheryl Acet) 180 Mg (400 Unit) Capsule) 180 mg PO DAILY [facility] Last Admin: 12/02/22 08:48 Dose: 180 mg Allergies Allergies Allergy/AdvReac Type Severity Reaction Status Date / Time penicillin G [Penicillin G] Allergy Mild HIVES Verified 02/12/21 21:22 amoxicillin [Amoxicillin] Allergy Unknown HIVES Verified 02/12/21 21:22 penicillin V Allergy Unknown hives Verified 02/12/21 21:22 Assessment & Plan Assessment & Plan (1) Bipolar affective, manic, severe w/ psych: Status: Acute Code(s): F31.2 - Bipolar disorder, current episode manic severe with psychotic features Plan Adult male with a past history of bipolar disorder, with several prior admissions into the hospital with several ancillary services such as [facility] case managing services, guardianship and others admitted for the composition in the context of a recent loss of his grandmother and possible noncompliance. 11/15: Increased Clozaril up to 50 mg p.o. q.h.s. tonight, according to the chart he was taking 87.5 mg but he was not compliant in the past. 11/17: increased clozapine up to 75 mg po qhs. 11/18: no change in mgmt. appears euphoric, pleasant. 11/19: return clozapine dosing to 87.5 mg QHS. case discussed with lul, outpt provider, who feels prior regimen seemed to be doing well for pt. notes recent alcohol consumption and questions role of alcohol in pt's periodic decompensations. lul is aware of low-yg lithium levels and feels clinically he was resonding well. 11/20: stable. continue current mgmt. 11/21: stable presentation - euphoric with lability when challenged. continue current mgmt. 11/22: less labile today, poor insight into behaviors. continue current mgmt for now, but may need to increase lithium next week if mood Sx do not improve. 11/23: Continue current plan. 11/24: Increase Clozapine to 100 mg HS. Check Li level tomorrow. Increase Li to 300 + 900 mg starting tomorrow. 11/25: increased lithium dosing ordered for today noted. continue current plan. 11/26: continue current mgmt. 11/27: continue current mgmt. check lithium level friday morning. planning for discharge next week. 11/28: stable presentation. continue current mgmt. check lithium level friday morning. planning for discharge next week. 11/29: more irritable/bizarre/psychotic today. increase clozapine to 112.5 tonight and check VPA and lithium levels in the morning. titrate either as indicated over the weekend. Sx definitely not adequately controlled at the moment. 11/30 continue tx. 12/01 continue tx. 12/02: 11/30 lithium level 0.83, VPA level 64. increase VPA from 1000/1250 to 1000/1500 as of tonight. ashlyn attenuated, but still apparent. Reason for contiued inpatient stay Substantial Risk for: inability to function and rapid decompensation Time Spent With Patient Time: Total time managing care of this patient today _25___ minutes.
[2022-12-02 20:17] VITALS: BP 135/81; PULSE 91; RESP 18; TEMP 36.4; O2SAT 99
[2022-12-02] MEDS: cloZAPine 25 MG TABLET 12.5 MG PO (22:08)
[2022-12-02] MEDS: Divalproex Sodium ER 500 MG TAB.ER.24H PO (22:08)
[2022-12-02] MEDS: Benztropine Mesylate 1 MG TABLET PO (22:09)
[2022-12-02] MEDS: Lithium Carbonate ER 450 MG TABLET.ER 900 MG PO (22:09)
[2022-12-02] MEDS: cloZAPine 100 MG TABLET PO (22:09)
[2022-12-03] MEDS: Vitamin E (Dl,Tocopheryl Acet) 180 MG (400 UNIT) CAPSULE PO (09:14)
[2022-12-03] MEDS: Divalproex Sodium ER 500 MG TAB.ER.24H 1000 MG PO ×2 (09:14→22:39)
[2022-12-03] MEDS: HaloperidoL 1 MG TABLET 2.5 MG PO ×2 (09:14→22:40)
[2022-12-03] MEDS: Multivitamin TABLET 1 TAB PO (09:14)
[2022-12-03] MEDS: Lithium Carbonate 300 MG TABLET PO (09:14)
[2022-12-03 09:18] VITALS: BP 128/72; PULSE 90; RESP 18; TEMP 36.6; O2SAT 97
[2022-12-03] MEDS: Acetaminophen 325 MG TABLET 650 MG PO ×2 (14:03→20:01)
--- NOTE | 2022-12-03 14:28 | HO.PSYCHPN ---
Subjective Subjective Date of Service: 12/03/22 Reason For Visit: Psychosis Interim History: no change in presentation. aware of plan to discharge . feeling good about that plan. per staff, grateful for treatment. denies anx/dep. eating and sleeping well. pacing. headphones on. denies Sx. D/C . Mental Status Exam Mental Status Exam Narrative: adequately dressed and groomed. no PMA/PMR (but walking the rodriguez, as is his baseline). cooperative with interview. speech nml in amount and rate, nml latency, nml prosody. incr loudness. no paranoia or delusions evident during interview. affect flexible, non-labile, normo-intense. mood euphoric. no SI/SIBI/HI/AVH expressed. Diagnostics Vital Signs (24Hr): Vital Signs - 24 hr 12/02/22 20:17 12/03/22 09:18 Temperature 97.6 F 97.8 F Pulse Rate 91 90 Respiratory Rate 18 18 Blood Pressure 135/81 128/72 Pulse Oximetry 99 97 Oxygen Delivery Method Room Air Room Air BMI result Body Mass Index 34.3 Labs 11/30/22 06:35 11/30/22 06:35 Medications Medications Current Medications Acetaminophen (Acetaminophen 325 Mg Tablet) 650 mg PO Q6H PRN PRN Reason: Headache/Pain Mild Scale (1-3) Last Admin: 12/03/22 14:03 Dose: 650 mg Al Hydroxide/Mg Hydroxide (Magnesium Hydrox/Alum Hydrox 30 Ml Oral.Susp) 30 ml PO Q6H PRN PRN Reason: Heartburn/Nausea Benztropine Mesylate (Benztropine Mesylate 1 Mg Tablet) 1 mg PO BEDTIME ALEXIA Last Admin: 12/02/22 22:09 Dose: 1 mg Clozapine (Clozapine 25 Mg Tablet) 12.5 mg PO BEDTIME ALEXIA Last Admin: 12/02/22 22:08 Dose: 12.5 mg Clozapine (Clozapine 100 Mg Tablet) 100 mg PO BEDTIME ALEXIA Last Admin: 12/02/22 22:09 Dose: 100 mg Divalproex Sodium (Divalproex Sodium Er 500 Mg Tab.Er.24h) 1,000 mg PO BID [facility] Last Admin: 12/03/22 09:14 Dose: 1,000 mg Divalproex Sodium (Divalproex Sodium Er 500 Mg Tab.Er.24h) 500 mg PO BEDTIME ALEXIA Last Admin: 12/02/22 22:08 Dose: 500 mg Haloperidol (Haloperidol 1 Mg Tablet) 2.5 mg PO BID [facility] Last Admin: 12/03/22 09:14 Dose: 2.5 mg Hydroxyzine HCl (Hydroxyzine Hcl 25 Mg Tablet) 25 mg PO Q6H PRN PRN Reason: Anxiety Last Admin: 11/29/22 00:04 Dose: 25 mg Cutler Carbonate (Cutler Carbonate Er 450 Mg Tablet.Er) 900 mg PO BEDTIME ALEXIA Last Admin: 12/02/22 22:09 Dose: 900 mg Cutler Carbonate (Cutler Carbonate 300 Mg Tablet) 300 mg PO DAILY [facility] Last Admin: 12/03/22 09:14 Dose: 300 mg Magnesium Hydroxide (Milk Of Magnesia 30 Ml Oral.Susp) 30 ml PO DAILY PRN PRN Reason: Constipation Multivitamins/Vitamin C (Multivitamin Tablet) 1 tab PO DAILY [facility] Last Admin: 12/03/22 09:14 Dose: 1 tab Trazodone HCl (Trazodone Hcl 50 Mg Tablet) 50 mg PO BEDTIME MRX1 PRN PRN Reason: Insomnia Last Admin: 12/01/22 20:44 Dose: 50 mg Vitamin E (Vitamin E (Dl,Tocopheryl Acet) 180 Mg (400 Unit) Capsule) 180 mg PO DAILY [facility] Last Admin: 12/03/22 09:14 Dose: 180 mg Allergies Allergies Allergy/AdvReac Type Severity Reaction Status Date / Time penicillin G [Penicillin G] Allergy Mild HIVES Verified 02/12/21 21:22 amoxicillin [Amoxicillin] Allergy Unknown HIVES Verified 02/12/21 21:22 penicillin V Allergy Unknown hives Verified 02/12/21 21:22 Assessment & Plan Assessment & Plan (1) Bipolar affective, manic, severe w/ psych: Status: Acute Code(s): F31.2 - Bipolar disorder, current episode manic severe with psychotic features Plan Adult male with a past history of bipolar disorder, with several prior admissions into the hospital with several ancillary services such as [facility] case managing services, guardianship and others admitted for the composition in the context of a recent loss of his grandmother and possible noncompliance. 11/15: Increased Clozaril up to 50 mg p.o. q.h.s. tonight, according to the chart he was taking 87.5 mg but he was not compliant in the past. 11/17: increased clozapine up to 75 mg po qhs. 11/18: no change in mgmt. appears euphoric, pleasant. 11/19: return clozapine dosing to 87.5 mg QHS. case discussed with lul, outpt provider, who feels prior regimen seemed to be doing well for pt. notes recent alcohol consumption and questions role of alcohol in pt's periodic decompensations. lul is aware of low-yg lithium levels and feels clinically he was resonding well. 11/20: stable. continue current mgmt. 11/21: stable presentation - euphoric with lability when challenged. continue current mgmt. 11/22: less labile today, poor insight into behaviors. continue current mgmt for now, but may need to increase lithium next week if mood Sx do not improve. 11/23: Continue current plan. 11/24: Increase Clozapine to 100 mg HS. Check Li level tomorrow. Increase Li to 300 + 900 mg starting tomorrow. 11/25: increased lithium dosing ordered for today noted. continue current plan. 11/26: continue current mgmt. 11/27: continue current mgmt. check lithium level friday morning. planning for discharge next week. 11/28: stable presentation. continue current mgmt. check lithium level friday morning. planning for discharge next week. 11/29: more irritable/bizarre/psychotic today. increase clozapine to 112.5 tonight and check VPA and lithium levels in the morning. titrate either as indicated over the weekend. Sx definitely not adequately controlled at the moment. 11/30 continue tx. 12/01 continue tx. 12/02: 11/30 lithium level 0.83, VPA level 64. increase VPA from 1000/1250 to 1000/1500 as of tonight. ashlyn attenuated, but still apparent. 12/03: continue current mgmt. no concerns or complaints. planning for discharge. Reason for contiued inpatient stay Substantial Risk for: inability to function and rapid decompensation Time Spent With Patient Time: Total time managing care of this patient today _25___ minutes.
[2022-12-03 21:29] VITALS: BP 140/81; PULSE 65; RESP 16; TEMP 36.4; O2SAT 98
[2022-12-03] MEDS: Lithium Carbonate ER 450 MG TABLET.ER 900 MG PO (22:39)
[2022-12-03] MEDS: cloZAPine 25 MG TABLET 12.5 MG PO (22:39)
[2022-12-03] MEDS: Divalproex Sodium ER 500 MG TAB.ER.24H PO (22:40)
[2022-12-03] MEDS: cloZAPine 100 MG TABLET PO (22:40)
[2022-12-03] MEDS: traZODone HCL 50 MG TABLET PO (22:40)
[2022-12-03] MEDS: Benztropine Mesylate 1 MG TABLET PO (22:42)
[2022-12-04] MEDS: Vitamin E (Dl,Tocopheryl Acet) 180 MG (400 UNIT) CAPSULE PO (09:48)
[2022-12-04] MEDS: Divalproex Sodium ER 500 MG TAB.ER.24H 1000 MG PO ×2 (09:48→23:15)
[2022-12-04] MEDS: Multivitamin TABLET 1 TAB PO (09:48)
[2022-12-04] MEDS: Lithium Carbonate 300 MG TABLET PO (09:48)
[2022-12-04] MEDS: HaloperidoL 1 MG TABLET 2.5 MG PO ×2 (09:48→23:14)
[2022-12-04 10:05] VITALS: BP 120/70; PULSE 95; RESP 18; TEMP 36.6; O2SAT 98
--- NOTE | 2022-12-04 10:41 | PM.PSYDC ---
DS: Providers Provider Date of Service: 12/04/22 Date of admission: 11/15/22 23:36 Primary care physician: Enrrique Goetz MD DS: Diagnosis Discharge Diagnosis (1) Bipolar affective, manic, severe w/ psych: Status: Acute DS: Medications Discharge Medications Home Medications: Home Medications Medication Instructions Recorded Confirmed benztropine 1 mg tablet 1 tab PO BEDTIME 11/15/22 11/15/22 divalproex 500 mg tablet,extended 2 tab PO BID 11/15/22 11/15/22 release 24 hr haloperidol 5 mg tablet 0.5 tab PO BID 11/15/22 11/15/22 lithium carbonate 450 mg 900 mg PO BEDTIME 11/15/22 11/15/22 tablet,extended release multivitamin with folic acid 400 1 tab PO DAILY 11/15/22 11/15/22 mcg tablet (Tab-A-Daniel) vitamin E (dl, acetate) 180 mg 1 cap PO DAILY 11/15/22 11/15/22 (400 unit) capsule Previous Rx's Medication Instructions Recorded clozapine 100 mg tablet 100 mg PO BEDTIME 30 days #30 tabs 12/04/22 clozapine 25 mg tablet 12.5 mg PO BEDTIME 30 days #15 tabs 12/04/22 divalproex 500 mg tablet,extended 500 mg PO BEDTIME 30 days #30 tabs 12/04/22 release 24 hr lithium carbonate 300 mg tablet 300 mg PO DAILY 30 days #30 tabs 12/04/22 Mental Status Exam Mental Status Exam Narrative: adequately dressed and groomed. no PMA/PMR (but walking the rodriguez, as is his baseline). cooperative with interview. speech nml in amount and rate, nml latency, nml prosody. incr loudness. no paranoia or delusions evident during interview. affect flexible, non-labile, normo-intense. mood very good. no SI/SIBI/HI/AVH. Data Data Completed and Pending Completed studies during hospitalization [Text1]: 11/29/22 11/30/22 11/30/22 08:49 06:35 06:35 WBC 7.9 RBC 5.27 Hgb 15.3 Hct 46.2 MCV 87.7 MCH 29.0 MCHC 33.1 RDW 12.9 Plt Count 174 MPV 11.0 Immature Gran % (Auto) 0.3 Neut % (Auto) 46.9 Lymph % (Auto) 33.6 [place] % (Auto) 14.6 H Eos % (Auto) 3.8 Baso % (Auto) 0.8 Lymph # (Auto) 2.7 [place] # (Auto) 1.2 Eos # (Auto) 0.3 Baso # (Auto) 0.1 Abs Immat Gran (auto) 0.02 Absolute Neuts (auto) 6.0 3.7 Absolute Nucleated RBC 0.000 Nucleated RBC % (auto) 0.0 Sodium 142 Potassium 4.6 Chloride 109 H Carbon Dioxide 26 Anion Gap 12 BUN 19 H Creatinine 0.97 Estim Creat Clear Calc 121.7 Estimated GFR > 60 Random Glucose 98 Calcium 9.0 Total Bilirubin 0.7 Direct Bilirubin < 0.2 AST 19 ALT 17 Alkaline Phosphatase 51 Total Protein 6.0 L Albumin 3.8 Valproic Acid [place] 11/30/22 11/30/22 06:35 06:35 WBC RBC Hgb Hct MCV MCH MCHC RDW Plt Count MPV Immature Gran % (Auto) Neut % (Auto) Lymph % (Auto) [place] % (Auto) Eos % (Auto) Baso % (Auto) Lymph # (Auto) [place] # (Auto) Eos # (Auto) Baso # (Auto) Abs Immat Gran (auto) Absolute Neuts (auto) Absolute Nucleated RBC Nucleated RBC % (auto) Sodium Potassium Chloride Carbon Dioxide Anion Gap BUN Creatinine Estim Creat Clear Calc Estimated GFR Random Glucose Calcium Total Bilirubin Direct Bilirubin AST ALT Alkaline Phosphatase Total Protein Albumin Valproic Acid 64.0 [place] 0.83 DS: Summary Hospital Course Hospital Course: per 11/16 admission note: The patient is a 32-year-old male, single, 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 According to the crisis assessment, the patient's grandmother a few weeks ago.? In the last weeks, the patient had been decompensated with disorganized behavior, sexually disinhibited behavior and increased energy.? The patient went to his outpatient treatment team providers, he was assessed and [facility] to our emergency room, assessed by care team and transferring to this facility for psychiatric stabilization.? On interview, the patient adamantly denies new symptoms he states that he is feeling fine but it was clear that the patient was manic with flight of idea, racing thoughts, elated mood and increased energy with psychomotor agitation.? Even though the patient was easily redirectable and he stated that he has going to continue taking his medications.? During the interview the patient adamantly denied been on compliant even though that there was that report from the outpatient providers.? We discussed risks, benefits, side-effects and alternatives and the patient agreed to continue with his regular treatment. Past Psychiatric History: Inpatient: multiple in the past, unclear last one OP: [facility] Suicide attempts: none Past medication trials: olanzapine, lithium, depakote, haldol, clozaril Medical Evaluation Reviewed: Yes PMFSH Medical History? Bipolar disorder Family History: Denies Social History: single, never , lives in an apartment, supported by [facility] services, has a guardian. Substance History: Denies Trauma History: Denies Precis: Adult male with a past history of bipolar disorder, with several prior admissions into the hospital with several ancillary services such as [facility] case managing services, guardianship and others admitted for the composition in the context of a recent loss of his grandmother and possible noncompliance.? 11/15:? Increased Clozaril up to 50 mg p.o. q.h.s. tonight, according to the chart he was taking 87.5 mg but he was not compliant in the past. 11/17:? increased clozapine up to 75 mg po qhs. 11/18:? no change in mgmt.? appears euphoric, pleasant. 11/19:? return clozapine dosing to 87.5 mg QHS.? case discussed with lul outpt provider, who feels prior regimen seemed to be doing well for pt.? notes recent alcohol consumption and questions role of alcohol in pt's periodic decompensations.? lul is aware of low-yg lithium levels and feels clinically he was resonding well. 11/20: stable.? continue current mgmt. 11/21: stable presentation - euphoric with lability when challenged.? continue current mgmt. 11/22: less labile today, poor insight into behaviors.? continue current mgmt for now, but may need to increase lithium next week if mood Sx do not improve. 11/23: Continue current plan. 11/24: Increase Clozapine to 100 mg HS. Check Li level tomorrow. Increase Li to 300 + 900 mg starting tomorrow. 11/25: increased lithium dosing ordered for today noted.? continue current plan. 11/26: continue current mgmt. 11/27: continue current mgmt.? check lithium level friday morning.? planning for discharge next week. 11/28: stable presentation.? continue current mgmt.? check lithium level friday morning.? planning for discharge next week. 11/29: more irritable/bizarre/psychotic today.? increase clozapine to 112.5 tonight and check VPA and lithium levels in the morning.? titrate either as indicated over the weekend.? Sx definitely not adequately controlled at the moment. 11/30 continue tx. 12/01 continue tx. 12/02:? 11/30 lithium level 0.83, VPA level 64.? increase VPA from 1000/1250 to 1000/1500 as of tonight.? ashlyn attenuated, but still apparent. 12/03:? continue current mgmt.? no concerns or complaints.? planning for discharge. 12/04: stable, no change in plan. discharge tomorrow. Time Spent with Patient Time attestation: Total time managing care of this patient today ____ minutes. Time spent: Greater than 30 minutes Discharge Plan Discharge Anticipated Discharge Date/Time: 12/05/22 16:30 Patient Disposition: Home, Self-Care Discharge Diagnosis: Bipolar I Disorder, MRE Manic Referrals: Tim [facility] (Psychiatry) [Other] - 12/19/22 9:20 am (IN OFFICE APPOINTMENT) Enrrique Goetz MD [Primary Care Provider] - 1 Week Discharge Medications: New clozapine 100 mg Tablet 100 mg PO BEDTIME 30 Days Qty: 30 0RF divalproex 500 mg Tablet Extended Release 24 Hr 500 mg PO BEDTIME 30 Days Qty: 30 0RF clozapine 25 mg Tablet 12.5 mg PO BEDTIME 30 Days Qty: 15 0RF lithium carbonate 300 mg Tablet 300 mg PO DAILY 30 Days Qty: 30 0RF Continued haloperidol 5 mg tablet 0.5 tab PO BID lithium carbonate 450 mg tablet extended release 900 mg PO BEDTIME divalproex 500 mg tablet extended release 24 hr 2 tab PO BID benztropine 1 mg tablet 1 tab PO BEDTIME vitamin E (dl, acetate) 180 mg (400 unit) capsule 1 cap PO DAILY multivitamin with folic acid [Tab-A-Daniel] 400 mcg tablet 1 tab PO DAILY Discontinued lithium carbonate 150 mg capsule 1 cap PO DAILY clozapine 25 mg tablet 87.5 mg PO BEDTIME divalproex 250 mg tablet extended release 24 hr 1 tab PO BEDTIME Discharge Orders: Discharge Order (Routine); Ordered 12/05/22 Ordered By: Primo Tran Diet: Advance to usual diet Activity on Discharge: As tolerated Stand Alone Forms: Patient Portal Discharge page Care Plan Goals: remain safe and stable in the outpatient treatment setting Health Concerns: none Plan of Treatment: take medications as prescribed, attend appointments as scheduled Assessment: not at imminent risk of harm to self or others
[2022-12-04] MEDS: Acetaminophen 325 MG TABLET 650 MG PO ×2 (10:52→19:07)
[2022-12-04] MEDS: Lithium Carbonate ER 450 MG TABLET.ER 900 MG PO (23:13)
[2022-12-04] MEDS: Divalproex Sodium ER 500 MG TAB.ER.24H PO (23:13)
[2022-12-04] MEDS: traZODone HCL 50 MG TABLET PO (23:14)
[2022-12-04] MEDS: cloZAPine 100 MG TABLET PO (23:14)
[2022-12-04] MEDS: cloZAPine 25 MG TABLET 12.5 MG PO (23:14)
[2022-12-04] MEDS: Benztropine Mesylate 1 MG TABLET PO (23:14)
[2022-12-05 10:00] VITALS: BP 127/70; PULSE 116; RESP 18; TEMP 36.3; O2SAT 95
[2022-12-05] MEDS: Lithium Carbonate 300 MG TABLET PO (10:35)
[2022-12-05] MEDS: Divalproex Sodium ER 500 MG TAB.ER.24H 1000 MG PO (10:35)
[2022-12-05] MEDS: Vitamin E (Dl,Tocopheryl Acet) 180 MG (400 UNIT) CAPSULE PO (10:35)
[2022-12-05] MEDS: Multivitamin TABLET 1 TAB PO (10:35)
[2022-12-05] MEDS: HaloperidoL 1 MG TABLET 2.5 MG PO (10:35)
[2022-12-05] MEDS: Acetaminophen 325 MG TABLET 650 MG PO (13:49)
--- NOTE | 2022-12-05 13:50 | PC.NURSE ---
Sean is discharged home today to the care of father and the [facility] team. He is alert, pleasant and cooperative with discharge process. Sean denies ideation, plan or intent to harm self or others. He denies physical complaint.
== END 2022-12-05 16:10 | disposition home or self-care (01) | DRG 753 ==
LOC: HO.ED 18:20 → HO.PADLT16 23:46
PROVIDERS: Physician Assistant Medical; Psychiatry & Neurology Psychiatry; Admitting Provider Psychiatry & Neurology Psychiatry; Emergency Provider Emergency Medicine; PCP Internal Medicine; Visit Provider Psychiatry & Neurology Psychiatry
DX: F31.2 Bipolar disorder, current episode manic severe with psychotic features (principal); Z20.822 Contact with and (suspected) exposure to COVID-19; Z88.0 Allergy status to penicillin; Z79.899 Other long term (current) drug therapy
CPT/HCPCS: 36415; 80048; 80053; 80061; 80076; 80143; 80164; 80178; 80179; 80307; 81003; 82077; 85025; 85048; 87635; 93005; 99285; S9485

== ENCOUNTER 2022-12-13 15:32 | Outpatient (REF) | payer OTHER, SELFPAY ==
[2022-12-13 15:44] LABS: MANUAL DIFF FLAG NO
[2022-12-13 16:31] LABS: Basophils Percent Auto 0.5 % (0-2); Eosinophils Absolute Auto 0.3 X10*3/uL (0.0-0.4); Eosinophils Percent Auto 5.7 % (0-4); Hematocrit 44.6 % (42.0-52.0); Imm Gran Abs Auto 0.03 X10*3/uL (0.00-0.03); Imm Gran Pct Auto 0.5 % (0.0-0.4); Lymphocytes Absolute Auto 1.5 X10*3/uL (1.2-4.9); Lymphocytes Percent Auto 24.2 % (20-40); Mean Corpuscular HGB Conc 33.6 g/dl (31.0-36.0); Mean Corpuscular Volume 86.1 fL (80.0-98.0); Mean Platelet Volume 10.7 fL (9.4-12.4); Monocytes Absolute Auto 0.9 X10*3/uL (0.1-1.2); Monocytes Percent Auto 15.4 % (2-11); Neutrophils Absolute Auto 3.2 x10*3/uL (2.0-8.3); Neutrophils Percent Auto 53.7 % (45-73); Platelet Count 165 X10*3/uL (160-400); Red Blood Count 5.18 X10*6/uL (4.60-5.80); Red Cell Distribution Width 13.1 % (11.0-16.0)
== END 2022-12-13 15:33 | disposition home or self-care (01) ==
LOC: HO.LABR 15:32
PROVIDERS: Visit Provider Clinical Nurse Specialist Psychiatric/Mental Health, Adult
DX: Z79.899 Other long term (current) drug therapy (principal)
CPT/HCPCS: 36415; 85025

== ENCOUNTER 2023-01-01 08:45 | Outpatient (REF) | payer OTHER, SELFPAY ==
[2023-01-01 09:01] LABS: MANUAL DIFF FLAG NO
[2023-01-01 09:23] LABS: Basophils Percent Auto 0.5 % (0-2); Eosinophils Absolute Auto 0.3 X10*3/uL (0.0-0.4); Hematocrit 48.1 % (42.0-52.0); Hemoglobin 15.9 g/dl (14.0-18.0); Imm Gran Abs Auto 0.03 X10*3/uL (0.00-0.03); Imm Gran Pct Auto 0.5 % (0.0-0.4); Lymphocytes Absolute Auto 1.5 X10*3/uL (1.2-4.9); Lymphocytes Percent Auto 24.8 % (20-40); Mean Corpuscular HGB Conc 33.1 g/dl (31.0-36.0); Mean Corpuscular Hemoglobin 28.6 pg (27.0-33.0); Mean Corpuscular Volume 86.5 fL (80.0-98.0); Mean Platelet Volume 10.2 fL (9.4-12.4); Monocytes Percent Auto 16.7 % (2-11); Neutrophils Absolute Auto 3.2 x10*3/uL (2.0-8.3); Neutrophils Percent Auto 52.5 % (45-73); Platelet Count 213 X10*3/uL (160-400); Red Blood Count 5.56 X10*6/uL (4.60-5.80); Red Cell Distribution Width 13.2 % (11.0-16.0)
[2023-01-01 09:50] LABS: Lithium 0.78 mmol/L (0.60-1.20)
[2023-01-01 09:54] LABS: Valproate 72.7 mcg/mL (50.0-100.0)
== END 2023-01-01 08:46 | disposition home or self-care (01) ==
LOC: HO.LAB 08:45
PROVIDERS: PCP Internal Medicine; Visit Provider Clinical Nurse Specialist Psychiatric/Mental Health, Adult
DX: Z79.899 Other long term (current) drug therapy (principal)
CPT/HCPCS: 36415; 80164; 80178; 85025

== ENCOUNTER 2023-02-03 14:54 | Outpatient (REF) | payer OTHER, SELFPAY ==
[2023-02-03 15:14] LABS: MANUAL DIFF FLAG NO
[2023-02-03 15:31] LABS: Basophils Percent Auto 0.5 % (0-2); Eosinophils Absolute Auto 0.2 X10*3/uL (0.0-0.4); Eosinophils Percent Auto 2.4 % (0-4); Hematocrit 48.2 % (42.0-52.0); Imm Gran Abs Auto 0.03 X10*3/uL (0.00-0.03); Imm Gran Pct Auto 0.4 % (0.0-0.4); Lymphocytes Absolute Auto 1.7 X10*3/uL (1.2-4.9); Lymphocytes Percent Auto 21.9 % (20-40); Mean Corpuscular HGB Conc 33.2 g/dl (31.0-36.0); Mean Corpuscular Hemoglobin 28.3 pg (27.0-33.0); Mean Corpuscular Volume 85.2 fL (80.0-98.0); Mean Platelet Volume 9.9 fL (9.4-12.4); Monocytes Absolute Auto 1.1 X10*3/uL (0.1-1.2); Neutrophils Absolute Auto 4.5 x10*3/uL (2.0-8.3); Neutrophils Percent Auto 59.8 % (45-73); Platelet Count 232 X10*3/uL (160-400); Red Blood Count 5.66 X10*6/uL (4.60-5.80); Red Cell Distribution Width 13.2 % (11.0-16.0); White Blood Count 7.5 X10*3/uL (4.8-10.8)
== END 2023-02-03 14:55 | disposition home or self-care (01) ==
LOC: HO.LABR 14:54
PROVIDERS: Visit Provider Clinical Nurse Specialist Psychiatric/Mental Health, Adult
DX: Z79.899 Other long term (current) drug therapy (principal)
CPT/HCPCS: 36415; 85025

== ENCOUNTER 2023-03-14 14:37 | Outpatient (REF) | payer OTHER, SELFPAY ==
[2023-03-14 15:00] LABS: MANUAL DIFF FLAG NO
[2023-03-14 16:07] LABS: Basophils Percent Auto 0.5 % (0-2); Eosinophils Absolute Auto 0.2 X10*3/uL (0.0-0.4); Eosinophils Percent Auto 1.9 % (0-4); Hematocrit 44.7 % (42.0-52.0); Hemoglobin 15.2 g/dl (14.0-18.0); Imm Gran Abs Auto 0.02 X10*3/uL (0.00-0.03); Imm Gran Pct Auto 0.3 % (0.0-0.4); Lymphocytes Absolute Auto 1.7 X10*3/uL (1.2-4.9); Lymphocytes Percent Auto 21.6 % (20-40); Mean Corpuscular Hemoglobin 28.8 pg (27.0-33.0); Mean Corpuscular Volume 84.8 fL (80.0-98.0); Mean Platelet Volume 10.7 fL (9.4-12.4); Monocytes Percent Auto 13.4 % (2-11); Neutrophils Absolute Auto 4.9 x10*3/uL (2.0-8.3); Neutrophils Percent Auto 62.3 % (45-73); Platelet Count 184 X10*3/uL (160-400); Red Blood Count 5.27 X10*6/uL (4.60-5.80); Red Cell Distribution Width 12.4 % (11.0-16.0); White Blood Count 7.8 X10*3/uL (4.8-10.8)
== END 2023-03-14 14:38 | disposition home or self-care (01) ==
LOC: HO.LABR 14:37
PROVIDERS: Visit Provider Clinical Nurse Specialist Psychiatric/Mental Health, Adult
DX: Z79.899 Other long term (current) drug therapy (principal)
CPT/HCPCS: 36415; 85025

== ENCOUNTER 2023-04-10 15:58 | Outpatient (REF) | payer OTHER, SELFPAY ==
[2023-04-10 16:27] LABS: MANUAL DIFF FLAG NO
[2023-04-10 18:46] LABS: Basophils Percent Auto 0.3 % (0-2); Eosinophils Absolute Auto 0.1 X10*3/uL (0.0-0.4); Eosinophils Percent Auto 1.3 % (0-4); Hematocrit 46.3 % (42.0-52.0); Hemoglobin 15.6 g/dl (14.0-18.0); Imm Gran Abs Auto 0.02 X10*3/uL (0.00-0.03); Imm Gran Pct Auto 0.3 % (0.0-0.4); Lymphocytes Absolute Auto 1.7 X10*3/uL (1.2-4.9); Lymphocytes Percent Auto 24.3 % (20-40); Mean Corpuscular HGB Conc 33.7 g/dl (31.0-36.0); Mean Corpuscular Hemoglobin 28.3 pg (27.0-33.0); Mean Corpuscular Volume 83.9 fL (80.0-98.0); Mean Platelet Volume 10.9 fL (9.4-12.4); Monocytes Absolute Auto 0.7 X10*3/uL (0.1-1.2); Monocytes Percent Auto 10.5 % (2-11); Neutrophils Absolute Auto 4.5 x10*3/uL (2.0-8.3); Neutrophils Percent Auto 63.3 % (45-73); Platelet Count 201 X10*3/uL (160-400); Red Blood Count 5.52 X10*6/uL (4.60-5.80); Red Cell Distribution Width 12.5 % (11.0-16.0); White Blood Count 7.1 X10*3/uL (4.8-10.8)
== END 2023-04-10 15:59 | disposition home or self-care (01) ==
LOC: HO.LABR 15:58
PROVIDERS: Visit Provider Clinical Nurse Specialist Psychiatric/Mental Health, Adult
DX: Z79.899 Other long term (current) drug therapy (principal)
CPT/HCPCS: 36415; 85025

== ENCOUNTER 2023-05-07 12:01 | Outpatient (REF) | payer OTHER, SELFPAY ==
[2023-05-07 12:44] LABS: Basophils Percent Auto 0.8 % (0-2); Eosinophils Absolute Auto 0.1 X10*3/uL (0.0-0.4); Eosinophils Percent Auto 1.2 % (0-4); Hematocrit 44.2 % (42.0-52.0); Hemoglobin 15.1 g/dl (14.0-18.0); Imm Gran Abs Auto 0.01 X10*3/uL (0.00-0.03); Imm Gran Pct Auto 0.2 % (0.0-0.4); Lymphocytes Absolute Auto 1.3 X10*3/uL (1.2-4.9); Lymphocytes Percent Auto 27.3 % (20-40); MANUAL DIFF FLAG NO; Mean Corpuscular HGB Conc 34.2 g/dl (31.0-36.0); Mean Corpuscular Hemoglobin 29.2 pg (27.0-33.0); Mean Corpuscular Volume 85.3 fL (80.0-98.0); Monocytes Absolute Auto 0.7 X10*3/uL (0.1-1.2); Monocytes Percent Auto 13.5 % (2-11); Neutrophils Absolute Auto 2.8 x10*3/uL (2.0-8.3); Platelet Count 178 X10*3/uL (160-400); Red Blood Count 5.18 X10*6/uL (4.60-5.80); White Blood Count 4.8 X10*3/uL (4.8-10.8)
== END 2023-05-07 12:02 | disposition home or self-care (01) ==
LOC: HO.LAB 12:01
PROVIDERS: PCP Internal Medicine; Visit Provider Clinical Nurse Specialist Psychiatric/Mental Health, Adult
DX: Z79.899 Other long term (current) drug therapy (principal)
CPT/HCPCS: 36415; 85025

== ENCOUNTER 2023-06-09 10:58 | Outpatient (REF) | payer OTHER, SELFPAY ==
[2023-06-09 11:14] LABS: MANUAL DIFF FLAG NO
[2023-06-09 11:57] LABS: Basophils Absolute Auto 0.1 X10*3/uL (0.0-0.2); Basophils Percent Auto 0.7 % (0-2); Eosinophils Absolute Auto 0.1 X10*3/uL (0.0-0.4); Eosinophils Percent Auto 2.1 % (0-4); Hematocrit 47.3 % (42.0-52.0); Hemoglobin 15.9 g/dl (14.0-18.0); Imm Gran Abs Auto 0.02 X10*3/uL (0.00-0.03); Imm Gran Pct Auto 0.3 % (0.0-0.4); Lymphocytes Absolute Auto 1.4 X10*3/uL (1.2-4.9); Lymphocytes Percent Auto 21.3 % (20-40); Mean Corpuscular HGB Conc 33.6 g/dl (31.0-36.0); Mean Corpuscular Hemoglobin 29.3 pg (27.0-33.0); Mean Corpuscular Volume 87.1 fL (80.0-98.0); Mean Platelet Volume 10.9 fL (9.4-12.4); Monocytes Percent Auto 14.5 % (2-11); Neut%MD 61.1 %; Neutrophils Absolute Auto 4.1 x10*3/uL (2.0-8.3); Neutrophils Percent Auto 61.1 % (45-73); Platelet Count 195 X10*3/uL (160-400); Red Blood Count 5.43 X10*6/uL (4.60-5.80); Red Cell Distribution Width 13.2 % (11.0-16.0); WBCANC 6.8 X10*3/uL; White Blood Count 6.8 X10*3/uL (4.8-10.8)
== END 2023-06-09 10:59 | disposition home or self-care (01) ==
LOC: HO.LAB 10:58
PROVIDERS: PCP Internal Medicine; Visit Provider Psychiatry & Neurology Psychiatry
DX: Z13.89 Encounter for screening for other disorder (principal)
CPT/HCPCS: 36415; 85025

== ENCOUNTER 2023-07-11 13:50 | Outpatient (REF) | payer OTHER, SELFPAY ==
[2023-07-11 14:17] LABS: MANUAL DIFF FLAG NO
[2023-07-11 15:03] LABS: Basophils Percent Auto 0.6 % (0-2); Eosinophils Absolute Auto 0.2 X10*3/uL (0.0-0.4); Eosinophils Percent Auto 2.4 % (0-4); Hematocrit 45.2 % (42.0-52.0); Hemoglobin 15.5 g/dl (14.0-18.0); Imm Gran Abs Auto 0.02 X10*3/uL (0.00-0.03); Imm Gran Pct Auto 0.3 % (0.0-0.4); Lymphocytes Absolute Auto 1.4 X10*3/uL (1.2-4.9); Lymphocytes Percent Auto 21.6 % (20-40); Mean Corpuscular HGB Conc 34.3 g/dl (31.0-36.0); Mean Corpuscular Hemoglobin 29.8 pg (27.0-33.0); Mean Corpuscular Volume 86.8 fL (80.0-98.0); Mean Platelet Volume 10.7 fL (9.4-12.4); Monocytes Absolute Auto 0.8 X10*3/uL (0.1-1.2); Monocytes Percent Auto 12.6 % (2-11); Neutrophils Absolute Auto 3.9 x10*3/uL (2.0-8.3); Neutrophils Percent Auto 62.5 % (45-73); Platelet Count 202 X10*3/uL (160-400); Red Blood Count 5.21 X10*6/uL (4.60-5.80); Red Cell Distribution Width 12.8 % (11.0-16.0); White Blood Count 6.3 X10*3/uL (4.8-10.8)
== END 2023-07-11 13:51 | disposition home or self-care (01) ==
LOC: HO.LABR 13:50
PROVIDERS: Visit Provider Clinical Nurse Specialist Psychiatric/Mental Health, Adult
DX: Z79.899 Other long term (current) drug therapy (principal)
CPT/HCPCS: 36415; 85025

== ENCOUNTER 2023-08-11 14:17 | Outpatient (REF) | payer OTHER, SELFPAY ==
[2023-08-11 15:47] LABS: Valproate 60.3 mcg/mL (50.0-100.0)
[2023-08-11 15:50] LABS: Lithium 0.55 mmol/L (0.60-1.20)
[2023-08-11 15:51] LABS: Alanine Aminotransferase 35 U/L (0-40); Albumin Level 4.8 g/dL (3.5-5.0); Alkaline Phosphatase 65 U/L (39-117); Anion Gap 14 (12-20); Aspartate Amino Transferase 29 U/L (5-37); Bilirubin Total 0.4 mg/dL (0.0-1.0); Blood Urea Nitrogen 13 mg/dL (9-16); Calcium 9.8 mg/dL (8.4-10.2); Carbon Dioxide 23 mmol/L (22-29); Chloride 107 mmol/L (96-108); Estimated Glomerular Filt Rate > 60; Glucose Random 102 mg/dL (60-115); Potassium 3.6 mmol/L (3.3-5.1); Sodium 140 mmol/L (135-145); Total Protein 7.9 g/dL (6.5-8.0)
== END 2023-08-11 14:18 | disposition home or self-care (01) ==
LOC: HO.LAB 14:17
PROVIDERS: PCP Internal Medicine; Visit Provider Clinical Nurse Specialist Psychiatric/Mental Health, Adult
DX: Z79.899 Other long term (current) drug therapy (principal)
CPT/HCPCS: 36415; 80053; 80164; 80178

== ENCOUNTER 2023-08-20 11:18 | Outpatient (REF) | payer OTHER, SELFPAY ==
[2023-08-20 11:28] LABS: MANUAL DIFF FLAG NO
[2023-08-20 13:02] LABS: Basophils Percent Auto 0.5 % (0-2); Eosinophils Absolute Auto 0.2 X10*3/uL (0.0-0.4); Eosinophils Percent Auto 2.3 % (0-4); Hemoglobin 15.1 g/dl (14.0-18.0); Imm Gran Abs Auto 0.03 X10*3/uL (0.00-0.03); Imm Gran Pct Auto 0.5 % (0.0-0.4); Lymphocytes Absolute Auto 1.4 X10*3/uL (1.2-4.9); Lymphocytes Percent Auto 21.6 % (20-40); Mean Corpuscular HGB Conc 33.6 g/dl (31.0-36.0); Mean Corpuscular Volume 86.4 fL (80.0-98.0); Mean Platelet Volume 10.8 fL (9.4-12.4); Monocytes Absolute Auto 0.8 X10*3/uL (0.1-1.2); Monocytes Percent Auto 13.1 % (2-11); Platelet Count 190 X10*3/uL (160-400); Red Blood Count 5.21 X10*6/uL (4.60-5.80); Red Cell Distribution Width 12.6 % (11.0-16.0); White Blood Count 6.4 X10*3/uL (4.8-10.8)
== END 2023-08-20 11:19 | disposition home or self-care (01) ==
LOC: HO.LABR 11:18
PROVIDERS: PCP Internal Medicine; Visit Provider Clinical Nurse Specialist Psychiatric/Mental Health, Adult
DX: Z79.899 Other long term (current) drug therapy (principal)
CPT/HCPCS: 36415; 85025

== ENCOUNTER 2023-09-17 13:33 | Outpatient (REF) | payer OTHER, SELFPAY ==
[2023-09-17 13:47] LABS: MANUAL DIFF FLAG NO
[2023-09-17 13:58] LABS: Basophils Absolute Auto 0.1 X10*3/uL (0.0-0.2); Basophils Percent Auto 0.6 % (0-2); Eosinophils Absolute Auto 0.2 X10*3/uL (0.0-0.4); Eosinophils Percent Auto 2.5 % (0-4); Hematocrit 44.9 % (42.0-52.0); Hemoglobin 15.6 g/dl (14.0-18.0); Imm Gran Abs Auto 0.04 X10*3/uL (0.00-0.03); Imm Gran Pct Auto 0.5 % (0.0-0.4); Lymphocytes Absolute Auto 1.5 X10*3/uL (1.2-4.9); Lymphocytes Percent Auto 18.6 % (20-40); Mean Corpuscular HGB Conc 34.7 g/dl (31.0-36.0); Mean Corpuscular Hemoglobin 28.8 pg (27.0-33.0); Mean Platelet Volume 10.6 fL (9.4-12.4); Monocytes Absolute Auto 1.2 X10*3/uL (0.1-1.2); Monocytes Percent Auto 14.9 % (2-11); Neutrophils Percent Auto 62.9 % (45-73); Platelet Count 178 X10*3/uL (160-400); Red Blood Count 5.41 X10*6/uL (4.60-5.80); Red Cell Distribution Width 12.6 % (11.0-16.0); White Blood Count 7.9 X10*3/uL (4.8-10.8)
== END 2023-09-17 13:34 | disposition home or self-care (01) ==
LOC: HO.LAB 13:33
PROVIDERS: Visit Provider Clinical Nurse Specialist Psychiatric/Mental Health, Adult
DX: Z79.899 Other long term (current) drug therapy (principal)
CPT/HCPCS: 36415; 85025

== ENCOUNTER 2023-10-13 15:37 | Outpatient (REF) | payer OTHER, SELFPAY ==
[2023-10-13 15:50] LABS: MANUAL DIFF FLAG NO
[2023-10-13 17:37] LABS: Basophils Percent Auto 0.5 % (0-2); Eosinophils Absolute Auto 0.2 X10*3/uL (0.0-0.4); Eosinophils Percent Auto 2.6 % (0-4); Hematocrit 44.6 % (42.0-52.0); Hemoglobin 15.1 g/dl (14.0-18.0); Imm Gran Abs Auto 0.06 X10*3/uL (0.00-0.03); Imm Gran Pct Auto 0.7 % (0.0-0.4); Lymphocytes Absolute Auto 1.7 X10*3/uL (1.2-4.9); Lymphocytes Percent Auto 20.9 % (20-40); Mean Corpuscular HGB Conc 33.9 g/dl (31.0-36.0); Mean Corpuscular Hemoglobin 28.4 pg (27.0-33.0); Mean Platelet Volume 10.8 fL (9.4-12.4); Monocytes Absolute Auto 1.4 X10*3/uL (0.1-1.2); Monocytes Percent Auto 16.7 % (2-11); Neut%MD 58.6 %; Neutrophils Absolute Auto 4.9 x10*3/uL (2.0-8.3); Neutrophils Percent Auto 58.6 % (45-73); Platelet Count 242 X10*3/uL (160-400); Red Blood Count 5.31 X10*6/uL (4.60-5.80); Red Cell Distribution Width 12.9 % (11.0-16.0); WBCANC 8.3 X10*3/uL; White Blood Count 8.3 X10*3/uL (4.8-10.8)
== END 2023-10-13 15:38 | disposition home or self-care (01) ==
LOC: HO.LABR 15:37
PROVIDERS: PCP Internal Medicine; Visit Provider Clinical Nurse Specialist Psychiatric/Mental Health, Adult
DX: Z79.899 Other long term (current) drug therapy (principal)
CPT/HCPCS: 36415; 85025

== ENCOUNTER 2023-11-10 15:04 | Outpatient (REF) | payer OTHER, SELFPAY ==
[2023-11-10 15:21] LABS: MANUAL DIFF FLAG NO
[2023-11-10 15:44] LABS: Basophils Percent Auto 0.4 % (0-2); Eosinophils Absolute Auto 0.2 X10*3/uL (0.0-0.4); Eosinophils Percent Auto 2.7 % (0-4); Hematocrit 43.9 % (42.0-52.0); Hemoglobin 14.8 g/dl (14.0-18.0); Imm Gran Abs Auto 0.03 X10*3/uL (0.00-0.03); Imm Gran Pct Auto 0.4 % (0.0-0.4); Lymphocytes Absolute Auto 1.7 X10*3/uL (1.2-4.9); Lymphocytes Percent Auto 24.7 % (20-40); Mean Corpuscular HGB Conc 33.7 g/dl (31.0-36.0); Mean Corpuscular Hemoglobin 28.1 pg (27.0-33.0); Mean Corpuscular Volume 83.5 fL (80.0-98.0); Mean Platelet Volume 10.2 fL (9.4-12.4); Monocytes Absolute Auto 0.9 X10*3/uL (0.1-1.2); Monocytes Percent Auto 13.1 % (2-11); Neut%MD 58.7 %; Neutrophils Absolute Auto 3.9 x10*3/uL (2.0-8.3); Neutrophils Percent Auto 58.7 % (45-73); Platelet Count 246 X10*3/uL (160-400); Red Blood Count 5.26 X10*6/uL (4.60-5.80); Red Cell Distribution Width 13.2 % (11.0-16.0); WBCANC 6.7 X10*3/uL; White Blood Count 6.7 X10*3/uL (4.8-10.8)
== END 2023-11-10 15:05 | disposition home or self-care (01) ==
LOC: HO.LABR 15:04
PROVIDERS: Visit Provider Clinical Nurse Specialist Psychiatric/Mental Health, Adult
DX: Z79.899 Other long term (current) drug therapy (principal)
CPT/HCPCS: 36415; 85025

== ENCOUNTER 2023-12-16 12:57 | Outpatient (REF) | payer OTHER, SELFPAY ==
[2023-12-16 13:06] LABS: MANUAL DIFF FLAG NO
[2023-12-16 14:22] LABS: Basophils Percent Auto 0.6 % (0-2); Eosinophils Absolute Auto 0.3 X10*3/uL (0.0-0.4); Hematocrit 44.4 % (42.0-52.0); Imm Gran Abs Auto 0.03 X10*3/uL (0.00-0.03); Imm Gran Pct Auto 0.4 % (0.0-0.4); Lymphocytes Absolute Auto 1.8 X10*3/uL (1.2-4.9); Lymphocytes Percent Auto 25.2 % (20-40); Mean Corpuscular HGB Conc 33.8 g/dl (31.0-36.0); Mean Corpuscular Hemoglobin 28.6 pg (27.0-33.0); Mean Corpuscular Volume 84.7 fL (80.0-98.0); Monocytes Absolute Auto 0.9 X10*3/uL (0.1-1.2); Monocytes Percent Auto 12.8 % (2-11); Platelet Count 218 X10*3/uL (160-400); Red Blood Count 5.24 X10*6/uL (4.60-5.80); Red Cell Distribution Width 13.1 % (11.0-16.0)
== END 2023-12-16 12:58 | disposition home or self-care (01) ==
LOC: HO.LABR 12:57
PROVIDERS: Visit Provider Clinical Nurse Specialist Psychiatric/Mental Health, Adult
DX: Z79.899 Other long term (current) drug therapy (principal)
CPT/HCPCS: 36415; 85025

== ENCOUNTER 2024-01-12 15:16 | Outpatient (REF) | payer OTHER, SELFPAY ==
[2024-01-12 15:33] LABS: MANUAL DIFF FLAG NO
[2024-01-12 15:47] LABS: Basophils Absolute Auto 0.1 X10*3/uL (0.0-0.2); Basophils Percent Auto 0.6 % (0-2); Eosinophils Absolute Auto 0.2 X10*3/uL (0.0-0.4); Eosinophils Percent Auto 1.9 % (0-4); Hematocrit 43.3 % (42.0-52.0); Hemoglobin 14.9 g/dl (14.0-18.0); Imm Gran Abs Auto 0.04 X10*3/uL (0.00-0.03); Imm Gran Pct Auto 0.5 % (0.0-0.4); Lymphocytes Absolute Auto 1.8 X10*3/uL (1.2-4.9); Lymphocytes Percent Auto 21.6 % (20-40); Mean Corpuscular HGB Conc 34.4 g/dl (31.0-36.0); Mean Corpuscular Hemoglobin 28.9 pg (27.0-33.0); Mean Corpuscular Volume 84.1 fL (80.0-98.0); Mean Platelet Volume 10.4 fL (9.4-12.4); Monocytes Percent Auto 12.5 % (2-11); Neut%MD 62.9 %; Neutrophils Absolute Auto 5.2 x10*3/uL (2.0-8.3); Neutrophils Percent Auto 62.9 % (45-73); Platelet Count 219 X10*3/uL (160-400); Red Blood Count 5.15 X10*6/uL (4.60-5.80); Red Cell Distribution Width 13.2 % (11.0-16.0); WBCANC 8.3 X10*3/uL; White Blood Count 8.3 X10*3/uL (4.8-10.8)
== END 2024-01-12 15:17 | disposition home or self-care (01) ==
LOC: HO.LAB 15:16
PROVIDERS: PCP Internal Medicine; Visit Provider Clinical Nurse Specialist Psychiatric/Mental Health, Adult
DX: Z79.899 Other long term (current) drug therapy (principal)
CPT/HCPCS: 36415; 85025

== ENCOUNTER 2024-02-09 15:25 | Outpatient (REF) | payer OTHER, SELFPAY ==
[2024-02-09 15:34] LABS: MANUAL DIFF FLAG NO
[2024-02-09 15:52] LABS: Basophils Percent Auto 0.5 % (0-2); Eosinophils Absolute Auto 0.1 X10*3/uL (0.0-0.4); Eosinophils Percent Auto 1.5 % (0-4); Hematocrit 46.2 % (42.0-52.0); Hemoglobin 15.5 g/dl (14.0-18.0); Imm Gran Abs Auto 0.03 X10*3/uL (0.00-0.03); Imm Gran Pct Auto 0.4 % (0.0-0.4); Lymphocytes Absolute Auto 1.6 X10*3/uL (1.2-4.9); Lymphocytes Percent Auto 19.7 % (20-40); Mean Corpuscular HGB Conc 33.5 g/dl (31.0-36.0); Mean Corpuscular Hemoglobin 28.2 pg (27.0-33.0); Mean Corpuscular Volume 84.2 fL (80.0-98.0); Mean Platelet Volume 10.1 fL (9.4-12.4); Monocytes Absolute Auto 0.8 X10*3/uL (0.1-1.2); Monocytes Percent Auto 9.5 % (2-11); Neut%MD 68.4 %; Neutrophils Absolute Auto 5.5 x10*3/uL (2.0-8.3); Neutrophils Percent Auto 68.4 % (45-73); Platelet Count 249 X10*3/uL (160-400); Red Blood Count 5.49 X10*6/uL (4.60-5.80); Red Cell Distribution Width 12.8 % (11.0-16.0)
== END 2024-02-09 15:26 | disposition home or self-care (01) ==
LOC: HO.LABR 15:25
PROVIDERS: PCP Internal Medicine; Visit Provider Clinical Nurse Specialist Psychiatric/Mental Health, Adult
DX: Z79.899 Other long term (current) drug therapy (principal)
CPT/HCPCS: 36415; 85025

== ENCOUNTER 2024-03-19 15:02 | Outpatient (REF) | payer OTHER, SELFPAY ==
[2024-03-19 15:16] LABS: MANUAL DIFF FLAG NO
[2024-03-19 15:29] LABS: Basophils Percent Auto 0.4 % (0-2); Eosinophils Absolute Auto 0.2 X10*3/uL (0.0-0.4); Eosinophils Percent Auto 2.5 % (0-4); Hematocrit 42.8 % (42.0-52.0); Hemoglobin 14.8 g/dl (14.0-18.0); Imm Gran Abs Auto 0.04 X10*3/uL (0.00-0.03); Imm Gran Pct Auto 0.5 % (0.0-0.4); Lymphocytes Absolute Auto 1.7 X10*3/uL (1.2-4.9); Lymphocytes Percent Auto 22.4 % (20-40); Mean Corpuscular HGB Conc 34.6 g/dl (31.0-36.0); Mean Corpuscular Hemoglobin 29.2 pg (27.0-33.0); Mean Corpuscular Volume 84.4 fL (80.0-98.0); Mean Platelet Volume 10.4 fL (9.4-12.4); Monocytes Percent Auto 13.1 % (2-11); Neutrophils Absolute Auto 4.6 x10*3/uL (2.0-8.3); Neutrophils Percent Auto 61.1 % (45-73); Platelet Count 220 X10*3/uL (160-400); Red Blood Count 5.07 X10*6/uL (4.60-5.80); Red Cell Distribution Width 13.2 % (11.0-16.0); White Blood Count 7.6 X10*3/uL (4.8-10.8)
== END 2024-03-19 15:03 | disposition home or self-care (01) ==
LOC: HO.LABR 15:02
PROVIDERS: Visit Provider Clinical Nurse Specialist Psychiatric/Mental Health, Adult
DX: Z79.899 Other long term (current) drug therapy (principal)
CPT/HCPCS: 36415; 85025

== ENCOUNTER 2024-04-09 15:03 | Outpatient (REF) | payer OTHER, SELFPAY ==
[2024-04-09 15:22] LABS: MANUAL DIFF FLAG NO
[2024-04-09 15:51] LABS: Basophils Absolute Auto 0.1 X10*3/uL (0.0-0.2); Basophils Percent Auto 0.7 % (0-2); Eosinophils Absolute Auto 0.3 X10*3/uL (0.0-0.4); Hematocrit 42.3 % (42.0-52.0); Hemoglobin 14.5 g/dl (14.0-18.0); Imm Gran Abs Auto 0.03 X10*3/uL (0.00-0.03); Imm Gran Pct Auto 0.4 % (0.0-0.4); Lymphocytes Absolute Auto 1.6 X10*3/uL (1.2-4.9); Lymphocytes Percent Auto 23.3 % (20-40); Mean Corpuscular HGB Conc 34.3 g/dl (31.0-36.0); Mean Corpuscular Volume 84.6 fL (80.0-98.0); Mean Platelet Volume 10.6 fL (9.4-12.4); Monocytes Percent Auto 14.9 % (2-11); Neut%MD 56.7 %; Neutrophils Absolute Auto 3.9 x10*3/uL (2.0-8.3); Neutrophils Percent Auto 56.7 % (45-73); Platelet Count 224 X10*3/uL (160-400); Red Cell Distribution Width 13.3 % (11.0-16.0); WBCANC 6.8 X10*3/uL; White Blood Count 6.8 X10*3/uL (4.8-10.8)
== END 2024-04-09 15:04 | disposition home or self-care (01) ==
LOC: HO.LABR 15:03
PROVIDERS: Visit Provider Clinical Nurse Specialist Psychiatric/Mental Health, Adult
DX: Z79.899 Other long term (current) drug therapy (principal)
CPT/HCPCS: 36415; 85025

== ENCOUNTER 2024-05-17 15:20 | Outpatient (REF) | payer OTHER, SELFPAY ==
[2024-05-17 15:42] LABS: MANUAL DIFF FLAG NO
[2024-05-17 16:10] LABS: Basophils Percent Auto 0.4 % (0-2); Eosinophils Absolute Auto 0.2 X10*3/uL (0.0-0.4); Eosinophils Percent Auto 1.6 % (0-4); Hematocrit 43.5 % (42.0-52.0); Hemoglobin 14.8 g/dl (14.0-18.0); Imm Gran Abs Auto 0.03 X10*3/uL (0.00-0.03); Imm Gran Pct Auto 0.3 % (0.0-0.4); Lymphocytes Absolute Auto 1.8 X10*3/uL (1.2-4.9); Lymphocytes Percent Auto 17.1 % (20-40); Mean Corpuscular Hemoglobin 28.6 pg (27.0-33.0); Mean Platelet Volume 10.7 fL (9.4-12.4); Monocytes Absolute Auto 1.2 X10*3/uL (0.1-1.2); Monocytes Percent Auto 11.6 % (2-11); Neutrophils Absolute Auto 7.1 x10*3/uL (2.0-8.3); Platelet Count 222 X10*3/uL (160-400); Red Blood Count 5.18 X10*6/uL (4.60-5.80); Red Cell Distribution Width 12.9 % (11.0-16.0); White Blood Count 10.2 X10*3/uL (4.8-10.8)
== END 2024-05-17 15:21 | disposition home or self-care (01) ==
LOC: HO.LABR 15:20
PROVIDERS: PCP Internal Medicine; Visit Provider Clinical Nurse Specialist Psychiatric/Mental Health, Adult
DX: Z79.899 Other long term (current) drug therapy (principal)
CPT/HCPCS: 36415; 85025

== ENCOUNTER 2024-06-15 14:52 | Outpatient (REF) | payer OTHER, SELFPAY ==
[2024-06-15 15:01] LABS: MANUAL DIFF FLAG NO
[2024-06-15 15:46] LABS: Basophils Percent Auto 0.5 % (0-2); Eosinophils Absolute Auto 0.2 X10*3/uL (0.0-0.4); Eosinophils Percent Auto 3.6 % (0-4); Hematocrit 42.9 % (42.0-52.0); Hemoglobin 14.7 g/dl (14.0-18.0); Imm Gran Abs Auto 0.01 X10*3/uL (0.00-0.03); Imm Gran Pct Auto 0.2 % (0.0-0.4); Lymphocytes Absolute Auto 1.7 X10*3/uL (1.2-4.9); Lymphocytes Percent Auto 26.6 % (20-40); Mean Corpuscular HGB Conc 34.3 g/dl (31.0-36.0); Mean Corpuscular Volume 84.6 fL (80.0-98.0); Monocytes Absolute Auto 0.9 X10*3/uL (0.1-1.2); Monocytes Percent Auto 13.6 % (2-11); Neut%MD 55.5 %; Neutrophils Absolute Auto 3.6 x10*3/uL (2.0-8.3); Neutrophils Percent Auto 55.5 % (45-73); Platelet Count 200 X10*3/uL (160-400); Red Blood Count 5.07 X10*6/uL (4.60-5.80); Red Cell Distribution Width 13.2 % (11.0-16.0); WBCANC 6.4 X10*3/uL; White Blood Count 6.4 X10*3/uL (4.8-10.8)
== END 2024-06-15 14:53 | disposition home or self-care (01) ==
LOC: HO.LABR 14:52
PROVIDERS: PCP Internal Medicine; Visit Provider Clinical Nurse Specialist Psychiatric/Mental Health, Adult
DX: Z79.899 Other long term (current) drug therapy (principal)
CPT/HCPCS: 36415; 85025

== ENCOUNTER 2024-07-07 14:58 | Outpatient (REF) | payer OTHER, SELFPAY ==
[2024-07-07 15:13] LABS: MANUAL DIFF FLAG NO
[2024-07-07 15:38] LABS: Basophils Percent Auto 0.4 % (0-2); Eosinophils Absolute Auto 0.3 X10*3/uL (0.0-0.4); Eosinophils Percent Auto 3.4 % (0-4); Hematocrit 43.1 % (42.0-52.0); Hemoglobin 14.9 g/dl (14.0-18.0); Imm Gran Abs Auto 0.03 X10*3/uL (0.00-0.03); Imm Gran Pct Auto 0.4 % (0.0-0.4); Lymphocytes Absolute Auto 1.7 X10*3/uL (1.2-4.9); Lymphocytes Percent Auto 22.4 % (20-40); Mean Corpuscular HGB Conc 34.6 g/dl (31.0-36.0); Mean Corpuscular Hemoglobin 28.8 pg (27.0-33.0); Mean Corpuscular Volume 83.2 fL (80.0-98.0); Mean Platelet Volume 10.6 fL (9.4-12.4); Monocytes Percent Auto 12.9 % (2-11); Neutrophils Absolute Auto 4.7 x10*3/uL (2.0-8.3); Neutrophils Percent Auto 60.5 % (45-73); Platelet Count 245 X10*3/uL (160-400); Red Blood Count 5.18 X10*6/uL (4.60-5.80); Red Cell Distribution Width 13.1 % (11.0-16.0); White Blood Count 7.7 X10*3/uL (4.8-10.8)
== END 2024-07-07 14:59 | disposition home or self-care (01) ==
LOC: HO.LABR 14:58
PROVIDERS: PCP Internal Medicine; Visit Provider Clinical Nurse Specialist Psychiatric/Mental Health, Adult
DX: Z79.899 Other long term (current) drug therapy (principal)
CPT/HCPCS: 36415; 85025

== ENCOUNTER 2024-08-18 15:39 | Outpatient (REF) | payer OTHER, SELFPAY ==
[2024-08-18 15:58] LABS: MANUAL DIFF FLAG NO
[2024-08-18 16:59] LABS: Basophils Percent Auto 0.4 % (0-2); Eosinophils Absolute Auto 0.2 X10*3/uL (0.0-0.4); Eosinophils Percent Auto 2.1 % (0-4); Hematocrit 43.5 % (42.0-52.0); Hemoglobin 14.7 g/dl (14.0-18.0); Imm Gran Abs Auto 0.03 X10*3/uL (0.00-0.03); Imm Gran Pct Auto 0.3 % (0.0-0.4); Lymphocytes Absolute Auto 1.9 X10*3/uL (1.2-4.9); Lymphocytes Percent Auto 19.5 % (20-40); Mean Corpuscular HGB Conc 33.8 g/dl (31.0-36.0); Mean Corpuscular Hemoglobin 28.5 pg (27.0-33.0); Mean Corpuscular Volume 84.3 fL (80.0-98.0); Mean Platelet Volume 10.8 fL (9.4-12.4); Monocytes Absolute Auto 1.3 X10*3/uL (0.1-1.2); Monocytes Percent Auto 13.1 % (2-11); Neut%MD 64.6 %; Neutrophils Absolute Auto 6.2 x10*3/uL (2.0-8.3); Neutrophils Percent Auto 64.6 % (45-73); Platelet Count 227 X10*3/uL (160-400); Red Blood Count 5.16 X10*6/uL (4.60-5.80); Red Cell Distribution Width 12.8 % (11.0-16.0); WBCANC 9.6 X10*3/uL; White Blood Count 9.6 X10*3/uL (4.8-10.8)
== END 2024-08-18 15:40 | disposition home or self-care (01) ==
LOC: HO.LABR 15:39
PROVIDERS: PCP Internal Medicine; Visit Provider Clinical Nurse Specialist Psychiatric/Mental Health, Adult
DX: Z79.899 Other long term (current) drug therapy (principal)
CPT/HCPCS: 36415; 85025

== ENCOUNTER 2024-09-06 16:10 | Outpatient (REF) | payer OTHER, SELFPAY ==
[2024-09-06 16:24] LABS: MANUAL DIFF FLAG NO
[2024-09-06 17:24] LABS: Basophils Percent Auto 0.4 % (0-2); Eosinophils Absolute Auto 0.2 X10*3/uL (0.0-0.4); Hemoglobin 14.9 g/dl (14.0-18.0); Imm Gran Abs Auto 0.03 X10*3/uL (0.00-0.03); Imm Gran Pct Auto 0.4 % (0.0-0.4); Lymphocytes Absolute Auto 1.7 X10*3/uL (1.2-4.9); Lymphocytes Percent Auto 22.9 % (20-40); Mean Corpuscular HGB Conc 33.1 g/dl (31.0-36.0); Mean Corpuscular Hemoglobin 28.3 pg (27.0-33.0); Mean Corpuscular Volume 85.6 fL (80.0-98.0); Mean Platelet Volume 10.8 fL (9.4-12.4); Monocytes Absolute Auto 0.7 X10*3/uL (0.1-1.2); Monocytes Percent Auto 9.6 % (2-11); Neutrophils Absolute Auto 4.9 x10*3/uL (2.0-8.3); Neutrophils Percent Auto 63.7 % (45-73); Platelet Count 218 X10*3/uL (160-400); Red Blood Count 5.26 X10*6/uL (4.60-5.80); Red Cell Distribution Width 13.1 % (11.0-16.0); White Blood Count 7.6 X10*3/uL (4.8-10.8)
== END 2024-09-06 16:11 | disposition home or self-care (01) ==
LOC: HO.LABR 16:10
PROVIDERS: PCP Internal Medicine; Visit Provider Clinical Nurse Specialist Psychiatric/Mental Health, Adult
DX: Z79.899 Other long term (current) drug therapy (principal)
CPT/HCPCS: 36415; 85025

== ENCOUNTER 2024-09-22 13:17 | Outpatient (AMB) | payer OTHER, SELFPAY ==
--- NOTE | 2024-09-22 13:19 | A.OFFPC_ITS ---
Vital Signs 09/22/24 13:27 Height 6 ft Weight 280 lb BMI 38.0 BP 134/78 Blood Pressure Location Lt brachial Position Sitting Pulse 96 Pulse Source Pulse Oximeter Pulse Oximetry (%) 97 Oxygen Delivery Method Room Air Intake Visit Reasons: Re Est Care Allergies penicillin G [Penicillin G] Allergy (Mild, Verified 09/22/24 13:28) HIVES amoxicillin [Amoxicillin] Allergy (Unknown, Verified 09/22/24 13:28) HIVES penicillin V Allergy (Unknown, Verified 09/22/24 13:28) hives Medication List - Last Reconciled 09/22/24 by Enrrique Goetz MD benztropine 1 tab PO BEDTIME clozapine 100 mg PO BEDTIME 30 days clozapine 12.5 mg (1/2 x 25 mg) PO BEDTIME 30 days divalproex ER 2 tabs PO BID divalproex ER 500 mg PO BEDTIME 30 days haloperidol 0.5 tabs PO BID lithium carbonate 300 mg PO DAILY 30 days lithium carbonate ER 900 mg PO BEDTIME multivitamin with folic acid 400 mcg (Tab-A-Daniel) 1 tab PO DAILY vitamin E (dl, acetate) 1 cap PO DAILY Tobacco use date assessed: 09/22/24 Dental Screening Dental Screen Date: 09/22/24 Did you have a dental visit in the last 12 months?: Yes Did you have a dental problem in the last 6 months where you did not have access to dental care?: No Was dental information given to patient?: Patient has dentist HPI Re Est Care HPI Details Physical examination new patient - The patient is a 34-year-old male pres enting for a routine check-up and reestablishment of care. - History of Bipolar Disorder, with the last hospitalization approximately two years ago due to a flare-up. - Reports an increased BMI of 38.0 and i s actively engaged in physical exercise despite weight gain. - Noted history of left calcaneus fractu re from 2006 with ongoing healing but improved function and reduced limp. - Current psychiatric management through Psychiatry - No reports of chest pain, breathing di fficulty, or abdominal discomfort. Health Maintenance - Patient queries about influenza vaccin ation, planning to discuss with family before administration. - Discussion around weight management wi th emphasis on BMI reduction. - Recommendation for fasting before upco isauro laboratory tests checking cholesterol, glucose, and renal function. [place] of Care - Current psychiatric care provider is a nticipated as Dr. Zuly Zurita in the coming month. - Historical psychiatric care by nurse cheryl Bryant and psychiatrist Dr. Major. 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 Patient Instructions - Schedule and complete fasting blood te sts to assess cholesterol and glucose levels, as well as renal function. - Discuss influenza vaccination with li de leony and follow up based on the decision. Review of Systems - General: Denies weight change symptoms or fatigue - Cardiovascular: Denies chest pain - Respiratory: Denies shortness of breat h - Gastrointestinal: Denies abdominal david n - Neurological: No headaches no dizzin ess - Ear nose throat: No sore throat no hearing difficulty no ear pain - Endocrine: No polyuria polydipsia no heat intolerance - Genitourinary: No dysuria - Skin: No new complaints Physical Exam General: Cooperative, healthy appearing, comfortable, no acute distress Orientation: Patient oriented x3 Limitations: Due to psychiatric illness Head: Normal to inspection Ears: Within normal limit visually Nose: Normal external nose present Face and sinus: Normal facial exam Eyes: Appearance normal, extraocular movement intact pupils reactive Neck: Normal visual inspection and supple Respiratory: Normal respiratory effort and able to speak in complete sentences. Clear to auscultation, no stridor Cardiovascular: S1 and S2 GI: Normal to inspection. Soft to palpation and nontender Skin: Turgor normal, no acute findings Neuro: Patient oriented x3, motor sensory intact, balance intact, tandem failed. Extremities: Normal to inspection, [facility] Medical History Bipolar disorder Social History Household Members: None Household Members Other:: 0 Housing: Apartment Do you presently have visiting nurse or other home services: No Unable to assess alcohol history related to: Unknown Alcohol intake: never Comment: M3 Patient Tobacco Use Status: Never used Tobacco e-Cigarette/Vaping Use: Never Used Second Hand Smoke Exposure: No Substance Use Type: Caffiene service: No Current occupational status: disabled Sexual orientation: Straight/Heterosexual Cognitive needs: No Hearing needs: No Vision needs: Yes Questionnaire PHQ-9 Over the last 2 weeks, how often have you been bothered by any of the following problems? 1. Little interest or pleasure in doing things: not at all 2. Feeling down, depressed, or hopeless: not at all 3. Trouble falling or staying asleep, or sleeping too much: not at all 4. Feeling tired or having little energy: not at all 5. Poor appetite or overeating: not at all 6. Feeling bad about yourself - or that you are a failure or have let yourself or your family down: not at all 7. Trouble concentrating on things, such as reading the newspaper or watching television: not at all 8. Moving or speaking so slowly that other people could have noticed. Or the opposite - being so fidgety or restless that you have been moving around a lot more than usual: not at all 9. Thoughts that you would be better off or of hurting yourself in some way: not at all Total score: 0 Depression Screening Interpretation: Negative Depression Screening Done: Yes 81519 - PHQ-9 Billing: Yes Source: Developed by Drs. Ellis Azevedo, Gauri Eric, Valeriy Barron and colleagues, with an educational louise from [employer]. Thrive Questionnaire I am a: Patient What is your living situation today?: I have a steady place to live Within the past 12 months, did the food you bought not last and you didn't have the money to get more?: Sometimes True Within the past 12 months, did you worry whether your food would run out before you got money to buy more?: Sometimes True Do you have trouble paying for medicines?: No Do you have trouble getting transportation to medical appointments?: No Do you have trouble paying your heating and electricity bill?: No Do you have trouble taking care of your child, family member or friend?: No Do you have trouble with day-to-day activities such as bathing, preparing meals, shopping, managing finances, etc.?: No Are you currently unemployed and looking for a job?: No Are you interested in more education?: Yes Please select the resources that you would like help with: None Currently or been in a relationship where the following occur: No concerns reported THRIVE Score: 2 AUDIT C Alcohol Use Questionnaire (AUDIT-C) 1. How often do you have a drink containing alcohol?: Monthly or less 2. How many drinks containing alcohol do you have on a typical day when you are drinking?: 1 or 2 3. How often do you have six or more drinks on one occasion?: Never Total Score: 1 CHAD-7 AMB Questionnaire CHAD-7 Feeling nervous, anxious, or on edge: 0 = Not at all Not being able to stop or control worryin = Not at all Worrying too much about different things: 0 = Not at all Trouble relaxin = Not at all Being so restless that it is hard to sit still: 0 = Not at all Becoming easily annoyed or irritable: 0 = Not at all Feeling afraid as if something awful might happen: 0 = Not at all Total CHAD-7 score (0-4 normal; 5-9 mild; 10-14 moderate; 15-21 severe): 0 Source: Developed by Drs. Ellis Azevedo, Gauri Eric, Valeriy Barron and colleagues, with an educational louise from [employer]. CHAD-7 Assessment Billing CHAD-7 Assessment Tool: CHAD-7 Assessment 61547 Physical exam (Primary Care) Vital Signs: Last Vital Signs Pulse 96 09/22/24 13:27 BP 134/78 09/22/24 13:27 Pulse Ox 97 09/22/24 13:27 Oxygen Delivery Method Room Air 09/22/24 13:27 BMI result Body Mass Index 38.0 Tobacco/Smoking Status: Tobacco use Status Tobacco use date assessed 09/22/24 09/22/24 13:20 Patient Tobacco Use Status Never used Tobacco 09/22/24 13:20 e-Cigarette/Vaping Use Never Used 09/22/24 13:20 PHQ-9: PHQ-9 Score PHQ-9: Total score 0 09/22/24 13:31 Depression Screening Interpretation: Negative Currently or been in a relationship where the following occur: No concerns reported Coding Level of Care Code New Pt Level 3 (07261) Est Pt Prev Care 18-39y(10944) Diagnoses Encounter for general adult medical examination with abnormal findings Z00.01 Class 2 obesity due to excess calories without serious comorbidity with body mass index (BMI) of 38.0 to 38.9 in adult E66.812; E66.09; Z68.38 Body mass index: BMI 38.0-38.9 Obesity classification: adult class 2 (BMI 35 - 39.9) Serious obesity comorbidity presence: without serious comorbidity Bipolar affective, manic, severe w/ psych F31.2 Abnormal tandem walk R26.9 Additional Codes PHQ-9 - 24681 - PHQ-9 Billing: Yes ([id number]) CHAD-7 Assessment Billing - CHAD-7 Assessment Tool: CHAD-7 Assessment 06786 ([id number]) Assessment & Plan Assessment & Plan (1) Encounter for general adult medical examination with abnormal findings: Code(s): Z00.01 - Encounter for general adult medical examination with abnormal findings Category: Medical (2) Obesity due to excess calories: Code(s): E66.09 - Other obesity due to excess calories Category: Medical Qualifiers: Body mass index: BMI 38.0-38.9 Obesity classification: adult class 2 (BMI 35 - 39.9) Serious obesity comorbidity presence: without serious comorbidity Qualified Code(s): E66.812 - Obesity, class 2; E66.09 - Other obesity due to excess calories; Z68.38 - Body mass index [BMI] 38.0-38.9, adult (3) Bipolar affective, manic, severe w/ psych: Code(s): F31.2 - Bipolar disorder, current episode manic severe with psychotic features Category: Medical (4) Abnormal tandem walk: Code(s): R26.9 - Unspecified abnormalities of gait and mobility Category: Medical Plan Physical examination new patient - The patient is a 34-year-old male presenting for a routine check-up and reestablishment of care. - History of Bipolar Disorder, with the last hospitalization approximately two years ago due to a flare-up. - Reports an increased BMI of 38.0 and is actively engaged in physical exercise despite weight gain. - Noted history of left calcaneus fracture from 2006 with ongoing healing but improved function and reduced limp. - Current psychiatric management through Psychiatry - No reports of chest pain, breathing difficulty, or abdominal discomfort. Health Maintenance - Patient queries about influenza vaccination, planning to discuss with family before administration. - Discussion around weight management with emphasis on BMI reduction. - Recommendation for fasting before upcoming laboratory tests checking choleste rol, glucose, and renal function. [place] of [place] - Current psychiatric care provider is anticipated as Dr. Zuly Zurita in the coming month. - Historical psychiatric care by nurse prescriber Tim Bryant and psychiatrist Dr. Major. Employment - The patient is currently unemployed but previously worked as a nutrition services aide, sustaining an injury during employment. Patient Instructions - Schedule and complete fasting blood tests to assess cholesterol and glucose levels, as well as renal function. - Discuss influenza vaccination with family and follow up based on the decision. Orders: Orders Lipid Panel Today E66.09 - Other obesity due to excess calories, F31.2 - Bipolar disorder, current episode manic severe with psychotic features, Z00.01 - Encounter for general adult medical examination with abnormal findings TSH reflex Free T4 Today E66.09 - Other obesity due to excess calories, F31.2 - Bipolar disorder, current episode manic severe with psychotic features, Z00.01 - Encounter for general adult medical examination with abnormal findings Comprehensive [place]. Panel Fast Today E66.09 - Other obesity due to excess calories, F31.2 - Bipolar disorder, current episode manic severe with psychotic features, Z00.01 - Encounter for general adult medical examination with abnormal findings Vitamin D 25-OH (D2 and D3) Today E66.09 - Other obesity due to excess calories, F31.2 - Bipolar disorder, current episode manic severe with psychotic features, Z00.01 - Encounter for general adult medical examination with abnormal findings Vitamin B12 Today E66.09 - Other obesity due to excess calories, F31.2 - Bipolar disorder, current episode manic severe with psychotic features, Z00.01 - Encounter for general adult medical examination with abnormal findings
[2024-09-22 13:27] VITALS: BP 134/78; PULSE 96; O2SAT 97; BMI 38.0
--- OUTSIDE RECORDS SUMMARY | 2024-09-22 15:25 | XMS_ITS | Referral Summary ---
Author Organization [facility] Address [address] [place] [address] Care Team Providers Care Cat Cracker Operator Name Role Phone Radha Diaz Primary Care Provider [phone] Allergies Active Allergy Reactions Criticality Noted Date Comments Amoxicillin Hives 03/19/2022 Penicillins Hives 03/19/2022 Medications * This document contains information received from the source organization and may not represent a complete record from that organization. QUEtiapine (SEROquel) 25 mg tablet Take 87.5 mg by mouth nightly. (3.5 tabs) Active lithium 150 mg capsule Take 150 mg by mouth daily. Active lithium ER (ESKALITH) 450 mg tablet Take 900 mg by mouth at bed time. Active haloperidoL (HALDOL) 5 mg tablet Take 7.5 mg by mouth 2 times a day. Active divalproex ER (DEPAKOTE) 250 mg tablet Take 250 mg by mouth once a day. Active divalproex ER (DEPAKOTE ER) 500 mg tablet Take 1,000 mg by mouth 2 (two) times a day. Active benztropine (COGENTIN) 1 mg tablet Take 1 mg by mouth every night. Active multivitamin capsule Take 1 capsule by mouth once a day. Active vitamin E 180 mg (400 unit) capsule Take 400 Units by mouth once a day. Active Social History Tobacco Use Types Packs/Day Years Used Date Smoking Tobacco: Former Smokeless Tobacco: Never Alcohol Use Standard Drinks/Week Comments Not Currently 0 (1 standard drink = 0.6 oz pur e alcohol) Sex and Gender Information Value Date Recorded Sex Assigned at Not on file Legal Sex Male 5:09 AM EDT Gender Identity Not on file Sexual Orientation Not on file Last Filed Vital Signs Vital Sign Reading Time Taken Comments Blood Pressure 125/78 03/20/2022 10:53 AM EDT Pulse 67 03/20/2022 10:53 AM EDT Temperature 36.5 ??C (97.7 ??F) 03/20/2022 10:53 AM E DT Respiratory Rate 18 03/20/2022 10:53 AM EDT Oxygen Saturation 98% 03/20/2022 10:53 AM EDT Inhaled Oxygen Concentration - - Weight 90.7 kg (200 lb) 03/19/2022 5:25 AM EDT Height 177.8 cm (5' 10 ) 03/19/2022 5:25 AM EDT Body Mass Index 28.7 03/19/2022 5:25 AM EDT Plan of Treatment Not on file Insurance [facility] [place] [address] Care Teams Cat Cracker Operator Relationship Specialty Start Date End Date Radha Diaz [address] [place] [address] PCP - General 03/19/22
--- OUTSIDE RECORDS SUMMARY | 2024-09-22 15:25 | XMS_ITS | Clinical Summary ---
Author Organization [facility] Address [address] [place] [address] Care Team Providers Care Business Administration Instructor Name Role Phone Radha Diaz Primary Care Provider [phone] Allergies Active Allergy Reactions Criticality Noted Date [...] 03/19/2022 5:25 AM EDT Plan of Treatment Health Maintenance Due Date Last Done Comments HIV Screening 1989 Varicella Vaccines (1 of 2 - 13+ 2-dose series) 2002 Hepatitis B Vaccines (1 of 3 - 19+ 3-dose series) 2008 DTaP,Tdap,and Td Vaccines (1 - Tdap) 2011 COVID-19 Vaccine ( - 2023-2 5 season) 2024 Influenza Vaccine (#1) 2024 Alcohol/Substance Use Screening 09/01/2024 RSV Vaccine (60+ years old a nd patients) (1 - 1-dose 75+ series) 2064 Pneumococcal Vaccine: Pediat brien (0-5 Years) and At-Risk Patients (6-64 Years) Aged Out No longer eligible b ased on patient's age to complete this topic Insurance [facility] MEDICAID Care Teams Business Administration Instructor Relationship Specialty Start Date End Date Radha Diaz [address] [place] [address] PCP - General 03/19/22
== END 2024-09-22 14:06 | disposition home or self-care (01) ==
PROVIDERS: PCP Internal Medicine; Visit Provider Internal Medicine
DX: Z00.00 Encounter for general adult medical examination without abnormal findings (principal); F31.2 Bipolar disorder, current episode manic severe with psychotic features; E66.812 Obesity, class 2; Z68.38 Body mass index [BMI] 38.0-38.9, adult; R26.9 Unspecified abnormalities of gait and mobility

== ENCOUNTER → 2024-09-22 13:17 | Outpatient (BNVA) | payer OTHER, SELFPAY | PROVIDERS: PCP Internal Medicine; Visit Provider Internal Medicine | DX: Z00.01 Encounter for general adult medical examination with abnormal findings (principal); E66.09 Other obesity due to excess calories; Z68.38 Body mass index [BMI] 38.0-38.9, adult; F31.2 Bipolar disorder, current episode manic severe with psychotic features; R26.9 Unspecified abnormalities of gait and mobility; Z71.3 Dietary counseling and surveillance | CPT/HCPCS: 96127; 99385 ==

== ENCOUNTER 2024-10-13 15:37 | Outpatient (REF) | payer OTHER, SELFPAY ==
[2024-10-13 15:51] LABS: MANUAL DIFF FLAG NO
--- OUTSIDE RECORDS SUMMARY | 2024-10-13 16:26 | XMS_ITS | Clinical Summary ---
Author Organization [facility] Address [address] [place] [address] Care Team Providers Care Promotional Marketing Agent Name Role Phone Radha Diaz Primary Care Provider [phone] Allergies Active Allergy Reactions Criticality Noted Date [...] patient's age to complete this topic Insurance [facility] MEDICAID Care Teams Promotional Marketing Agent Relationship Specialty Start Date End Date Radha Diaz [address] [place] [address] PCP - General 03/19/22
--- OUTSIDE RECORDS SUMMARY | 2024-10-13 16:26 | XMS_ITS | Referral Summary ---
Author Organization [facility] Address [address] [place] [address] Care Team Providers Care Coating Engineer Name Role Phone Radha Diaz Primary Care Provider [phone] Allergies Active Allergy Reactions Criticality Noted Date [...] Plan of Treatment Not on file Insurance [facility] MEDICAID Care Teams Coating Engineer Relationship Specialty Start Date End Date Radha Diaz [address] [place] [address] PCP - General 03/19/22
[2024-10-13 16:39] LABS: Basophils Percent Auto 0.4 % (0-2); Eosinophils Absolute Auto 0.1 X10*3/uL (0.0-0.4); Eosinophils Percent Auto 1.7 % (0-4); Hemoglobin 15.1 g/dl (14.0-18.0); Imm Gran Abs Auto 0.03 X10*3/uL (0.00-0.03); Imm Gran Pct Auto 0.4 % (0.0-0.4); Lymphocytes Absolute Auto 1.7 X10*3/uL (1.2-4.9); Lymphocytes Percent Auto 20.3 % (20-40); Mean Corpuscular HGB Conc 33.6 g/dl (31.0-36.0); Mean Corpuscular Hemoglobin 28.1 pg (27.0-33.0); Mean Corpuscular Volume 83.8 fL (80.0-98.0); Mean Platelet Volume 11.1 fL (9.4-12.4); Monocytes Percent Auto 11.5 % (2-11); Neutrophils Absolute Auto 5.4 x10*3/uL (2.0-8.3); Neutrophils Percent Auto 65.7 % (45-73); Platelet Count 228 X10*3/uL (160-400); Red Blood Count 5.37 X10*6/uL (4.60-5.80); Red Cell Distribution Width 12.9 % (11.0-16.0); White Blood Count 8.3 X10*3/uL (4.8-10.8)
[2024-10-13 17:14] LABS: Alanine Aminotransferase 47 U/L (0-40); Albumin Level 4.5 g/dL (3.5-5.0); Alkaline Phosphatase 77 U/L (39-117); Anion Gap 12 (12-20); Aspartate Amino Transferase 37 U/L (5-37); Bilirubin Total 0.5 mg/dL (0.0-1.0); Blood Urea Nitrogen 14 mg/dL (9-16); Calcium 9.1 mg/dL (8.4-10.2); Carbon Dioxide 23 mmol/L (22-29); Chloride 109 mmol/L (96-108); Cholesterol 205 mg/dL (<200); Estimated Glomerular Filt Rate > 60; Glucose Fasting 101 mg/dL (60-99); HDL Cholesterol 49 mg/dL (>40); LDL Cholesterol Calculated 125 mg/dL (<100); Sodium 140 mmol/L (135-145); Total Protein 7.9 g/dL (6.5-8.0); Triglycerides 156 mg/dL (<150)
[2024-10-13 17:33] LABS: Vitamin B12 701 pg/mL (200-900)
[2024-10-16 17:23] LABS: Vitamin D 25-OH, D2 <4 ng/mL; Vitamin D 25-OH, D3 24 ng/mL; Vitamin D 25-OH, Total 24 ng/mL (30-100)
== END 2024-10-13 15:38 | disposition home or self-care (01) ==
LOC: HO.LABR 15:37
PROVIDERS: Absent Provider Internal Medicine; PCP Internal Medicine
DX: Z00.01 Encounter for general adult medical examination with abnormal findings (principal); Z79.899 Other long term (current) drug therapy; F31.2 Bipolar disorder, current episode manic severe with psychotic features; E66.09 Other obesity due to excess calories
CPT/HCPCS: 36415; 80053; 80061; 82306; 82607; 84443; 85025

== ENCOUNTER 2024-11-11 15:33 | Outpatient (REF) | payer OTHER, SELFPAY ==
[2024-11-11 15:45] LABS: MANUAL DIFF FLAG NO
[2024-11-11 17:07] LABS: Basophils Percent Auto 0.4 % (0-2); Eosinophils Absolute Auto 0.2 X10*3/uL (0.0-0.4); Eosinophils Percent Auto 2.9 % (0-4); Hemoglobin 15.2 g/dl (14.0-18.0); Imm Gran Abs Auto 0.04 X10*3/uL (0.00-0.03); Imm Gran Pct Auto 0.5 % (0.0-0.4); Lymphocytes Absolute Auto 1.6 X10*3/uL (1.2-4.9); Lymphocytes Percent Auto 21.1 % (20-40); Mean Corpuscular Volume 84.7 fL (80.0-98.0); Mean Platelet Volume 11.3 fL (9.4-12.4); Monocytes Absolute Auto 1.1 X10*3/uL (0.1-1.2); Monocytes Percent Auto 13.9 % (2-11); Neutrophils Absolute Auto 4.6 x10*3/uL (2.0-8.3); Neutrophils Percent Auto 61.2 % (45-73); Platelet Count 207 X10*3/uL (160-400); Red Blood Count 5.43 X10*6/uL (4.60-5.80); Red Cell Distribution Width 13.5 % (11.0-16.0); White Blood Count 7.6 X10*3/uL (4.8-10.8)
[2024-11-11 17:13] LABS: Estimated Average Glucose 105 mg/dL; Hemoglobin A1c % 5.3 % (<6.0)
[2024-11-11 17:36] LABS: Cholesterol 213 mg/dL (<200); HDL Cholesterol 47 mg/dL (>40); LDL Cholesterol Calculated 123 mg/dL (<100); Triglycerides 217 mg/dL (<150)
--- OUTSIDE RECORDS SUMMARY | 2024-11-11 19:07 | XMS_ITS | Referral Summary ---
Author Organization [facility] Address [address] [place] [address] Care Team Providers Care Public Address System Operator Name Role Phone Radha Diaz Primary Care Provider Allergies Active Allergy Reactions Criticality Noted Date [...] Plan of Treatment Not on file Insurance [facility] MEDICAID Care Teams Public Address System Operator Relationship Specialty Start Date End Date Radha Diaz [address] [place] [address] PCP - General 03/19/22
--- OUTSIDE RECORDS SUMMARY | 2024-11-11 19:07 | XMS_ITS | Clinical Summary ---
Author Organization [facility] Address [address] [place] [address] Care Team Providers Care Vocational Director Name Role Phone Radha Diaz Primary Care Provider [phone] Allergies Active Allergy Reactions Criticality Noted Date [...] Pediat brien (0-5 Years) and At-Risk Patients (6-50 Years) Aged Out No longer eligible b ased on patient's age to complete this topic Insurance [facility] MEDICAID Care Teams Vocational Director Relationship Specialty Start Date End Date Radha Diaz [address] [place] [address] PCP - General 03/19/22
== END 2024-11-11 15:34 | disposition home or self-care (01) ==
LOC: HO.LABR 15:33
PROVIDERS: PCP Internal Medicine
DX: Z79.899 Other long term (current) drug therapy (principal)
CPT/HCPCS: 36415; 80061; 83036; 85025

== ENCOUNTER 2024-11-24 15:02 | Outpatient (AMB) | payer OTHER, SELFPAY ==
--- NOTE | 2024-11-24 15:08 | MHC.PC.OV ---
Vital Signs 11/24/24 15:12 Height 6 ft Weight 293 lb BMI 39.7 BP 128/80 Blood Pressure Location Lt brachial Position Sitting Pulse 86 Pulse Source Pulse Oximeter Pulse Oximetry (%) 97 Oxygen Delivery Method Room Air Intake Visit Reasons: Diabetes Allergies penicillin G [Penicillin G] Allergy (Mild, Verified 11/24/24 15:13) HIVES amoxicillin [Amoxicillin] Allergy (Unknown, Verified 11/24/24 15:13) HIVES penicillin V Allergy (Unknown, Verified 11/24/24 15:13) hives Medication List - Last Reconciled 11/24/24 by Enrrique Goetz MD benztropine 1 tab PO BEDTIME clozapine 100 mg PO BEDTIME 30 days clozapine 12.5 mg (1/2 x 25 mg) PO BEDTIME 30 days divalproex ER 2 tabs PO BID divalproex ER 500 mg PO BEDTIME 30 days haloperidol 0.5 tabs PO BID lithium carbonate 300 mg PO DAILY 30 days lithium carbonate ER 900 mg PO BEDTIME multivitamin with folic acid 400 mcg (Tab-A-Daniel) 1 tab PO DAILY vitamin E (dl, acetate) 1 cap PO DAILY Tobacco use date assessed: 11/24/24 Dental Screening Dental Screen Date: 11/24/24 Did you have a dental visit in the last 12 months?: Yes Did you have a dental problem in the last 6 months where you did not have access to dental care?: No Was dental information given to patient?: Patient has dentist HPI Diabetes HPI Details History - The patient is a 34-year-old male presenting with a need for follow-up on laboratory results and discussion of weight management. - Recently diagnosed with prediabetes, based on laboratory evaluations, with an A1c value of 5.3%. There is a familial predisposition to diabetes as his father also has the condition. - He has experienced significant weight gain, currently weighing 293 pounds, compared to a prior weight of approximately 160 pounds. - The patient is currently taking Clozapine, which is noted for causing weight gain. - Laboratory results confirmed low levels of vitamin D. Problem List - Prediabetes - Obesity - Vitamin D Deficiency Patient Instructions - Engage in regular exercise to facilitate weight loss. - Aim to lose weight to reduce the risk of developing diabetes. - Begin taking a vitamin D supplement to address deficiency. - Avoid sugary foods and beverages, including sodas and regular sugary snacks. - Expect a call to schedule an appointment with a weight loss management program. In the presence of patient his father was contacted and case discussed over the telephone Patient suffers from psychiatric illness as well Review of Systems - General: No fever no chills - Neurological: No headaches no dizziness - Ear nose throat: No sore throat no hearing difficulty no ear pain - Cardiovascular: No syncope, no chest pain, no palpitations - Gastrointestinal: No nausea vomiting or diarrhea - Endocrine: No polyuria polydipsia no heat intolerance - Genitourinary: No dysuria , no blood in urine Physical Exam - General: No acute distress - HEENT: No acute findings - Neck: Supple - Respiratory system: Able to talk in full sentences, no audible wheeze - Cardiovascular: S1-S2 regular in rate and rhythm - Gastrointestinal: No pain - Extremities: No new findings - WALL INSULATION SPRAYER: Alert awake oriented x3 motor sensory intact - Skin: Normal turgor [facility] Medical History Bipolar disorder Social History Household Members: None Household Members Other:: 0 Housing: Apartment Do you presently have visiting nurse or other home services: No Unable to assess alcohol history related to: Unknown Alcohol intake: never Comment: M3 Patient Tobacco Use Status: Never used Tobacco e-Cigarette/Vaping Use: Never Used Second Hand Smoke Exposure: No Substance Use Type: Caffiene service: No Current occupational status: disabled Sexual orientation: Straight/Heterosexual Cognitive needs: No Hearing needs: No Vision needs: Yes Questionnaire Thrive Questionnaire Date Thrive assessed: 09/22/24 I am a: Patient What is your living situation today?: I have a steady place to live Within the past 12 months, did the food you bought not last and you didn't have the money to get more?: Sometimes True Within the past 12 months, did you worry whether your food would run out before you got money to buy more?: Sometimes True Do you have trouble paying for medicines?: No Do you have trouble getting transportation to medical appointments?: No Do you have trouble paying your heating and electricity bill?: No Do you have trouble taking care of your child, family member or friend?: No Do you have trouble with day-to-day activities such as bathing, preparing meals, shopping, managing finances, etc.?: No Are you currently unemployed and looking for a job?: No Are you interested in more education?: Yes Please select the resources that you would like help with: None Currently or been in a relationship where the following occur: No concerns reported THRIVE Score: 2 AUDIT C Alcohol Use Questionnaire (AUDIT-C) 1. How often do you have a drink containing alcohol?: Monthly or less 2. How many drinks containing alcohol do you have on a typical day when you are drinking?: 1 or 2 3. How often do you have six or more drinks on one occasion?: Never Total Score: 1 Score Reviewed/Action Taken: Yes Physical exam (Primary Care) Vital Signs: Last Vital Signs Pulse 86 11/24/24 15:12 BP 128/80 11/24/24 15:12 Pulse Ox 97 11/24/24 15:12 Oxygen Delivery Method Room Air 11/24/24 15:12 BMI result Body Mass Index 39.7 Tobacco/Smoking Status: Tobacco use Status Tobacco use date assessed 11/24/24 11/24/24 15:13 Patient Tobacco Use Status Never used Tobacco 11/24/24 15:09 e-Cigarette/Vaping Use Never Used 11/24/24 15:09 Thrive Assessment: Date of Thrive Assessment Date Thrive assessed 09/22/24 11/24/24 15:09 Currently or been in a relationship where the following occur: No concerns reported Coding Level of Care Code Est Pt Level 4 (65341) Diagnoses Morbid obesity due to excess calories E66.01 Pre-diabetes R73.03 Vitamin D deficiency E55.9 LFT elevation R79.89 Bipolar affective, manic, severe w/ psych F31.2 Assessment & Plan Assessment & Plan (1) Morbid obesity due to excess calories: Code(s): E66.01 - Morbid (severe) obesity due to excess calories Category: Medical (2) Pre-diabetes: Code(s): R73.03 - Prediabetes Category: Medical (3) Vitamin D deficiency: Code(s): E55.9 - Vitamin D deficiency, unspecified Category: Medical (4) LFT elevation: Code(s): R79.89 - Other specified abnormal findings of blood chemistry Category: Medical (5) Bipolar affective, manic, severe w/ psych: Code(s): F31.2 - Bipolar disorder, current episode manic severe with psychotic features Category: Medical Plan History - The patient is a 34-year-old male presenting with a need for follow-up on laboratory results and discussion of weight management. - Recently diagnosed with prediabetes, based on laboratory evaluations, with an A1c value of 5.3%. There is a familial predisposition to diabetes as his father also has the condition. - He has experienced significant weight gain, currently weighing 293 pounds, compared to a prior weight of approximately 160 pounds. - The patient is currently taking Clozapine, which is noted for causing weight gain. - Laboratory results confirmed low levels of vitamin D. Problem List - Prediabetes - Obesity - Vitamin D Deficiency Patient Instructions - Engage in regular exercise to facilitate weight loss. - Aim to lose weight to reduce the risk of developing diabetes. - Begin taking a vitamin D supplement to address deficiency. - Avoid sugary foods and beverages, including sodas and regular sugary snacks. - Expect a call to schedule an appointment with a weight loss management program. In the presence of patient his father was contacted and case discussed over the telephone Patient suffers from psychiatric illness as well Orders: Referrals Metabolic Clinic Referral E66.01 - Morbid (severe) obesity due to excess calories
[2024-11-24 15:12] VITALS: BP 128/80; PULSE 86; O2SAT 97; BMI 39.7
== END 2024-11-24 15:28 | disposition home or self-care (01) ==
LOC: HO.HMCC 15:04
PROVIDERS: PCP Internal Medicine; Visit Provider Internal Medicine
DX: R73.03 Prediabetes (principal); E66.01 Morbid (severe) obesity due to excess calories; F31.2 Bipolar disorder, current episode manic severe with psychotic features; Z68.39 Body mass index [BMI] 39.0-39.9, adult; E55.9 Vitamin D deficiency, unspecified; R79.89 Other specified abnormal findings of blood chemistry

== ENCOUNTER → 2024-11-24 15:02 | Outpatient (BNVA) | payer OTHER, SELFPAY | PROVIDERS: PCP Internal Medicine; Visit Provider Internal Medicine | DX: E66.01 Morbid (severe) obesity due to excess calories (principal); Z68.39 Body mass index [BMI] 39.0-39.9, adult; R73.03 Prediabetes; E55.9 Vitamin D deficiency, unspecified; R79.89 Other specified abnormal findings of blood chemistry; F31.2 Bipolar disorder, current episode manic severe with psychotic features; Z71.3 Dietary counseling and surveillance | CPT/HCPCS: 99212 ==

== ENCOUNTER 2024-12-13 14:24 | Outpatient (REF) | payer OTHER, SELFPAY ==
[2024-12-13 14:35] LABS: MANUAL DIFF FLAG NO
[2024-12-13 14:58] LABS: Basophils Percent Auto 0.5 % (0-2); Eosinophils Absolute Auto 0.3 X10*3/uL (0.0-0.4); Eosinophils Percent Auto 3.4 % (0-4); Hematocrit 45.6 % (42.0-52.0); Hemoglobin 15.2 g/dl (14.0-18.0); Imm Gran Abs Auto 0.03 X10*3/uL (0.00-0.03); Imm Gran Pct Auto 0.4 % (0.0-0.4); Lymphocytes Absolute Auto 1.6 X10*3/uL (1.2-4.9); Lymphocytes Percent Auto 21.2 % (20-40); Mean Corpuscular HGB Conc 33.3 g/dl (31.0-36.0); Mean Corpuscular Hemoglobin 28.3 pg (27.0-33.0); Mean Corpuscular Volume 84.8 fL (80.0-98.0); Mean Platelet Volume 10.7 fL (9.4-12.4); Monocytes Absolute Auto 0.8 X10*3/uL (0.1-1.2); Monocytes Percent Auto 11.2 % (2-11); Neutrophils Absolute Auto 4.6 x10*3/uL (2.0-8.3); Neutrophils Percent Auto 63.3 % (45-73); Platelet Count 210 X10*3/uL (160-400); Red Blood Count 5.38 X10*6/uL (4.60-5.80); Red Cell Distribution Width 13.7 % (11.0-16.0); White Blood Count 7.3 X10*3/uL (4.8-10.8)
--- OUTSIDE RECORDS SUMMARY | 2024-12-13 16:48 | XMS_ITS | Referral Summary ---
Author Organization [facility] Address [address] [place] [address] Care Team Providers Care Packager Hand Name Role Phone Radha Diaz Primary Care Provider [phone] Allergies Active Allergy Reactions Criticality Noted Date [...] Plan of Treatment Not on file Insurance [facility] [place] [address] Care Teams Packager Hand Relationship Specialty Start Date End Date Radha Diaz [address] [place] [address] PCP - General 03/19/22
--- OUTSIDE RECORDS SUMMARY | 2024-12-13 16:48 | XMS_ITS | Clinical Summary ---
Author Organization [facility] Address [address] [place] [address] Care Team Providers Care Staff Physician Name Role Phone Radha Diaz Primary Care [...] Vaccine ( - 2023-2 5 season) 2024 Alcohol/Substance Use Screening 09/01/2024 Influenza Vaccine (Season Ended) 2025 RSV Vaccine (60+ years old a nd patients) (1 - 1-dose 75+ series) 2064 Pneumococcal Vaccine: Pediat brien (0-5 Years) and At-Risk Patients (6-50 Years) Aged Out No longer eligible b ased on patient's age to complete this topic Insurance [facility] MEDICAID Care Teams Staff Physician Relationship Specialty Start Date End Date Radha Diaz [address] [place] [address] PCP - General 03/19/22
== END 2024-12-13 14:25 | disposition home or self-care (01) ==
LOC: HO.LABR 14:24
PROVIDERS: PCP Internal Medicine
DX: Z79.899 Other long term (current) drug therapy (principal)
CPT/HCPCS: 36415; 85025

== ENCOUNTER 2025-01-17 13:48 | Outpatient (REF) | payer OTHER, SELFPAY ==
--- OUTSIDE RECORDS SUMMARY | 2025-01-17 13:53 | XMS_ITS | Referral Summary ---
Author Organization [facility] Address [address] [place] [address] Care Team Providers Care Electronic Device Repairer Name Role Phone Radha Diaz Primary Care Provider [phone] Allergies Active Allergy Reactions Criticality Noted Date [...] Plan of Treatment Not on file Insurance [facility] MEDICAID Care Teams Electronic Device Repairer Relationship Specialty Start Date End Date Radha Diaz [address] [place] [address] PCP - General 03/19/22
--- OUTSIDE RECORDS SUMMARY | 2025-01-17 13:53 | XMS_ITS | Clinical Summary ---
Author Organization [facility] Address [address] [place] [address] Care Team Providers Care Manager Graphic Name Role Phone Radha Diaz Primary Care Provider [phone] Allergies Active Allergy Reactions Criticality Noted Date [...] patient's age to complete this topic Insurance [facility] MEDICAID Care Teams Manager Graphic Relationship Specialty Start Date End Date Radha Diaz [address] [place] [address] PCP - General 03/19/22
[2025-01-17 13:58] LABS: MANUAL DIFF FLAG NO
[2025-01-17 14:44] LABS: Basophils Percent Auto 0.6 % (0-2); Eosinophils Absolute Auto 0.2 X10*3/uL (0.0-0.4); Eosinophils Percent Auto 3.4 % (0-4); Hematocrit 46.3 % (42.0-52.0); Hemoglobin 15.3 g/dl (14.0-18.0); Imm Gran Abs Auto 0.05 X10*3/uL (0.00-0.03); Imm Gran Pct Auto 0.8 % (0.0-0.4); Lymphocytes Absolute Auto 1.8 X10*3/uL (1.2-4.9); Lymphocytes Percent Auto 27.9 % (20-40); Mean Corpuscular Hemoglobin 28.7 pg (27.0-33.0); Mean Corpuscular Volume 86.9 fL (80.0-98.0); Mean Platelet Volume 10.9 fL (9.4-12.4); Monocytes Absolute Auto 0.8 X10*3/uL (0.1-1.2); Monocytes Percent Auto 11.8 % (2-11); Neutrophils Absolute Auto 3.6 x10*3/uL (2.0-8.3); Neutrophils Percent Auto 55.5 % (45-73); Platelet Count 217 X10*3/uL (160-400); Red Blood Count 5.33 X10*6/uL (4.60-5.80); Red Cell Distribution Width 13.6 % (11.0-16.0); White Blood Count 6.5 X10*3/uL (4.8-10.8)
== END 2025-01-17 13:49 | disposition home or self-care (01) ==
LOC: HO.LABR 13:48
PROVIDERS: PCP Internal Medicine
DX: Z79.899 Other long term (current) drug therapy (principal)
CPT/HCPCS: 36415; 85025

== ENCOUNTER 2025-02-24 15:32 | Outpatient (REF) | payer OTHER, SELFPAY ==
[2025-02-24 16:01] LABS: MANUAL DIFF FLAG NO
[2025-02-24 16:14] LABS: Basophils Percent Auto 0.3 % (0-2); Eosinophils Absolute Auto 0.2 X10*3/uL (0.0-0.4); Eosinophils Percent Auto 3.2 % (0-4); Hematocrit 44.6 % (42.0-52.0); Hemoglobin 14.9 g/dl (14.0-18.0); Imm Gran Abs Auto 0.02 X10*3/uL (0.00-0.03); Imm Gran Pct Auto 0.3 % (0.0-0.4); Lymphocytes Absolute Auto 1.5 X10*3/uL (1.2-4.9); Lymphocytes Percent Auto 21.6 % (20-40); Mean Corpuscular HGB Conc 33.4 g/dl (31.0-36.0); Mean Corpuscular Hemoglobin 28.6 pg (27.0-33.0); Mean Corpuscular Volume 85.6 fL (80.0-98.0); Mean Platelet Volume 10.4 fL (9.4-12.4); Monocytes Absolute Auto 0.8 X10*3/uL (0.1-1.2); Monocytes Percent Auto 11.8 % (2-11); Neutrophils Absolute Auto 4.3 x10*3/uL (2.0-8.3); Neutrophils Percent Auto 62.8 % (45-73); Platelet Count 194 X10*3/uL (160-400); Red Blood Count 5.21 X10*6/uL (4.60-5.80); White Blood Count 6.9 X10*3/uL (4.8-10.8)
--- OUTSIDE RECORDS SUMMARY | 2025-02-24 19:11 | XMS_ITS | Clinical Summary ---
Author Organization [facility] Address [address] [place] [address] Care Team Providers Care Dev Technical Mgr Name Role Phone Radha Diaz Primary Care Provider [phone] Allergies Active Allergy Reactions Criticality Noted Date [...] 66 03/20/2022 10:53 AM EDT Temperature 36.5 C (97.7 F) 03/20/2022 10:53 AM EDT Respiratory Rate 18 03/20/2022 10:53 AM EDT [...] Vaccines (1 - Tdap) 2011 COVID-19 Vaccine (2023-2 5 season) 2024 Alcohol/Substance Use Screening 09/01/2024 Influenza Vaccine (Season Ended) 2025 RSV Vaccine (60+ years old a nd patients) (1 - 1-dose 75+ series) 2064 Pneumococcal Vaccine: Pediat brien (0-5 Years) and At-Risk Patients (6-50 Years) Aged Out No longer eligible b ased on patient's age to complete this topic Insurance [facility] MEDICAID Care Teams Dev Technical Mgr Relationship Specialty Start Date End Date Radha Diaz [address] [place] [address] PCP - General 03/19/22
== END 2025-02-24 15:33 | disposition home or self-care (01) ==
LOC: HO.LABR 15:32
PROVIDERS: PCP Internal Medicine
DX: Z79.899 Other long term (current) drug therapy (principal)
CPT/HCPCS: 36415; 85025

== ENCOUNTER 2025-04-01 15:12 | Outpatient (REF) | payer OTHER, SELFPAY ==
--- OUTSIDE RECORDS SUMMARY | 2025-04-01 15:17 | XMS_ITS | Clinical Summary ---
Author Organization [facility] Address [address] [place] [address] Care Team Providers Care Hand Wrapper Operator Name Role Phone Radha Diaz Primary Care Provider [phone] Allergies Active Allergy Reactions Criticality Noted Date [...] 2024 Alcohol/Substance Use Screening 09/01/2024 Influenza Vaccine (#1) 2025 RSV Vaccine (60+ years old a nd patients) (1 - 1-dose 75+ series) 2064 Pneumococcal Vaccine: Pediat brien (0-5 Years) and At-Risk Patients (6-50 Years) Aged Out No longer eligible b ased on patient's age to complete this topic Insurance [facility] MEDICAID Care Teams Hand Wrapper Operator Relationship Specialty Start Date End Date Radha Diaz [address] [place] [address] PCP - General 03/19/22
[2025-04-01 15:25] LABS: MANUAL DIFF FLAG NO
[2025-04-01 15:55] LABS: Hematocrit 41.3 % (42.0-52.0); Hemoglobin 14.4 g/dl (14.0-18.0); Imm Gran Abs Auto 0.05 X10*3/uL (0.00-0.03); Imm Gran Pct Auto 0.6 % (0.0-0.4); Lymphocytes Absolute Auto 2.0 X10*3/uL (1.2-4.9); Mean Corpuscular HGB Conc 34.9 g/dl (31.0-36.0); Mean Corpuscular Hemoglobin 29.1 pg (27.0-33.0); Mean Corpuscular Volume 83.6 fL (80.0-98.0); NRBC Abs Auto 0.000 X10*3/uL (0.0-0.012); NRBC Pct Auto 0.0 /100WBC (0.0-0.2); Platelet Count 228 X10*3/uL (160-400); Red Blood Count 4.94 X10*6/uL (4.60-5.80); White Blood Count 7.9 X10*3/uL (4.8-10.8)
== END 2025-04-01 15:13 | disposition home or self-care (01) ==
LOC: HO.LABR 15:12
PROVIDERS: PCP Internal Medicine
DX: Z79.899 Other long term (current) drug therapy (principal)
CPT/HCPCS: 36415; 85025

== ENCOUNTER 2025-05-26 14:33 | Outpatient (REF) | payer OTHER, SELFPAY ==
[2025-05-26 14:49] LABS: MANUAL DIFF FLAG NO
[2025-05-26 15:09] LABS: Hematocrit 43.9 % (42.0-52.0); Hemoglobin 14.7 g/dl (14.0-18.0); Imm Gran Abs Auto 0.03 X10*3/uL (0.00-0.03); Imm Gran Pct Auto 0.4 % (0.0-0.4); Lymphocytes Absolute Auto 2.0 X10*3/uL (1.2-4.9); Mean Corpuscular HGB Conc 33.5 g/dl (31.0-36.0); Mean Corpuscular Hemoglobin 28.8 pg (27.0-33.0); Mean Corpuscular Volume 86.1 fL (80.0-98.0); NRBC Abs Auto 0.000 X10*3/uL (0.0-0.012); NRBC Pct Auto 0.0 /100WBC (0.0-0.2); Platelet Count 211 X10*3/uL (160-400); Red Blood Count 5.10 X10*6/uL (4.60-5.80); White Blood Count 7.5 X10*3/uL (4.8-10.8)
--- OUTSIDE RECORDS SUMMARY | 2025-05-26 18:56 | XMS_ITS | Clinical Summary ---
Author Organization [facility] Address [address] [place] [address] Care Team Providers Care Barrel Charrer Name Role Phone Radha Diaz Primary Care Provider [phone] Allergies Active Allergy Reactions Criticality Noted Date [...] DTaP,Tdap,and Td Vaccines (1 - Tdap) 2011 Alcohol/Substance Use Screening 09/01/2024 COVID-19 Vaccine (1 - 2023-2 5 season) 2025 Influenza Vaccine (#1) 2025 RSV Vaccine (60+ years old a nd patients) (1 - 1-dose 75+ series) 2064 Pneumococcal Vaccine: Pediat brien (0-5 Years) and At-Risk Patients (6-50 Years) Aged Out No longer eligible b ased on patient's age to complete this topic Insurance [facility] MEDICAID Care Teams Barrel Charrer Relationship Specialty Start Date End Date Radha Diaz [address] [place] [address] PCP - General 03/19/22
== END 2025-05-26 14:34 | disposition home or self-care (01) ==
LOC: HO.LABR 14:33
PROVIDERS: PCP Internal Medicine
DX: Z79.899 Other long term (current) drug therapy (principal)
CPT/HCPCS: 36415; 85025

== ENCOUNTER 2025-06-29 15:32 | Outpatient (REF) | payer OTHER, SELFPAY ==
[2025-06-29 16:23] LABS: Hemoglobin A1C 136.0565 umol/L; Total Hemoglobin (HGBA1C) 3847.2582 umol/L
[2025-06-29 16:30] LABS: Cholesterol 223 mg/dL (<200); HDL Cholesterol 44 mg/dL (>40); Triglycerides 167 mg/dL (<150)
--- OUTSIDE RECORDS SUMMARY | 2025-06-29 19:51 | XMS_ITS | Clinical Summary ---
Author Organization [facility] Address [address] [place] [address] Care Team Providers Care Boxing Inspector Name Role Phone Radha Diaz Primary Care Provider [phone] Allergies Active Allergy Reactions Criticality Noted Date [...] Use Screening 09/01/2024 COVID-19 Vaccine (1 - 2024-2 6 season) 2025 Influenza Vaccine (#1) 2025 RSV Vaccine (60+ years old a nd patients) (1 - 1-dose 75+ series) 2064 Pneumococcal Vaccine: Pediat brien (0-5 Years) and At-Risk Patients (6-50 Years) Aged Out No longer eligible b ased on patient's age to complete this topic Insurance [facility] MEDICAID Care Teams Boxing Inspector Relationship Specialty Start Date End Date Radha Diaz [address] [place] [address] PCP - General 03/19/22
== END 2025-06-29 15:33 | disposition home or self-care (01) ==
LOC: HO.LABR 15:32
PROVIDERS: PCP Internal Medicine
DX: Z79.899 Other long term (current) drug therapy (principal)
CPT/HCPCS: 36415; 80061; 83036

== ENCOUNTER 2025-07-22 16:16 | Outpatient (REF) | payer OTHER, SELFPAY ==
--- OUTSIDE RECORDS SUMMARY | 2025-07-22 16:19 | XMS_ITS | Clinical Summary ---
Author Organization [facility] Address [address] [place] [address] Care Team Providers Care Dental Professional Name Role Phone Radha Diaz Primary Care Provider [phone] Allergies Active Allergy Reactions Criticality Noted Date [...] - Tdap) 2011 Alcohol/Substance Use Screening 09/01/2024 Influenza Vaccine (#1) 2025 COVID-19 Vaccine (1 - 2024-2 6 season) 2025 Pneumococcal Vaccine: Pediat brien (0-5 Years) and At-Risk Patients (6-50 Years) Aged Out No longer eligible b ased on patient's age to complete this topic Insurance [facility] MEDICAID Care Teams Dental Professional Relationship Specialty Start Date End Date Radha Diaz [address] [place] [id number] PCP - General 03/19/22
[2025-07-22 16:35] LABS: MANUAL DIFF FLAG NO
[2025-07-22 17:07] LABS: Hematocrit 44.1 % (42.0-52.0); Hemoglobin 14.6 g/dl (14.0-18.0); Imm Gran Abs Auto 0.02 X10*3/uL (0.00-0.03); Imm Gran Pct Auto 0.3 % (0.0-0.4); Lymphocytes Absolute Auto 1.8 X10*3/uL (1.2-4.9); Mean Corpuscular HGB Conc 33.1 g/dl (31.0-36.0); Mean Corpuscular Hemoglobin 28.5 pg (27.0-33.0); Mean Corpuscular Volume 86.1 fL (80.0-98.0); NRBC Abs Auto 0.000 X10*3/uL (0.0-0.012); NRBC Pct Auto 0.0 /100WBC (0.0-0.2); Platelet Count 182 X10*3/uL (160-400); Red Blood Count 5.12 X10*6/uL (4.60-5.80); White Blood Count 6.8 X10*3/uL (4.8-10.8)
[2025-07-22 17:48] LABS: Cholesterol 227 mg/dL (<200); HDL Cholesterol 42 mg/dL (>40); Triglycerides 147 mg/dL (<150)
== END 2025-07-22 16:17 | disposition home or self-care (01) ==
LOC: HO.LABR 16:16
PROVIDERS: PCP Internal Medicine
DX: Z79.899 Other long term (current) drug therapy (principal)
CPT/HCPCS: 36415; 80061; 83036; 85025

== ENCOUNTER 2025-08-19 14:36 | Outpatient (REF) | payer OTHER, SELFPAY ==
[2025-08-19 14:58] LABS: MANUAL DIFF FLAG NO
[2025-08-19 15:40] LABS: Hematocrit 45.9 % (42.0-52.0); Hemoglobin 15.5 g/dl (14.0-18.0); Imm Gran Abs Auto 0.02 X10*3/uL (0.00-0.03); Imm Gran Pct Auto 0.3 % (0.0-0.4); Lymphocytes Absolute Auto 1.8 X10*3/uL (1.2-4.9); Mean Corpuscular HGB Conc 33.8 g/dl (31.0-36.0); Mean Corpuscular Hemoglobin 28.6 pg (27.0-33.0); Mean Corpuscular Volume 84.7 fL (80.0-98.0); NRBC Abs Auto 0.000 X10*3/uL (0.0-0.012); NRBC Pct Auto 0.0 /100WBC (0.0-0.2); Platelet Count 198 X10*3/uL (160-400); Red Blood Count 5.42 X10*6/uL (4.60-5.80); White Blood Count 7.4 X10*3/uL (4.8-10.8)
--- OUTSIDE RECORDS SUMMARY | 2025-08-19 16:03 | XMS_ITS | Clinical Summary ---
Author Organization [facility] Address [address] [place] [address] Care Team Providers Care Enterostomal Therapy Nurse Name Role Phone Radha Diaz Primary Care Provider [phone] Allergies Active Allergy Reactions Criticality Noted Date [...] patient's age to complete this topic Insurance [facility] MEDICAID Care Teams Enterostomal Therapy Nurse Relationship Specialty Start Date End Date Radha Diaz [address] [place] [id number] PCP - General 03/19/22
[2025-08-19 16:36] LABS: Hemoglobin A1C 94.5145 umol/L
[2025-08-19 16:42] LABS: Cholesterol 205 mg/dL (<200); HDL Cholesterol 41 mg/dL (>40); Triglycerides 174 mg/dL (<150)
== END 2025-08-19 14:37 | disposition home or self-care (01) ==
LOC: HO.LABR 14:36
PROVIDERS: PCP Internal Medicine
DX: Z79.899 Other long term (current) drug therapy (principal)
CPT/HCPCS: 36415; 80061; 83036; 85025